=== PATIENT | male | born 1975 | race Caucasian/White ===

== ENCOUNTER 2020-05-26 12:33 | Outpatient (REF) | payer OTHER, SELFPAY ==
--- NOTE | ~2020-05-26 | US_ITS ---
EXAMINATION: US VENOUS ULTRASOUND WITH DOPPLER LOWER EXTREMITY, RIGHT CLINICAL INFORMATION: Nonhealing ulcer. COMPARISON: None TECHNIQUE: Ultrasound of the deep veins is performed from the hip to the calf with compression sonography and color and pulse Doppler assessment. Spectral analysis with color-flow imaging is performed. FINDINGS: There is normal venous compression and respiratory variation and augmented flow. The visualized common femoral vein, superficial femoral vein, profunda femoral vein, popliteal vein, and the trifurcation region shows no evidence of deep venous thrombosis. There is no significant popliteal fossa cyst. Great saphenous vein not well visualized on the ankle due to wound dressing position. If the patient's symptoms persist, followup ultrasound in 5 days 7 days might be of value to exclude proximal propagation from a non-visualized calf vein. US/US venous duplex LE RT IMPRESSION: No DVT demonstrated in the RIGHT lower extremity.
== END 2020-05-26 12:34 | disposition home or self-care (01) ==
LOC: HO.US 12:33
PROVIDERS: PCP Nurse Practitioner Family; Visit Provider Physician Assistant
DX: I73.9 Peripheral vascular disease, unspecified (principal); L97.212 Non-pressure chronic ulcer of right calf with fat layer exposed
CPT/HCPCS: 93971

== ENCOUNTER 2020-09-15 10:33 | Outpatient (REF) | payer OTHER, SELFPAY ==
--- NOTE | ~2020-09-15 | US_ITS ---
EXAMINATION: COLOR-FLOW DUPLEX IMAGING OF THE UNILATERAL RIGHT LOWER EXTREMITY ARTERIAL SYSTEM. VELOCITY MEASUREMENTS THROUGHOUT THE FEMORAL ARTERIES Interventional Radiologist: Rohan Santo M.D., F.S.I.R., F.A.C.R. CLINICAL INFORMATION: This is a 45-year-old male with right leg peripheral vascular disease. RIGHT FEMORAL RUNOFF VELOCITIES: The right common femoral artery measures 146 cm/s and triphasic. The right profunda femoral artery is 189 cm/s and is biphasic. Right proximal superficial femoral artery measures 55 cm/s and biphasic. Mid superficial femoral artery is 21 cm/s and biphasic. Distal right superficial femoral artery measures 39 cm/s and is biphasic. Right popliteal velocity measures 47 cm/s and is biphasic. The posterior tibial artery velocity measures 30 cm/s and was biphasic. US/US arterial duplex LE RT IMPRESSION: 1. There is scattered atherosclerotic disease present. However, no focal high-grade hemodynamically significant stenosis is seen.
--- NOTE | ~2020-09-15 | US_ITS ---
EXAMINATION: BILATERAL LOWER EXTREMITY VENOUS ULTRASOUND (Reflux Exam) CLINICAL INDICATION: This is a 45-year-old male with venous insufficiency. Varicose veins in the right leg. COMPARISON: None. TECHNIQUE: Color flow triplex imaging and compression Doppler was performed to evaluate both the deep and the superficial systems bilaterally. To evaluate the superficial system, the examination was performed in the upright position. Color-flow Doppler ultrasound and compression ultrasound were utilized. In addition, maneuvers were utilized to demonstrate reflux. FINDINGS: 1. DEEP VENOUS ULTRASOUND OF THE RIGHT LOWER EXTREMITY: Common Femoral Vein: Compressible, normal respiratory variation and augmented flow. Femoral vein: Compressible, normal color flow and augmentation. Popliteal Vein: Compressible, normal augmentation. Deep Reflux: There is no evidence of reflux in the deep system in either the common femoral vein or the popliteal vein. . There is no evidence of a Ball's cyst. 2. SUPERFICIAL ULTRASOUND WITH DOPPLER OF RIGHT LOWER EXTREMITY GREAT SAPHENOUS VEIN: Saphenofemoral junction: 0.6 cm Mid thigh: 0.3 cm Above knee: 0.3 cm Below knee: 0.3 cm Mid calf: 0.3 cm Ankle: Not seen. GSV REFLUX: No evidence of reflux. DUPLICATED GREAT SAPHENOUS VEIN: None SMALL SAPHENOUS VEIN: Upper: 0.6 cm Lower: 0.2 cm SSV REFLUX: No evidence of reflux. VEIN OF GIACOMINI: None Imaged. PERFORATORS: There is a 0.2 cm bundle cutter in the proximal thigh without evidence of reflux. VARICOSITIES: None Imaged US/US venous duplex LE RT IMPRESSION: 1. There is a patent right great saphenous vein and right small saphenous vein without evidence of reflux. No varicose veins are seen. No venous insufficiency is demonstrated.
== END 2020-09-15 10:34 | disposition home or self-care (01) ==
LOC: HO.US 10:33
PROVIDERS: Visit Provider Physician Assistant
DX: I73.9 Peripheral vascular disease, unspecified (principal); I87.2 Venous insufficiency (chronic) (peripheral)
CPT/HCPCS: 93926; 93971

== ENCOUNTER 2021-11-10 08:38 | Outpatient (REF) | payer OTHER, SELFPAY ==
--- NOTE | ~2021-11-10 | US_ITS ---
EXAMINATION: US LOWER EXTREMITY VENOUS (REFLUX EXAM), BILATERAL CLINICAL INDICATION: Chronic venous insufficiency with lower extremity varicose veins COMPARISON: None. TECHNIQUE: Color flow triplex imaging and compression Doppler was performed to evaluate both the deep and the superficial systems bilaterally. To evaluate the superficial system, the examination was performed in the upright position. Color-flow Doppler ultrasound and compression ultrasound were utilized. In addition, maneuvers were utilized to demonstrate reflux. FINDINGS: 1. DEEP VENOUS ULTRASOUND OF THE RIGHT LOWER EXTREMITY: Common Femoral Vein: Compressible, normal respiratory variation and augmented flow. Femoral Vein: Compressible, normal color flow and augmentation. Popliteal Vein: Compressible, normal augmentation. Deep Reflux: There is no evidence of reflux in the deep system in either the common femoral vein or the popliteal vein. There is no evidence of a Ball's cyst. 2. SUPERFICIAL ULTRASOUND WITH DOPPLER OF RIGHT LOWER EXTREMITY: GREAT SAPHENOUS VEIN: Saphenofemoral Junction: 0.7 cm; Reflux: 0 ms Proximal Thigh: 0.5 cm; Reflux: 0 ms Mid Thigh: 0.4 cm; Reflux: 0 ms Above Knee: 0.4 cm; Reflux: 0 ms At Knee: 0.5 cm; Reflux: 0 ms Below Knee: 0.5 cm; Reflux: 0 ms Mid Calf: 0.3 cm; Reflux: 0 ms Ankle: 0.3 cm; Reflux: 0 ms DUPLICATED MEDIAL GREAT SAPHENOUS VEIN: Diameter: None Imaged Reflux: NA DUPLICATED LATERAL GREAT SAPHENOUS VEIN: Diameter: 0.3 cm Reflux: None SMALL SAPHENOUS VEIN: Proximal: 0.3 cm; Reflux: 0 ms Distal: 0.2 cm; Reflux: 0 ms VEIN OF GIACOMINI: None Imaged. PERFORATORS: Location: Proximal calf extending to the great saphenous vein Size: 0.3 cm Reflux: Reflux measuring 376 ms VARICOSITIES: Location: Proximal thigh, mid thigh and proximal calf Size: 0.3 cm Reflux: 372 ms 3. DEEP VENOUS ULTRASOUND OF THE LEFT LOWER EXTREMITY: Common Femoral Vein: Compressible, normal respiratory variation and augmented flow. Femoral Vein: Compressible, normal color flow and augmentation. Popliteal Vein: Compressible, normal augmentation. Deep Reflux: There is no evidence of reflux in the deep system in either the common femoral vein or the popliteal vein. There is no evidence of a Ball's cyst. 4. SUPERFICIAL ULTRASOUND WITH DOPPLER OF LEFT LOWER EXTREMITY: GREAT SAPHENOUS VEIN: Saphenofemoral Junction: 0.6 cm; Reflux: 0 ms Proximal Thigh: 0.6 cm; Reflux: 0 ms Mid Thigh: 0.3 cm; Reflux: 0 ms Above Knee: 0.4 cm; Reflux: 0 ms At Knee: 0.4 cm; Reflux: 0 ms Below Knee: 0.3 cm; Reflux: 0 ms Mid Calf: 0.2 cm; Reflux: 0 ms Ankle: 0.2 cm; Reflux: 0 ms DUPLICATED MEDIAL GREAT SAPHENOUS VEIN: Diameter: None Imaged Reflux: NA DUPLICATED LATERAL GREAT SAPHENOUS VEIN: Diameter: 0.3 cm Reflux: Reflux SMALL SAPHENOUS VEIN: Proximal: 0.2 cm; Reflux: 0 ms Distal: 0.2 cm; Reflux: 0 ms VEIN OF GIACOMINI: None Imaged. PERFORATORS: Location: None Imaged Size: NA Reflux: NA VARICOSITIES: Location: None Imaged Size: NA Reflux: NA US/US venous duplex LE BI IMPRESSION: Right: No significant reflux in the great saphenous vein or small saphenous vein. There is a glove cleaner vein in the calf extending into the great saphenous vein with minimal reflux. Scattered varicosities is seen as described Left: No significant reflux in the great saphenous vein or small saphenous vein.
== END 2021-11-10 08:39 | disposition home or self-care (01) ==
LOC: HO.US 08:38
PROVIDERS: Visit Provider Physician Assistant
DX: I83.218 Varicose veins of right lower extremity with both ulcer of other part of lower extremity and inflammation (principal)
CPT/HCPCS: 93970

== ENCOUNTER 2022-02-06 06:25 | Outpatient (REF) | payer OTHER, SELFPAY ==
--- NOTE | ~2022-02-06 | FL_ITS ---
EXAMINATION: XR FLUOROSCOPY WITH IMAGES CLINICAL INFORMATION: M47.816 - Spondylosis without myelopathy or radiculopathy, lumbar region COMPARISON: None. TECHNIQUE: Fluoroscopy Supervised By: Dr. Spencer Gallardo. Fluoroscopy Time: 0.7 minutes. Cumulative Dose: 31.4 mGy. DAP: 8.57 Gycm2. Images: 8. FINDINGS: There are spinal needles overlying the bilateral outer lower lumbar neural foramen, likely L3, L4, and L5. There is contrast seen in the nerve sheaths. Some early transforaminal epidural extension is suggested. No visible vascular communication. There are degenerative changes lumbar spine with multilevel vertebral spurring. FL/FL guidance in treatment room IMPRESSION: Fluoroscopy for pain management procedures.
== END 2022-02-06 06:26 | disposition home or self-care (01) ==
LOC: CF 06:25
PROVIDERS: Visit Provider Anesthesiology
DX: M47.816 Spondylosis without myelopathy or radiculopathy, lumbar region (principal); G89.4 Chronic pain syndrome
CPT/HCPCS: 64493; 64494; J2795

== ENCOUNTER → 2022-02-07 11:20 | Outpatient (BNVA) | payer OTHER, SELFPAY | PROVIDERS: PCP Nurse Practitioner Family; Visit Provider Anesthesiology | DX: M47.816 Spondylosis without myelopathy or radiculopathy, lumbar region (principal) ==

== ENCOUNTER → 2022-06-18 09:13 | Outpatient (BNVA) | payer OTHER, SELFPAY | PROVIDERS: PCP Nurse Practitioner Family; Visit Provider Internal Medicine Rheumatology | DX: Z13.89 Encounter for screening for other disorder (principal) ==

== ENCOUNTER 2022-06-25 09:59 | Outpatient (REF) | payer OTHER, SELFPAY ==
--- NOTE | ~2022-06-25 | XR_ITS ---
EXAMINATION: 1. RADIOGRAPHS RIGHT HAND 2. RADIOGRAPHS LEFT HAND 3. RADIOGRAPHS SACROILIAC JOINTS CLINICAL INFORMATION: Diffuse pain COMPARISON: None TECHNIQUE: 3 views of each hand and 3 views of the sacroiliac joints were obtained. FINDINGS: Right hand: Visualized portion of the distal right radius and ulna demonstrate no fracture. Carpal rows are maintained. No carpal bone fracture. No metacarpal or phalangeal fracture. Suspected old healed fracture of the fifth metacarpal. Minimal degenerative changes of scattered IP joints. No focal soft tissue swelling of the hand. No radiopaque foreign body. Left hand: Visualized portion of the distal left radius and ulna demonstrate no fracture. Carpal rows are maintained. No carpal bone fracture. No metacarpal or phalangeal fracture. 2 mm metallic foreign body projecting over the soft tissues in the region of the fifth metacarpal. Sacroiliac joints: Sacroiliac joints are symmetric. No gross sacral fracture. There is neither fracture or dislocation of either hip. XR/XR sacroiliac joint min 3V IMPRESSION: -No fracture of either hand. -Sacroiliac joints are unremarkable.
--- NOTE | ~2022-06-25 | XR_ITS ---
EXAMINATION: 1. RADIOGRAPHS RIGHT HAND 2. RADIOGRAPHS LEFT HAND 3. RADIOGRAPHS SACROILIAC JOINTS CLINICAL INFORMATION: Diffuse pain COMPARISON: None TECHNIQUE: 3 views of each hand and 3 views of the sacroiliac joints were obtained. FINDINGS: Right hand: Visualized portion of the distal right radius and ulna demonstrate no fracture. Carpal rows are maintained. No carpal bone fracture. No metacarpal or phalangeal fracture. Suspected old healed fracture of the fifth metacarpal. Minimal degenerative changes of scattered IP joints. No focal soft tissue swelling of the hand. No radiopaque foreign body. Left hand: Visualized portion of the distal left radius and ulna demonstrate no fracture. Carpal rows are maintained. No carpal bone fracture. No metacarpal or phalangeal fracture. 2 mm metallic foreign body projecting over the soft tissues in the region of the fifth metacarpal. Sacroiliac joints: Sacroiliac joints are symmetric. No gross sacral fracture. There is neither fracture or dislocation of either hip. XR/XR hand LT min 3V IMPRESSION: -No fracture of either hand. -Sacroiliac joints are unremarkable.
--- NOTE | ~2022-06-25 | XR_ITS ---
EXAMINATION: 1. RADIOGRAPHS RIGHT HAND 2. RADIOGRAPHS LEFT HAND 3. RADIOGRAPHS SACROILIAC JOINTS CLINICAL INFORMATION: Diffuse pain COMPARISON: None TECHNIQUE: 3 views of each hand and 3 views of the sacroiliac joints were obtained. FINDINGS: Right hand: Visualized portion of the distal right radius and ulna demonstrate no fracture. Carpal rows are maintained. No carpal bone fracture. No metacarpal or phalangeal fracture. Suspected old healed fracture of the fifth metacarpal. Minimal degenerative changes of scattered IP joints. No focal soft tissue swelling of the hand. No radiopaque foreign body. Left hand: Visualized portion of the distal left radius and ulna demonstrate no fracture. Carpal rows are maintained. No carpal bone fracture. No metacarpal or phalangeal fracture. 2 mm metallic foreign body projecting over the soft tissues in the region of the fifth metacarpal. Sacroiliac joints: Sacroiliac joints are symmetric. No gross sacral fracture. There is neither fracture or dislocation of either hip. XR/XR hand RT min 3V IMPRESSION: -No fracture of either hand. -Sacroiliac joints are unremarkable.
[2022-06-25 10:14] LABS: MANUAL DIFF FLAG NO
[2022-06-25 10:36] LABS: Basophils Percent Auto 0.5 % (0-2); Eosinophils Absolute Auto 0.2 X10*3/uL (0.0-0.4); Eosinophils Percent Auto 2.3 % (0-4); Hematocrit 44.3 % (42.0-52.0); Hemoglobin 14.9 g/dl (14.0-18.0); Imm Gran Abs Auto 0.04 X10*3/uL (0.00-0.03); Imm Gran Pct Auto 0.5 % (0.0-0.4); Lymphocytes Absolute Auto 2.3 X10*3/uL (1.2-4.9); Lymphocytes Percent Auto 26.7 % (20-40); Mean Corpuscular HGB Conc 33.6 g/dl (31.0-36.0); Mean Corpuscular Hemoglobin 30.5 pg (27.0-33.0); Mean Corpuscular Volume 90.6 fL (80.0-98.0); Mean Platelet Volume 9.1 fL (9.4-12.4); Monocytes Absolute Auto 0.8 X10*3/uL (0.1-1.2); Monocytes Percent Auto 8.9 % (2-11); Neutrophils Absolute Auto 5.2 x10*3/uL (2.0-8.3); Neutrophils Percent Auto 61.1 % (45-73); Platelet Count 282 X10*3/uL (160-400); Red Blood Count 4.89 X10*6/uL (4.60-5.80); White Blood Count 8.6 X10*3/uL (4.8-10.8)
[2022-06-25 11:02] LABS: Alanine Aminotransferase 17 U/L (0-40); Albumin Level 4.1 g/dL (3.5-5.0); Alkaline Phosphatase 61 U/L (39-117); Anion Gap 11 (12-20); Aspartate Amino Transferase 17 U/L (5-37); Bilirubin Total 0.3 mg/dL (0.0-1.0); Blood Urea Nitrogen 16 mg/dL (9-16); C Reactive Protein 0.45 mg/dL (< or = 0.50); Calcium 9.6 mg/dL (8.4-10.2); Carbon Dioxide 28 mmol/L (22-29); Chloride 106 mmol/L (96-108); Estimated Glomerular Filt Rate > 60; Glucose Random 96 mg/dL (60-115); Potassium 4.5 mmol/L (3.3-5.1); Sodium 140 mmol/L (135-145)
[2022-06-25 11:14] LABS: Erythrocyte Sedimentation Rate 12 MM/HR (0-15)
[2022-06-27 19:38] LABS: Cardiolipin IgG Ab 5.1 GPL-U/mL; Cardiolipin IgM Ab 100.1 MPL-U/mL
[2022-06-28 11:38] LABS: Neutrophil Cyto Ab Screen NEGATIVE (NEGATIVE)
[2022-07-01 23:49] LABS: PTT (LAC) Screen 38 sec (<=40)
[2022-07-03 06:59] LABS: Beta-2 Glycoprotein IgA 9.4 U/mL (<20.0); Beta-2 Glycoprotein IgG 6.6 U/mL (<20.0); Beta-2 Glycoprotein IgM 98.5 U/mL (<20.0)
== END 2022-06-25 10:00 | disposition home or self-care (01) ==
LOC: HO.XRAY 09:59
PROVIDERS: Visit Provider Internal Medicine Rheumatology
DX: M54.50 Low back pain, unspecified (principal); M79.641 Pain in right hand; M79.642 Pain in left hand; L97.919 Non-pressure chronic ulcer of unspecified part of right lower leg with unspecified severity; L97.929 Non-pressure chronic ulcer of unspecified part of left lower leg with unspecified severity; Z15.89 Genetic susceptibility to other disease
CPT/HCPCS: 36415; 72202; 73130; 80053; 85025; 85597; 85613; 85652; 85730; 86036; 86140; 86146; 86147

== ENCOUNTER → 2022-08-06 11:33 | Outpatient (BNVA) | payer OTHER, SELFPAY | PROVIDERS: PCP Nurse Practitioner Family; Visit Provider Surgery ==

== ENCOUNTER 2022-12-24 19:33 | Outpatient (REF) | payer OTHER, SELFPAY | END 2022-12-24 19:34 | disposition home or self-care (01) | LOC: HO.MRI 19:33 | PROVIDERS: PCP Nurse Practitioner Family; Visit Provider Internal Medicine Rheumatology | DX: Z13.89 Encounter for screening for other disorder (principal) ==

== ENCOUNTER 2023-02-04 14:33 | Outpatient (AMB) | payer OTHER, SELFPAY ==
--- NOTE | 2023-02-04 14:39 | MHC.OFFVIS ---
Intake Vital Signs 02/04/23 14:45 Height 6 ft Weight 342 lb 9.573 oz BMI 46.5 BP 122/74 Blood Pressure Location Rt radial Position Sitting Pulse 86 Pulse Source Pulse Oximeter Temp 98.1 F Temp Source Skin Pulse Oximetry (%) 96 Oxygen Delivery Method Room Air Intake Visit Reasons: Follow up Intake Note: Patient last seen 06/18/22, presents today for follow up and test results. Reports seeing wound care today, here at [facility] [place], [place]. States he was instructed to talk to us about starting a biologic. Requesting ibuprofen refill. Revolving Inventory Clerk Required: No Accompanied by: Self / Same As Patient Allergies No Known Allergies Allergy (Verified 02/04/23 14:40) HPI HPI Comments History of Present Illness Details The patient presents for evaluation of leg ulcers, B27 positivity, low back and hip pains, and hidradenitis suppurativa. He does take [id number] ibuprofen, 800 mg 2 or 3 times a day and some nighttime tizanidine with some benefit. His back pain gets better with activity during the day and bothers him more at night. More problematic are the painful leg ulcers bilaterally. These have been managed for the last couple of years with topical agents but no improvement. He did see Dermatology back in July but there was no follow-up at the time. I had ordered an MRI of the pelvis to look for sacroiliitis. That was approved apparently at our hospital but the patient was too large to fit in the machine. He was then sent to a different facility but the scan was denied. It is not clear that they did not realize that the 1st scan could not be done. [facility] Surgical History Hx of total knee arthroplasty Family History Mother Hx of breast cancer Father Skin cancer Other Family history of arthritis Social History Alcohol intake: current Alcohol intake frequency: holidays/special occasions only Patient Tobacco Use Status: Current everyday Tobacco user Tobacco use type: Cigarette Cigarette Packs Per Day: 0.5 Cigarettes Per Day: 10 Review of Systems Const Details: Negative for appetite change, weight change, fever, chills, malaise and fatigue Eyes Details: Negative for vision change, dry eyes,headaches and dizziness ENT Details: Negative for hearing change, tinnitus, oral ulcer, nose bleeds and oral dryness. Card Details: Negative chest pain, edema and syncope Resp Details: Negative for SOB, cough and wheezing GI Details: Negative indigestion/heartburn, nausea, abdominal pain, bowel changes, diarrhea, constipation and bloody stool. Details: Negative for dysuria, hematuria, nocturia, decreased force/flow and genital discharge Skin/Breast Details: Negative for itching, rash, hives, Raynaud's symptoms, sun sensitivity, and skin cancer Neuro Details: Negative for epilepsy, palsy, stroke, changes in speech, tingling and weakness Endo Details: Negative for polyuria and polydypsia Mynor/Lymph Details: Negative for excessive bruising or bleeding. Physical Exam Vital Signs: Last Vital Signs Temp 98.1 F 02/04/23 14:45 Pulse 86 02/04/23 14:45 BP 122/74 02/04/23 14:45 Pulse Ox 96 02/04/23 14:45 Oxygen Delivery Method Room Air 02/04/23 14:45 BMI result Body Mass Index 46.5 APPEARANCE: Patient in no acute distress EYES no redness, pupils equal and reactive to light, eyelids normal EARS: External ear normal, canal clear and tympanic membrane normal. NOSE/SINUS: Airflow through both nares, no nasal discharge, no bleeding THROAT: Oral mucosa moist, no ulcerations NECK: No thyromegaly or masses, no adenopathy, trachea midline. HEART: Regulrar rhythm, S1-S2 heard, no murmurs, rubs or gallops. LUNG: Clear to percussion and auscultation ABD: Normal bowel sounds, no organomegaly, masses or tenderness. EXTREMITIES: No edema, no calf tenderness, normal peripheral pulses. There is a large bandage over the right lateral calf and the left medial calf regions. I did not remove them. There is evidence of some fluid coming through the bandages. They are not tender. NEURO: Oriented and alert x3. No focal weakness. Reflexes symmetric. Gait normal. SKIN: There is scarring around the face and upper back consistent with acne in the past. There is some redness in the axillary regions and inguinal regions bilaterally. The red areas are accompanied by nodules consistent with small skin abscesses. Many of them are healed up with just scarring and a few are slightly tender. None are currently draining. There are more such lesions the in the right axilla than the left axilla and the lesions are more prominent in the axillary regions than in the groins. He has the above-mentioned bandages on the legs where he has his the leg ulcers. JOINT EXAM:?? Cervical Spine:.? Full range of motion without pain; no tenderness. Thoracic Spine:.? No scoliosis.? No tenderness on palpation. Lumbar Spine:.? Alignment normal.? Mild pain with extremes of flexion or extension. No tenderness. Chest Wall:.? No tenderness, swelling, increased warmth or erythema. Hands:.? Normal pain-free range of motion with some slight tenderness across the PIP joints but none of these are swollen. Other joints have no tenderness, swelling, increased warmth or erythema. There is no thenar atrophy, sensory loss or flexor tendon triggering. The fingernails look normal. Wrists:.? Normal pain-free range of motion without tenderness, swelling, increased warmth or erythema. Elbows:. Normal pain-free range of motion without tenderness, swelling, increased warmth or erythema. Shoulders:.?? Full range of motion without pain. No tenderness, weakness, swelling, increased warmth or erythema. Hips:.? Full range of motion without pain. Hip bursa:.? No tenderness. Knees: Right: There is a large anterior scar that seems well healed. He does have slight discomfort with extremes of normal range of motion with some minimal medial tenderness but no effusion, redness or warmth. No popliteal tenderness or ligamentous laxity. Left: Mild to moderate patellofemoral crepitus and slight pain with extremes of flexion or extension. There is mild medial tenderness without effusion, soft tissue swelling, increased warmth or erythema.? Ankles:.? Normal pain-free range of motion with slight lateral tenderness but no swelling, increased warmth or erythema. Feet:.? Normal pain-free range of motion without tenderness, swelling, increased warmth or erythema. Tender points:.? No tenderness to digital palpation at the occiput, trapezius, second rib, lateral epicondyle, knees, greater trochanter and gluteal area bilaterally. Ankles:.? Normal pain-free range of motion without tenderness, swelling, increased warmth or erythema. Feet:.? Normal pain-free range of motion without tenderness, swelling, increased warmth or erythema. Tender points:? No tenderness to digital palpation at the occiput, trapezius, second rib, lateral epicondyle, knees, greater trochanter and gluteal area bilaterally. ? Results Reviewed Results Reviewed: Laboratory Tests 06/25/22 10:12 WBC 8.6 Hgb 14.9 ESR 12 Creatinine 0.93 C-Reactive Protein 0.[address] [address] XRay Report Signed Patient: Flaquito Del Angel MR#: [id number] : 1975 Acct:[id number] Age/Sex: 47 / M ADM Date: 06/25/[address]: Elvis Fletcher MD Ordering Physician: Elvis Fletcher MD Date of Service: 06/25/22 Procedure(s): XR sacroiliac joint min 3V Accession Number(s): [id number] cc: Elvis Fletcher MD~ EXAMINATION: 1. RADIOGRAPHS RIGHT HAND 2. RADIOGRAPHS LEFT HAND 3. RADIOGRAPHS SACROILIAC JOINTS CLINICAL INFORMATION: Diffuse pain COMPARISON: None TECHNIQUE: 3 views of each hand and 3 views of the sacroiliac joints were obtained. FINDINGS: Right hand: Visualized portion of the distal right radius and ulna demonstrate no fracture. Carpal rows are maintained. No carpal bone fracture. No metacarpal or phalangeal fracture. Suspected old healed fracture of the fifth metacarpal. Minimal degenerative changes of scattered IP joints. No focal soft tissue swelling of the hand. No radiopaque foreign body. Left hand: Visualized portion of the distal left radius and ulna demonstrate no fracture. Carpal rows are maintained. No carpal bone fracture. No metacarpal or phalangeal fracture. 2 mm metallic foreign body projecting over the soft tissues in the region of the fifth metacarpal. Sacroiliac joints: Sacroiliac joints are symmetric. No gross sacral fracture. There is neither fracture or dislocation of either hip. XR/XR sacroiliac joint min 3V IMPRESSION: -No fracture of either hand. -Sacroiliac joints are unremarkable. 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 Three biopsies done, no vasculitis seen. Code(s): L88 - Pyoderma gangrenosum (6) Hidradenitis axillaris: Code(s): L73.2 - Hidradenitis suppurativa Plan The longstanding nature of these ulcers that came on after relatively minor trauma is consistent with pyoderma gangrenosum. The biopsy has been done 3 times and each time vasculitis was not demonstrated. Topical measures have not been affective so I think we need to move on to more systemic treatment. I would prefer this be managed to Dermatology but I will start for now with minocycline 100 mg b.i.d. and prednisone 60 mg daily. He will taper down to 50 mg after 10 days and then drop by 10 mg every week thereafter. He will continue follow-up in wound clinic where they can take pictures and monitor the size of the ulcers. I told him that if the prednisone were affective he would start having less pain in the area within a week or so after starting the prednisone. I will also pursue further the possibility of sacroiliitis with again trying to get approval for a pelvic MRI of the SI joints. If sacroiliitis is present I would pursue treatment with TNF inhibitors which would likely be beneficial is well for the pyoderma. Today the hidradentis is not prominent but that is also liekly to respond to a TNF inhibitor. I will also see if we can get him to get follow-up in Dermatology where they can also give us an opinion on additional treatment for the pyoderma. We will aim for follow-up at about 5 or 6 weeks. Orders: Orders Erythrocyte Sedimentation Rate Today L88 - Pyoderma gangrenosum Comprehensive Met. 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 Complete Blood Count Auto Diff Today L88 - Pyoderma gangrenosum C Reactive Protein Today L88 - Pyoderma gangrenosum Medications: New prednisone 6 tab once a day for 10 days, then 5 tab daily for 7 days, then 4 tab daiy for 7 days, then 3 tab daily; see taper instructions 180 tabs 1RF L88 - Pyoderma gangrenosum minocycline 100 mg PO BID 60 caps 1RF L88 - Pyoderma gangrenosum Coding Level of Care Code Est Pt Level 4 (94654) Diagnoses penitentiary (current) use of other immunomodulators and immunosuppressants Z79.69 HLA B27 (HLA B27 positive) Z15.89 Osteoarthritis of left knee M17.12 Spondylosis of lumbar region without myelopathy or radiculopathy M47.816 Pyoderma gangrenosum L88 Hidradenitis axillaris L73.2
[2023-02-04 14:45] VITALS: BP 122/74; PULSE 86; TEMP 36.7; O2SAT 96; BMI 46.5
== END 2023-02-04 15:25 | disposition home or self-care (01) ==
PROVIDERS: PCP Nurse Practitioner Family; Visit Provider Internal Medicine Rheumatology
DX: Z79.69 Long term (current) use of other immunomodulators and immunosuppressants (principal); Z15.89 Genetic susceptibility to other disease; M17.12 Unilateral primary osteoarthritis, left knee; M47.816 Spondylosis without myelopathy or radiculopathy, lumbar region; L88 Pyoderma gangrenosum; L73.2 Hidradenitis suppurativa
CPT/HCPCS: 99214

== ENCOUNTER → 2023-02-04 14:33 | Outpatient (BNVA) | payer OTHER, SELFPAY | PROVIDERS: PCP Nurse Practitioner Family; Visit Provider Internal Medicine Rheumatology ==

== ENCOUNTER 2023-03-11 08:29 | Outpatient (AMB) | payer OTHER, SELFPAY ==
--- NOTE | 2023-03-11 08:31 | MHC.OFFVIS ---
Intake Vital Signs 03/11/23 08:32 Height 6 ft Weight 360 lb 7.292 oz BMI 48.9 BP 130/100 H Blood Pressure Location Rt radial Pulse 66 Pulse Source Pulse Oximeter Temp 97 F Temp Source Skin Pulse Oximetry (%) 97 Oxygen Delivery Method Room Air Intake Visit Reasons: follow up Intake Note: Patient last seen 02/04/23 presents today for follow up. Labs remain pending. Reports unable to have MRI done due to copay. [place] Tender Required: No Accompanied by: Self / Same As Patient Allergies No Known Allergies Allergy (Verified 02/04/23 14:40) Medication List - Last Reconciled 03/11/23 by Agnieszka Ceja MD ibuprofen 200 mg PO Q6H PRN minocycline 100 mg PO BID prednisone 6 tab once a day for 10 days, then 5 tab daily for 7 days, then 4 tab daiy for 7 days, then 3 tab daily; see taper instructions HPI HPI Comments History of Present Illness Details This is a 48-year-old male with hydradenitis suppurativa, pyoderma gangrenosum, HLA B27 positivity who presents for follow-up. Patient was scheduled for an SI joint MRI but he was told that the co-pay would be 500 dollars and he could not afford it. He is currently on prednisone 30 mg daily. Down from a higher dose. He remains on minocycline 100 mg Twice daily. He feels that the lesions on his right leg are smaller. But the lesions on his left leg are about the same. He continues to follow-up with [facility]. States that he has an appointment with Dermatology next month. Continues to have back pain, mostly towards the end of the day. 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 Most recent history by Dr. Fletcher 02/09:The patient presents for evaluation of leg ulcers, B27 positivity, low back and hip pains, and hidradenitis suppurativa. He does take [id number]-nbhrfoz ibuprofen, 800 mg 2 or 3 times a day and some nighttime tizanidine with some benefit. His back pain gets better with activity during the day and bothers him more at night. More problematic are the painful leg ulcers bilaterally. These have been managed for the last couple of years with topical agents but no improvement. He did see Dermatology back in July but there was no follow-up at the time. I had ordered an MRI of the pelvis to look for sacroiliitis. That was approved apparently at our hospital but the patient was too large to fit in the machine. He was then sent to a different facility but the scan was denied. It is not clear that they did not realize that the 1st scan could not be done. [facility] Surgical History Hx of total knee arthroplasty Family History Mother Hx of breast cancer Father Skin cancer Other Family history of arthritis Social History Alcohol intake: current Alcohol intake frequency: holidays/special occasions only Patient Tobacco Use Status: Current everyday Tobacco user Tobacco use type: Cigarette Cigarettes Per Day: 6 Review of Systems Musc Reports back pain and Reports arthralgias Skin/Breast Reports lesions, Reports non-healing lesions, Reports skin ulcer and Reports wounds Physical Exam Vital Signs: Last Vital Signs Temp 97 F 03/11/23 08:32 Pulse 66 03/11/23 08:32 BP 130/100 H 03/11/23 08:32 Pulse Ox 97 03/11/23 08:32 Oxygen Delivery Method Room Air 03/11/23 08:32 BMI result Body Mass Index 48.9 Const General: cooperative, healthy appearing and comfortable Nutritional Appearance: obese morbidly obese Orientation/consciousness: patient oriented x3 Limitations: no limitations HEENT Head: Yes normocephalic and Yes atraumatic Mouth: moist mucous membranes Resp Effort & Inspection: normal respiratory effort and able to speak in complete sentences Cardio Rate: regular rate Rhythm: regular rhythm Skin Other: Neuro General: patient oriented x3 Extrem Other: No active peripheral synovitis Negative Timothy test bilaterally Negative straight leg raise test bilaterally Results Reviewed Results Reviewed: Laboratory Tests 06/25/22 10:12 WBC 8.6 Hgb 14.9 ESR 12 Creatinine 0.93 C-Reactive Protein 0.[address] [address] XRay Report Signed Patient: Flaquito Del Angel MR#: [id number] : 1975 Acct:[id number] Age/Sex: 47 / M ADM Date: 06/25/[address]: Elvis Flecther MD Ordering Physician: Elvis Fletcher MD Date of Service: 06/25/22 Procedure(s): XR sacroiliac joint min 3V Accession Number(s): [id number] cc: Elvis Fletcher MD~ EXAMINATION: 1. RADIOGRAPHS RIGHT HAND 2. RADIOGRAPHS LEFT HAND 3. RADIOGRAPHS SACROILIAC JOINTS CLINICAL INFORMATION: Diffuse pain COMPARISON: None TECHNIQUE: 3 views of each hand and 3 views of the sacroiliac joints were obtained. FINDINGS: Right hand: Visualized portion of the distal right radius and ulna demonstrate no fracture. Carpal rows are maintained. No carpal bone fracture. No metacarpal or phalangeal fracture. Suspected old healed fracture of the fifth metacarpal. Minimal degenerative changes of scattered IP joints. No focal soft tissue swelling of the hand. No radiopaque foreign body. Left hand: Visualized portion of the distal left radius and ulna demonstrate no fracture. Carpal rows are maintained. No carpal bone fracture. No metacarpal or phalangeal fracture. 2 mm metallic foreign body projecting over the soft tissues in the region of the fifth metacarpal. Sacroiliac joints: Sacroiliac joints are symmetric. No gross sacral fracture. There is neither fracture or dislocation of either hip. XR/XR sacroiliac joint min 3V IMPRESSION: -No fracture of either hand. -Sacroiliac joints are unremarkable. Dictated By: Bertram Davis MD Signed By: <Electronically signed by Bertram Davis MD in OV> Assessment & Plan Assessment & Plan (1) Pyoderma gangrenosum: Comment: Since 2020, bilateral leg ulcers. Three biopsies done, no vasculitis seen. Code(s): L88 - Pyoderma gangrenosum Plan: This is a 48-year-old male presents as his 1st visit with me. He used to follow-up with Dr. Fletcher. Patient has HLA B27 positivity, recurrent leg ulcers that occur after minor trauma. Patient had multiple biopsies which were all negative for vasculitis. Clinically these lesions are consistent with pyoderma gangrenosum. There is little improvement with prednisone taper and patient is morbidly obese and is high risk of high-dose chronic use steroids. He has also been on minocycline 100 mg Twice daily for 6 weeks with little improvement. He follows up regularly with wound care. At this point patient needs escalation of therapy. Adalimumab has been used quite successfully for pyoderma gangrenosum. Arch Dermatol.?2007;143(3):306-308. doi:10.1001/archderm.143.3.306 PMID:?[id number]://pubmed.ncbi.nlm.nih.gov/26682441 PMID:?[id number] Adalimumab should also be helpful for his hidradenitis suppurativa. 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 Advised patient to hold Humira and call the office if he develops any signs of infection or fever. (3) HLA B27 (HLA B27 positive): Code(s): Z15.89 - Genetic susceptibility to other disease (4) Hidradenitis axillaris: Code(s): L73.2 - Hidradenitis suppurativa Plan: As mentioned above (5) Antiphospholipid antibody positive: Code(s): R76.0 - Raised antibody titer Plan: No history of arterial or venous thromboembolism. Will discuss further next visit Plan I spent 60 minutes reviewing patient's chart, reviewing the literature, evaluating patient, ordering diagnostic workup, counseling patient and documenting in the chart Orders: Orders Complete Blood Count Auto Diff Today L88 - Pyoderma gangrenosum Erythrocyte Sedimentation Rate Today L88 - Pyoderma gangrenosum Hepatitis A,B,C Profile Today Z79.69 - technician terminal and repeater (current) use of other immunomodulators and immunosuppressants MARLENY Reflex Titer and Pattern Today M32.9 - Systemic lupus erythematosus, unspecified Anti Extractable Nuclear Ag Today M32.9 - Systemic lupus erythematosus, unspecified Complement C4 Today M32.9 - Systemic lupus erythematosus, unspecified Sjogren's Antibodies Today M32.9 - Systemic lupus erythematosus, unspecified DNA Double Stranded-Crithidia Today M32.9 - Systemic lupus erythematosus, unspecified Cyclic Citrullinated Peptide Today M25.50 - Pain in unspecified joint C Reactive Protein Today L88 - Pyoderma gangrenosum Comprehensive Met. Panel Today L88 - Pyoderma gangrenosum T Spot TB Today Z79.69 - intermediate (current) use of other immunomodulators and immunosuppressants Anti DNA DS Antibody Today M32.9 - Systemic lupus erythematosus, unspecified Complement C3 Today M32.9 - Systemic lupus erythematosus, unspecified Protein Creatinine Ratio, Ur Today M32.9 - Systemic lupus erythematosus, unspecified UA w Microscopic Today M32.9 - Systemic lupus erythematosus, unspecified Medications: Changed From prednisone 6 tab once a day for 10 days, then 5 tab daily for 7 days, then 4 tab daiy for 7 days, then 3 tab daily; see taper instructions 180 tabs 1RF L88 - Pyoderma gangrenosum To prednisone 3 tabs daily for 1 month then remain on 2 tabs daily 210 tabs 0RF L88 - Pyoderma gangrenosum Refilled minocycline 100 mg PO BID 180 caps 0RF L88 - Pyoderma gangrenosum Coding Level of Care Code Est Pt Level 5 (83350) Diagnoses Pyoderma gangrenosum L88 technician terminal and repeater (current) use of other immunomodulators and immunosuppressants Z79.69 HLA B27 (HLA B27 positive) Z15.89 Hidradenitis axillaris L73.2 Antiphospholipid antibody positive R76.0
[2023-03-11 08:32] VITALS: BP 130/100; PULSE 66; TEMP 36.1; O2SAT 97; BMI 48.9
== END 2023-03-11 09:01 | disposition home or self-care (01) ==
PROVIDERS: PCP Nurse Practitioner Family; Visit Provider Student in an Organized Health Care Education/Training Program
DX: L88 Pyoderma gangrenosum (principal); Z79.69 Long term (current) use of other immunomodulators and immunosuppressants; Z15.89 Genetic susceptibility to other disease; L73.2 Hidradenitis suppurativa; R76.0 Raised antibody titer
CPT/HCPCS: 99215

== ENCOUNTER 2023-03-11 08:29 | Outpatient (REF) | payer OTHER, SELFPAY ==
[2023-03-11 14:06] LABS: MANUAL DIFF FLAG NO
[2023-03-11 14:17] LABS: Basophils Percent Auto 0.3 % (0-2); Eosinophils Percent Auto 0.1 % (0-4); Hematocrit 43.9 % (42.0-52.0); Hemoglobin 14.7 g/dl (14.0-18.0); Imm Gran Abs Auto 0.03 X10*3/uL (0.00-0.03); Imm Gran Pct Auto 0.3 % (0.0-0.4); Lymphocytes Percent Auto 10.3 % (20-40); Mean Corpuscular HGB Conc 33.5 g/dl (31.0-36.0); Mean Corpuscular Hemoglobin 31.1 pg (27.0-33.0); Mean Platelet Volume 9.1 fL (9.4-12.4); Monocytes Absolute Auto 0.4 X10*3/uL (0.1-1.2); Monocytes Percent Auto 3.5 % (2-11); Neutrophils Absolute Auto 8.6 x10*3/uL (2.0-8.3); Neutrophils Percent Auto 85.5 % (45-73); Platelet Count 262 X10*3/uL (160-400); Red Blood Count 4.72 X10*6/uL (4.60-5.80); Red Cell Distribution Width 13.3 % (11.0-16.0); White Blood Count 10.1 X10*3/uL (4.8-10.8)
[2023-03-11 15:33] LABS: Erythrocyte Sedimentation Rate 9 MM/HR (0-15)
[2023-03-11 15:36] LABS: Appearance Urine Cloudy; Color Urine Yellow; Glucose Urine UA Negative (Negative); Leukocyte Esterase Urine Negative (Negative); Nitrite Urine Negative (Negative); PH 8.5 (5.0-9.0); Specific Gravity - Urine 1.015 (1.005-1.025); Urine Blood Negative (Negative); Urine Ketones Negative (Negative); Urine Protein Negative (Neg-Trace)
[2023-03-11 15:41] LABS: Bacteria Urine None Seen (None Seen); Hyaline Casts Urine 0-2 /LPF (0-2); RBC Urine 0-2 /HPF (0-2); Squamous Epithelial Cell Urine 0-2 /HPF (0-2); WBC Urine 0-5 /HPF (0-5)
[2023-03-11 15:44] LABS: Alanine Aminotransferase 26 U/L (0-40); Albumin Level 4.2 g/dL (3.5-5.0); Alkaline Phosphatase 60 U/L (39-117); Anion Gap 15 (12-20); Aspartate Amino Transferase 18 U/L (5-37); Bilirubin Total 0.4 mg/dL (0.0-1.0); Blood Urea Nitrogen 21 mg/dL (9-16); C Reactive Protein 0.38 mg/dL (< or = 0.50); Calcium 9.8 mg/dL (8.4-10.2); Carbon Dioxide 27 mmol/L (22-29); Chloride 102 mmol/L (96-108); Estimated Glomerular Filt Rate > 60; Glucose Random 215 mg/dL (60-115); Potassium 4.2 mmol/L (3.3-5.1); Sodium 140 mmol/L (135-145); Total Protein 7.5 g/dL (6.5-8.0)
[2023-03-11 18:02] LABS: Creatinine Urine 56.87 mg/dL; Total Protein Urine Random < 7 mg/dL (<12)
[2023-03-12 12:59] LABS: HBS Num1 1.24 mIU/mL (0-7.99); HBc Num1 0.17 S/CO (0.00-0.79); HBsAGNum1 0.32 S/CO (0.00-0.99); Hepatitis A Antibody IgM 0.11 Index (0-0.79); Hepatitis B Core Antibody Nonreactive (Nonreactive); Hepatitis B Surface Antigen Negative (Negative); ~HepC Num1 0.06 S/CO (0.00-0.79); ~Hepatitis A Antibody IgM Nonreactive (Nonreactive); ~Hepatitis B Surface Antibody NONREACTIVE (Nonreactive); ~Hepatitis C Antibody Nonreactive (Nonreactive)
[2023-03-13 12:59] LABS: Anti DNA DS Antibody <1 IU/mL; Antibody to SS-A Antigen <1.0 NEG AI (<1.0 NEG); Antibody to SS-B Antigen <1.0 NEG AI (<1.0 NEG); SM/Ribonucleoprotein Ab <1.0 NEG AI (<1.0 NEG); Smith Protein <1.0 NEG AI (<1.0 NEG)
[2023-03-13 20:24] LABS: TS Negative Control Passed; TS Panel A 0; TS Panel B 0; TS Positive Control Passed; TSpotTB Negative (Negative)
[2023-03-13 20:34] LABS: Complement C3 161 mg/dL (82-185)
[2023-03-14 06:24] LABS: DNAds, Crithidia Antibody Negative (Negative)
[2023-03-14 12:08] LABS: Cyclic Citrullinated Peptide <16 UNITS
[2023-03-14 12:23] LABS: Anti Nuclear Antibody Screen NEGATIVE (NEGATIVE)
== END 2023-03-11 08:30 | disposition home or self-care (01) ==
LOC: HO.LAB 08:29
PROVIDERS: PCP Nurse Practitioner Family; Visit Provider Student in an Organized Health Care Education/Training Program
DX: Z11.1 Encounter for screening for respiratory tuberculosis (principal); L88 Pyoderma gangrenosum; L73.2 Hidradenitis suppurativa; R76.0 Raised antibody titer; Z15.89 Genetic susceptibility to other disease; Z79.69 Long term (current) use of other immunomodulators and immunosuppressants; M25.50 Pain in unspecified joint; M32.9 Systemic lupus erythematosus, unspecified
CPT/HCPCS: 36415; 80053; 81001; 82570; 84156; 85025; 85652; 86038; 86140; 86160; 86200; 86225; 86235; 86255; 86481; 86704; 86706; 86709; 86803; 87340

== ENCOUNTER 2023-06-11 16:21 | Inpatient (IN) | payer OTHER, SELFPAY ==
[2023-06-11 17:25] VITALS: BP 149/79; PULSE 71; RESP 18; TEMP 36.6; O2SAT 97; BMI 46.9
--- NOTE | 2023-06-11 17:26 | ED.WOUNDLAC ---
HPI - Wound/Laceration General Chief Complaint: Wound/Laceration Stated Complaint: sent by wound care, antibiotics, surgical debridme Time Seen by Provider: 06/11/23 23:33 Source: patient Mode of arrival: ambulatory History of Present Illness HPI narrative: 48-year-old male with newly diagnosed diabetes in addition to ineffective wound healing of the left calf and sent in by wound care for surgical debridement. Related Data Home Medications ?Medication ?Instructions ?Recorded ?Confirmed ibuprofen 200 mg tablet 200 mg PO Q6H PRN 06/18/22 03/11/23 Previous Rx's ?Medication ?Instructions ?Recorded minocycline 100 mg capsule 100 mg PO BID #180 caps 03/11/23 prednisone 5 mg tablet See Rx Instructions PO DIRECTED 05/29/23 #42 tabs Allergies Allergy/AdvReac Type Severity Reaction Status Date / Time No Known Allergies Allergy Verified 06/11/23 17:28 Review of Systems Review of Systems: Positives and negatives as stated in HPI PMFSH Past Medical History Source: nursing notes reviewed Surgical History Hx of total knee arthroplasty Family History Family History Mother Hx of breast cancer Father Skin cancer Other Family history of arthritis Social History Social History Alcohol intake: current Alcohol intake frequency: holidays/special occasions only Patient Tobacco Use Status: Current everyday Tobacco user Tobacco use type: Cigarette Cigarettes Per Day: 6 Advance Directives: No Advance Directives Information Provided: Yes Physical Exam Vital Signs: Vital Signs: Last Vital Signs Temp 97.0 F 06/12/23 01:10 Pulse 71 06/12/23 01:10 Resp 18 06/12/23 01:10 BP 155/97 H 06/12/23 01:10 Pulse Ox 97 06/12/23 01:10 O2 Del Method Room Air 06/12/23 01:10 BMI result Body Mass Index 46.9 VITAL SIGNS: Reviewed. GENERAL: Elevated BMI, Well developed, well nourished, in no acute distress. HEAD: Normocephalic/atraumatic EYES: PERRLA, EOMI LUNGS: Normal breath sounds. No adventitious sounds or accessory muscle use. SpO2<97> CARDIOVASCULAR: Regular rate and rhythm without noted murmurs ABDOMEN: Soft, non-tender, non-distended with bowel sounds. MUSCULOSKELETAL: No tenderness, deformities, or effusions noted on gross inspection. EXTREMITIES: No cyanosis, clubbing or edema. SKIN: Inspection of the skin reveals no rashes LLE: There are multiple poor healing wounds to the calf area with visualized necrotic muscle tissue NEUROLOGIC: Alert and oriented x 4. Strength and sensation to light touch were grossly intact x 4. Course Course Course Narrative: This is an RME: Additional HPI, ROS, PE not included below will be deferred to primary provider. This is a [id number]-ldc-male, with a hx of hydradenitis suppurativa, pyoderma gangrenosum, HLA B27 positivity, who presents to the ER with complaints of BL calf infection. This has been an ongiong issue for over a year, went to wound care today and was told to come in the ER for surgical debridement. Expect was called in by Dr. Welch, who states that he will likely need surgical debridement. Plan: Labs Medical Decision Making Medical Decision Making MDM Narrative: 48-year-old male with history and clinical presentation, DDX: Infection nonhealing wound ulcer I reviewed all investigations and there is almost no leukocytosis, patient is afebrile and inflammatory markers are within normal limits, no anemia or thrombocytopenia. Chemistry indices do not demonstrate TRACY or electrolyte/liver enzyme derangements. 0046: I discussed the case with Dr. Carlin who is aware of the patient and accepts admission. Differential Diagnosis Differential Diagnoses: The differential diagnosis associated with the presentation includes Please see the discussion above Admission/Observation Consideration of admission/observation: Escalation of care including admission/observation considered Please see the discussion above Consult Healthcare Provider Management of the patient was discussed with: Java Integration Developer Please see the discussion above Lab Data [facility] Lab Attestation statement: I reviewed the patient's lab results. Please see the discussion above 06/11/23 17:52 06/11/23 17:51 Labs: Lab Results 06/11/23 06/11/23 Range/Units 17:51 17:52 WBC 11.1 H (4.8-10.8) X10*3/uL RBC 4.70 (4.60-5.80) X10*6/uL Hgb 14.6 (14.0-18.0) g/dl Hct 43.4 (42.0-52.0) % MCV 92.3 (80.0-98.0) fL MCH 31.1 (27.0-33.0) pg MCHC 33.6 (31.0-36.0) g/dl RDW 13.8 (11.0-16.0) % Plt Count 263 (160-400) X10*3/uL MPV 8.9 L (9.4-12.4) fL Immature Gran % (Auto) 0.3 (0.0-0.4) % Neut % (Auto) 68.7 (45-73) % Lymph % (Auto) 22.6 (20-40) % [place] % (Auto) 7.1 (2-11) % Eos % (Auto) 1.0 (0-4) % Baso % (Auto) 0.3 (0-2) % Lymph # (Auto) 2.5 (1.2-4.9) X10*3/uL [place] # (Auto) 0.8 (0.1-1.2) X10*3/uL Eos # (Auto) 0.1 (0.0-0.4) X10*3/uL Baso # (Auto) 0.0 (0.0-0.2) X10*3/uL Abs Immat Gran (auto) 0.03 (0.00-0.03) X10*3/uL Absolute Neuts (auto) 7.6 (2.0-8.3) x10*3/uL Absolute Nucleated RBC 0.000 (0.0-0.012) X10*3/uL Nucleated RBC % (auto) 0.0 (0.0-0.2) /100WBC Sodium 141 (135-145) mmol/L Potassium 3.9 (3.3-5.1) mmol/L Chloride 108 (96-108) mmol/L Carbon Dioxide 26 (22-29) mmol/L Anion Gap 11 L (12-20) BUN 22 H (9-16) mg/dL Creatinine 0.83 (0.5-1.4) mg/dL Estim Creat Clear Calc 164.6 Estimated GFR > 60 Random Glucose 146 H (60-115) mg/dL Calcium 9.3 (8.4-10.2) mg/dL Total Bilirubin 0.2 (0.0-1.0) mg/dL Direct Bilirubin < 0.2 (0.0-0.5) mg/dL AST 15 (5-37) U/L ALT 18 (0-40) U/L Alkaline Phosphatase 50 (39-117) U/L C-Reactive Protein 0.39 (< or = 0.50) mg/dL Total Protein 7.0 (6.5-8.0) g/dL Albumin 3.9 (3.5-5.0) g/dL Chronic Conditions Patient?s care impacted by: Diabetes and Hypertension Critical Care Time Critical Care Time Critical Care Time: Yes Total Critical Care Time: 60 Attestation: I personally attest to this time spent taking care of the patient. Discharge Plan Discharge Clinical Impression: Non-healing wound of left lower extremity Patient Disposition: Admitted As Inpatient Prescriptions: No Action prednisone 5 mg tablet See Rx Instructions PO DIRECTED Qty: 42 0RF Rx Instructions: 3 tabs daily for 1 week, 2 tabs daily for 1 week, 1 tab daily for 1 week then stop ibuprofen 200 mg tablet 200 mg PO Q6H PRN minocycline 100 mg capsule 100 mg PO BID Qty: 180 0RF Print Language: Malay
[2023-06-11 18:07] LABS: Basophils Percent Auto 0.3 % (0-2); Eosinophils Absolute Auto 0.1 X10*3/uL (0.0-0.4); Hematocrit 43.4 % (42.0-52.0); Hemoglobin 14.6 g/dl (14.0-18.0); Imm Gran Abs Auto 0.03 X10*3/uL (0.00-0.03); Imm Gran Pct Auto 0.3 % (0.0-0.4); Lymphocytes Absolute Auto 2.5 X10*3/uL (1.2-4.9); Lymphocytes Percent Auto 22.6 % (20-40); MANUAL DIFF FLAG NO; Mean Corpuscular HGB Conc 33.6 g/dl (31.0-36.0); Mean Corpuscular Hemoglobin 31.1 pg (27.0-33.0); Mean Corpuscular Volume 92.3 fL (80.0-98.0); Mean Platelet Volume 8.9 fL (9.4-12.4); Monocytes Absolute Auto 0.8 X10*3/uL (0.1-1.2); Monocytes Percent Auto 7.1 % (2-11); Neutrophils Absolute Auto 7.6 x10*3/uL (2.0-8.3); Neutrophils Percent Auto 68.7 % (45-73); Platelet Count 263 X10*3/uL (160-400); Red Cell Distribution Width 13.8 % (11.0-16.0); White Blood Count 11.1 X10*3/uL (4.8-10.8)
[2023-06-11 18:20] LABS: Alanine Aminotransferase 18 U/L (0-40); Albumin Level 3.9 g/dL (3.5-5.0); Alkaline Phosphatase 50 U/L (39-117); Anion Gap 11 (12-20); Aspartate Amino Transferase 15 U/L (5-37); Bilirubin Direct < 0.2 mg/dL (0.0-0.5); Bilirubin Total 0.2 mg/dL (0.0-1.0); Blood Urea Nitrogen 22 mg/dL (9-16); Calcium 9.3 mg/dL (8.4-10.2); Carbon Dioxide 26 mmol/L (22-29); Chloride 108 mmol/L (96-108); Creatinine Clr Calc Pharmacy 164.6; Estimated Glomerular Filt Rate > 60; Glucose Random 146 mg/dL (60-115); Potassium 3.9 mmol/L (3.3-5.1); Sodium 141 mmol/L (135-145)
[2023-06-11 23:43] VITALS: BP 149/82; PULSE 73; RESP 16; TEMP 36.2; O2SAT 95
[2023-06-12] VITALS (16 sets, daily range): BP systolic 137–207; BP diastolic 50–129; PULSE 57–74; RESP 12–20; TEMP 36.1–37.2; O2SAT 92–99
[2023-06-12 00:35] LABS: C Reactive Protein 0.39 mg/dL (< or = 0.50)
[2023-06-12] MEDS: 0.9 % Sodium Chloride 1,000 ML 100 ML IVCONT (02:14)
[2023-06-12] MEDS: Piperacillin Sodium/Tazobactam 3.375 GM in 0.9 % Sodium Chloride 50 ML IV (02:23)
--- NOTE | 2023-06-12 05:41 | PC.NURSE ---
pt sleeping no s/s of distress, ivf ns infusing site wnl.
--- NOTE | 2023-06-12 08:28 | P.HPGS_ITS ---
History of Present Illness History of Present Illness Date of Service: 06/12/23 Chief complaint: wounds Narrative: Flaquito Del Angel is a 48 year old male with multiple medical iissues including obesity, DM, HTN, him to the ER yesterday because of worsening pain of his left leg ulcer. He has had this nonhealing ulcers for many years on both sides. He has been seeing a aviation electrical technician and internet marketing consultant for these. He has had chronic lymphedema. He says he had been recently started on any stone as well and since then had developed diabetes He says that 1 of the ulcers on the side of his lower leg seems to have been worsening with regards to pain so he decided to come to the ER last night He also has been seen by the Wound Clinic as well. He denies any fever or chills Review of Systems Constitutional: Constitutional: Denies chills and Denies fever(s) Cardiovascular: Cardiovascular: Denies chest pain, Denies dyspnea and Reports dyspnea on exertion Respiratory: Respiratory: Denies cough, Denies dyspnea and Reports dyspnea on exertion Gastrointestinal: Gastrointestinal: Denies hematochezia and Denies change in bowel habits Genitourinary: Genitourinary: Denies hematuria and Denies difficulty urinating Musculoskeletal: Musculoskeletal: Reports back pain and Reports limited range of motion Neurologic: Denies focal weakness and Denies convulsions Psychiatric: Psychiatric: Denies depression and Denies mood swings PMFSH Past Medical History Medical History Type 2 diabetes mellitus Spondylosis of lumbar region without myelopathy or radiculopathy Idiopathic peripheral neuropathy Severe obesity (BMI >= 40) HLA B27 (HLA B27 positive) Antiphospholipid antibody positive care home (current) use of other immunomodulators and immunosuppressants Pyoderma gangrenosum Hidradenitis axillaris Family History Family History Mother Hx of breast cancer Father Skin cancer Other Family history of arthritis Surgical History Surgical History Hx of total knee arthroplasty Social History Social History Alcohol intake: never Patient Tobacco Use Status: Current everyday Tobacco user Tobacco use type: Cigarette Cigarettes Per Day: 6 Smoked in Last 30 Days: No Use of substances other than those prescribed or required for medical reasons: No Advance Directives: No Advance Directives Information Provided: Yes Do you have a plan to hurt others: No Plan Meds Allergies Allergy/AdvReac Type Severity Reaction Status Date / Time No Known Allergies Allergy Verified 06/11/23 17:28 Active Medications: Current Medications Sodium Chloride (Ns) 1,000 mls @ 100 mls/hr IVCONT .Q10H [facility] Last Admin: 06/12/23 02:14 Dose: 100 mls/hr Morphine Sulfate (Morphine Sulfate 2 Mg/Ml Cartridge) 2 mg IVPUSH Q3H PRN; Protocol PRN Reason: Pain, Severe (Pain Scale 7-10) Sodium Chloride (0.9 % Sodium Chloride Flush 3 Ml Syringe) 3 ml IVFLUSH QSHIFT [facility] Last Admin: 06/12/23 07:46 Dose: Not Given Home Medications ?Medication ?Instructions ?Recorded ?Confirmed ?Last Taken ?Type adalimumab 80 mg/0.8 mL 80 mg subcut Q2W 06/12/23 06/12/23 06/11/23 History subcutaneous pen kit (Humira(CF) Pen) atorvastatin 20 mg tablet 20 mg PO BEDTIME 06/12/23 06/12/23 06/11/23 History celecoxib 100 mg capsule 100 mg PO BID 06/12/23 06/12/23 06/11/23 History empagliflozin 10 mg tablet 10 mg PO DAILY 06/12/23 06/12/23 06/11/23 History (Jardiance) gabapentin 300 mg capsule 300 mg PO BEDTIME 06/12/23 06/12/23 06/11/23 History lidocaine 5 % topical ointment 1 appl topical DAILY PRN Pain 06/12/23 06/12/23 06/11/23 History metformin 500 mg tablet 500 mg PO BIDWM 06/12/23 06/12/23 06/11/23 History minocycline 100 mg capsule 100 mg PO BID 06/12/23 06/12/23 06/11/23 History prednisone 10 mg tablet 10 mg PO BID 06/12/23 06/12/23 06/11/23 History tizanidine 4 mg tablet 4 mg PO Q8H PRN moderate pain 06/12/23 06/12/23 06/11/23 History tramadol 50 mg tablet 50 mg PO Q6H PRN pain 06/12/23 06/12/23 06/11/23 History Physical Exam Vital Signs: Vital Signs: Last Vital Signs Temp 97.6 F 06/12/23 04:40 Pulse 68 06/12/23 04:40 Resp 20 06/12/23 04:40 BP 207/129 H 06/12/23 04:40 Pulse Ox 92 06/12/23 04:40 O2 Del Method Room Air 06/12/23 04:40 BMI result Body Mass Index 46.9 Const: Other: Morbidly obese General: no acute distress and alert Orientation/consciousness: patient oriented x3 Neck: Neck: Yes no lymphadenopathy Resp: Auscultation: clear to auscultation bilaterally Cardio: Rhythm: regular rhythm GI: Palpation (GI): Soft to palpation, nontender and no guarding Neuro: General: patient oriented x3 Extrem: Other: On the left calf on the posterolateral area is note of a large ulcer, about 12 cm by 6 cm, with a foul-smelling eschar in the middle; there were 2 other ulcers laterally, 2 cm in diameter each which are otherwise clean On the right calf is note of dry ulcer about 6 cm in widest dimension He has chronic stasis changes of both diabetes with discoloration Results Results Labs: Short CBC 06/11/23 Range/Units 17:52 WBC 11.1 H (4.8-10.8) X10*3/uL Hgb 14.6 (14.0-18.0) g/dl Hct 43.4 (42.0-52.0) % Plt Count 263 (160-400) X10*3/uL BMP 06/11/23 17:51 Sodium 141 Potassium 3.9 Chloride 108 Carbon Dioxide 26 BUN 22 H Creatinine 0.83 Calcium 9.3 Liver Function 06/11/23 Range/Units 17:51 Total Bilirubin 0.2 (0.0-1.0) mg/dL Direct Bilirubin < 0.2 (0.0-0.5) mg/dL AST 15 (5-37) U/L ALT 18 (0-40) U/L Alkaline Phosphatase 50 (39-117) U/L Albumin 3.9 (3.5-5.0) g/dL Assessment and Plan (1) Non-healing wound of left lower extremity: Status: Acute He has this large chronic ulcer on the left calf that has a thick foul-smelling eschar. He has had worsening pain from this. I explained to him that it will be best to proceed with excisional debridement under anesthesia in the operating room as he is tender on the area. I discussed with the technique of this procedure. I reviewed the risks including but not limited to bleeding, infections, poor healing, postop pain, as well as the benefits and alternatives. He understands and agrees to proceed I explained to him what to expect postoperatively including need for intensive wound care. The patient is on Jardianz which may cause delayed gastric emptying. This may increase his risk for aspiration with anesthesia, but the procedure has to be done in vew of the presence of infection on the nonheaing wound. Quality Stroke Does the patient have a stroke diagnosis?: No VTE Prior VTE?: No VTE Risk Level:: Medical - low VTE Device Contraindication: Treatment Not Indicated VTE Drug Contraindication: Treatment Not Tolerated Procedures Date of Service Date of Service: 06/12/23
[2023-06-12] MEDS: Morphine Sulfate 2 MG/ML CARTRIDGE IVPUSH (08:33)
[2023-06-12 09:26] LABS: Glucose, Whole Blood 108 mg/dL (60-115)
--- NOTE | 2023-06-12 09:54 | PHA.MEDREC ---
Pharmacy Consult ? Medication Reconciliation Pharmacy has completed the medication reconciliation. Spoke to patient at bedside to confirm medications
[2023-06-12] MEDS: TiZANidine HCL 4 MG TABLET PO (10:23)
--- NOTE | 2023-06-12 10:24 | HO.PM.IMCN ---
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 The patient denies any history of htn but blood pressures have been uncontrolled to 207/129 in the ED likely related to pain and agitation though suspect likely does have some baseline htn. BP on admission 174/87. He denies any other substance use or alcohol use. Reports 10/10 pain in the ble Review of Systems Review of Systems: General: No fevers, malaise, unintentional weight loss HEENT: No blurred vision, diplopia. No sore throat, nasal congestion, rhinorrhea, sinus pain, ear pain Cardiovascular: No chest pain, palpitations, or leg edema Respiratory: No shortness of breath, wheezing, cough GI: No abdominal pain, nausea, vomiting, diarrhea, constipation, melena, hematochezia : No dysuria, hematuria, increased urinary frequency, decreased urinary output MSK: No myalgia, back pain. +pain ble Neuro: No headaches, weakness, paresthesias Skin: No rashes or lesions PMFSH Medical History Type 2 diabetes mellitus Spondylosis of lumbar region without myelopathy or radiculopathy Idiopathic peripheral neuropathy Severe obesity (BMI >= 40) HLA B27 (HLA B27 positive) Antiphospholipid antibody positive emt intermediate (current) use of other immunomodulators and immunosuppressants Pyoderma gangrenosum Hidradenitis axillaris Family History Mother Hx of breast cancer Father Skin cancer Other Family history of arthritis Surgical History Hx of total knee arthroplasty Social History Alcohol intake: never Patient Tobacco Use Status: Current everyday Tobacco user Tobacco use type: Cigarette Cigarettes Per Day: 6 Smoked in Last 30 Days: No Use of substances other than those prescribed or required for medical reasons: No Advance Directives: No Advance Directives Information Provided: Yes Do you have a plan to hurt others: No Plan Meds Allergies Allergy/AdvReac Type Severity Reaction Status Date / Time No Known Allergies Allergy Verified 06/11/23 17:28 Active Medications: Current Medications Atorvastatin Calcium (Atorvastatin Calcium 20 Mg Tablet) 20 mg PO BEDTIME WIN Empagliflozin (Empagliflozin 10 Mg Tablet) 10 mg PO DAILY WIN Gabapentin (Gabapentin 300 Mg Capsule) 300 mg PO BEDTIME WIN Glucose (Glucose Gel 15 Gm Gel..Gram.) 15 gm PO Q15M PRN; Protocol PRN Reason: per Hypoglycemia Standing Ord. Sodium Chloride (Ns) 1,000 mls @ 100 mls/hr IVCONT .Q10H [facility] Last Admin: 06/12/23 02:14 Dose: 100 mls/hr Dextrose (D10) 250 mls @ 750 mls/hr IV Q15M PRN; Protocol PRN Reason: per Hypoglycemia Standing Ord. Insulin Human Lispro (Insulin Lispro 100 Unit/Ml 3 Ml Vial) 0 unit SUBCUT QIDACHS [facility]; Protocol Morphine Sulfate (Morphine Sulfate 2 Mg/Ml Cartridge) 2 mg IVPUSH Q3H PRN; Protocol PRN Reason: Pain, Severe (Pain Scale 7-10) Last Admin: 06/12/23 08:33 Dose: 2 mg Sodium Chloride (0.9 % Sodium Chloride Flush 3 Ml Syringe) 3 ml IVFLUSH QSHIFT [facility] Last Admin: 06/12/23 07:46 Dose: Not Given Tizanidine HCl (Tizanidine Hcl 4 Mg Tablet) 4 mg PO Q8H PRN PRN Reason: moderate pain Last Admin: 06/12/23 10:23 Dose: 4 mg Home Medications ?Medication ?Instructions ?Recorded ?Confirmed ?Last Taken ?Type adalimumab 80 mg/0.8 mL 80 mg subcut Q2W 06/12/23 06/12/23 06/11/23 History subcutaneous pen kit (Humira(CF) Pen) atorvastatin 20 mg tablet 20 mg PO BEDTIME 06/12/23 06/12/23 06/11/23 History celecoxib 100 mg capsule 100 mg PO BID 06/12/23 06/12/2306/10/24 History empagliflozin 10 mg tablet 10 mg PO DAILY 06/12/23 06/12/23 06/11/23 History (Jardiance) gabapentin 300 mg capsule 300 mg PO BEDTIME 06/12/23 06/12/23 06/11/23 History lidocaine 5 % topical ointment 1 appl topical DAILY PRN Pain 06/12/23 06/12/23 06/11/23 History metformin 500 mg tablet 500 mg PO BIDWM 06/12/23 06/12/23 06/11/23 History minocycline 100 mg capsule 100 mg PO BID 06/12/23 06/12/23 06/11/23 History prednisone 10 mg tablet 10 mg PO BID 06/12/23 06/12/23 06/11/23 History tizanidine 4 mg tablet 4 mg PO Q8H PRN moderate pain 06/12/23 06/12/23 06/11/23 History tramadol 50 mg tablet 50 mg PO Q6H PRN pain 06/12/23 06/12/23 06/11/23 History Physical Exam Vital Signs and Narrative: Vital Signs: Last Vital Signs Temp 97.6 F 06/12/23 04:40 Pulse 68 06/12/23 04:40 Resp 20 06/12/23 04:40 BP 207/129 H 06/12/23 04:40 Pulse Ox 92 06/12/23 04:40 O2 Del Method Room Air 06/12/23 04:40 BMI result Body Mass Index 46.9 Constitutional - Awake and Alert, No apparent distress Eyes - PERRLA, EOMI Cardiovascular - S1S2, RRR, No edema Respiratory - Normal lung expansion, Normal respiratory effort, No respiratory distress, CTA bilaterally Extremities - no calf tenderness bilaterally, no swelling Skin - Warm/Dry Neurological - Alert & oriented x3 Psychological - Appropriate affect Results Labs 06/11/23 17:52 06/11/23 17:51 Labs: Laboratory Results - last 24 hr 06/11/23 06/11/23 06/12/23 17:51 17:52 09:22 MCV 92.3 MCH 31.1 MCHC 33.6 RDW 13.8 Plt Count 263 MPV 8.9 L Immature Gran % (Auto) 0.3 Neut % (Auto) 68.7 Lymph % (Auto) 22.6 [place] % (Auto) 7.1 Eos % (Auto) 1.0 Baso % (Auto) 0.3 Lymph # (Auto) 2.5 [place] # (Auto) 0.8 Eos # (Auto) 0.1 Baso # (Auto) 0.0 Abs Immat Gran (auto) 0.03 Absolute Neuts (auto) 7.6 Absolute Nucleated RBC 0.000 Nucleated RBC % (auto) 0.0 Anion Gap 11 L Estim Creat Clear Calc 164.6 Estimated GFR > 60 POC Glucose 108 Random Glucose 146 H Calcium 9.3 Total Bilirubin 0.2 Direct Bilirubin < 0.2 AST 15 ALT 18 Alkaline Phosphatase 50 C-Reactive Protein 0.39 Total Protein 7.0 Albumin 3.9 Assessment and Plan (1) Non-healing wound of left lower extremity: Status: Acute Plan 48 year old male with history of 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 #Non healing wounds LLE -plan per general surgery -discussed Dr. Rolon. Pain management with hydromorphone 0.5mg prn -stress dose steroids prior to procedure. Give 50mg IV hydrocortisone now, then hydrocortisone 25mg q8h x 3 doses starting at 9pm. Resume prednisone 10mg 06/12 at 9pm -Resume minocycline at discretion of general surgery #Uncontrolled HTN -denies history of htn however on review of chart has had elevated blood pressure for several month -optimatize pain control for now -will reevaluate need to antihypertensives post operatively #NIDDM without hyperglycemia -POC glucose, advance to diabetic diet -admelog on ss -continue jardiance, hold metformin #Hidradentitis/pyoderma -last humira 06/05. Due next -Steroids as above #NIcotine dependence -cessation advised -patch/gum for nrt Thank you for this consult. Will continue following
[2023-06-12] MEDS: Nicotine 21 MG PATCH.TD24 TRANSDERMA ×2 (10:37→18:38)
[2023-06-12] MEDS: Hydrocortisone Sod Succ/PF 100 MG VIAL 50 MG IVPUSH (10:48)
[2023-06-12] MEDS: amLODIPine Besylate 5 MG TABLET PO (11:01)
--- NOTE | 2023-06-12 12:52 | MHC.CM.PN ---
pt lives with his he goes to the [facility] 2 x month has a ride home
--- NOTE | 2023-06-12 12:55 | HO.ANESPROP2 ---
HPI - Anesthesia Eval Anesthesia Pre-Procedure Meds Is the patient on any of the following meds?: Any other SGL-1 drugs or drugs that delay gastric emptying If Yes to any meds - educate patient: Pt education - increased risk of aspiration PMFSH Active Problems Active Problems: All Active Problems Non-healing wound of left lower extremity (Acute) assisted (current) use of other immunomodulators and immunosuppressants (Acute) Pyoderma gangrenosum (Acute) Hidradenitis axillaris (Acute) Low back pain (Acute) Osteoarthritis of left knee (Acute) Severe obesity (BMI >= 40) (Acute) Idiopathic peripheral neuropathy (Acute) Spondylosis of lumbar region without myelopathy or radiculopathy (Acute) Lymphedema (Acute) Varicose veins of right lower extremity with inflammation (Acute) Past Medical History Medical History Type 2 diabetes mellitus Spondylosis of lumbar region without myelopathy or radiculopathy Idiopathic peripheral neuropathy Severe obesity (BMI >= 40) HLA B27 (HLA B27 positive) Antiphospholipid antibody 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 Pyoderma gangrenosum Hidradenitis axillaris Family History Family History Mother Hx of breast cancer Father Skin cancer Other Family history of arthritis Family history of problems with anesthesia: No Surgical History Surgical History Hx of total knee arthroplasty History of Problems with Anesthesia: No Social History Social History Alcohol intake: never Patient Tobacco Use Status: Current everyday Tobacco user Tobacco use type: Cigarette Cigarettes Per Day: 6 service: No Meds Allergies Allergy/AdvReac Type Severity Reaction Status Date / Time No Known Allergies Allergy Verified 06/11/23 17:28 Active Medications: Current Medications Amlodipine Besylate (Amlodipine Besylate 5 Mg Tablet) 5 mg PO DAILY WIN; Protocol Last Admin: 06/12/23 11:01 Dose: 5 mg Atorvastatin Calcium (Atorvastatin Calcium 20 Mg Tablet) 20 mg PO BEDTIME WIN Empagliflozin (Empagliflozin 10 Mg Tablet) 10 mg PO DAILY WIN Fentanyl (Fentanyl Citrate/Pf 100 Mcg/2 Ml Vial) 25 mcg IVPUSH Q5M PRN; Protocol PRN Reason: Pain, Moderate(Pain Scale 4-6) Stop: 06/12/23 18:52 Gabapentin (Gabapentin 300 Mg Capsule) 300 mg PO BEDTIME [facility] Glucose (Glucose Gel 15 Gm Gel..Gram.) 15 gm PO Q15M PRN; Protocol PRN Reason: per Hypoglycemia Standing Ord. Hydrocortisone Sodium Succinate (Hydrocortisone Sod Succ/Pf 100 Mg Vial) 25 mg IVPUSH Q8H [facility] Stop: 06/13/23 13:01 Hydromorphone HCl (Hydromorphone Hcl 0.5 Mg/0.5 Ml Syringe) 0.5 mg IVPUSH Q4H PRN; Protocol PRN Reason: Pain, Severe (Pain Scale 7-10) Hydromorphone HCl (Hydromorphone Hcl 0.5 Mg/0.5 Ml Syringe) 0.5 mg IVPUSH Q5M PRN; Protocol PRN Reason: Pain, Severe (Pain Scale 7-10) Stop: 06/12/23 18:52 Sodium Chloride (Ns) 1,000 mls @ 100 mls/hr IVCONT .Q10H [facility] Last Admin: 06/12/23 02:14 Dose: 100 mls/hr Dextrose (D10) 250 mls @ 750 mls/hr IV Q15M PRN; Protocol PRN Reason: per Hypoglycemia Standing Ord. Cefazolin Sodium/Dextrose (Ancef) 2 gm in 50 mls @ 100 mls/hr IV PREOP ONE Stop: 06/12/23 12:56 Insulin Human Lispro (Insulin Lispro 100 Unit/Ml 3 Ml Vial) 0 unit SUBCUT QIDACHS [facility]; Protocol Nicotine (Nicotine 21 Mg Patch.Td24) 21 mg TRANSDERMA DAILY [facility] Last Admin: 06/12/23 10:37 Dose: 21 mg Nicotine Polacrilex (Nicotine Polacrilex 2 Mg Gum) 2 mg BUCCAL Q2H PRN PRN Reason: Nicotine Cravings Prednisone (Prednisone 10 Mg Tablet) 10 mg PO BID [facility] Sodium Chloride (0.9 % Sodium Chloride Flush 3 Ml Syringe) 3 ml IVFLUSH QSHIFT [facility] Last Admin: 06/12/23 07:46 Dose: Not Given Tizanidine HCl (Tizanidine Hcl 4 Mg Tablet) 4 mg PO Q8H PRN PRN Reason: moderate pain Last Admin: 06/12/23 10:23 Dose: 4 mg Home Medications ?Medication ?Instructions ?Recorded ?Confirmed ?Last Taken ?Type adalimumab 80 mg/0.8 mL 80 mg subcut Q2W 06/12/23 06/12/23 06/11/23 History subcutaneous pen kit (Humira(CF) Pen) atorvastatin 20 mg tablet 20 mg PO BEDTIME 06/12/23 06/12/23 06/11/23 History celecoxib 100 mg capsule 100 mg PO BID 06/12/23 06/12/23 06/11/23 History empagliflozin 10 mg tablet 10 mg PO DAILY 06/12/23 06/12/23 06/11/23 History (Jardiance) gabapentin 300 mg capsule 300 mg PO BEDTIME 06/12/23 06/12/23 06/11/23 History lidocaine 5 % topical ointment 1 appl topical DAILY PRN Pain 06/12/23 06/12/23 06/11/23 History metformin 500 mg tablet 500 mg PO BIDWM 06/12/23 06/12/23 06/11/23 History minocycline 100 mg capsule 100 mg PO BID 06/12/23 06/12/23 06/11/23 History prednisone 10 mg tablet 10 mg PO BID 06/12/23 06/12/23 06/11/23 History tizanidine 4 mg tablet 4 mg PO Q8H PRN moderate pain 06/12/23 06/12/23 06/11/23 History tramadol 50 mg tablet 50 mg PO Q6H PRN pain 06/12/23 06/12/23 06/11/23 History Exam Height,Weight and Vital Signs: Height 6 ft Weight 157 kg Last Vital Signs Temp 97.6 F 06/12/23 04:40 Pulse 68 06/12/23 04:40 Resp 20 06/12/23 04:40 BP 174/87 H 06/12/23 10:15 Pulse Ox 92 06/12/23 04:40 O2 Del Method Room Air 06/12/23 04:40 Pertinent Lab Results Pertinent Lab Results: Laboratory Tests 06/11/23 06/11/23 06/12/23 17:51 17:52 09:22 WBC 11.1 H RBC 4.70 Hgb 14.6 Hct 43.4 MCV 92.3 MCH 31.1 MCHC 33.6 RDW 13.8 Plt Count 263 MPV 8.9 L Immature Gran % (Auto) 0.3 Neut % (Auto) 68.7 Lymph % (Auto) 22.6 [place] % (Auto) 7.1 Eos % (Auto) 1.0 Baso % (Auto) 0.3 Lymph # (Auto) 2.5 [place] # (Auto) 0.8 Eos # (Auto) 0.1 Baso # (Auto) 0.0 Abs Immat Gran (auto) 0.03 Absolute Neuts (auto) 7.6 Absolute Nucleated RBC 0.000 Nucleated RBC % (auto) 0.0 Sodium 141 Potassium 3.9 Chloride 108 Carbon Dioxide 26 Anion Gap 11 L BUN 22 H Creatinine 0.83 Estim Creat Clear Calc 164.6 Estimated GFR > 60 POC Glucose 108 Random Glucose 146 H Calcium 9.3 Total Bilirubin 0.2 Direct Bilirubin < 0.2 AST 15 ALT 18 Alkaline Phosphatase 50 C-Reactive Protein 0.39 Total Protein 7.0 Albumin 3.9 Airway Mallampati Class: III TM Dist: <=3cm Neck ROM: Full Denture: Upper and Lower Heart: rrr Lungs: cta Assessment and Plan Assessment Anesthesia Assessment: Anesthesia Plan Discussed and Chart Reviewed Final Anesthetic Review Family History of Problems with Anesthesia: No History of Problems with Anesthesia: No NPO: Yes ASA Class: III, IV and Emergency Final Preanesthetic Review: No Changes in Pt Med Stat, Meds/Allgs Chart Reviewed, Consent Obtained/Reviewed and Anes Risks/Benef Reviewed Patient Risk: High (emergency, pt took jardiance) Procedure Risk: High Anesthetic Plan Anesthetic Plan: GA Disposition: Standard PACU
--- NOTE | 2023-06-12 13:04 | W.PM.OPN ---
Operative Note Operative Note Date of Service: 06/12/23
[2023-06-12 13:13] LABS: Glucose, Whole Blood 112 mg/dL (60-115)
[2023-06-12] MEDS: Albuterol Sulfate (0.083%) 2.5 MG/3 ML VIAL.NEB INHALE (13:34)
--- NOTE | 2023-06-12 14:17 | P.OP_ITS ---
Operative Note Operative Note Date of Service: 06/12/23 Narrative: Preop diagnosis: Ulcer with infected eschar, left lower leg Postop diagnosis: The same Procedure: Excisional debridement, left leg ulcer with infected eschar; full- thickness of the skin and thick subcutaneous fat down to the fascia of the muscle excise measuring 6 x 12 cm Surgeon: Karthik Rolon MD The patient is a 48-year-old male the long history of a chronic ulcer on both legs. He came to the ER because of worsening pain, discharge, with a foul smell of the left leg ulcer. There was note of a thick, foul-smelling eschar, some cellulitic changes surrounding this. I explained to him it would be best to proceed with excisional debridement in the operating room. He understood the risks, benefits, and alternatives and had given consent He was brought to the operating room. He was placed in right lateral decubitus position under general anesthesia via endotracheal tube. The area of the ulcer was prepped and draped. A surgical time-out had been done I proceeded to then excise this thick eschar using a curved Randall scissors. I excised full-thickness of the skin and thick subcutaneous fat down to the fascia of the muscle. This was sent as a specimen. The ulcer measured about 6 x 12 cm. Cultures were also taken. I copiously irrigated. I cauterized oozing areas for hemostasis. I applied wet-to-dry dressings and wrapped the leg with Kerlix roll. He tolerated the procedure well. There were no immediate complications. Estimated blood loss was about 25 cc He was extubated without difficulty and transferred to the recovery room with stable vital signs.
[2023-06-12] MEDS: HYDROmorphone HCl 0.5 MG/0.5 ML SYRINGE IVPUSH ×2 (14:55→20:03)
--- NOTE | 2023-06-12 16:15 | PM.EVENT ---
Event Note Date of Service: 06/12/23 Event Note: On afternoon rounds He underwent debridement in the OR earlier for an infected eschar Seems to have adequate control He reiterated that he wanted to go home Explained to him that it would be best for him to stay until tomorrow so that his blood pressure can be well controlled and we can do better planning for discharge with regards to wound care and pain control He had been same multiple times throughout the day that he wants to be discharged His family was at bedside and they have convinced him to stay Continue pain management Time Spent With Patient Time: Total time managing care of this patient today ____ minutes.
[2023-06-12 16:33] LABS: Glucose, Whole Blood 124 mg/dL (60-115)
[2023-06-12] MEDS: Nicotine Polacrilex 2 MG GUM BUCCAL (17:22)
[2023-06-12] MEDS: Atorvastatin Calcium 20 MG TABLET PO (20:03)
[2023-06-12] MEDS: Gabapentin 300 MG CAPSULE PO (20:03)
[2023-06-12] MEDS: 0.9 % Sodium Chloride Flush 3 ML SYRINGE IVFLUSH (20:04)
[2023-06-12] MEDS: Hydrocortisone Sod Succ/PF 100 MG VIAL 25 MG IVPUSH (20:04)
[2023-06-12 21:20] LABS: Glucose, Whole Blood 171 mg/dL (60-115)
[2023-06-12 23:09] LABS: Glucose, Whole Blood 216 mg/dL (60-115)
[2023-06-12] MEDS: Insulin Lispro 100 UNIT/ML 3 ML VIAL SUBCUT (23:11)
[2023-06-13 03:14] VITALS: BP 159/74; PULSE 61; RESP 18; TEMP 36.8; O2SAT 96
[2023-06-13] MEDS: HYDROmorphone HCl 0.5 MG/0.5 ML SYRINGE IVPUSH ×2 (03:26→08:27)
[2023-06-13] MEDS: Hydrocortisone Sod Succ/PF 100 MG VIAL 25 MG IVPUSH (05:21)
[2023-06-13 06:44] LABS: MANUAL DIFF FLAG NO
[2023-06-13 06:50] LABS: Basophils Percent Auto 0.2 % (0-2); Eosinophils Percent Auto 0.1 % (0-4); Hematocrit 44.7 % (42.0-52.0); Hemoglobin 14.9 g/dl (14.0-18.0); Imm Gran Abs Auto 0.05 X10*3/uL (0.00-0.03); Imm Gran Pct Auto 0.4 % (0.0-0.4); Lymphocytes Absolute Auto 1.4 X10*3/uL (1.2-4.9); Lymphocytes Percent Auto 11.2 % (20-40); Mean Corpuscular HGB Conc 33.3 g/dl (31.0-36.0); Mean Corpuscular Hemoglobin 31.2 pg (27.0-33.0); Mean Corpuscular Volume 93.5 fL (80.0-98.0); Mean Platelet Volume 9.1 fL (9.4-12.4); Monocytes Absolute Auto 0.7 X10*3/uL (0.1-1.2); Monocytes Percent Auto 5.8 % (2-11); Neutrophils Absolute Auto 10.3 x10*3/uL (2.0-8.3); Neutrophils Percent Auto 82.3 % (45-73); Platelet Count 266 X10*3/uL (160-400); Red Blood Count 4.78 X10*6/uL (4.60-5.80); Red Cell Distribution Width 13.6 % (11.0-16.0); White Blood Count 12.5 X10*3/uL (4.8-10.8)
[2023-06-13 07:07] LABS: Anion Gap 10 (12-20); Blood Urea Nitrogen 13 mg/dL (9-16); Calcium 9.4 mg/dL (8.4-10.2); Carbon Dioxide 26 mmol/L (22-29); Chloride 108 mmol/L (96-108); Creatinine Clr Calc Pharmacy 195.2; Estimated Glomerular Filt Rate > 60; Glucose Random 166 mg/dL (60-115); Potassium 3.9 mmol/L (3.3-5.1); Sodium 140 mmol/L (135-145)
[2023-06-13 08:00] VITALS: BP 170/78; PULSE 57; RESP 18; TEMP 36.1; O2SAT 96
[2023-06-13 08:02] LABS: Glucose, Whole Blood 146 mg/dL (60-115)
--- NOTE | 2023-06-13 08:11 | HO.PM.IMPN ---
Subjective Subjective Date of Service: 06/13/23 Interval History: Patient underwent excisional debridement of left leg ulcer with infected eschar yesterday. No overnight complaints and no new complaints Review of Systems Review of Systems: Yes all other systems are reviewed and are negative Physical Exam Vital Signs: Vital Signs: Last Vital Signs Temp 98.2 F 06/13/23 03:14 Pulse 61 06/13/23 03:14 Resp 18 06/13/23 03:14 BP 159/74 H 06/13/23 03:14 Pulse Ox 96 06/13/23 03:14 O2 Del Method Room Air 06/13/23 03:14 O2 Flow Rate 6 06/12/23 14:35 BMI result Body Mass Index 46.9 Middle-aged male lying in bed in no distress Neck supple, no JVD Regular rate and rhythm, S1-S2 heard Regular breath sounds bilaterally, no wheezing or crackles appreciated Abdomen soft nontender, no guarding, no rigidity Patient is awake, alert and oriented to self, place, time and person ; no focal motor deficit Psych: Normal mood No pedal edema Objective Data Active Medications Amlodipine Besylate (Amlodipine Besylate 5 Mg Tablet) 5 mg PO DAILY WIN; Protocol Last Admin: 06/12/23 11:01 Dose: 5 mg Documented By: KECIA Atorvastatin Calcium (Atorvastatin Calcium 20 Mg Tablet) 20 mg PO BEDTIME WIN Last Admin: 06/12/23 20:03 Dose: 20 mg Documented By: DERICK Empagliflozin (Empagliflozin 10 Mg Tablet) 10 mg PO DAILY [facility] Gabapentin (Gabapentin 300 Mg Capsule) 300 mg PO BEDTIME [facility] Last Admin: 06/12/23 20:03 Dose: 300 mg Documented By: DERICK Glucose (Glucose Gel 15 Gm Gel..Gram.) 15 gm PO Q15M PRN; Protocol PRN Reason: per Hypoglycemia Standing Ord. Hydrocortisone Sodium Succinate (Hydrocortisone Sod Succ/Pf 100 Mg Vial) 25 mg IVPUSH Q8H [facility] Stop: 06/13/23 13:01 Last Admin: 06/13/23 05:21 Dose: 25 mg Documented By: DERICK Hydromorphone HCl (Hydromorphone Hcl 0.5 Mg/0.5 Ml Syringe) 0.5 mg IVPUSH Q4H PRN; Protocol PRN Reason: Pain, Severe (Pain Scale 7-10) Last Admin: 06/13/23 03:26 Dose: 0.5 mg Documented By: DERICK Dextrose (D10) 250 mls @ 750 mls/hr IV Q15M PRN; Protocol PRN Reason: per Hypoglycemia Standing Ord. Insulin Human Lispro (Insulin Lispro 100 Unit/Ml 3 Ml Vial) 0 unit SUBCUT QIDACHS [facility]; Protocol Last Admin: 06/13/23 08:02 Dose: Not Given Documented By: MARINA Non-Admin Reason: No Insulin Coverage Nicotine (Nicotine 21 Mg Patch.Td24) 21 mg TRANSDERMA DAILY [facility] Last Admin: 06/12/23 18:38 Dose: 21 mg Documented By: WILLIAM Nicotine Polacrilex (Nicotine Polacrilex 2 Mg Gum) 2 mg BUCCAL Q2H PRN PRN Reason: Nicotine Cravings Last Admin: 06/12/23 17:22 Dose: 2 mg Documented By: WILLIAM Oxycodone HCl (Oxycodone Hcl Immed Release 5 Mg Tablet) 10 mg PO Q4H PRN PRN Reason: Pain, Moderate(Pain Scale 4-6) Prednisone (Prednisone 10 Mg Tablet) 10 mg PO BID [facility] Sodium Chloride (0.9 % Sodium Chloride Flush 3 Ml Syringe) 3 ml IVFLUSH QSHIFT [facility] Last Admin: 06/12/23 20:04 Dose: 3 ml Documented By: DERICK Tizanidine HCl (Tizanidine Hcl 4 Mg Tablet) 4 mg PO Q8H PRN PRN Reason: moderate pain Last Admin: 06/12/23 10:23 Dose: 4 mg Documented By: MARIA M Labs 06/13/23 06:35 06/13/23 06:35 Labs: Laboratory Results - last 24 hr 06/12/23 06/12/23 06/12/23 09:22 13:08 16:29 MCV MCH MCHC RDW Plt Count MPV Immature Gran % (Auto) Neut % (Auto) Lymph % (Auto) [place] % (Auto) Eos % (Auto) Baso % (Auto) Lymph # (Auto) [place] # (Auto) Eos # (Auto) Baso # (Auto) Abs Immat Gran (auto) Absolute Neuts (auto) Absolute Nucleated RBC Nucleated RBC % (auto) Anion Gap Estim Creat Clear Calc Estimated GFR POC Glucose 108 112 124 H Random Glucose Calcium 06/12/23 06/12/23 06/13/23 21:10 23:05 06:35 MCV 93.5 MCH 31.2 MCHC 33.3 RDW 13.6 Plt Count 266 MPV 9.1 L Immature Gran % (Auto) 0.4 Neut % (Auto) 82.3 H Lymph % (Auto) 11.2 L [place] % (Auto) 5.8 Eos % (Auto) 0.1 Baso % (Auto) 0.2 Lymph # (Auto) 1.4 [place] # (Auto) 0.7 Eos # (Auto) 0.0 Baso # (Auto) 0.0 Abs Immat Gran (auto) 0.05 H Absolute Neuts (auto) 10.3 H Absolute Nucleated RBC 0.000 Nucleated RBC % (auto) 0.0 Anion Gap 10 L Estim Creat Clear Calc 195.2 Estimated GFR > 60 POC Glucose 171 H 216 H Random Glucose 166 H Calcium 9.4 06/13/23 07:46 MCV MCH MCHC RDW Plt Count MPV Immature Gran % (Auto) Neut % (Auto) Lymph % (Auto) [place] % (Auto) Eos % (Auto) Baso % (Auto) Lymph # (Auto) [place] # (Auto) Eos # (Auto) Baso # (Auto) Abs Immat Gran (auto) Absolute Neuts (auto) Absolute Nucleated RBC Nucleated RBC % (auto) Anion Gap Estim Creat Clear Calc Estimated GFR POC Glucose 146 H Random Glucose Calcium Microbiology Microbiology Results: Microbiology 06/11/23 17:51 Blood Culture - Preliminary Blood - Venous No growth after 24 hours. 06/11/23 17:52 Blood Culture - Preliminary Blood - Venous No growth after 24 hours. 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 #Uncontrolled HTN -noted elevated trends in the past. Will initiate amlodipine 5 mg daily. Close follow-up with PCP #NIDDM without hyperglycemia -POC glucose, advance to diabetic diet -admelog on ss -continue jardiance and metformin #Hidradentitis/pyoderma -last humira 06/05. Due next -Steroids as above #NIcotine dependence -cessation advised -patch/gum for nrt Thank you for this consult. Will sign of Quality Stroke Does the patient have a stroke diagnosis?: No VTE Prior VTE?: No VTE Risk Level:: Medical - low VTE Device Contraindication: Treatment Not Indicated VTE Drug Contraindication: Treatment Not Tolerated
[2023-06-13 08:21] VITALS: BP 170/78
[2023-06-13] MEDS: amLODIPine Besylate 5 MG TABLET PO (08:21)
[2023-06-13] MEDS: Nicotine 21 MG PATCH.TD24 TRANSDERMA (08:21)
[2023-06-13] MEDS: Empagliflozin 10 MG TABLET PO (08:21)
[2023-06-13] MEDS: 0.9 % Sodium Chloride Flush 3 ML SYRINGE IVFLUSH (08:21)
--- NOTE | 2023-06-13 08:32 | P.PNGS_ITS ---
Subjective Subjective Date of Service: 06/13/23 Interval history: Patient insisting on going home No events overnight Just started on new hypertension medication by hospitalist Physical Exam 2 Vital Signs: Vital Signs: Last Vital Signs Temp 98.2 F 06/13/23 03:14 Pulse 61 06/13/23 03:14 Resp 18 06/13/23 03:14 BP 170/78 H 06/13/23 08:21 Pulse Ox 96 06/13/23 03:14 O2 Del Method Room Air 06/13/23 03:14 O2 Flow Rate 6 06/12/23 14:35 BMI result Body Mass Index 46.9 Const: General: comfortable and no acute distress Resp: Effort & Inspection: normal respiratory effort Cardio: Rate: regular rate Extrem: Other: Dressings taken down - left calf wound clean, no pus, no necrotic tissue, cellulitis better Objective Data Active Medications Amlodipine Besylate (Amlodipine Besylate 5 Mg Tablet) 5 mg PO DAILY [facility]; Protocol Last Admin: 06/13/23 08:21 Dose: 5 mg Documented By: MARINA Atorvastatin Calcium (Atorvastatin Calcium 20 Mg Tablet) 20 mg PO BEDTIME [facility] Last Admin: 06/12/23 20:03 Dose: 20 mg Documented By: DERICK Empagliflozin (Empagliflozin 10 Mg Tablet) 10 mg PO DAILY [facility] Last Admin: 06/13/23 08:21 Dose: 10 mg Documented By: MARINA Gabapentin (Gabapentin 300 Mg Capsule) 300 mg PO BEDTIME [facility] Last Admin: 06/12/23 20:03 Dose: 300 mg Documented By: DERICK Glucose (Glucose Gel 15 Gm Gel..Gram.) 15 gm PO Q15M PRN; Protocol PRN Reason: per Hypoglycemia Standing Ord. Hydrocortisone Sodium Succinate (Hydrocortisone Sod Succ/Pf 100 Mg Vial) 25 mg IVPUSH Q8H [facility] Stop: 06/13/23 13:01 Last Admin: 06/13/23 05:21 Dose: 25 mg Documented By: DERICK Hydromorphone HCl (Hydromorphone Hcl 0.5 Mg/0.5 Ml Syringe) 0.5 mg IVPUSH Q4H PRN; Protocol PRN Reason: Pain, Severe (Pain Scale 7-10) Last Admin: 06/13/23 08:27 Dose: 0.5 mg Documented By: MARINA Dextrose (D10) 250 mls @ 750 mls/hr IV Q15M PRN; Protocol PRN Reason: per Hypoglycemia Standing Ord. Insulin Human Lispro (Insulin Lispro 100 Unit/Ml 3 Ml Vial) 0 unit SUBCUT QIDACHS [facility]; Protocol Last Admin: 06/13/23 08:02 Dose: Not Given Documented By: MARINA Non-Admin Reason: No Insulin Coverage Nicotine (Nicotine 21 Mg Patch.Td24) 21 mg TRANSDERMA DAILY [facility] Last Admin: 06/13/23 08:21 Dose: 21 mg Documented By: MARINA Nicotine Polacrilex (Nicotine Polacrilex 2 Mg Gum) 2 mg BUCCAL Q2H PRN PRN Reason: Nicotine Cravings Last Admin: 06/12/23 17:22 Dose: 2 mg Documented By: FOSTEKR Oxycodone HCl (Oxycodone Hcl Immed Release 5 Mg Tablet) 10 mg PO Q4H PRN PRN Reason: Pain, Moderate(Pain Scale 4-6) Prednisone (Prednisone 10 Mg Tablet) 10 mg PO BID [facility] Sodium Chloride (0.9 % Sodium Chloride Flush 3 Ml Syringe) 3 ml IVFLUSH QSHIFT [facility] Last Admin: 06/13/23 08:21 Dose: 3 ml Documented By: MARINA Tizanidine HCl (Tizanidine Hcl 4 Mg Tablet) 4 mg PO Q8H PRN PRN Reason: moderate pain Last Admin: 06/12/23 10:23 Dose: 4 mg Documented By: MARIA M Labs 06/13/23 06:35 06/13/23 06:35 Labs: Laboratory Results - last 24 hr 06/12/23 06/12/23 06/12/23 09:22 13:08 16:29 MCV MCH MCHC RDW Plt Count MPV Immature Gran % (Auto) Neut % (Auto) Lymph % (Auto) [place] % (Auto) Eos % (Auto) Baso % (Auto) Lymph # (Auto) [place] # (Auto) Eos # (Auto) Baso # (Auto) Abs Immat Gran (auto) Absolute Neuts (auto) Absolute Nucleated RBC Nucleated RBC % (auto) Anion Gap Estim Creat Clear Calc Estimated GFR POC Glucose 108 112 124 H Random Glucose Calcium 06/12/23 06/12/23 06/13/23 21:10 23:05 06:35 MCV 93.5 MCH 31.2 MCHC 33.3 RDW 13.6 Plt Count 266 MPV 9.1 L Immature Gran % (Auto) 0.4 Neut % (Auto) 82.3 H Lymph % (Auto) 11.2 L [place] % (Auto) 5.8 Eos % (Auto) 0.1 Baso % (Auto) 0.2 Lymph # (Auto) 1.4 [place] # (Auto) 0.7 Eos # (Auto) 0.0 Baso # (Auto) 0.0 Abs Immat Gran (auto) 0.05 H Absolute Neuts (auto) 10.3 H Absolute Nucleated RBC 0.000 Nucleated RBC % (auto) 0.0 Anion Gap 10 L Estim Creat Clear Calc 195.2 Estimated GFR > 60 POC Glucose 171 H 216 H Random Glucose 166 H Calcium 9.4 06/13/23 07:46 MCV MCH MCHC RDW Plt Count MPV Immature Gran % (Auto) Neut % (Auto) Lymph % (Auto) [place] % (Auto) Eos % (Auto) Baso % (Auto) Lymph # (Auto) [place] # (Auto) Eos # (Auto) Baso # (Auto) Abs Immat Gran (auto) Absolute Neuts (auto) Absolute Nucleated RBC Nucleated RBC % (auto) Anion Gap Estim Creat Clear Calc Estimated GFR POC Glucose 146 H Random Glucose Calcium Microbiology Microbiology Results: Microbiology 06/11/23 17:51 Blood Culture - Preliminary Blood - Venous No growth after 24 hours. 06/11/23 17:52 Blood Culture - Preliminary Blood - Venous No growth after 24 hours. 06/12/23 14:07 Gram Stain - Final Leg Left Procedures Date of Service Date of Service: 06/13/23 Progress Note: A&P Assessment and plan (1) Non-healing wound of left lower extremity: Status: Acute Assessment and Plan: Status post debridement of infected thick eschar I changes dressings - applied silver alginate The patient is insisting on being discharged Discussed this with the hospitalist -keira to [place] home with addition of amlodipine for BP control I emphasized to the patient that he needs to see his primary care physician for his other medical problems He is to follow-up with the Wound Clinic as well as Doppler studies were planned for him He says he his has been doing his wound care daily at home Silver alginate dressings every day Time Spent With Patient Time: Total time managing care of this patient today ____ minutes. Quality Stroke Does the patient have a stroke diagnosis?: No VTE Prior VTE?: No VTE Risk Level:: Medical - low VTE Device Contraindication: Treatment Not Indicated VTE Drug Contraindication: Treatment Not Tolerated
--- NOTE | 2023-06-13 10:12 | PM.DS ---
DS: Providers Provider Date of Service: 06/13/23 Date of admission: 06/12/23 01:15 Date of discharge: 06/13/23 Primary care physician: Unknown Physician Attending physician on admission: Maylin Carlin Consults: 06/12/23 08:26 Consult to Hospitalist Routine Comment: Consulting Provider: Hospitalist Reason For Exam: HTN lymphedema, on immunomodulator Attending physician on discharge: Karthik Rolon DS: Diagnosis Discharge Diagnosis (1) Non-healing wound of left lower extremity: Status: Acute DS: Summary Hospital Course Hospital Course: HPI AT ADMISSION: Flaquito Del Angel is a 48 year old male with multiple medical iissues including obesity, DM, HTN, him to the ER yesterday because of worsening pain of his left leg ulcer. He has had this nonhealing ulcers for many years on both sides. He has been seeing a energy conservation specialist and staff development educator for these. He has had chronic lymphedema. He says he had been recently started on any stone as well and since then had developed diabetes. He says that 1 of the ulcers on the side of his lower leg seems to have been worsening with regards to pain so he decided to come to the ER last night. He also has been seen by the Wound Clinic as well. He denies any fever or chills. HOSPITAL COURSE: He was admitted to the surgical service for further treatment of the infected wound. He had a thick, foul-smelling eschar with some cellulitic changes and it was therefore recommended to proceed with excisional debridement in the operating room. Hospitalist consult was obtained for medical management. On 06/12/23, excisional debridement, left leg ulcer with infected eschar; full-thickness of the skin and thick subcutaneous fat down to the fascia of the muscle excise measuring 6 x 12 cm was performed by Dr. Rolon without complication. On POd #1, the leg wound was clean without any further necrosis and there was improvement in the surrounding cellulitis. Silver alginate dressing was placed. He insisted on being discharged. He was medically cleared. He was started on amlodipine 5mg PO daily for persistently elevated SBP in 170s. He is to follow up in the office in 2 weeks for follow up and the wound care center for further wound care, as well as his PCP for management of his medical problems including hypertension. He was discharged to home on 06/13/23 in stable condition. His will be performing daily wound care dressing changes with wet to dry dressings to open wound on left calf, then wrap with Suleiman. Status at Discharge Functional status at discharge: independent ambulation Overall status at discharge: patient is back to baseline Time Attestation Discharge Coordination Time (in mins): 30 Quality: Safe Use of Opioids Does Pt have an Active Cancer Diagnosis on the Problem List?: No Quality: Stroke Does the patient have a stroke diagnosis?: No Physical Exam Vital Signs: Vital Signs: Last Vital Signs Temp 96.9 F 06/13/23 08:00 Pulse 57 06/13/23 08:00 Resp 18 06/13/23 08:00 BP 170/78 H 06/13/23 08:21 Pulse Ox 96 06/13/23 08:00 O2 Del Method Room Air 06/13/23 08:00 O2 Flow Rate 6 06/12/23 14:35 BMI result Body Mass Index 46.9 Const: General: comfortable, no acute distress and alert Skin: Other: left leg wound clean without any necrosis, surrounding cellulitis improved DS: Data Data Completed and Pending Completed studies during hospitalization [Text1]: 06/12/23 14:08 Surgical [PTH] Routine Left lower leg, wound/infected eschar, debridement: Cutaneous ulceration and underlying soft tissue with gangrenous necrosis consistent with eschar. Discharge Plan Discharge Anticipated Discharge Date/Time: 06/13/23 08:35 Patient Disposition: Home, Self-Care Discharge Diagnosis: Open wound with thick eschar Referrals: Karthik Rolon MD [Physician] - 2 Weeks Maylin Carlin MD [Physician] - 1 Week Physician,Unknown J [Primary Care Provider] - 1 Week Discharge Medications: New oxycodone-acetaminophen [Percocet] 5-325 mg tablet 1 tab PO Q4-6H PRN (Reason: pain) Qty: 30 0RF Rx Instructions: Partial Fill upon patient request. amlodipine 5 mg tablet 5 mg PO DAILY Qty: 30 0RF Continued metformin 500 mg tablet 500 mg PO BIDWM prednisone 10 mg tablet 10 mg PO BID atorvastatin 20 mg tablet 20 mg PO BEDTIME tizanidine 4 mg tablet 4 mg PO Q8H PRN (Reason: moderate pain) minocycline 100 mg capsule 100 mg PO BID gabapentin 300 mg capsule 300 mg PO BEDTIME celecoxib 100 mg capsule 100 mg PO BID lidocaine 5 % ointment 1 appl topical DAILY PRN (Reason: Pain) Rx Instructions: to leg wound Jardiance 10 mg tablet 10 mg PO DAILY Humira(CF) Pen 80 mg/0.8 mL pen injector kit 80 mg subcut Q2W Discontinued tramadol 50 mg tablet 50 mg PO Q6H PRN (Reason: pain) Discharge Orders: Discharge Order (Routine); Ordered 06/13/23 Ordered By: Karthik Rolon Diet: Diabetic diet Activity on Discharge: As tolerated Stand Alone Forms: Patient Portal Discharge page Print Language: Setswana Activity Restrictions/Additional Instructions: wet to dry dressings daily to open wound on left calf, then wrap with Suleiman We will also need to follow up with your primary care physician because of your multiple medical problems bleeding hypertension If the incision area is tender, you may apply an ice pack for short intervals (No more than 20 minutes on, followed by at least 20 minutes off). Do not apply heat. Do not use creams, lotions, or topical antibiotics unless instructed to do so by your surgeon. These can cause infection or allergic reaction. Okay to shower No strenuous activities Call the office for follow-up in 2 weeks - with Dr. Rolon Call Wound Clinic for ffup in 2 weeks Call Your Doctor If: -Your temperature exceeds 101.5? F -You experience excessive pain or swelling -You have an unexpected reaction to medication -You have excessive bleeding -You experience continued vomiting/nausea -Your incision begins to separate -Your incision shows signs of infection such as increased redness, swelling, excessive pain, drainage (light blood or clear fluid is normal) or heat Care Plan Goals: return to baseline Blood pressure control Health Concerns: has open wound Hypertension Plan of Treatment: daily wound care Assessment: doing well Discharge Date/Time: 06/13/23 10:03
--- NOTE | 2023-06-13 10:41 | MHC.CM.PN ---
Patient is discharged to home self care. He has arranged for a ride home.
--- NOTE | 2023-06-13 11:37 | HO.POSTANES ---
Post Anesthesia Evaluation Post Anesthesia Evaluation Date of Service: 06/12/23 Vital Signs: Vital Signs Temp Pulse Resp BP Pulse Ox O2 Del Method 06/13/23 08:21 170/78 H 06/13/23 08:00 96.9 F 57 18 170/78 H 96 Room Air 06/13/23 03:14 98.2 F 61 18 159/74 H 96 Room Air Anesthesia: General LMA Mental Status: Awake Pain Control: Satisfactory Nausea/Vomiting: None Hydration: Adequate Anesthesia-Related Issues: No Anes. Related Issues
== END 2023-06-13 10:03 | disposition home or self-care (01) | DRG 571 ==
LOC: HO.ED 06-12 01:18 → HO.EDOVER 06-12 01:22 → HO.IMC 06-12 14:41
PROVIDERS: Physician Assistant Medical; Student in an Organized Health Care Education/Training Program; Surgery; Admitting Provider Surgery; Emergency Provider Student in an Organized Health Care Education/Training Program; Visit Provider Surgery
PROC: 0JBP0ZZ Excision of Left Lower Leg Subcutaneous Tissue and Fascia, Open Approach (ICD-10-PCS; CPT 11043; principal; 2023-06-12 13:30)
DX: L97.223 Non-pressure chronic ulcer of left calf with necrosis of muscle (principal); I96 Gangrene, not elsewhere classified; Z68.42 Body mass index [BMI] 45.0-49.9, adult; E66.01 Morbid (severe) obesity due to excess calories; F17.210 Nicotine dependence, cigarettes, uncomplicated; E11.42 Type 2 diabetes mellitus with diabetic polyneuropathy; Z71.6 Tobacco abuse counseling; I89.0 Lymphedema, not elsewhere classified; L73.2 Hidradenitis suppurativa; L08.0 Pyoderma; Z79.84 Long term (current) use of oral hypoglycemic drugs; Z79.52 Long term (current) use of systemic steroids; Z79.620 Long term (current) use of immunosuppressive biologic; Z79.899 Other long term (current) drug therapy
CPT/HCPCS: 11043; 11046 ×3; 36415; 80048; 80076; 82947; 85025; 86140; 87040; 87070; 87077; 87186; 87205; 88304; 94640; 99285; J0330; J0690; J1170; J1720; J2270; J2543; J2704; J2795; J3010

== ENCOUNTER → 2023-06-12 01:15 | Outpatient (BNV) | payer OTHER, SELFPAY | PROVIDERS: Admitting Provider Surgery; Emergency Provider Student in an Organized Health Care Education/Training Program; Visit Provider Physician Assistant | DX: I10 Essential (primary) hypertension (principal) | CPT/HCPCS: 99222; 99232 ==

== ENCOUNTER → 2023-06-12 01:15 | Outpatient (BNV) | payer OTHER, SELFPAY | PROVIDERS: Admitting Provider Surgery; Emergency Provider Student in an Organized Health Care Education/Training Program; Visit Provider Surgery | DX: S81.802A Unspecified open wound, left lower leg, initial encounter (principal) | CPT/HCPCS: 11043; 11046; 99024; 99222; 99238; 99499 ==

== ENCOUNTER 2023-06-25 13:11 | Inpatient (IN) | payer OTHER, SELFPAY ==
[2023-06-25] VITALS (10 sets, daily range): BP systolic 126–160; BP diastolic 59–94; PULSE 56–73; RESP 14–20; TEMP 35.5–36.8; O2SAT 92–100; BMI 40.7
--- NOTE | ~2023-06-25 | US_ITS ---
EXAMINATION: NONINVASIVE ASSESSMENT OF THE ARTERIES OF BOTH LOWER EXTREMITIES INCLUDING BILATERAL LOWER EXTREMITY DUPLEX. CLINICAL INFORMATION: Wounds COMPARISON: Arterial duplex on 09/15/20 TECHNIQUE: duplex Doppler techniques with wave form analysis and measurement of velocities in the common femoral, profunda femoral, superficial femoral, popliteal, tibial and peroneal arteries. The study was performed only at rest. FINDINGS: RIGHT LEG Common femoral artery: 140 cm/s, monophasic Profunda femoris artery: 136 cm/s, monophasic Superficial femoral artery (proximal): Occluded Superficial femoral artery (mid): 51 cm/s, monophasic Superficial femoral artery (distal): 50 cm/s, monophasic Proximal Popliteal artery: 72 cm/s, monophasic Mid posterior tibial artery: 18 cm/s, monophasic LEFT LEG: Common femoral artery: 86 cm/s, monophasic Profunda femoris artery: 38 cm/s, monophasic Superficial femoral artery (proximal): 76 cm/s, monophasic Superficial femoral artery (mid): 46 cm/s, monophasic Superficial femoral artery (distal): 39 cm/s, monophasic Proximal Popliteal artery: 38 cm/s, monophasic Mid posterior tibial artery: 40 cm/s, monophasic US/US arterial duplex LE BI IMPRESSION: RIGHT LEG: 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 Monophasic flow throughout the lower extremity suggesting outflow disease. LEFT LEG: Monophasic flow throughout the lower extremity suggesting inflow disease suggesting outflow disease.
--- NOTE | ~2023-06-25 | CT_ITS ---
EXAMINATION: CT ANGIOGRAM ABDOMEN AND PELVIS WITH RUN-OFF CLINICAL INFORMATION: Peripheral vascular disease with abnormal duplex ultrasound. COMPARISON: Ultrasound from 06/25/2023 TECHNIQUE: Multiple axial images were obtained through the abdomen, pelvis, and lower extremities following the administration of 100 mL of Omnipaque 350 intravenous contrast. Sagittal, coronal, and MIP oblique sagittal reformatted images were obtained on the CT workstation, uploaded to PACS, and reviewed. Images were evaluated on independent dedicated 3-D workstation and 3-D images were reconstructed with concurrent radiologist supervision and subsequently interpreted. This CT examination was performed using dose optimization techniques as appropriate, variously including the following: *Automated exposure control *Adjustment of mA and/or kV according to patient size (this includes techniques or standardized protocols for targeted exams where dose is matched to indication/reason for exam; i.e. extremities or head) *Use of iterative reconstruction technique DLP: 1171 mGy-cm FINDINGS: VASCULATURE: Aorta: Normal in caliber. Scattered calcified plaque without significant stenosis. Celiac axis, superior mesenteric artery, inferior mesenteric artery and bilateral renal arteries are patent without significant stenosis. Right iliac arteries: Common iliac, external iliac and internal iliac arteries are small in caliber but otherwise patent with scattered calcified plaque without significant stenosis. Left iliac arteries: Common iliac, external iliac and internal iliac arteries are small in caliber but otherwise patent with scattered calcified plaque without significant stenosis. Right lower extremity: Common femoral artery demonstrates atherosclerotic plaque without significant stenosis. There is occlusion of the proximal superficial femoral artery beginning at the ostium and extending into the mid to thigh. Reconstituted flow is seen in the mid superficial femoral artery. Patent arterial flow through the distal superficial femoral artery and P1 segment of the popliteal artery. P2 and P3 segments of the popliteal artery are obscured by streak artifact from adjacent right knee total arthroplasty. Visualized segments are patent. Below knee runoff demonstrates diffusely small caliber of vessels with associated venous contamination which is limiting evaluation. There does appear to be patent flow in the anterior tibial artery, posterior tibial artery and peroneal artery. Left lower extremity: Common femoral artery demonstrates atherosclerotic plaque without significant stenosis. Superficial femoral artery is diffusely small in caliber with scattered calcified plaque. Patent flow seen in the proximal to mid segment. There appears to be short segment areas of stenoses and occlusions in the mid and distal segments. Popliteal artery is patent without significant stenosis. Below knee runoff demonstrates diffusely small caliber of vessels with associated venous contamination which is limiting evaluation. There does appear to be patent flow in the anterior tibial artery, posterior tibial artery and peroneal artery. NONVASCULAR: Lung bases are clear. Solid abdominal organs are unremarkable. Bowel loops are unremarkable. No free fluid seen in the abdomen and pelvis. Urinary bladder is unremarkable. No pathologic lymphadenopathy or mass lesion seen in the abdomen and pelvis. Degenerative disc disease seen in the lumbar spine. Degenerative osteoarthritis and bilateral hip joints left knee joint. Patient is status post right knee total arthroplasty. Diffuse soft tissue edema is seen in the bilateral calves and ankles. There is a soft tissue ulceration in the posterolateral mid left calf with wound VAC in place CT/CT angio abd aorta runoff IMPRESSION: 1. Right lower extremity demonstrates occlusion of the proximal superficial femoral artery with reconstituted flow in the mid superficial femoral artery. Patent flow is seen in the distal superficial femoral artery and P1 segment of the popliteal artery. Below knee runoff demonstrates diffusely small caliber vessels with associated venous contamination which is limiting evaluation. There does appear to be patent flow in the anterior tibial, posterior tibial and peroneal arteries. 2. Left superficial femoral artery is diffusely small in caliber with short segment stenoses and occlusions in the mid and distal segments. Popliteal artery is patent. Below knee runoff demonstrates diffusely small caliber vessels with associated venous contamination which is limiting evaluation. There does appear to be patent flow in the anterior tibial, posterior tibial and peroneal arteries. 3. Diffuse soft tissue edema in the bilateral calves and ankles. There is a soft tissue ulceration in the posterolateral mid left calf with wound VAC in place.
--- NOTE | 2023-06-25 11:47 | MHC.CM.PN ---
This consumer loan underwriter placed call to patient to communicate information re: direct admit. Pt verbalized understanding and will arrive here about 1PM.
--- OUTSIDE RECORDS SUMMARY | 2023-06-25 13:17 | XMS_ITS | Continuity of Care Document ---
Author Organization [facility] Address [address] [place] [address]- Care Team Providers Care Video Clerk Name Role Phone Edward GREENBERG, Barrie Brock Primary Care Physician [phone] Encounter [place] Date(s): 06/08/20 - 07/08/20 [facility] [address] [place] [address]- Allergies, Adverse Reactions, Alerts Substance Reaction Severity Status codeine Active Immunizations Given and Recorded Vaccine Date Status Refusal Reason influenza virus vaccine, inactivated 1 04/21/20 Gi matt tetanus-diphtheria toxoids (Td) 2 01/08/20 Given Influenza Virus Vaccine (oldterm) 11/30/19 Recorde d tetanus/diphtheria/pertussis, acel(Tdap) 3 08/23/06 Given 1Result Comment: [facility]: [id number] 2Result Comment: [facility]:[id number] 3Admin Note: vis given Medications buPROPion 150 mg/24 hours (XL) oral tablet, extended release 1 tablet = 150 mg, By Mouth, Every 24 hours, # 30 tablet, 6 Refills, Maintenance, 01/08/20 8:53:00 EST, ER Tablet, [id number], Partial fill upon patient request, 1 tablet By Mouth Every 24 hours, 183, cm, 01/08/20 8:32:00 EST, Height Start Date: 01/08/20 Status: Ordered nabumetone 750 mg oral tablet 1 tablet = 750 mg, By Mouth, 2 times a day, PRN Pain , Moderate, with food, # 60 tablet, 1 Refills,Maintenance, 06/02/20 15:05:00 EDT, Tablet, [id number], Partial fill upon patient request if the prescription is for a schedule II opioid drug.... Start Date: 06/02/20 Status: Ordered Problem List Condition Effective Dates Status Health Status Inform ant Obesity (BMI 30-39.9)(Confirmed) Active Dyslipidemia(Confirmed) Active H/O right knee surgery(Confirmed) Active Chronic pain of right knee(Confirmed) Active Prediabetes(Confirmed) Active Tobacco dependence(Confirmed) Active Social History Social History Type Response Smoking Status 10 or more cigarette s (1/2 pack or more)/day in last 30 days;Never; Previous treatment: Medications; Interested in cessation: Yes; Tobacco user in household: Yes entered on: 01/08/20 Sex
--- OUTSIDE RECORDS SUMMARY | 2023-06-25 13:17 | XMS_ITS | Continuity of Care Document ---
Author Organization [facility] Adult Address [address] [place] [address]- Care Team Providers Care Blood Donor Recruiter Name Role Phone Edward SALAD CHEF, Barrie Brock Primary Care Physician [place] [facility] [place]23 - 05/27/[address] [address]- Encounter Diagnosis Chronic ulcer of left leg(Discharge Diagnosis) - 05/20/23 Chronic ulcer of right leg(Discharge Diagnosis) - 05/20/23 Persistent wound pain(Discharge Diagnosis) - 05/20/23 Attending Physician: Not on Staff, Attending MD Allergies, Adverse Reactions, Alerts Substance Reaction Severity Status codeine Active Immunizations Given and Recorded Vaccine Date Status Refusal Reason hepatitis B adult vaccine 05/20/23 Given influenza virus vaccine, inactivated 12/19/20 Lenin rded influenza virus vaccine, inactivated 1 04/21/20 Gi matt SARS-CoV-2 (COVID-19) mRNA BNT-162b2 vac 08/04/20 Recorded SARS-CoV-2 (COVID-19) mRNA BNT-162b2 vac 07/14/20 Recorded SARS-CoV-2 (COVID-19) mRNA BNT-162b2 vac 07/14/20 Recorded tetanus-diphtheria toxoids (Td) 2 01/08/20 Given Influenza Virus Vaccine (oldterm) 11/30/19 Recorde d tetanus/diphtheria/pertussis, acel(Tdap) 3 08/23/06 Given 1Result Comment: [facility]: [id number] 2Result Comment: [facility]:[id number] 3Admin Note: vis given Medications atorvastatin 20 mg oral tablet 1 tablet = 20 mg, By Mouth, Daily at bedtime, # 90 tablet, 2 Refills, Maintenance, 05/23/23 16:46:00 EDT, Tablet, [facility]/pharmacy #[id number], Partial fill upon patient request if the prescription is for a schedule II opioid drug., 177, cm, 05/23/23 12:46:00 E... Start Date: 05/23/23 Status: Ordered CeleBREX 100 mg oral capsule 1 capsule = 100 mg, By Mouth, 2 times a day, # 60 capsule, 3 Refills, Maintenance, 05/20/23 10:12:00 EDT, Capsule, [facility]/pharmacy #[id number], Partial fill upon patient request if the prescription is for a schedule II opioid drug., 177, cm, 05/20/23 9:34:00 E... Start Date: 05/20/23 Status: Ordered Freestyle Lancets See Instructions, # 600 each, Refills 3, Tot. Refills 3, Maintenance, use to check glucose twice daily for dx diabetes mellitus type 2 (E11.9), 05/24/23 8:05:00 EDT, Supply, 177, cm, 05/23/23 12:46:00 EDT, Height Start Date: 05/24/23 Stop Date: 05/18/24 Status: Ordered Freestyle Lite Monitor See Instructions, # 1 each, Maintenance, use to check glucose twice daily for dx diabetes mellitus type 2 (E11.9), 05/24/23 8:05:00 EDT, Supply, 177, cm, 05/23/23 12:46:00 EDT, Height Start Date: 05/24/23 Status: Ordered Freestyle Lite Test Strips See Instructions, # 600 each, Refills 3, Tot. Refills 3, Maintenance, use to check glucose twice daily for dx diabetes mellitus type 2 (E11.9), 05/24/23 8:05:00 EDT, Supply, 177, cm, 05/23/23 12:46:00 EDT, Height Start Date: 05/24/23 Stop Date: 05/18/24 Status: Ordered Gabapentin By Mouth, 0 Refills, Maintenance, 05/20/23 9:27:00 EDT, Partial fill upon patient request if the prescription is for a schedule II opioid drug. Start Date: 05/20/23 Status: Ordered gabapentin 300 mg oral capsule TAKE ONE PILL DAILY AT NIGHT Start Date: 05/20/23 Status: Ordered Humira = 40 mg, Subcutaneous Infusion, 0 Refills, Maintenance, 05/20/23 9:33:00 EDT, Partial fill upon patient request if the prescription is for a schedule II opioid drug. Start Date: 05/20/23 Status: Ordered Jardiance 10 mg oral tablet 1 tablet = 10 mg, By Mouth, Daily in AM, # 90 tablet, 0 Refills, Maintenance, 05/24/23 14:58:00 EDT, Tablet, [facility]/pharmacy #[id number], Partial fill upon patient request if the prescription is for a schedule II opioid drug., 177, cm, 05/23/23 12:46:00 EDT, H... Start Date: 05/24/23 Status: Ordered lidocaine 5% topical ointment APPLY TO PAINFUL LEFT LEG ULCER DAILY DIRECTED Start Date: 05/20/23 Status: Ordered metFORMIN 500 mg oral tablet 1 tablet = 500 mg, By Mouth, 2 times a day, with meals. Take 1 tablet daily x 1 week then increase to twice daily, # 180 tablet, 1 Refills, Maintenance, 05/23/23 16:46:00 EDT, Tablet, [facility]/pharmacy #[id number], Partial fill upon patient request if the prescr... Start Date: 05/23/23 Status: Ordered minocycline 100 mg oral capsule 1 capsule = 100 mg, By Mouth, Every 12 hours, # 20 capsule, 0 Refills, Maintenance, 05/20/23 9:58:00 EDT, Capsule, Partial fill upon patient request if the prescription is for a schedule II opioid drug. Start Date: 05/20/23 Stop Date: 05/30/23 Status: Ordered minocycline tabs minocycline tabs, 100 mg, Refills 0, Maintenance, 05/20/23 9:30:00 EDT, Supply Start Date: 05/20/23 Status: Ordered Multivitamin Daily, 0 Refills, Maintenance, 07/14/20 9:30:00 EDT, Partial fill upon patient request if the prescription is for a schedule II opioid drug. Start Date: 07/14/20 Status: Ordered Nicorette 2 mg oral transmucosal gum 1 each = 2 mg, Chew, Every 2 hours, PRN as needed for smoking cessation, for 4 week(s), # 160 each,0 Refills, Acute 06/17/23 10:14:00 EDT, 05/20/23 10:14:00 EDT, Gum, [facility][id number], Partial fill upon patient request if the prescription is for a... Start Date: 05/20/23 Stop Date: 06/17/23 Status: Ordered predniSONE 10 mg oral tablet 2 tablet = 20 mg, By Mouth, Daily, rxd by rheumatology, 0 Refills, Maintenance, 05/24/23 16:50:00 EDT, Partial fill upon patient request if the prescription is for a schedule II opioid drug. Start Date: 05/24/23 Status: Ordered tiZANidine 4 mg oral tablet 4 mg, 1, tablet, By Mouth, Every 8 hours, PRN, # 90 tablet, Refills 0, Tot. Refills 0, Maintenance,Pain , Moderate, 05/20/23 10:16:00 EDT, Route to Pharmacy Electronically, [facility][id number], Partial fill upon patient request if the prescription is... Start Date: 05/20/23 Stop Date: 06/19/23 Status: Ordered traMADol 50 mg oral tablet 1 tablet = 50 mg, By Mouth, Every 6 hours, PRN Pain , Moderate, for 7 days, not to exceed 400 mg/day, # 28 tablet, 0 Refills, Acute 06/03/23 10:27:00 EDT, 05/27/23 10:27:00 EDT, Tablet, [id number], Partial fill upon patient request if the pres... Start Date: 05/27/23 Stop Date: 06/03/23 Status: Ordered Vitamin C By Mouth, Daily, 0 Refills, Maintenance, 07/14/20 9:30:00 EDT, Partial fill upon patient request ifthe prescription is for a schedule II opioid drug. Start Date: 07/14/20 Status: Ordered Problem List Condition Confirmation Course Effective Dates Status Health St atus Informant Arthritis of knee, left Confirmed Active Obesity (BMI 30-39.9) Confirmed Active Chronic ulcer of left leg Confirmed Active Chronic ulcer of right leg Confirmed Active Dyslipidemia Confirmed Active H/O right knee surgery Confirmed Active Chronic pain of right knee Confirmed Active Persistent wound pain Confirmed Active Prediabetes Confirmed Active Tobacco dependence Confirmed Active Type 2 diabetes mellitus Confirmed Active Type 2 diabetes mellitus with morbid obesity Confirmed Active Diagnosis Diagnosis Type Effective Dates Health Status Clinical Service Informant Chronic ulcer of left leg Discharge Diagnosis 05/20/23 Chronic ulcer of right leg Discharge Diagnosis 05/20/23 Persistent wound pain Discharge Diagnosis 05/20/23 Vital Signs Most recent to oldest [Reference Range]: 1 2 3 Height 177 cm (05/20/23 10:17 AM) 177 cm (05/20/23 9:34 AM) 177 cm (05/20/23 9:22 AM) Weight 164.7 kg (05/20/23 9:22 AM) Oxygen Saturation [94-100 %] 94 % (05/20/23 9:22 AM) Pulse Rate [55-90 bpm] 68 bpm (05/20/23 9:22 AM) Body Mass Index [18.5-24.99 kg/m2] 52.57 kg/m2 *>HHI* (05/20/23 9:22 AM) Blood Pressure [90-138/55-84 mm Hg] 132/80mm Hg (05/20/23 10:17 AM) 148/78mm Hg *H* (05/20/23 9:34 AM) 168/108mm Hg *H* (05/20/23 9:22 AM) Mode of Delivery (Oxygen) Room air (05/20/23 9:22 AM) Blood pressure sites Arm, left (05/20/23 10:17 AM) Arm, right (05/20/23 9:34 AM) Arm, right (05/20/23 9:22 AM) Weight Obtained Via Standing scale (05/20/23 9:22 AM) Social History Social History Type Response Smoking Status 10 or more cigarette s (1/2 pack or more)/day in last 30 days;Never; Previous treatment: Medications; Interested in cessation: Yes; Tobacco user in household: Yes entered on: 01/08/20 Sex Note * Haydee Peñaloza: PERFORM, SIGN, VERIFY Event Display: Patient Education/Instruction Authored Date: [id number] [facility] *[facility] [place] [facility] Clinical Summary Name BLANCA GARCIA Age 48 Years 1975 PCP Edward GREENBERG, Barrie Brock PCP Visit Date 05/20/2023 09:20:00 Additional Instructions: Scheduled Appointments?? Future Appointments ?No Future Appointments Scheduled Follow-Up Instructions ?? With: Address: When: Edward GREENBERG, Barrie Brock Comments: 4 months HUPD Diagnosis Hyperlipidemia, unspecified; Non-pressure chronic ulcer of unspecified part of left lower leg with unspecified severity; Body mass index [BMI] 35.0-35.9, adult; Encounter for screening for lipoid disorders; Prediabetes; Non-pressure chronic ulcer of unspecified part of right lower leg with unspecified severity; Encounter for screening for malignant neoplasm of prostate; Encounter for screening for diabetes mellitus Medications: Please continue your medications until treatment is completed or stopped by your provider. Discuss any questions related to medications with your provider. New Medications [facility]/pharmacy #[id number], [address] [place], [place] [id number], [phone] Celecoxib (CeleBREX 100 mg oral capsule) 1 capsule Oral twice a day. Refills: 3. Next Dose: Nicotine (Nicorette 2 mg oral transmucosal gum) 1 Each Chew every 2 hours as needed as needed for smoking cessation for 4 week(s). Refills: 0. Next Dose: Tramadol (traMADol 50 mg oral tablet) 1 tab(s) Oral every 8 hours as needed Pain , Moderate for 7 Days. not to exceed 400 mg/day. Refills: 0. Next Dose: Medications to Continue Taking That Have Changed [id number], [address], [place] [id number], [phone] - Tizanidine (tiZANidine 4 mg oral tablet) 1 tab(s) Oral every 8 hours as needed Pain , Moderate. Refills: 0. Next Dose: These medications were not printed or sent to your pharmacy - Miscellaneous Rx (minocycline tabs) 100 Milligram. Next Dose: Medications to Continue with No Changes These medications were not printed or sent to your pharmacy Adalimumab (Humira) 40 Milligram Subcutaneous Infusion. Next Dose: Ascorbic Acid (Vitamin C) Oral Daily. Next Dose: Gabapentin Oral. Next Dose: Gabapentin (gabapentin 300 mg oral capsule) TAKE ONE PILL DAILY AT NIGHT. Next Dose: Lidocaine Topical (lidocaine 5% topical ointment) APPLY TO PAINFUL LEFT LEG ULCER DAILY DIRECTED. Next Dose: Minocycline (minocycline 100 mg oral capsule) 1 capsule Oral every 12 hours for 10 Days. Next Dose: Multivitamin Daily. Next Dose: Allergy Info:?? codeine Medications Given This Visit Future Orders ?No future orders Future Orders ?PSA Screen? Order Date:05/20/23?- Complete within?Hemoglobin A1C (Monitoring)? Order Date:05/20/23?- Complete within?Basic Metabolic Panel? Order Date:05/20/23?- Complete within?Lipid Panel Non Fasting? Order Date:05/20/23?- Complete within?ALT? Order Date:05/20/23?- Complete within? Vital Signs Height 177 cm Weight 164.7 kg BMI 52.57 kg/m2 Blood Pressure 132 mm Hg/80 mm Hg Temperature Pulse Rate 68 bpm Respiratory Rate 02 Sat Mode of Delivery 94 %/Room air You can now view a summary of your hospital visit from the comfort of your home through a free online portal called [employer]. [employer] is a website that allows you to securely view your medical information including discharge summary, medications and follow-up visits. ??You can alsosend a secure electronic message to your doctor???s office to request appointments, renew medications or just ask a question. You can enroll at [email or web address] or register during your next office visit. Disclaimer:?? The information provided is of a general nature and is intended to be used in conjunction with the recommendations and advice of your health care practitioner. ??Every effort has been made to ensure that the information provided is accurate and complete at the time it is provided to you however, as your needs change, or, as new ??information becomes available, different or additional instructions may be required. If you have questions, please consult with your primary care provider or pharmacist, as appropriate. ??This information is not intended to serve as substitution for assessment and evaluation by a qualified health care provider. If you do not have a primary care provider, you may find a [facility] provider by calling [facility] [employer] Link at [phone]. [facility], in keeping with [facility] guidance, no longer requires face masks for staff, patientsor visitors in most situations. Similar to time spent indoors at other locations, there is the chance that you were exposed to respiratory viruses during your time with us (such as flu or COVID-19).? If you develop symptoms concerning for a viral respiratory infection, please seek testing (and treatment if indicated) from your medical provider or home test kit. For information about the plan of care including goals and instructions for your diagnosis, please see the patient education orders section of this document. Patient Education Materials?? The content of this educational material or handout may have been modified, supplemented, or adapted from its original content and format to support your individualized medical care. Patient Care team information Care Team Personnel Name: Barrie Leon NP Position: [facility] PCO Associate Professional Member Role: PCP Address: Address: [address] [place] [address]- Care Team Related Persons Name: RAVINDRA STREET Name: DEVANG GARCIA Address: home [address] [place] [address] Name: LAZARO GARCIA Address: home [address] [place] [address]
--- OUTSIDE RECORDS SUMMARY | 2023-06-25 13:17 | XMS_ITS | Continuity of Care Document ---
Author Organization [facility] Adult Address [address] [place] [address]- Care Team Providers Care Tile Sprayer Name Role Phone Edward GREENBERG, Barrie Brock Primary Care Physician [place] [facility]/20 [facility] Adult [address] [place] [address]- Allergies, Adverse Reactions, Alerts Substance Reaction Severity Status codeine Active Immunizations Given and Recorded Vaccine Date Status Refusal Reason influenza virus vaccine, inactivated 1 04/21/20 Gi matt tetanus-diphtheria toxoids (Td) 2 01/08/20 Given Influenza Virus Vaccine (oldterm) 11/30/19 Recorde d tetanus/diphtheria/pertussis, acel(Tdap) 3 08/23/06 Given 1Result Comment: [facility]: [id number] 2Result Comment: [facility]:[id number] 3Admin Note: vis given Medications gabapentin 100 mg oral capsule 100 mg, 1, capsule, By Mouth, 3 times a day, # 90 capsule, Refills 0, Tot. Refills 0, Maintenance, 07/14/20 11:23:00 EDT, Route to Pharmacy Electronically, [facility]/pharmacy #[id number], Partial fill upon patient request if the prescription is for a schedule II... Start Date: 07/14/20 Status: Ordered Multivitamin Daily, 0 Refills, Maintenance, 07/14/20 9:30:00 EDT, Partial fill upon patient request if the prescription is for a schedule II opioid drug. Start Date: 07/14/20 Status: Ordered Percocet 2.5 mg-325 mg oral tablet 1 tablet, By Mouth, Every 12 hours, PRN as needed for pain, for 7 days, take at night, # 14 tablet,0 Refills, Acute 07/21/20 11:22:00 EDT, 07/14/20 11:22:00 EDT, Tablet, [facility]/pharmacy #[id number], Partial fill upon patient request if the prescription is for... Start Date: 07/14/20 Stop Date: 07/21/20 Status: Ordered Vitamin C By Mouth, Daily, 0 Refills, Maintenance, 07/14/20 9:30:00 EDT, Partial fill upon patient request ifthe prescription is for a schedule II opioid drug. Start Date: 07/14/20 Status: Ordered Problem List Condition Effective Dates [...]
--- OUTSIDE RECORDS SUMMARY | 2023-06-25 13:18 | XMS_ITS | Continuity of Care Document ---
Author Organization [facility] Adult Address [address] [place] [address]- Care Team Providers Care Drawing In Hand Name Role Phone Edward GREENBERG, Barrie Brock Primary Care Physician [phone] Encounter [facility] [place] Date(s): 12/06/21 - 01/05/22 [facility] Adult [address] [place] [address]- Attending Physician: Admtr, Kelley Admitting Physician: AdmtrKelley Referring Physician: Admtr, Ar8 Allergies, Adverse Reactions, Alerts Substance Reaction Severity Status codeine Active Immunizations Given and Recorded Vaccine Date Status Refusal Reason influenza virus vaccine, inactivated 12/19/20 Lenin rded influenza virus vaccine, inactivated 1 04/21/20 Gi matt SARS-CoV-2 (COVID-19) mRNA BNT-162b2 vac 08/04/20 Recorded SARS-CoV-2 (COVID-19) mRNA BNT-162b2 vac 07/14/20 Recorded SARS-CoV-2 (COVID-19) mRNA BNT-162b2 vac 07/14/20 Recorded tetanus-diphtheria toxoids (Td) 2 01/08/20 Given Influenza Virus Vaccine (oldterm) 11/30/19 Recorde d tetanus/diphtheria/pertussis, acel(Tdap) 3 08/23/06 Given 1Result Comment: [facility]: [id number] 2Result Comment: [facility]:[id number] 3Admin Note: vis given Medications BuPROPion (Eqv-Zyban Advantage Pack) 150 mg/12 hours oral tablet, extended release 1 tablet, By Mouth, 2 times a day, # 60 tablet, 5 Refills, [facility] [id number], 177, cm, 04/10/21 10:16:00 EST, Height Start Date: 08/16/21 Status: Ordered Multivitamin Daily, 0 Refills, Maintenance, 07/14/20 9:30:00 EDT, Partial fill upon patient request if the prescription is for a schedule II opioid drug. Start Date: 07/14/20 Status: Ordered Vitamin C By Mouth, Daily, 0 Refills, Maintenance, 07/14/20 9:30:00 EDT, Partial fill upon patient request ifthe prescription is for a schedule II opioid drug. Start Date: 07/14/20 Status: Ordered Problem List Condition Confirmation Course Effective Dates Status Health St atus Informant Arthritis of knee, left Confirmed Active Obesity (BMI 30-39.9) Confirmed Active Dyslipidemia Confirmed Active H/O right knee surgery Confirmed Active Chronic pain of right knee Confirmed Active Obese class II Confirmed Active Prediabetes Confirmed Active Tobacco dependence Confirmed Active Procedures Procedure Date Related Diagnosis Body Site Status Manipulation right knee join t under anesthesia 08/29/12 Completed Social History Social History Type Response Smoking Status 10 or more cigarette s (1/2 pack or more)/day in last 30 days;Never; Previous treatment: Medications; Interested in cessation: Yes; Tobacco user in household: Yes entered on: 01/08/20 Sex Note * Event Display: Non BH Lab Results Authored Date: * Event Display: Non BH Lab Results Authored Date: * Event Display: Non BH Lab Results Authored Date: * Event Display: Non BH Lab Results Authored Date: * Event Display: Non BH Lab Results Authored Date: * Event Display: X-Ray Knee, Non- BH Authored Date: * Event Display: X-Ray Knee, Non- BH Authored Date: * Event Display: X-Ray Lower Extremity, Non- BH Authored Date: * Event Display: X-Ray Lower Extremity, Non- BH Authored Date: * Event Display: X-Ray Lower Extremity, Non- BH Authored Date: * Event Display: X-Ray Knee, Non- BH Authored Date: * Event Display: EKG Non BH Authored Date: * Event Display: MRI Knee, Non- BH Authored Date: Patient Care team information Care Team Personnel Name: Barrie Leon NP Position: S PCO Associate Professional Member Role: PCP Address: Address: [address] [place] [address]- Care Team Related Persons Name: RAVINDRA STREET Name: DEVANG GARCIA Address: [address] [place] [address] Name: LAZARO GARCIA Address: [address] [place] [address]
--- OUTSIDE RECORDS SUMMARY | 2023-06-25 13:18 | XMS_ITS | Continuity of Care Document ---
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 Name Role Phone Edward GREENBERG, Barrie Brock Primary Care Physician [phone] Encounter [facility] [place] Date(s): 01/25/21 - 02/24/21 [facility] Adult [address] [place] [address]- Allergies, Adverse Reactions, Alerts Substance Reaction Severity Status codeine Active Immunizations Given and Recorded Vaccine Date Status Refusal Reason SARS-CoV-2 (COVID-19) mRNA BNT-162b2 vac 08/04/20 Recorded SARS-CoV-2 (COVID-19) mRNA BNT-162b2 vac 07/14/20 Recorded SARS-CoV-2 (COVID-19) mRNA BNT-162b2 vac 07/14/20 Recorded influenza virus vaccine, inactivated 1 04/21/20 Gi matt tetanus-diphtheria toxoids (Td) 2 01/08/20 Given Influenza Virus Vaccine (oldterm) 11/30/19 Recorde d tetanus/diphtheria/pertussis, acel(Tdap) 3 08/23/06 Given 1Result Comment: [facility]: [id number] 2Result Comment: [facility]:[id number] 3Admin Note: vis given Medications celecoxib 100 mg oral capsule 1 capsule, By Mouth, 2 times a day, PRN NEEDED FOR MODERATE PAIN CONTENTS OF, MAY BE MIXED WITH SOFT FOODS SUCH APPLESAUCE., # 60 capsule, 0 Refills, [facility] [id number], 183, cm, 10/03/20 11:56:00EDT, Height Start Date: 11/02/20 Status: Ordered gabapentin 100 mg oral capsule 100 mg, 1, capsule, By Mouth, 3 times a day, # 90 capsule, Refills 0, Tot. Refills 0, Maintenance, 09/22/20 17:46:00 EDT, Route to Pharmacy Electronically, [facility]/pharmacy #[id number], 183, cm, 07/14/20 9:18:00 EDT, Height Start Date: 09/22/20 Status: Ordered Multivitamin Daily, 0 Refills, Maintenance, 07/14/20 9:30:00 EDT, Partial fill upon patient request if the prescription is for a schedule II opioid drug. Start Date: 07/14/20 Status: Ordered traMADol 50 mg oral tablet 1 tablet = 50 mg, By Mouth, Every 8 hours, for 7 days, # 21 tablet, 0 Refills, Acute 02/27/21 17:50:00 EST, 02/20/21 17:50:00 EST, [facility]/pharmacy #[id number], Partial fill upon patient request if the prescription is for a schedule II opioid drug., 183, cm, 08... Start Date: 02/20/21 Stop Date: 02/27/21 Status: Ordered Vitamin C By Mouth, Daily, [...]
--- OUTSIDE RECORDS SUMMARY | 2023-06-25 13:18 | XMS_ITS | Continuity of Care Document ---
Author Organization [facility] Adult Address [address] [place] [address]- Care Team Providers Care Prosthetic Dentist Name Role Phone Edward HEARING IMPAIRED TEACHER, Barrie Brock Primary Care Physician [place] [facility] [place](s): 10/09/21 - 11/08/21 [facility] Adult [address] [place] [address]- Attending Physician: Kelley Veloz Admitting Physician: AdmKelley estes Referring Physician: Admtr ArSacha Allergies, Adverse Reactions, Alerts Substance Reaction Severity [...] tetanus/diphtheria/pertussis, acel(Tdap) 3 08/23/06 Given 1Result Comment: [facility]: 86936-258-15 2Result Comment: [facility]:[address]-5 3Admin Note: vis given Medications BuPROPion (Eqv-Zyban Advantage Pack) 150 mg/12 hours oral tablet, extended release 1 tablet, By Mouth, 2 times a day, # 60 tablet, 5 Refills, [facility], 177, cm, 04/10/21 10:16:00 EST, Height Start Date: 08/16/21 Status: Ordered Multivitamin Daily, 0 Refills, Maintenance, 07/14/20 9:30:00 EDT, Partial fill upon patient request if the prescription is for a schedule II opioid drug. Start Date: 07/14/20 Status: Ordered semaglutide 0.25 mg/0.5 mL (0.25 mg dose) subcutaneous solution = 0.25 mg, Subcutaneous Infusion, Every week, in the abdomen, thigh, or back of upper arm, # 1 each, 0 Refills, Maintenance, 04/10/21 10:24:00 EST, [id number], Partial fill upon patient request if the prescription is for a schedule II opioid d... Start Date: 04/10/21 Stop Date: 05/08/21 Status: Ordered Vitamin C By Mouth, Daily, 0 Refills, Maintenance, 07/14/20 9:30:00 EDT, Partial fill upon patient request ifthe prescription is for a schedule II opioid drug. Start Date: 07/14/20 Status: Ordered Problem List Condition Effective Dates Status Health Status Inform ant Arthritis of knee, left(Confirmed) Active Obesity (BMI 30-39.9)(Confirmed) Active Dyslipidemia(Confirmed) Active H/O right knee surgery(Confirmed) Active Chronic pain of right knee(Confirmed) Active Prediabetes(Confirmed) Active Severe obesity(Confirmed) Active Tobacco dependence(Confirmed) Active Procedures Procedure Date Related Diagnosis Body Site Status Manipulation right knee join t under anesthesia 08/29/12 Completed Social History Social History Type Response Smoking Status 10 or more cigarette s (1/2 pack or more)/day in last 30 days;Never; Previous treatment: Medications; Interested in cessation: Yes; Tobacco user in household: Yes entered on: 01/08/20 Sex Care Team Personnel Name: Barrie Leon NP Address: [address] [facility] [address] [place], [place] [address]
--- OUTSIDE RECORDS SUMMARY | 2023-06-25 13:18 | XMS_ITS | Continuity of Care Document ---
Author Organization [facility] Adult Address [address] [place] [address]- Care Team Providers Care Bone Tender Name Role Phone Edward GREENBERG, Barrie Brock Primary Care Physician Encounter [facility] [place] Date(s): 03/26/23 - 04/25/23 [facility] Adult [address] [place] [address]- Allergies, Adverse Reactions, Alerts Substance Reaction Severity [...] acel(Tdap) 3 08/23/06 Given 1Result Comment: [facility]: [id number] 2Result Comment: [facility]:[address]-4 3Admin Note: vis given Medications Multivitamin Daily, 0 Refills, Maintenance, 07/14/20 9:30:00 [...] Chronic pain of right knee Confirmed Active Prediabetes Confirmed Active Tobacco dependence Confirmed Active Social History Social History Type Response Smoking Status 10 or more cigarette s (1/2 pack or more)/day in last 30 days;Never; Previous treatment: Medications; Interested in cessation: Yes; Tobacco user in household: Yes entered on: 01/08/20 Sex Patient Care team information Care Team Personnel Name: Barrie Leon NP Position: [facility] PCO Associate Professional Member Role: PCP Address: Address: [address] [place] [address] 3[address] [place] [address]- Care Team Related Persons Name: RAVINDRA STRE[address] Name: DEVANG GARCIA Address: home [address] [place] [address] Name: LAZARO GARCIA Address: home [address] [place] [address]
--- OUTSIDE RECORDS SUMMARY | 2023-06-25 13:18 | XMS_ITS | Continuity of Care Document ---
Author Organization [facility] Adult Address [address] [place] [address]- Care Team Providers Care Drum Filler Name Role Phone Edward GREENBERG, Barrie Brock Primary Care Physician Encounter [facility] [id number] Date(s): 03/12/23 - 04/17/23 [facility] Adult [address] [place] [address]- Attending Physician: Not on Staff, Attending MD [...] tetanus/diphtheria/pertussis, acel(Tdap) 3 08/23/06 Given 1Result Comment: [facility]: [id number] 2Result Comment: [facility]:[address]-6 3Admin Note: vis given Medications Multivitamin Daily, [...] Team Personnel Name: Barrie Leon NP Position: [facility] PCO Associate Professional Member Role: PCP Address: Address: [address] [place] [address] [address] [place] [address]- Care Team Related Persons Name: RAVINDRA [address] Name: DEVANG GARCIA Address: [address] [place] [address] Name: LAZARO GARCIA Address: home [address] [place] [address]
--- OUTSIDE RECORDS SUMMARY | 2023-06-25 13:18 | XMS_ITS | Continuity of Care Document ---
Author Organization [facility] Adult Address [address] [place] [address]- Care Team Providers Care Doughnut Glazier Name Role Phone Edward GREENBERG, Barrie Brock Primary Care Physician [phone] Encounter [facility] [place] Date(s): 04/27/20 - 05/27/[address] [facility] Adult [address] [place] [address]- Allergies, Adverse Reactions, Alerts Substance Reaction Severity Status codeine Active Immunizations Given and Recorded Vaccine Date Status Refusal Reason influenza virus vaccine, inactivated 1 04/21/20 Gi matt tetanus-diphtheria toxoids (Td) 2 01/08/20 Given Influenza Virus Vaccine (oldterm) 11/30/19 Recorde d tetanus/diphtheria/pertussis, acel(Tdap) 3 08/23/06 Given 1Result Comment: [facility]: [id number] 2Result Comment: [facility]:[address]-3 3Admin Note: vis given Medications buPROPion 150 [...] , Moderate, with food, # 60 tablet, 0 Refills,Maintenance, 05/06/20 11:18:00 EDT, Tablet, [id number], Partial fill upon patient request if the prescription is for a schedule II opioid drug.... Start Date: 05/06/20 Status: Ordered Problem List Condition Effective Dates [...]
--- OUTSIDE RECORDS SUMMARY | 2023-06-25 13:18 | XMS_ITS | Continuity of Care Document ---
Author Organization [facility] Adult Address [address] [place] [address]- Care Team Providers Care Manganese Breaker Name Role Phone Edward GREENBERG, Barrie Brock Primary Care Physician Encounter [facility] [place] Date(s): 02/20/21 - 03/22/21 [facility] Adult [address] [place] [address]- Allergies, Adverse Reactions, Alerts Substance Reaction Severity [...] acel(Tdap) 3 08/23/06 Given 1Result Comment: [facility]: [id number] 2Result Comment: [facility]:[address]-2 3Admin Note: vis given Medications celecoxib 100 mg oral capsule 1 capsule, By Mouth, 2 times a day, PRN NEEDED FOR MODERATE PAIN CONTENTS OF, MAY BE MIXED WITH SOFT FOODS SUCH APPLESAUCE., # 60 capsule, 0 Refills, [facility], 183, cm, 10/03/20 11:56:00EDT, Height Start Date: 11/02/20 Status: Ordered gabapentin 100 mg oral capsule 100 mg, 1, capsule, By Mouth, 3 times a day, # 90 capsule, Refills 0, Tot. Refills 0, Maintenance, 09/22/20 17:46:00 EDT, Route to Pharmacy Electronically, [facility]/pharmacy #1972, 183, cm, 07/14/20 9:18:00 EDT, Height [...]
--- OUTSIDE RECORDS SUMMARY | 2023-06-25 13:18 | XMS_ITS | Continuity of Care Document ---
Author Organization [facility] Adult Address [address] [place] [address]- Care Team Providers Care Oim Consultant Name Role Phone Edward GREENBERG, Barrie Brock Primary Care Physician [phone] [place] [facility] [place] 04/12/20 - 08/10/20 [facility] Adult [address] [place] [address]- Attending Physician: Not on Staff, Attending MD [...] tetanus/diphtheria/pertussis, acel(Tdap) 3 08/23/06 Given 1Result Comment: [facility]: [id number] 2Result Comment: [facility]:[id number] 3Admin Note: vis given Medications Multivitamin Daily, [...]
--- OUTSIDE RECORDS SUMMARY | 2023-06-25 13:18 | XMS_ITS | Continuity of Care Document ---
Author Organization [facility] Adult Address [address] [place] [address]- Care Team Providers Care First Assistant Name Role Phone Edward GREENBERG, Barrie Brock Primary Care Physician [place] [facility] [place] 02/20[place]21 - 03/22/21 [facility] Adult [address] [place] [address]- Allergies, Adverse Reactions, Alerts Substance Reaction Severity [...] tetanus/diphtheria/pertussis, acel(Tdap) 3 08/23/06 Given 1Result Comment: [facility]: [id number] 2Result Comment: [facility]:[address]-5 3Admin Note: vis given Medications celecoxib 100 mg oral capsule 1 capsule, By Mouth, 2 times a day, PRN NEEDED FOR MODERATE PAIN CONTENTS OF, MAY BE MIXED WITH SOFT FOODS SUCH APPLESAUCE., # 60 capsule, 0 Refills, [facility]04, 183, cm, 10/03/20 11:56:00EDT, Height Start Date: 11/02/20 Status: Ordered gabapentin 100 mg oral capsule 100 mg, 1, capsule, By Mouth, 3 times a day, # 90 capsule, Refills 0, Tot. Refills 0, Maintenance, 09/22/20 17:46:00 EDT, Route to Pharmacy Electronically, [facility]/pharmacy #1972, 183, cm, 07/14/20 9:18:00 EDT, Height [...]
--- OUTSIDE RECORDS SUMMARY | 2023-06-25 13:18 | XMS_ITS | Continuity of Care Document ---
Author Organization [facility] Adult Address [address] [place] [address]- Care Team Providers Care Cost Engineer Name Role Phone Barrie Leon NP Primary Care Physician Encounter [facility] [place] Date(s): 12/06/21 - 12/13/[address] [facility] Adult [address] [place] [address]- Encounter Diagnosis COVID-19 virus infection(Discharge Diagnosis) - 12/06/21 Fever(Discharge Diagnosis) - 12/06/21 Body aches(Discharge Diagnosis) - 12/06/21 Attending Physician: Not on Staff, Attending MD [...] acel(Tdap) 3 08/23/06 Given 1Result Comment: [facility]: [id number] 2Result Comment: [facility]:[address]-4 3Admin Note: vis given Medications BuPROPion (Eqv-Zyban Advantage Pack) 150 mg/12 hours oral tablet, extended release 1 tablet, By Mouth, 2 times a day, # 60 tablet, 5 Refills, [facility], 177, cm, 04/10/21 10:16:00 EST, Height Start [...] Prediabetes Confirmed Active Tobacco dependence Confirmed Active Diagnosis Diagnosis Type Effective Dates Health Status Cl inical Service Informant COVID-19 virus infection Discharge Diagnosis 12/06/21 Fever Discharge Diagnosis 12/06/21 Body aches Discharge Diagnosis 12/06/21 Vital Signs Most recent to oldest [Reference Range]: 1 Height 177 cm (12/06/21 9:29 AM) Weight 125 kg (12/06/21 9:29 AM) Body Mass Index [18.5-24.99 kg/m2] 39.9 kg/m2 *>HHI* (12/06/21 9:29 AM) Weight Obtained Via Patient/family state d (12/06/21 9:29 AM) Social History Social History Type Response Smoking Status 10 or more cigarette s (1/2 pack or more)/day in last 30 days;Never; Previous treatment: Medications; Interested in cessation: Yes; Tobacco user in household: Yes entered on: 01/08/20 Sex Patient Care team information Personnel Name: Barrie Leon NP Address: Address: [address] [facility] [address]rd [address] [place], [place] [address]
--- OUTSIDE RECORDS SUMMARY | 2023-06-25 13:19 | XMS_ITS | Continuity of Care Document ---
Author Organization [facility] Adult Address [address] [place] [address]- Care Team Providers Care Fretted Instruments Inspector Name Role Phone Edward GREENBERG, Barrie Brock Primary Care Physician [place] [facility] [place] Date(s): 10/28/20 - 02/25/21 [facility] Adult [address] [place] [address]- Attending Physician: Not on Staff, Attending MD [...] tetanus/diphtheria/pertussis, acel(Tdap) 3 08/23/06 Given 1Result Comment: [facility]: [id number] 2Result Comment: [facility]:[id number] 3Admin Note: vis given Medications celecoxib 100 mg oral capsule 1 capsule, By Mouth, 2 times a day, PRN NEEDED FOR MODERATE PAIN CONTENTS OF, MAY BE MIXED WITH SOFT FOODS SUCH APPLESAUCE., # 60 capsule, 0 Refills, [facility], 183, cm, 10/03/20 11:56:00EDT, Height Start Date: 11/02/20 Status: Ordered gabapentin 100 mg oral capsule 100 mg, 1, capsule, By Mouth, 3 times a day, # 90 capsule, Refills 0, Tot. Refills 0, Maintenance, 09/22/20 17:46:00 EDT, Route to Pharmacy Electronically, [facility]/pharmacy #[id number], 183, cm, 07/14/20 9:18:00 EDT, Height [...] Acute 02/27/21 17:50:00 EST, 02/20/21 17:50:00 EST, [facility]/pharmacy #[id number], Partial fill upon patient request if [...]
--- OUTSIDE RECORDS SUMMARY | 2023-06-25 13:19 | XMS_ITS | Continuity of Care Document ---
Author Organization [facility] Adult Address [address] [place] [address]- Care Team Providers Care Senior Developer Name Role Phone Edward GREENBERG, Barrie Brock Primary Care Physician Encounter [facility] [place] Date(s): 05/15/23 - 06/14/23 [facility] Adult [address] [place] [address]- Allergies, Adverse Reactions, Alerts Substance Reaction Severity [...] tetanus/diphtheria/pertussis, acel(Tdap) 3 08/23/06 Given 1Result Comment: [facility]: 62304-102-19 2Result Comment: [facility]:[address]-0 3Admin Note: vis given Medications atorvastatin 20 mg oral tablet 1 tablet = 20 mg, By Mouth, Daily at bedtime, # 90 tablet, 2 Refills, Maintenance, 05/23/23 16:46:00 EDT, Tablet, [facility], Partial fill upon patient request if the prescription is for a schedule II opioid drug., 177, cm, 05/23/23 12:46:00 E... Start Date: 05/23/23 Status: Ordered CeleBREX 100 mg oral capsule 1 capsule = 100 mg, By Mouth, 2 times a day, # 60 capsule, 3 Refills, Maintenance, 05/20/23 10:12:00 EDT, Capsule, [facility], Partial fill upon patient request [...] 0 Refills, Maintenance, 05/24/23 14:58:00 EDT, Tablet, [facility], Partial fill upon [...] 1 Refills, Maintenance, 05/23/23 16:46:00 EDT, Tablet, [facility], Partial fill upon [...] Status: Ordered tiZANidine 4 mg oral tablet 1, tablet, By Mouth, Every 8 hours, PRN, # 90 tablet, Refills 0, Maintenance, NEEDED FOR PAIN MODERATE, 06/10/23 17:24:00 EDT, Route to Pharmacy Electronically, [facility], 177, cm, 05/23/23 12:46:00 EDT, Height Start Date: 06/10/23 Status: Ordered Vitamin C By Mouth, Daily, [...] diabetes mellitus with morbid obesity Confirmed Active Social History Social History Type Response Smoking Status 10 or more cigarette s (1/2 pack or more)/day in last 30 days;Never; Previous treatment: Medications; Interested in cessation: Yes; Tobacco user in household: Yes entered on: 01/08/20 Sex Patient Care team information Care Team Personnel Name: Barrie Leon NP Position: S PCO Associate Professional Member Role: PCP Address: Address: [address] [facility] [address] [place] [address]- Care Team Related Persons Name: RAVINDRA ST[address] Name: DEVANG GARCIA Address: [address] [place] [address] Name: LAZARO GARCIA Address: home [address] [place] [address]
--- OUTSIDE RECORDS SUMMARY | 2023-06-25 13:19 | XMS_ITS | Continuity of Care Document ---
Author Organization [facility] Address [address] [place] [address]- Care Team Providers Care Life Agent Name Role Phone Edward GREENBERG, Barrie Brock Primary Care Physician [phone] [place] [facility] [place] 04/20/20 - 05/20/20 [facility] [address] [place] [address]- Allergies, Adverse Reactions, Alerts Substance Reaction Severity Status codeine Active Immunizations Given and Recorded Vaccine Date Status Refusal Reason influenza virus vaccine, inactivated 1 04/21/20 Gi matt tetanus-diphtheria toxoids (Td) 2 01/08/20 Given Influenza Virus Vaccine (oldterm) 11/30/19 Recorde d tetanus/diphtheria/pertussis, acel(Tdap) 3 08/23/06 Given 1Result Comment: [facility]: 65102-245-23 2Result Comment: [facility]:[address]-7 3Admin Note: vis given Medications buPROPion 150 [...]
--- OUTSIDE RECORDS SUMMARY | 2023-06-25 13:19 | XMS_ITS | Continuity of Care Document ---
Author Organization [facility] Adult Address [address] [place] [address]- Care Team Providers Care Custodian Manager Name Role Phone Edward GREENBERG, Barrie Brock Primary Care Physician [id number] - 04/20/20 [facility] Adult [address] [place] [address]- Encounter Diagnosis Right leg pain(Discharge Diagnosis) - 04/13/20 Bilateral knee pain(Discharge Diagnosis) - 04/13/20 Cellulitis of right leg without foot(Discharge Diagnosis) - 04/13/20 Callus of foot(Discharge Diagnosis) - 04/13/20 Attending Physician: Not on Staff, Attending MD Allergies, Adverse Reactions, Alerts Substance Reaction Severity Status codeine Active Immunizations Given and Recorded Vaccine Date Status Refusal Reason tetanus-diphtheria toxoids (Td) 1 01/08/20 Given Influenza Virus Vaccine (oldterm) 11/30/19 Recorde d tetanus/diphtheria/pertussis, acel(Tdap) 2 08/23/06 Given 1Result Comment: [facility]:[address]-8 2Admin Note: vis given Medications buPROPion 150 mg/24 [...] with food, # 60 tablet, 0 Refills,Maintenance, 04/13/20 15:13:00 EST, [facility]t, [id number], Partial fill upon patient request if the prescription is for a schedule II opioid drug.... Start Date: 04/13/20 Status: Ordered Problem List Condition Effective Dates Status Health Status Inform ant Obesity (BMI 30-39.9)(Confirmed) Active H/O right knee surgery(Confirmed) Active Chronic pain of right knee(Confirmed) Active Tobacco dependence(Confirmed) Active Diagnosis Diagnosis Type Effective Dates Health Status Clinical Service Informant Right leg pain Discharge Diagnosis 04/13/20 Bilateral knee pain Discharge Diagnosis 04/13/20 Cellulitis of right leg without foot Discharge Diagnosis 04/13/20 Callus of foot Discharge Diagnosis 04/13/20 Vital Signs Most recent to oldest [Reference Range]: 1 Height 183 cm (04/13/20 2:03 PM) Weight 125 kg (04/13/20 2:03 PM) Body Mass Index [18.5-24.99] 37.33 *>HHI* (04/13/20 2:03 PM) Weight Obtained Via Patient/family state d (04/13/20 2:03 PM) Social History Social History Type Response Smoking Status 10 or more cigarette s (1/2 pack or more)/day in last 30 days;Never; Previous treatment: Medications; Interested in cessation: Yes; Tobacco user in household: Yes entered on: 01/08/20 Sex
--- OUTSIDE RECORDS SUMMARY | 2023-06-25 13:19 | XMS_ITS | Continuity of Care Document ---
Author Organization [facility] Adult Address [address] [place] [address]- Care Team Providers Care Contract Designer Name Role Phone Edward GREENBERG, Barrie Brock Primary Care Physician Encounter [facility] Date(s): 11/06/21 - 12/06/21 [facility] Adult [address] [place] [address]- Allergies, Adverse Reactions, Alerts Substance Reaction Severity [...] acel(Tdap) 3 08/23/06 Given 1Result Comment: [facility]: 58597-365-23 2Result Comment: [facility]:[address]-4 3Admin Note: vis given Medications BuPROPion (Eqv-Zyban Advantage Pack) 150 mg/12 hours oral tablet, extended release 1 tablet, By Mouth, 2 times a day, # 60 tablet, 5 Refills, [facility] 28534, 177, cm, 04/10/21 10:16:00 EST, Height Start Date: 08/16/21 Status: Ordered Multivitamin Daily, 0 Refills, Maintenance, 07/14/20 9:30:00 EDT, Partial fill upon patient request if the prescription is for a schedule II opioid drug. Start Date: 07/14/20 Status: Ordered Paxlovid 150 mg-100 mg (150 mg-100 mg Dose) oral tablet 3 tablets, By Mouth, 2 times a day, for 5 days, # 30 tablet, 0 Refills, Acute 12/11/21 11:00:00 EDT, 12/06/21 11:00:00 EDT, [facility]/pharmacy #1972, Partial fill upon patient request if the prescription is for a schedule II opioid drug., 177, cm, 12/06/21... Start Date: 12/06/21 Stop Date: 12/11/21 Status: Ordered Vitamin C By Mouth, Daily, [...] Personnel Name: Barrie Leon NP Address: Address: [address] [place] [address]
--- OUTSIDE RECORDS SUMMARY | 2023-06-25 13:19 | XMS_ITS | Continuity of Care Document ---
Author Organization [facility] Adult Address [address] [place] [address]- Care Team Providers Care Home Health Care Respiratory Therapist Name Role Phone Barrie Leon NP Primary Care Physician Encounter [facility] [place] Date(s): 04/21/20 - 04/28/20 [facility] Adult [address] [place] [address]- Attending Physician: Not on Staff, Attending MD Allergies, Adverse Reactions, Alerts Substance Reaction Severity Status codeine Active Immunizations Given and Recorded Vaccine Date Status Refusal Reason influenza virus vaccine, inactivated 1 04/21/20 Gi matt tetanus-diphtheria toxoids (Td) 2 01/08/20 Given Influenza Virus Vaccine (oldterm) 11/30/19 Recorde d tetanus/diphtheria/pertussis, acel(Tdap) 3 08/23/06 Given 1Result Comment: [facility]: [id number] 2Result Comment: [facility]:[address]-5 3Admin Note: vis given Medications Bactrim DS 800 mg-160 mg oral tablet 1 tablet, By Mouth, Every 12 hours, for 10 days, drink plenty of fluids, # 20 tablet, 0 Refills, Acute 05/01/20 8:52:00 EDT, 04/21/20 8:52:00 EST, [facility]t, [facility], Partial fill upon patient request if the prescription is for a schedule II o... Start Date: 04/21/20 Stop Date: 05/01/20 Status: Ordered buPROPion 150 mg/24 hours (XL) oral tablet, [...] knee(Confirmed) Active Prediabetes(Confirmed) Active Tobacco dependence(Confirmed) Active Vital Signs Most recent to oldest [Reference Range]: 1 2 3 Height 183 cm (04/21/20 8:55 AM) 183 cm (04/21/20 8:42 AM) 183 cm (04/21/20 8:23 AM) Weight 144.8 kg (04/21/20 8:23 AM) Oxygen Saturation [94-100 %] 96 % (04/21/20 8:23 AM) Pulse Rate [55-90 bpm] 64 bpm (04/21/20 8:23 AM) Body Mass Index [18.5-24.99] 43.24 *>HHI* (04/21/20 8:23 AM) Blood Pressure [90-138/55-84 mm Hg] 112/80mm Hg (04/21/20 8:55 AM) 132/86mm Hg (04/21/20 8:42 AM) 155/95mm Hg *H* (04/21/20 8:23 AM) Respiratory Rate [16-30 br/min] 18 br/min (04/21/20 8:23 AM) Mode of Delivery (Oxygen) Room air (04/21/20 8:23 AM) Blood pressure sites Arm, left (04/21/20 8:55 AM) Arm, left (04/21/20 8:42 AM) Arm, left (04/21/20 8:23 AM) Weight Obtained Via Standing scale (04/21/20 8:23 AM) Social History Social History Type Response Smoking Status 10 or more cigarette s (1/2 pack or more)/day in last 30 days;Never; Previous treatment: Medications; Interested in cessation: Yes; Tobacco user in household: Yes entered on: 01/08/20 Sex
--- OUTSIDE RECORDS SUMMARY | 2023-06-25 13:19 | XMS_ITS | Continuity of Care Document ---
Author Organization [facility] Adult Address [address] [place] [address]- Care Team Providers Care Heel Seat Flap Stapler Name Role Phone Barrie Leon NP Primary Care Physician Encounter [facility] Date(s): 06/17/23 - 06/24/23 [facility] Adult [address] [place] [address]- Encounter Diagnosis Chronic ulcer of left leg(Discharge Diagnosis) - 06/17/23 Chronic ulcer of right leg(Discharge Diagnosis) - 06/17/23 Type 2 diabetes mellitus(Discharge Diagnosis) - 06/17/23 Persistent wound pain(Discharge Diagnosis) - 06/17/23 Obesity (BMI 30-39.9)(Discharge Diagnosis) - 06/17/23 Type 2 diabetes mellitus with morbid obesity(Discharge Diagnosis) - 06/17/23 Attending Physician: Barrie eLon NP Allergies, Adverse Reactions, Alerts Substance Reaction Severity [...] 08/23/06 Given 1Result Comment: [facility]: 50170-256-67 2Result Comment: [facility]:[address]-9 3Admin Note: vis given Medications atorvastatin 20 [...] 0 Refills, Maintenance, 05/24/23 14:58:00 EDT, Tablet, [facility]/pharmacy #1972, Partial fill upon patient request if [...] 1 Refills, Maintenance, 05/23/23 16:46:00 EDT, Tablet, [facility]/pharmacy #1972, Partial fill upon patient request if [...] opioid drug. Start Date: 07/14/20 Status: Ordered nicotine 21 mg/24 hr transdermal film, extended release 1 patch, Topically, Daily, for 30 days, apply to skin, # 30 patch, 0 Refills, Acute 07/24/23 18:04:00 EDT, 06/24/23 18:04:00 EDT, Patch, [facility]/pharmacy #1972, Partial fill upon patient request if the prescription is for a schedule II opioid drug., 1 pat... Start Date: 06/24/23 Stop Date: 07/24/23 Status: Ordered predniSONE 10 mg oral tablet [...] 06/10/23 17:24:00 EDT, Route to [facility]acy Electronically, [id number], 177, cm, 05/23/23 12:46:00 EDT, Height Start [...] Chronic ulcer of left leg Discharge Diagnosis 06/17/23 Chronic ulcer of right leg Discharge Diagnosis 06/17/23 Type 2 diabetes mellitus Discharge Diagnosis 06/17/23 Persistent wound pain Discharge Diagnosis 06/17/23 Obesity (BMI 30-39.9) Discharge Diagnosis 06/17/23 Type 2 diabetes mellitus with morbid obesity Discharge Diagnosis 06/17/23 Vital Signs Most recent to oldest [Reference Range]: 1 Height 177 cm (06/17/23 3:34 PM) Weight 155.9 kg (06/17/23 3:34 PM) Oxygen Saturation [94-100 %] 96 % (06/17/23 3:34 PM) Pulse Rate [55-90 bpm] 72 bpm (06/17/23 3:34 PM) Body Mass Index [18.5-24.99 kg/m2] 49.76 kg/m2 *>HHI* (06/17/23 3:34 PM) Blood Pressure [90-138/55-84 mm Hg] 117/ 78mm Hg (06/17/23 3:34 PM) Mode of Delivery (Oxygen) Room air (06/17/23 3:34 PM) Blood pressure sites Arm, right (06/17/23 3:34 PM) Weight Obtained Via Standing scale (06/17/23 3:34 PM) Social History Social History Type Response Smoking Status 10 or more cigarette s (1/2 pack or more)/day in last 30 days;Never; Previous treatment: Medications; Interested in cessation: Yes; Tobacco user in household: Yes entered on: 01/08/20 Sex Note * Janessa Tabares: PERFORM, SIGN, VERIFY Event Display: Patient Education/Instruction Authored Date: [id number] [facility] Clinical Summary Name BLANCA GARCIA Age 48 Years 1975 PCP Edward GREENBERG, Barrie Brock PCP Visit Date 06/17/2023 15:32:00 Additional Instructions: Scheduled Appointments?? Future Appointments ?*[facility] ?[address],??[place],??[address] ?Phone:??[phone]?Fax:??-- ?Appt. Date:??09/05/2023?12:50 PM ?Scheduled Provider:??Edward GREENBERG, Barrie Brock Follow-Up Instructions ?? Diagnosis Non-pressure chronic ulcer of unspecified part of left lower leg with unspecified severity; Non-pressure chronic ulcer of unspecified part of right lower leg with unspecified severity; Type 2 diabetes mellitus without complications Medications: Please continue your medications until treatment is completed or stopped by your provider. Discuss any questions related to medications with your provider. New Medications [facility] [address] [place] [address], [place] [id number], [phone] Nicotine (Nicoderm C-Q Clear 14 mg/24 hr transdermal film, extended release) 1 patch(es) Topically Daily for 30 Days. apply to skin. Refills: 0. Next Dose: Medications to Continue with No Changes These medications were not printed or sent to your pharmacy Adalimumab (Humira) 40 Milligram Subcutaneous Infusion. Next Dose: Ascorbic Acid (Vitamin C) Oral Daily. Next Dose: Atorvastatin (atorvastatin 20 mg oral tablet) 1 tab(s) Oral Daily at Bedtime. Refills: 2. Next Dose: Celecoxib (CeleBREX 100 mg oral capsule) 1 capsule Oral twice a day. Refills: 3. Next Dose: Durable Medical Equipment (Freestyle Lancets) use to check glucose twice daily for dx diabetes mellitus type 2 (E11.9). Refills: 3. Next Dose: Durable Medical Equipment (Freestyle Lite Monitor) use to check glucose twice daily for dx diabetesmellitus type 2 (E11.9). Refills: 0. Next Dose: Durable Medical Equipment (Freestyle Lite Test Strips) use to check glucose twice daily for dx diabetes mellitus type 2 (E11.9). Refills: 3. Next Dose: empagliflozin (Jardiance 10 mg oral tablet) 1 tab(s) Oral Daily in the morning. Refills: 0. Next Dose: Gabapentin Oral. Next Dose: Gabapentin (gabapentin 300 mg oral capsule) TAKE ONE PILL DAILY AT NIGHT. Next Dose: Lidocaine Topical (lidocaine 5% topical ointment) APPLY TO PAINFUL LEFT LEG ULCER DAILY DIRECTED. Next Dose: Metformin (metFORMIN 500 mg oral tablet) 1 tab(s) Oral twice a day. with meals. Take 1 tablet dailyx 1 week then increase to twice daily. Refills: 1. Next Dose: Minocycline (minocycline 100 mg oral capsule) 1 capsule Oral every 12 hours for 10 Days. Next Dose: Miscellaneous Rx (minocycline tabs) 100 Milligram. Next Dose: Multivitamin Daily. Next Dose: PredniSONE (predniSONE 10 mg oral tablet) 2 tab(s) Oral Daily. rxd by rheumatology. Next Dose: Tizanidine (tiZANidine 4 mg oral tablet) 1 tab(s) Oral every 8 hours as needed NEEDED FOR PAIN MODERATE. Refills: 0. Next Dose: Allergy Info:?? codeine Medications Given This Visit Future Orders ?No future orders Future Orders ?No future orders Vital Signs Height 177 cm Weight 155.9 kg BMI 49.76 kg/m2 Blood Pressure 117 mm Hg/78 mm Hg Temperature Pulse Rate 72 bpm Respiratory Rate 02 Sat Mode of Delivery 96 %/Room air You can now view a summary of your hospital visit from the comfort of your home through a free online portal called [employer]. [employer] is a website that allows you to securely view your medical information including discharge summary, medications and follow-up visits. ??You can alsosend a secure electronic message to your doctor???s office to request appointments, renew medications or just ask a question. You can enroll at [email or web address] or register during your next office visit. [...] primary care provider, you may find a [facility] provider by calling [facility] [employer] Link at [phone]. [facility], in keeping with [facility] guidance, no longer requires face masks [...] Team Personnel Name: Barrie Leon NP Position: [facility] PCO Associate Professional Member Role: PCP Address: Address: [address] [place] [address]- Care Team Related Persons Name: RAVINDRA STREET Name: DEVANG GARCIA Address: home [address] [place] [address] Name: LAZARO GARCIA Address: home [address] [place] [address]
--- OUTSIDE RECORDS SUMMARY | 2023-06-25 13:19 | XMS_ITS | Continuity of Care Document ---
Author Organization [facility] Adult Address [address] [place] [address]- Care Team Providers Care Lube Man Name Role Phone Edward GREENBERG, Barrie Brock Primary Care Physician Encounter [facility] Date(s): 04/21/20 - 05/21/20 [facility] Adult [address] [place] [address]- Attending Physician: AdmKelley estes Admitting Physician: AdmtrKelley Referring Physician: Admtr, ArSacha Allergies, Adverse Reactions, Alerts Substance Reaction Severity Status codeine Active Immunizations Given and Recorded Vaccine Date Status Refusal Reason influenza virus vaccine, inactivated 1 04/21/20 Gi matt tetanus-diphtheria toxoids (Td) 2 01/08/20 Given Influenza Virus Vaccine (oldterm) 11/30/19 Recorde d tetanus/diphtheria/pertussis, acel(Tdap) 3 08/23/06 Given 1Result Comment: [facility]: [id number] 2Result Comment: [facility]:[id number] 3Admin Note: vis given Medications buPROPion 150 [...] knee(Confirmed) Active Prediabetes(Confirmed) Active Tobacco dependence(Confirmed) Active Procedures Procedure Date [...]
--- OUTSIDE RECORDS SUMMARY | 2023-06-25 13:19 | XMS_ITS | Continuity of Care Document ---
Author Organization [facility] Adult Address [address] [place] [address]- Care Team Providers Care Companion Name Role Phone Edward GREENBERG, Barrie Brock Primary Care Physician Encounter [facility] Date(s): 04/10/21 - 04/17/21 [facility] Adult [address] [place] [address]- Encounter Diagnosis Annual physical exam(Discharge Diagnosis) - 04/10/21 Dyslipidemia(Discharge Diagnosis) - 04/10/21 Obesity (BMI 30-39.9)(Discharge Diagnosis) - 04/10/21 Severe obesity(Discharge Diagnosis) - 04/10/21 Prediabetes(Discharge Diagnosis) - 04/10/21 Tobacco dependence(Discharge Diagnosis) - 04/10/21 Attending Physician: Barrie Leon NP Referring Physician: Isis Carreon MD Allergies, Adverse Reactions, Alerts Substance Reaction [...] Given 1Result Comment: [facility]: 29760-543-50 2Result Comment: [facility]:[address]-1 3Admin Note: vis given Medications BuPROPion (Eqv-Zyban Advantage Pack) 150 mg/12 hours oral tablet, extended release 1 tablet = 150 mg, By Mouth, 2 times a day, # 60 tablet, 3 Refills, Maintenance, 04/10/21 10:05:00 EST, [facility], [facility] fill upon patient request if the prescription is for a schedule II opioid drug., 177, cm, 04/10/21 9:43:00 EST, Height Start Date: 04/10/21 Status: Ordered Multivitamin Daily, 0 Refills, Maintenance, [...] Active Severe obesity(Confirmed) Active Tobacco dependence(Confirmed) Active Diagnosis Diagnosis Type Effective Dates Health Status Clinical Service Informant Annual physical exam Discharge Diagnosis 04/10/21 Dyslipidemia Discharge Diagnosis 04/10/21 Obesity (BMI 30-39.9) Discharge Diagnosis 04/10/21 Severe obesity Discharge Diagnosis 04/10/21 Prediabetes Discharge Diagnosis 04/10/21 Tobacco dependence Discharge Diagnosis 2/21/22 Vital Signs Most recent to oldest [Reference Range]: 1 2 Height 177 cm (04/10/21 10:16 AM) 177 cm (04/10/21 9:43 AM) Weight 147.2 kg (04/10/21 9:43 AM) Body Mass Index [18.5-24.99] 46.99 *>HHI* (04/10/21 9:43 AM) Blood Pressure [90-138/55-84 mm Hg] 136/ 86mm Hg (04/10/21 10:16 AM) 139/88mm Hg *H* (04/10/21 9:43 AM) Respiratory Rate [16-30 br/min] 17 br/mi n (04/10/21 9:43 AM) Mode of Delivery (Oxygen) Room air (04/10/21 9:43 AM) Blood pressure sites Arm, left (04/10/21 10:16 AM) Arm, left (04/10/21 9:43 AM) Weight Obtained Via Standing scale (04/10/21 9:43 AM) Social History Social History Type Response Smoking Status 10 or more cigarette s (1/2 pack or more)/day in last 30 days;Never; Previous treatment: Medications; Interested in cessation: Yes; Tobacco user in household: Yes entered on: 01/08/20 Sex
--- OUTSIDE RECORDS SUMMARY | 2023-06-25 13:19 | XMS_ITS | Continuity of Care Document ---
Author Organization [facility] Adult Address [address] [place] [address]- Care Team Providers Care Senior C Software Developer Name Role Phone Barrie Leon NP Primary Care Physician Encounter [facility] Date(s): 10/03/20 - 10/10/20 [facility] Adult [address] [place] [address]- Encounter Diagnosis Scalp cyst(Discharge Diagnosis) - 10/03/20 Scalp lesion(Discharge Diagnosis) - 10/03/20 Left knee pain(Discharge Diagnosis) - 10/03/20 Chronic pain of right knee(Discharge Diagnosis) - 10/03/20 Attending Physician: Barrie Leon NP Allergies, Adverse Reactions, Alerts Substance Reaction [...] tetanus/diphtheria/pertussis, acel(Tdap) 3 08/23/06 Given 1Result Comment: [facility]: [id number] 2Result Comment: [facility]:[id number] 3Admin Note: vis given Medications CeleBREX 100 mg oral capsule 1 capsule = 100 mg, By Mouth, 2 times a day, PRN Pain , Moderate, contents of capsule may be mixed with soft foods such as applesauce, # 60 capsule, 0 Refills, Maintenance, 10/03/20 12:29:00 EDT, Capsule, [facility]/pharmacy #1972, Partial fill upon patient... Start Date: 10/03/20 Status: Ordered gabapentin 100 mg oral capsule 100 mg, 1, capsule, By Mouth, 3 times a day, # 90 capsule, Refills 0, Tot. Refills 0, Maintenance, 09/22/20 17:46:00 EDT, Route to Pharmacy Electronically, [facility]/pharmacy #1972, 183, cm, 07/14/20 9:18:00 [...] knee(Confirmed) Active Prediabetes(Confirmed) Active Tobacco dependence(Confirmed) Active Diagnosis Diagnosis Type Effective Dates Health Status Cl inical Service Informant Scalp cyst Discharge Diagnosis 10/03/20 Scalp lesion Discharge Diagnosis 10/03/20 Left knee pain Discharge Diagnosis 10/03/20 Chronic pain of right knee Discharge Diagnosis 10/03/20 Vital Signs Most recent to oldest [Reference Range]: 1 Height 183 cm (10/03/20 11:56 AM) Weight 145.1 kg (10/03/20 11:56 AM) Oxygen Saturation [94-100 %] 97 % (10/03/20 11:56 AM) Pulse Rate [55-90 bpm] 69 bpm (10/03/20 11:56 AM) Body Mass Index [18.5-24.99] 43.33 *>HHI* (10/03/20 11:56 AM) Blood Pressure [90-138/55-84 mm Hg] 138/ 89mm Hg (10/03/20 11:56 AM) Mode of Delivery (Oxygen) Room air (10/03/20 11:56 AM) Blood pressure sites Arm, right (10/03/20 11:56 AM) Weight Obtained Via Standing scale (10/03/20 11:56 AM) Social History Social History Type Response Smoking Status 10 or more cigarette s (1/2 pack or more)/day in last 30 days;Never; Previous treatment: Medications; Interested in cessation: Yes; Tobacco user in household: Yes entered on: 01/08/20 Sex
--- OUTSIDE RECORDS SUMMARY | 2023-06-25 13:19 | XMS_ITS | Continuity of Care Document ---
Author Organization [facility] Adult Address [address] [place] [address]- Care Team Providers Care Clinical Research Tech Name Role Phone Barrie Leon NP Primary Care Physician Encounter [facility] Date(s): 05/11/21 - 05/18/21 [facility] Adult [address] [place] [address]- Attending Physician: Not on Staff, Attending MD Referring Physician: Barrie Leon NP Allergies, Adverse Reactions, [...] tetanus/diphtheria/pertussis, acel(Tdap) 3 08/23/06 Given 1Result Comment: [facility]: [id number] 2Result Comment: [facility]:[address]-8 3Admin Note: vis given Medications BuPROPion (Eqv-Zyban Advantage Pack) 150 mg/12 hours oral tablet, extended release 1 tablet = 150 mg, By Mouth, 2 times a day, # 60 tablet, 3 Refills, Maintenance, 04/10/21 10:05:00 EST, [facility]/pharmacy #1972, Partial [...] Active Severe obesity(Confirmed) Active Tobacco dependence(Confirmed) Active Social History Social History Type Response Smoking Status 10 or more cigarette s (1/2 pack or more)/day in last 30 days;Never; Previous treatment: Medications; Interested in cessation: Yes; Tobacco user in household: Yes entered on: 01/08/20 Sex
--- OUTSIDE RECORDS SUMMARY | 2023-06-25 13:19 | XMS_ITS | Continuity of Care Document ---
Author Organization [facility] Adult Address [address] [place] [address]- Care Team Providers Care Senior Director Insight Name Role Phone Edward GREENBERG, Barrie Brock Primary Care Physician Encounter [facility] Date(s): 03/18/23 - 04/17/23 [facility] Adult [address] [place] [address]- Attending Physician: Admtr, Pato8 Admitting Physician: Admtr, Ar8 Referring Physician: Admtr, Ar8 Allergies, Adverse Reactions, [...] 1Result Comment: [facility]: [id number] 2Result Comment: [facility]:[address]-9 3Admin Note: vis given Medications Multivitamin Daily, [...] in household: Yes entered on: 01/08/20 Sex Cardiology * Event Display: EKG Non BH Authored Date: Laboratory * Event Display: Non BH Lab Results Authored Date: * Event Display: Non BH Lab Results Authored Date: * Event Display: Non BH Lab Results Authored Date: * Event Display: Non BH Lab Results Authored Date: * Event Display: Non BH Lab Results Authored Date: Radiology * Event Display: X-Ray Knee, Non- BH Authored Date: * Event Display: X-Ray Knee, Non- BH Authored Date: * Event Display: X-Ray Lower Extremity, Non- BH Authored Date: * Event Display: X-Ray Lower Extremity, Non- BH Authored Date: * Event Display: X-Ray Lower Extremity, Non- BH Authored Date: * Event Display: X-Ray Knee, Non- BH Authored Date: * Event Display: MRI Knee, Non- BH Authored Date: Patient Care team information Care Team Personnel Name: Barrie Leon NP Position: [facility] PCO Associate Professional Member Role: PCP Address: Address: [address] [facility] [address]rd [place] [address]- Care Team Related Persons Name: RAVINDRA ST[address] Name: DEVANG GARCIA Address: home [address] [place] [address] Name: LAZARO GARCIA Address: [address] [place] [address]
--- OUTSIDE RECORDS SUMMARY | 2023-06-25 13:19 | XMS_ITS | Continuity of Care Document ---
Author Organization 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 Diagnosis) - 05/23/23 Chronic ulcer of left leg(Discharge Diagnosis) - 05/23/23 Chronic pain of right knee(Discharge Diagnosis) - 05/23/23 Chronic ulcer of right leg(Discharge Diagnosis) - 05/23/23 Persistent wound pain(Discharge Diagnosis) - 05/23/23 Attending Physician: Not on Staff, Attending MD [...] Given 1Result Comment: [facility]: 09729-598-86 2Result Comment: [facility]:[address]-7 3Admin Note: vis given Medications atorvastatin 20 [...] Effective Dates Health Status Clinical Service Informant Type 2 diabetes mellitus Discharge Diagnosis 05/23/23 Type 2 diabetes mellitus with morbid obesity Discharge Diagnosis 05/23/23 Chronic ulcer of left leg Discharge Diagnosis 05/23/23 Chronic pain of right knee Discharge Diagnosis 05/23/23 Chronic ulcer of right leg Discharge Diagnosis 05/23/23 Persistent wound pain Discharge Diagnosis 05/23/23 Vital Signs Most recent to oldest [Reference Range]: 1 Height 177 cm (05/23/23 12:46 PM) Weight 164 kg (05/23/23 12:46 PM) Body Mass Index [18.5-24.99 kg/m2] 52.35 kg/m2 *>HHI* (05/23/23 12:46 PM) Weight Obtained Via Patient/family state d (05/23/23 12:46 PM) Social History Social History Type Response Smoking Status 10 or more cigarette s (1/2 pack or more)/day in last 30 days;Never; Previous treatment: Medications; Interested in cessation: Yes; Tobacco user in household: Yes entered on: 01/08/20 Sex Patient Care team information Care Team Personnel Name: Barrie Leon NP Position: S PCO Associate Professional Member Role: PCP Address: Address: [address] [place] [address] [address] [place] [address]- Care Team Related Persons Name: RAVINDRA STRE[address] Name: DEVANG GARCIA Address: [address] [place] [address] Name: LAZARO GARCIA Address: home [address] [place] [address]
--- OUTSIDE RECORDS SUMMARY | 2023-06-25 13:19 | XMS_ITS | Continuity of Care Document ---
Author Organization [facility] Adult Address [address] [place] [address]- Care Team Providers Care Can Sorter Name Role Phone Edward GREENBERG, Barrie Brock Primary Care Physician [phone] Encounter [facility] Date(s): 01/14/23 - 02/13/23 [facility] Adult [address] [place] [address]- Attending Physician: Kelley Veloz Admitting Physician: AdmKelley estes Referring Physician: AdmtrKelley Allergies, Adverse Reactions, Alerts Substance Reaction Severity [...] tetanus/diphtheria/pertussis, acel(Tdap) 3 08/23/06 Given 1Result Comment: [facility]: 56879-763-15 2Result Comment: [facility]:[address]-7 3Admin Note: vis given Medications Multivitamin Daily, [...] Team Personnel Name: Barrie Leon NP Position: [facility] PCO Associate Professional Member Role: PCP Address: Address: [address] [place] [address]- Care Team Related Persons Name: RAVINDRA STRE[address] Name: DEVANG GARCIA Address: [address] [place] [address] Name: LAZARO GARCIA Address: home [address] [place] [address]
--- OUTSIDE RECORDS SUMMARY | 2023-06-25 13:19 | XMS_ITS | Continuity of Care Document ---
Author Organization [facility] Adult Address [address] [place] [address]- Care Team Providers Care Flask Handler Name Role Phone Edward GREENBERG, Barrie Brock Primary Care Physician Encounter [facility] Date(s): 05/10/20 - 06/09/20 [facility] Adult [address] [place] [address]- Allergies, Adverse Reactions, Alerts Substance Reaction Severity Status codeine Active Immunizations Given and Recorded Vaccine Date Status Refusal Reason influenza virus vaccine, inactivated 1 04/21/20 Gi matt tetanus-diphtheria toxoids (Td) 2 01/08/20 Given Influenza Virus Vaccine (oldterm) 11/30/19 Recorde d tetanus/diphtheria/pertussis, acel(Tdap) 3 08/23/06 Given 1Result Comment: [facility]: [id number] 2Result Comment: [facility]:[id number] 3Admin Note: vis given Medications buPROPion 150 [...]
--- OUTSIDE RECORDS SUMMARY | 2023-06-25 13:19 | XMS_ITS | Continuity of Care Document ---
Author Organization [facility] Adult Address [address] [place] [address]- Care Team Providers Care Flight Service Agent Name Role Phone Edward RECORDINGS LIBRARIAN, Barrie Brock Primary Care Physician [place] [facility] Date(s): 07/11/21 - 11/08/21 [facility] Adult [address] [place] [address]- Attending Physician: Not on Staff, Attending MD [...] tetanus/diphtheria/pertussis, acel(Tdap) 3 08/23/06 Given 1Result Comment: [facility]: [id number] 2Result Comment: [facility]:[address]-7 3Admin Note: vis given Medications BuPROPion (Eqv-Zyban Advantage Pack) 150 mg/12 hours oral tablet, extended release 1 tablet, By Mouth, 2 times a day, # 60 tablet, 5 Refills, [id number], 177, cm, 04/10/21 10:16:00 EST, Height Start [...] each, 0 Refills, Maintenance, 04/10/21 10:24:00 EST, [facility]/pharmacy #1972, Partial fill upon patient request [...] Team Personnel Name: Barrie Leon NP Address: [address] [place] [id number]
--- OUTSIDE RECORDS SUMMARY | 2023-06-25 13:19 | XMS_ITS | Continuity of Care Document ---
Author Organization [facility] Adult Address [address] [place] [address]- Care Team Providers Care Chief Digital Officer Name Role Phone Edward GREENBERG, Barrie Brock Primary Care Physician [phone] Encounter [facility] Date(s): 05/10/20 - 06/09/[address] [facility] Adult [address] [place] [address]- Allergies, Adverse Reactions, Alerts Substance Reaction Severity Status codeine Active Immunizations Given and Recorded Vaccine Date Status Refusal Reason influenza virus vaccine, inactivated 1 04/21/20 Gi matt tetanus-diphtheria toxoids (Td) 2 01/08/20 Given Influenza Virus Vaccine (oldterm) 11/30/19 Recorde d tetanus/diphtheria/pertussis, acel(Tdap) 3 08/23/06 Given 1Result Comment: [facility]: 46664-909-78 2Result Comment: [facility]:[address]-5 3Admin Note: vis given Medications buPROPion 150 [...]
--- OUTSIDE RECORDS SUMMARY | 2023-06-25 13:19 | XMS_ITS | Continuity of Care Document ---
Author Organization [facility] Adult Address [address] [place] [address]- Care Team Providers Care Service Trainer Name Role Phone Edward GREENBERG, Barrie Brock Primary Care Physician Encounter [facility] [place] Date(s): 12/05/21 - 01/04/22 [facility] Adult [address] [place] [address]- Allergies, Adverse Reactions, Alerts Substance Reaction Severity [...] tetanus/diphtheria/pertussis, acel(Tdap) 3 08/23/06 Given 1Result Comment: [facility]: [id number] 2Result Comment: [facility]:[id number] 3Admin Note: vis given Medications BuPROPion (Eqv-Zyban Advantage Pack) 150 mg/12 hours oral tablet, extended release 1 tablet, By Mouth, 2 times a day, # 60 tablet, 5 Refills, [id number], 177, cm, 04/10/21 10:16:00 EST, Height Start [...] Team Personnel Name: Barrie Leon NP Position: [facility] PCO Associate Professional Member Role: PCP Address: Address: [address] [place] [address] [address] [place] [address]- Care Team Related Persons Name: RAVINDRA [address] Name: DEVANG GARCIA Address: [address] [place] [address] Name: LAZARO GARCIA Address: home [address] [place] [address]
--- OUTSIDE RECORDS SUMMARY | 2023-06-25 13:19 | XMS_ITS | Continuity of Care Document ---
Author Organization [facility] Adult Address [address] [place] [address]- Care Team Providers Care Rubber Curer Name Role Phone Edward GREENBERG, Barrie Brock Primary Care Physician [place] [facility] [place] - 10/10/22 [facility] Adult [address] [place] [address]- Attending Physician: Not on Staff, Attending MD [...] tetanus/diphtheria/pertussis, acel(Tdap) 3 08/23/06 Given 1Result Comment: [facility]: [id number] 2Result Comment: [facility]:[id number] 3Admin Note: vis given Medications Multivitamin Daily, 0 Refills, Maintenance, 07/14/20 9:30:00 EDT, Partial fill upon patient request if the prescription is for a schedule II opioid drug. Start Date: 07/14/20 Status: Ordered Vitamin C By Mouth, Daily, 0 Refills, Maintenance, 07/14/20 9:30:00 EDT, Partial fill upon patient request ifthe prescription is for a schedule II opioid drug. Start Date: 07/14/20 Status: Ordered Wegovy (0.25 mg dose) subcutaneous solution = 0.25 mg, Subcutaneous Infusion, Every week, for 4 week(s), # 1 each, 0 Refills, Acute 10/11/22 10:14:00 EDT, 09/13/22 10:14:00 EDT, [facility] # [facility], Partial fill upon patient request if the prescription is for a schedule II opioid drug., 177,... Start Date: 09/13/22 Stop Date: 10/11/22 Status: Ordered Problem List Condition Confirmation Course [...] Associate Professional Member Role: PCP Address: Address: [address] [place] [address] [address] [place] [address]- Care Team Related Persons Name: RAVINDR[address] Name: DEVANG GARCIA Address: [address] [place] [address] Name: LAZARO GARCIA Address: [address] [place] [address]
--- OUTSIDE RECORDS SUMMARY | 2023-06-25 13:19 | XMS_ITS | Continuity of Care Document ---
Author Organization [facility] Adult Address [address] [place] [address]- Care Team Providers Care Building Architectural Designer Name Role Phone Edward GREENBERG, Barrie Brock Primary Care Physician En[place] [facility] [place] Date(s): 05/11/21 - 06/10/21 [facility] Adult [address] [place] [address]- Attending Physician: Kelley Veloz Admitting Physician: AdmKelley [...] acel(Tdap) 3 08/23/06 Given 1Result Comment: [facility]: [id number] 2Result Comment: [facility]:[id number] 3Admin Note: vis given Medications BuPROPion (Eqv-Zyban Advantage Pack) 150 mg/12 hours oral tablet, extended release 1 tablet = 150 mg, By Mouth, 2 times a day, # 60 tablet, 3 Refills, Maintenance, 04/10/21 10:05:00 EST, [facility]/pharmacy #[id number], Partial fill upon patient request if [...] each, 0 Refills, Maintenance, 04/10/21 10:24:00 EST, [facility]/pharmacy #[id number], Partial fill upon patient request if [...]
--- OUTSIDE RECORDS SUMMARY | 2023-06-25 13:19 | XMS_ITS | Continuity of Care Document ---
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'[employer] Office Name Role Phone Edward GREENBERG, Barrie Brock Primary Care Physician [place] [facility] [place] 07/14/20 - 07/21/20 [facility] Adult [address] [place] [address]- Encounter Diagnosis Leg wound, right(Discharge Diagnosis) - 07/14/20 Attending Physician: Barrie Leon NP Referring Physician: Isis Carreon MD Allergies, Adverse Reactions, Alerts Substance Reaction Severity Status codeine Active Immunizations Given and Recorded Vaccine Date Status Refusal Reason influenza virus vaccine, inactivated 1 04/21/20 Gi matt tetanus-diphtheria toxoids (Td) 2 01/08/20 Given Influenza Virus Vaccine (oldterm) 11/30/19 Recorde d tetanus/diphtheria/pertussis, acel(Tdap) 3 08/23/06 Given 1Result Comment: [facility]: [id number] 2Result Comment: [facility]:[address]-7 3Admin Note: vis given Medications gabapentin 100 mg oral capsule 100 mg, 1, capsule, By Mouth, 3 times a day, # 90 capsule, Refills 0, Tot. Refills 0, Maintenance, 07/14/20 11:23:00 EDT, Route to Pharmacy Electronically, [facility]/pharmacy #[id number], Partial fill upon [...] Dates Health Status Cl inical Service Informant Leg wound, right Discharge Diagnosis 07/14/20 Vital Signs Most recent to oldest [Reference Range]: 1 Height 183 cm (07/14/20 9:18 AM) Weight 143.2 kg (07/14/20 9:18 AM) Oxygen Saturation [94-100 %] 98 % (07/14/20 9:18 AM) Pulse Rate [55-90 bpm] 68 bpm (07/14/20 9:18 AM) Body Mass Index [18.5-24.99] 42.76 *>HHI* (07/14/20 9:18 AM) Blood Pressure [90-138/55-84 mm Hg] 148/ 78mm Hg *H* (07/14/20 9:18 AM) Temperature [96.8-100.4 DegF] 97.8 DegF (07/14/20 9:18 AM) Mode of Delivery (Oxygen) Room air (07/14/20 9:18 AM) Blood pressure sites Arm, left (07/14/20 9:18 AM) Temperature Route Oral (07/14/20 9:18 AM) Social History Social History Type Response Smoking Status 10 or more cigarette s (1/2 pack or more)/day in last 30 days;Never; Previous treatment: Medications; Interested in cessation: Yes; Tobacco user in household: Yes entered on: 01/08/20 Sex
--- OUTSIDE RECORDS SUMMARY | 2023-06-25 13:19 | XMS_ITS | Continuity of Care Document ---
Author Organization [facility] Adult Address [address] [place] [address]- Care Team Providers Care Supervisor Finishing Department Name Role Phone Edward GREENBERG, Barrie Brokc Primary Care Physician [phone] [place] [facility] [place] 08/05/20 [facility] Adult [address] [place] [address]- Allergies, Adverse Reactions, Alerts Substance Reaction Severity Status codeine Active Immunizations Given and Recorded Vaccine Date Status Refusal Reason influenza virus vaccine, inactivated 1 04/21/20 Gi matt tetanus-diphtheria toxoids (Td) 2 01/08/20 Given Influenza Virus Vaccine (oldterm) 11/30/19 Recorde d tetanus/diphtheria/pertussis, acel(Tdap) 3 08/23/06 Given 1Result Comment: [facility]: [id number] 2Result Comment: [facility]:[id number] 3Admin Note: vis given Medications Multivitamin Daily, 0 Refills, Maintenance, 07/14/20 9:30:00 EDT, Partial fill upon patient request if the prescription is for a schedule II opioid drug. Start Date: 07/14/20 Status: Ordered Percocet 2.5 mg-325 mg oral tablet 1 tablet, By Mouth, Every 12 hours, PRN as needed for pain, for 5 days, take at night., # 10 tablet, 0 Refills, Acute 08/09/20 14:48:00 EDT, 08/04/20 14:48:00 EDT, Tablet, [facility] #[id number], Partialfill upon patient request if the prescription is fo... Start Date: 08/04/20 Stop Date: 08/09/20 Status: Ordered Vitamin C By Mouth, Daily, [...]
--- OUTSIDE RECORDS SUMMARY | 2023-06-25 13:19 | XMS_ITS | Continuity of Care Document ---
Author Organization [facility] Adult Address [address] [place] [address]- Care Team Providers Care Electric Dolly Operator Name Role Phone Edward GREENBERG, Barrie Brock Primary Care Physician [phone] [facility] [place] Date(s): 10/16/22 - 02/13/23 [facility] Adult [address] [place] [address]- Attending Physician: Not on Staff, Attending MD [...] tetanus/diphtheria/pertussis, acel(Tdap) 3 08/23/06 Given 1Result Comment: [facility]: [id number] 2Result Comment: [facility]:[id number] 3Admin Note: vis given Medications Multivitamin Daily, [...] Team Personnel Name: Barrie Leon NP Position: [facility] PCO Associate Professional Member Role: PCP Address: Address: [address] [place] [address] [address]rd [place] [address]- Care Team Related Persons Name: RAVINDRA [address] Name: DEVANG GARCIA Address: [address] [place] [address] Name: LAZARO GARCIA Address: [address] [place] [address]
--- OUTSIDE RECORDS SUMMARY | 2023-06-25 13:19 | XMS_ITS | Continuity of Care Document ---
Author Organization [facility] Adult Address [address] [place] [address]- Care Team Providers Care Manager Wellness Name Role Phone Edward GREENBERG, Barrie Brock Primary Care Physician [phone] [place] [facility] [place]23 - 06/23/23 [facility] Adult [address] [place] [address]- Allergies, Adverse Reactions, Alerts Substance Reaction Severity [...] 08/23/06 Given 1Result Comment: [facility]: [id number] 2Result Comment: [facility]:[id number] 3Admin Note: vis given Medications acetaminophen-oxyCODONE 325 mg-5 mg oral tablet 1, tablet, By Mouth, 2 times a day, PRN, TAKE TWO TIMES A DAY NEEDED for 7 days, # 14 tablet, Refills 0, Tot. Refills 0, Acute, as needed for pain, 06/24/23 16:53:00 EDT, 06/17/23 16:53:00 EDT, Route to Pharmacy Electronically, [facility]/pharmacy #[id number] T... Start Date: 06/17/23 Stop Date: 06/24/23 Status: Ordered atorvastatin 20 mg oral tablet 1 tablet = 20 mg, By Mouth, Daily at bedtime, # 90 tablet, 2 Refills, Maintenance, 05/23/23 16:46:00 EDT, Tablet, [facility]/pharmacy #1972, Partial fill upon patient request if the prescription is for a schedule II opioid drug., 177, cm, 05/23/23 12:46:00 E... Start Date: 05/23/23 Status: Ordered CeleBREX 100 mg oral capsule 1 capsule = 100 mg, By Mouth, 2 times a day, # 60 capsule, 3 Refills, Maintenance, 05/20/23 10:12:00 EDT, Capsule, [facility]/pharmacy #1972, Partial fill upon patient [...] EDT, Height Start Date: 05/24/23 Stop Date: 3/31/25 Status: Ordered Gabapentin By Mouth, 0 Refills, [...] 0 Refills, Maintenance, 05/24/23 14:58:00 EDT, Tablet, [facility]/pharmacy #1972, Partial fill upon patient [...] opioid drug. Start Date: 07/14/20 Status: Ordered Nicoderm C-Q Clear 14 mg/24 hr transdermal film, extended release 1 patch, Topically, Daily, for 30 days, apply to skin, # 30 patch, 0 Refills, Acute 07/17/23 16:08:00 EDT, 06/17/23 16:08:00 EDT, Patch, [facility]/pharmacy #1972, Partial fill upon patient request if the prescription is for a schedule II opioid drug., 177,... Start Date: 06/17/23 Stop Date: 07/17/23 Status: Ordered predniSONE 10 mg oral tablet [...] EDT, Route to Pharmacy Electronically, [id number], 177, cm, 05/23/23 12:46:00 EDT, Height Start [...] Team Personnel Name: Barrie Leon NP Position: [facility] PCO Associate Professional Member Role: PCP Address: Address: [address] [facility] [address]rd [place] [address]- Care Team Related Persons Name: RAVINDR[address] Name: DEVNAG GARCIA Address: [address] [place] [address] Name: LAZARO GARCIA Address: [address] [place] [address]
--- OUTSIDE RECORDS SUMMARY | 2023-06-25 13:19 | XMS_ITS | Continuity of Care Document ---
Author Organization [facility] Address [address] [place] [address]- Care Team Providers Care Triage Licensed Practical Nurse Name Role Phone Edward GREENBERG, Barrie Brock Primary Care Physician [phone] En[place] [facility] [place] Date(s): 03/11/23 - 04/10/23 [facility] [address] [place] [address]- Allergies, Adverse Reactions, Alerts Substance Reaction Severity [...] 3 08/23/06 Given 1Result Comment: [facility]: [id number] 2Result Comment: [facility]:[id number] 3Admin Note: vis given Medications Multivitamin Daily, [...] Team Personnel Name: Barrie Leon NP Position: [facility] PCO Associate Professional Member Role: PCP Address: Address: [address] [place] [address] [address] [place] [address]- Care Team Related Persons Name: RAVINDRA [address] Name: DEVANG GARCIA Address: [address] [place] [address] Name: LAZARO GARCIA Address: [address] [place] [address]
--- OUTSIDE RECORDS SUMMARY | 2023-06-25 13:19 | XMS_ITS | Continuity of Care Document ---
Author Organization [facility] Adult Address [address] [place] [address]- Care Team Providers Care Crepe Laminator Operator Name Role Phone Edward CALL TAKER, Barrie Brock Primary Care Physician [phone] Encounter [facility] Date(s): 09/13/22 - 09/20/22 [facility] [address] [place] [address]- Encounter Diagnosis Annual physical exam(Discharge Diagnosis) - 09/13/22 Prediabetes(Discharge Diagnosis) - 09/13/22 Chronic ulcer of left leg(Discharge Diagnosis) - 09/13/22 Chronic ulcer of right leg(Discharge Diagnosis) - 09/13/22 Attending Physician: Not on Staff, Attending MD [...] tetanus/diphtheria/pertussis, acel(Tdap) 3 08/23/06 Given 1Result Comment: [facility]: [id number] 2Result Comment: [facility]:[id number] 3Admin Note: vis given Medications Multivitamin Daily, [...] Acute 10/11/22 10:14:00 EDT, 09/13/22 10:14:00 EDT, [facility] # [id number], Partial fill upon patient [...] Service Informant Annual physical exam Discharge Diagnosis 09/13/22 Prediabetes Discharge Diagnosis 09/13/22 Chronic ulcer of left leg Discharge Diagnosis 09/13/22 Chronic ulcer of right leg Discharge Diagnosis 09/13/22 Vital Signs Most recent to oldest [Reference Range]: 1 Height 177 cm (09/13/22 9:23 AM) Weight 153.8 kg (09/13/22 9:23 AM) Oxygen Saturation [94-100 %] 94 % (09/13/22 9:23 AM) Pulse Rate [55-90 bpm] 74 bpm (09/13/22 9:23 AM) Body Mass Index [18.5-24.99 kg/m2] 49.09 kg/m2 *>HHI* (09/13/22 9:23 AM) Blood Pressure [90-138/55-84 mm Hg] 122/ 83mm Hg (09/13/22 9:23 AM) Mode of Delivery (Oxygen) Room air (09/13/22 9:23 AM) Blood pressure sites Arm, left (09/13/22 9:23 AM) Weight Obtained Via Standing scale (09/13/22 9:23 AM) Social History Social History Type Response Smoking Status 10 or more cigarette s (1/2 pack or more)/day in last 30 days;Never; Previous treatment: Medications; Interested in cessation: Yes; Tobacco user in household: Yes entered on: 01/08/20 Sex Note * Ann Marie Burns: PERFORM, SIGN, VERIFY Event Display: Patient Education/Instruction Authored Date: [id number] [employer] *[facility] [place] [facility] Clinical Summary Name BLANCA GARCIA Age 47 Years 1975 PCP Barrie Leon NP PCP Visit Date 09/13/2022 09:21:00 Additional Instructions: Scheduled Appointments?? Future Appointments ?No Future Appointments Scheduled Follow-Up Instructions ?? With: Address: When: Barrie Leon NP 09/13/2022 12:00 AM Comments: 1 year HUPD 4 months weight follow up Diagnosis Apnea, not elsewhere classified; Encounter for screening for malignant neoplasm of prostate; Snoring; Non-pressure chronic ulcer of unspecified part of right lower leg with unspecified severity; Encounter for general adult medical examination without abnormal findings; Prediabetes; Non-pressure chronic ulcer of unspecified part of left lower leg with unspecified severity Medications: Please continue your medications until treatment is completed or stopped by your provider. Discuss any questions related to medications with your provider. New Medications [id number], [address] [place], [place] [id number], [phone] semaglutide (Wegovy (0.25 mg dose) subcutaneous solution) 0.25 Milligram Subcutaneous Infusion every week for 4 week(s). Refills: 0. Next Dose: Medications to Continue with No Changes These medications were not printed or sent to your pharmacy Ascorbic Acid (Vitamin C) Oral Daily. Next Dose: Multivitamin Daily. Next Dose: No Longer Take the Following Medications BuPROpion (BuPROPion (Eqv-Zyban Advantage Pack) 150 mg/12 hours oral tablet, extended release) 1 tab(s) Oral twice a day. Refills: 5. Allergy Info:?? codeine Medications Given This Visit Future Orders ?CBC? Order Date:09/13/22?- Complete on or after?09/13/22 ?Lipid Panel? Order Date:09/13/22?- Complete on or after?09/13/22 ?TSH? Order Date:09/13/22?- Complete on or after?09/13/22 ?Renal Panel? Order Date:09/13/22?- Complete on or after?09/13/22 ?Hemoglobin A1C (Monitoring)? Order Date:09/13/22?- Complete on or after?09/13/22 ?ALT? Order Date:09/13/22?- Complete on or after?09/13/22 ?PSA Screen? Order Date:09/13/22?- Complete on or after?09/13/22 Vital Signs Height 177 cm Weight 153.8 kg BMI 49.09 kg/m2 Blood Pressure 122 mm Hg/83 mm Hg Temperature Pulse Rate 74 bpm Respiratory Rate 02 Sat Mode of Delivery 94 %/Room air You can now view a summary of your hospital visit from the comfort of your home through a free online portal called [employer]. [employer] is a website that allows you to securely view your medical information including discharge summary, medications and follow-up visits. ??You can alsosend a secure electronic message to your doctor???s office to request appointments, renew medications or just ask a question. You can enroll at [email or web address] or register during your next office [...] care provider, you may find a [facility] provider by calling [email or web address] at [phone]. For information about the plan of care including goals and instructions for your diagnosis, please see the patient education orders section of this document. Patient Education Materials?? The content of this educational material or handout may have been modified, supplemented, or adapted from its original content and format to support your individualized medical care. Prevention Guidelines,??Men Ages 40 to 49 Screening tests and vaccines are an important part of managing your health. Health counseling is essential, too. Below are guidelines for these, for men ages 40 to 49. Talk with your healthcare provider to make sure you???re up to date on what you need. Screening Who needs it How often Alcohol misuse All men in this age group At routine exams Blood pressure All men in this age group Every 2 years if your blood pressure reading is less than 120/80 mm Hg; yearly if your systolic blood pressure reading is 120 to 139 mm Hg, or your diastolic blood pressure reading is 80 to 89 mm Hg Depression All men in this age group At routine exams Type 2 diabetes or prediabetes All adults beginning at age 45 and adults without symptoms at any age who are overweight or obese and have 1 or more other risk factors for diabetes At least every 3 years Hepatitis C Men at increased risk for infection ??? talk with your healthcare provider At routine exams High cholesterol or triglycerides All men ages 35 and older, and younger men at high risk for coronary artery disease At least every 5 years HIV All men At routine exams Obesity All men in this age group At routine exams Prostate cancer Starting at age 45, talk to healthcare provider about risks and benefits of digital rectal exam (PEGGY) and prostate-specific antigen (PSA) screening1 At routine exams Syphilis Men at increased risk for infection ??? talk with your healthcare provider At routine exams Tuberculosis Men at increased risk for infection ??? talk with your healthcare provider Check with your healthcare provider Vision All men in this age group Every 2 to 4 years if no risk factors for eye disease2 Vaccine Who needs it How often Chickenpox (varicella) All men in this age group who have no record of this infection or vaccine 2 doses; the second dose should be given at least 4 weeks after the first dose Hepatitis A Men at increased risk for infection ??? talk with your healthcare provider 2 doses given at least 6 months apart Hepatitis B Men at increased risk for infection ??? talk with your healthcare provider 3 doses over 6 months; second dose should be given 1 month after the first dose; the third dose should be given at least 2 months after the second dose and at least 4 months after the first dose Haemophilus influenzae Type B (HIB) Men at increased risk for infection ??? talk with your healthcare provider 1 to 3 doses Influenza (flu) All men in this age group Once a year Measles, mumps, rubella (MMR) All men in this age group who have no record of these infections or vaccines 1 or 2 doses Meningococcal Men at increased risk for infection ??? talk with your healthcare provider 1 or more doses Pneumococcal conjugate vaccine (PCV13) and pneumococcal polysaccharide vaccine (PPSV23) Men at increased risk for infection ??? talk with your healthcare provider PCV13: 1 dose ages 19 to 65 (protects against 13 types of pneumococcal bacteria) ?? PPSV23: 1 to??2doses through age 64, or 1 dose at 65 or older (protects against 23 types of pneumococcal bacteria) Tetanus/diphtheria/ pertussis (Td/Tdap) booster All men in this age group Td every 10 years, or a one-time dose of Tdap instead of a Td booster after age 18, then Td every 10 years Counseling Who needs it How often Diet and exercise Men??who are overweight or obese When diagnosed, and then at routine exams Sexually transmitted infection prevention Men at increased risk for infection ??? talk with your healthcare provider At routine exams Use of daily aspirin Men ages 45 to 79 at risk for cardiovascular health problems At routine exams Use of tobacco and the health affects it can cause All men in this age group Every exam 1[facility] 2[facility] [employer] ?? [id number] [employer]. [address] [place] [address], [place] [address]. All rights reserved. This information is not intended as a substitute for professional medical care. Always follow your healthcare professional's instructions. Patient Care team information Care Team Personnel Name: Barrie Leon NP Position: [facility] Associate Professional Member Role: PCP Address: Address: [address] [facility] [address] [place] [address]- Care Team Related Persons Name: RAVINDRA STRE[address] Name: DEVANG GARCIA Address: [address] [place] [address] Name: LAZARO GARCIA Address: home [address] [place] [address]
[2023-06-25 13:58] LABS: MANUAL DIFF FLAG NO
[2023-06-25 14:07] LABS: Basophils Percent Auto 0.4 % (0-2); Eosinophils Absolute Auto 0.2 X10*3/uL (0.0-0.4); Eosinophils Percent Auto 1.7 % (0-4); Hematocrit 41.5 % (42.0-52.0); Hemoglobin 14.2 g/dl (14.0-18.0); Imm Gran Abs Auto 0.04 X10*3/uL (0.00-0.03); Imm Gran Pct Auto 0.4 % (0.0-0.4); Lymphocytes Absolute Auto 2.2 X10*3/uL (1.2-4.9); Lymphocytes Percent Auto 21.3 % (20-40); Mean Corpuscular HGB Conc 34.2 g/dl (31.0-36.0); Mean Corpuscular Hemoglobin 31.6 pg (27.0-33.0); Mean Corpuscular Volume 92.4 fL (80.0-98.0); Monocytes Absolute Auto 0.9 X10*3/uL (0.1-1.2); Monocytes Percent Auto 9.1 % (2-11); Neutrophils Percent Auto 67.1 % (45-73); Platelet Count 307 X10*3/uL (160-400); Red Blood Count 4.49 X10*6/uL (4.60-5.80); Red Cell Distribution Width 13.6 % (11.0-16.0); White Blood Count 10.4 X10*3/uL (4.8-10.8)
[2023-06-25 14:14] LABS: Anion Gap 14 (12-20); Blood Urea Nitrogen 16 mg/dL (9-16); Calcium 9.9 mg/dL (8.4-10.2); Carbon Dioxide 24 mmol/L (22-29); Chloride 105 mmol/L (96-108); Creatinine Clr Calc Pharmacy 177.7; Estimated Glomerular Filt Rate > 60; Glucose Random 90 mg/dL (60-115); Potassium 4.2 mmol/L (3.3-5.1); Sodium 139 mmol/L (135-145)
[2023-06-25] MEDS: Piperacillin Sodium/Tazobactam 3.375 GM in 0.9 % Sodium Chloride 50 ML IV (14:46)
[2023-06-25] MEDS: HYDROmorphone HCl 2 MG/ML VIAL 1.5 MG IVPUSH (15:43)
[2023-06-25] MEDS: 0.9 % Sodium Chloride Flush 3 ML SYRINGE IVFLUSH (15:45)
[2023-06-25] MEDS: Sodium Chloride 0.45 % 1,000 ML 100 ML IVCONT (15:49)
--- NOTE | 2023-06-25 15:56 | PC.NURSE ---
Patient diabetic,did not eat since dinner last night,BS 90 at 1344,n BS checks ordered,Dr. Greer notified
[2023-06-25 16:09] LABS: Glucose, Whole Blood 83 mg/dL (60-115)
[2023-06-25] MEDS: Dextrose 5 % and 0.9 % NaCl 1,000 ML 100 ML IVCONT (16:17)
--- NOTE | 2023-06-25 16:32 | P.CONHOSP_ITS ---
History of Present Illness Data of Consult Service Date: 06/25/23 Requesting physician: Maylin Carlin Primary Care Provider: DEMETRIA Noland Reason for consult: medical management 48 year old male with history of non insulin dependent steroid induced type 2 diabetes, hidradenitis on humira (last taken 06/05), pyoderma gangrensoum On long-term steroids on long-term steroids on snf steroids, severe obesity wiht bmi >46 who is a current 1.5 PPD smoker admitted to general surgery for management for wound management with consult placed to hospitalist service for medical management. 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) use of other immunomodulators and immunosuppressants Pyoderma gangrenosum Hidradenitis axillaris Family History Mother Hx of breast cancer Father Skin cancer Other Family history of arthritis Surgical History Hx of total knee arthroplasty Social History Household Members: Spouse Housing: House Do you presently have visiting nurse or other home services: No Alcohol intake: never Comment: counts correct Patient Tobacco Use Status: Current everyday Tobacco user Tobacco use type: Cigarette Cigarette Packs Per Day: 2 Cigarettes Per Day: 40.0 Smoked in Last 30 Days: No Patient Interested in Nicotine Replacement: Yes Patient Given Instructions on How to Stop Smoking: No Second Hand Smoke Exposure: No Use of substances other than those prescribed or required for medical reasons: Yes Substance Use Type: Marijuana Substance Use Frequency: Daily Last Used Substance: Unknown Currently Displaying Signs/Symptoms of Drug Intoxication Withdrawal: No Any prior treatment program specific to substance use: No Have you been hit, kicked, punched, or otherwise hurt by someone within the past year? If so, by whom?: No Do you feel safe in your current relationship?: Yes Is there a partner from a previous relationship who is making you feel unsafe now?: No Are you made to feel afraid or neglected: No Advance Directives: Yes Advance Directives on File: Yes Advance Directives Date on File: 06/17/23 Do you have a plan to hurt others: No Plan Recently lost weight without trying: No Eating poorly because of decreased appetite: No Nutrition Risks: No Nutritional Risk Poor oral hygiene: No service: No Meds Allergies Allergy/AdvReac Type Severity Reaction Status Date / Time No Known Allergies Allergy Verified 06/11/23 17:28 Active Medications: Current Medications Piperacillin Sod/Tazobactam (Sod 3.375 gm/ Sodium Chloride) 50 mls @ 100 mls/hr IV Q6H [facility] Last Infusion: 06/25/23 15:29 Dose: Infused Dextrose/Sodium Chloride (D5ns) 1,000 mls @ 100 mls/hr IVCONT .Q10H [facility] Last Admin: 06/25/23 16:17 Dose: 100 mls/hr Sodium Chloride (0.9 % Sodium Chloride Flush 3 Ml Syringe) 3 ml IVFLUSH QSHIFT [facility] Last Admin: 06/25/23 15:45 Dose: 3 ml Home Medications ?Medication ?Instructions ?Recorded ?Confirmed ?Last Taken ?Type adalimumab 80 mg/0.8 mL 80 mg subcut Q2W 06/12/23 06/12/23 06/11/23 History subcutaneous pen kit (Humira(CF) Pen) atorvastatin 20 mg tablet 20 mg PO BEDTIME 06/12/23 06/12/23 06/11/23 History celecoxib 100 mg capsule 100 mg PO BID 06/12/23 06/12/23 06/11/23 History empagliflozin 10 mg tablet 10 mg PO DAILY 06/12/23 06/12/23 06/11/23 History (Jardiance) gabapentin 300 mg capsule 300 mg PO BEDTIME 06/12/23 06/12/23 06/11/23 History lidocaine 5 % topical ointment 1 appl topical DAILY PRN Pain 06/12/23 06/12/23 06/11/23 History metformin 500 mg tablet 500 mg PO BIDWM 06/12/23 06/12/23 06/11/23 History minocycline 100 mg capsule 100 mg PO BID 06/12/23 06/12/23 06/11/23 History prednisone 10 mg tablet 10 mg PO BID 06/12/23 06/12/23 06/11/23 History tizanidine 4 mg tablet 4 mg PO Q8H PRN moderate pain 06/12/23 06/12/23 06/11/23 History Physical Exam 2 Vital Signs and Narrative: Vital Signs: Last Vital Signs Temp 97.1 F 06/25/23 15:40 Pulse 61 06/25/23 15:40 Resp 20 06/25/23 15:40 BP 160/87 H 06/25/23 15:40 Pulse Ox 96 06/25/23 15:40 O2 Del Method Room Air 06/25/23 15:40 BMI result Body Mass Index 40.7 Constitutional - Awake and Alert, No apparent distress Eyes - PERRLA, EOMI Cardiovascular - S1S2, RRR, No edema Respiratory - Normal lung expansion, Normal respiratory effort, No respiratory distress, CTA bilaterally Extremities - no calf tenderness bilaterally, no swelling Skin - Warm/Dry. Wounds to the BLE Neurological - Alert & oriented x3 Psychological - Appropriate affect Results Labs 06/25/23 13:44 06/25/23 13:44 Labs: Laboratory Results - last 24 hr 06/25/23 06/25/23 13:44 16:04 MCV 92.4 MCH 31.6 MCHC 34.2 RDW 13.6 Plt Count 307 MPV 9.0 L Immature Gran % (Auto) 0.4 Neut % (Auto) 67.1 Lymph % (Auto) 21.3 [place] % (Auto) 9.1 Eos % (Auto) 1.7 Baso % (Auto) 0.4 Lymph # (Auto) 2.2 [place] # (Auto) 0.9 Eos # (Auto) 0.2 Baso # (Auto) 0.0 Abs Immat Gran (auto) 0.04 H Absolute Neuts (auto) 7.0 Absolute Nucleated RBC 0.000 Nucleated RBC % (auto) 0.0 Anion Gap 14 Estim Creat Clear Calc 177.7 Estimated GFR > 60 POC Glucose 83 Random Glucose 90 Calcium 9.9 Assessment and Plan (1) Non-healing wound of left lower extremity: Status: Acute Plan 48 year old male with history of non insulin dependent steroid induced type 2 diabetes, hidradenitis on humira (last taken 06/05), pyoderma gangrensoum On long-term steroids on long-term steroidson snf steroids, severe obesity with bmi >40 who is a current 1.5 PPD smoker admitted to general surgery for management of non healing wounds of the LLE with consult placed to hospitalist service for medical management. #Non healing wounds LLE -plan per general surgery -Pain management per general surgery -has been weaned from steroids, last took 10 mg prednisone saturday. Will hold on pulse dose steroids as not needed. Will continue monitoring blood pressures. Discussed with Dr. Schmidt who will follow patient #HTN -optimatize pain control for now -continue amlodipine 5mg daily #NIDDM without hyperglycemia -POC glucose, advance to diabetic diet -admelog on ss -hold metformin and jardiance #Hidradentitis/pyoderma -humira -Weaned from steroids. Last taken 06/22 #NIcotine dependence -cessation advised -patch/gum for nrt #morbid obesity -weight loss efforts Thank you for this consult. Will continue following
--- NOTE | 2023-06-25 16:38 | P.HPGS_ITS ---
History of Present Illness History of Present Illness Date of Service: 06/25/23 Chief complaint: unk Narrative: Flaquito Del Angel is a 48 year old male who is well-known to the Wound Care Department who comes in today to wound care with a left leg wound that he has had for several months and had undergone debridement in the operating room just a few weeks ago looking worse. He denies any fevers or chills but the wound has more necrotic tissue and has a bit of an odor now. 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 There is a question and concern peripheral vascular disease bilateral lower extremities on his last hospitalization the goal was to try to get bilateral arterial studies but he left before this could be done. 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) use of other immunomodulators and immunosuppressants Pyoderma gangrenosum Hidradenitis axillaris Family History Family History Mother Hx of breast cancer Father Skin cancer Other Family history of arthritis Surgical History Surgical History Hx of total knee arthroplasty Social History Social History Household Members: Spouse Housing: House Do you presently have visiting nurse or other home services: No Alcohol intake: never Comment: counts correct Patient Tobacco Use Status: Current everyday Tobacco user Tobacco use type: Cigarette Cigarette Packs Per Day: 2 Cigarettes Per Day: 40.0 Smoked in Last 30 Days: No Patient Interested in Nicotine Replacement: Yes Patient Given Instructions on How to Stop Smoking: No Second Hand Smoke Exposure: No Use of substances other than those prescribed or required for medical reasons: Yes Substance Use Type: Marijuana Substance Use Frequency: Daily Last Used Substance: Unknown Currently Displaying Signs/Symptoms of Drug Intoxication Withdrawal: No Any prior treatment program specific to substance use: No Have you been hit, kicked, punched, or otherwise hurt by someone within the past year? If so, by whom?: No Do you feel safe in your current relationship?: Yes Is there a partner from a previous relationship who is making you feel unsafe now?: No Are you made to feel afraid or neglected: No Advance Directives: Yes Advance Directives on File: Yes Advance Directives Date on File: 06/17/23 Do you have a plan to hurt others: No Plan Recently lost weight without trying: No Eating poorly because of decreased appetite: No Nutrition Risks: No Nutritional Risk Poor oral hygiene: No service: No Meds Allergies Allergy/AdvReac Type Severity Reaction Status Date / Time No Known Allergies Allergy Verified 06/11/23 17:28 Active Medications: Current Medications Glucose (Glucose Gel 15 Gm Gel..Gram.) 15 gm PO Q15M PRN; Protocol PRN Reason: per Hypoglycemia Standing Ord. Piperacillin Sod/Tazobactam (Sod 3.375 gm/ Sodium Chloride) 50 mls @ 100 mls/hr IV Q6H [facility] Last Infusion: 06/25/23 15:29 Dose: Infused Dextrose/Sodium Chloride (D5ns) 1,000 mls @ 100 mls/hr IVCONT .Q10H [facility] Last Admin: 06/25/23 16:17 Dose: 100 mls/hr Dextrose (D10) 250 mls @ 750 mls/hr IV Q15M PRN; Protocol PRN Reason: per Hypoglycemia Standing Ord. Insulin Human Lispro (Insulin Lispro 100 Unit/Ml 3 Ml Vial) 0 unit SUBCUT QIDACHS [facility]; Protocol Sodium Chloride (0.9 % Sodium Chloride Flush 3 Ml Syringe) 3 ml IVFLUSH QSHIFT [facility] Last Admin: 06/25/23 15:45 Dose: 3 ml Home Medications ?Medication ?Instructions ?Recorded ?Confirmed ?Last Taken ?Type adalimumab 80 mg/0.8 mL 80 mg subcut Q2W 06/12/23 06/12/23 06/11/23 History subcutaneous pen kit (Humira(CF) Pen) atorvastatin 20 mg tablet 20 mg PO BEDTIME 06/12/23 06/12/23 06/11/23 History celecoxib 100 mg capsule 100 mg PO BID 06/12/23 06/12/23 06/11/23 History empagliflozin 10 mg tablet 10 mg PO DAILY 06/12/23 06/12/23 06/11/23 History (Jardiance) gabapentin 300 mg capsule 300 mg PO BEDTIME 06/12/23 06/12/23 06/11/23 History lidocaine 5 % topical ointment 1 appl topical DAILY PRN Pain 06/12/23 06/12/23 06/11/23 History metformin 500 mg tablet 500 mg PO BIDWM 06/12/23 06/12/23 06/11/23 History minocycline 100 mg capsule 100 mg PO BID 06/12/23 06/12/23 06/11/23 History prednisone 10 mg tablet 10 mg PO BID 06/12/23 06/12/23 06/11/23 History tizanidine 4 mg tablet 4 mg PO Q8H PRN moderate pain 06/12/23 06/12/23 06/11/23 History Physical Exam Vital Signs: Vital Signs: Last Vital Signs Temp 97.1 F 06/25/23 15:40 Pulse 61 06/25/23 15:40 Resp 20 06/25/23 15:40 BP 160/87 H 06/25/23 15:40 Pulse Ox 96 06/25/23 15:40 O2 Del Method Room Air 06/25/23 15:40 BMI result Body Mass Index 40.7 Const: General: cooperative Orientation/consciousness: patient oriented x3 HEENT: Head: Yes normal to inspection Resp: Auscultation: clear to auscultation bilaterally Cardio: Rate: regular rate Rhythm: regular rhythm GI: Inspection: Yes normal to inspection Palpation (GI): Soft to palpation and nontender Skin: Other: Right anterior lower leg patient has wound with some fibrinous exudate present. The wound is relatively small long but been stable. Leg has baseline edema The left lower leg lateral aspect has a large open wound down into the muscle with a lot of black necrotic tissue some underlying red muscle and slight granulation tissue. General skin exam: no rashes or lesions noted Neuro: General: patient oriented x3 Cranial nerves: Yes CN's II-XII intact bilaterally Psych: Appearance: grossly normal Results Results Labs: Short CBC 06/25/23 Range/Units 13:44 WBC 10.4 (4.8-10.8) X10*3/uL Hgb 14.2 (14.0-18.0) g/dl Hct 41.5 L (42.0-52.0) % Plt Count 307 (160-400) X10*3/uL BMP 06/25/23 13:44 Sodium 139 Potassium 4.2 Chloride 105 Carbon Dioxide 24 BUN 16 Creatinine 0.71 Calcium 9.9 Assessment and Plan (1) Non-healing wound of left lower extremity: Status: Acute Plan 48-year-old male diabetic with large wound on his left lateral leg which seems to be worsening despite debridement 2 weeks ago. Plan was to come to the OR for further debridement and wound VAC placement tight glucose control IV antibiotics . In addition while he is in the hospital we will get medical team to help manage his medical issues continue with his steroids and Humira possible have Rheumatology see him again and in addition d0 the arterial ultrasound to determine what his vascular flow is like. Patient in his understand and agree with the above plan. Direct admission to the floor was carried out and plan will be to carry out the debridement today Quality Stroke Does the patient have a stroke diagnosis?: No VTE Prior VTE?: No VTE Risk Level:: Surgical - low VTE Device Contraindication: Treatment Not Tolerated VTE Drug Contraindication: N/A - Med Ordered Procedures Date of Service Date of Service: 06/25/23
--- NOTE | 2023-06-25 18:26 | HO.ANESPROP2 ---
HPI - Anesthesia Eval Consult details Narrative: Lewft calf wound Anesthesia Pre-Procedure Meds Is the patient on any of the following meds?: SGLT2 Inhib PMFSH Active Problems Active Problems: All Active Problems Essential hypertension (Acute) Non-healing wound of left lower extremity (Acute) [facility] (current) use of other immunomodulators and immunosuppressants (Acute) Pyoderma gangrenosum (Acute) Hidradenitis axillaris (Acute) Low back pain (Acute) Osteoarthritis of left knee (Acute) Severe obesity (BMI >= 40) (Acute) Idiopathic peripheral neuropathy (Acute) Spondylosis of lumbar region without myelopathy or radiculopathy (Acute) Lymphedema (Acute) Varicose veins of right lower extremity with inflammation (Acute) Past Medical History Medical History (Updated 06/21/23 @ 00:02 by Wood Hawley) Essential hypertension Type 2 diabetes mellitus Spondylosis of lumbar region without myelopathy or radiculopathy Idiopathic peripheral neuropathy Severe obesity (BMI >= 40) HLA B27 (HLA B27 positive) Antiphospholipid antibody positive [facility] (current) use of other immunomodulators and immunosuppressants Pyoderma gangrenosum Hidradenitis axillaris Family History Family History Mother Hx of breast cancer Father Skin cancer Other Family history of arthritis Family history of problems with anesthesia: No Surgical History Surgical History Hx of total knee arthroplasty History of Problems with Anesthesia: No Social History Social History Household Members: Spouse Housing: House Do you presently have visiting nurse or other home services: No Alcohol intake: never Comment: counts correct Patient Tobacco Use Status: Current everyday Tobacco user Tobacco use type: Cigarette Cigarette Packs Per Day: 2 Cigarettes Per Day: 40.0 Smoked in Last 30 Days: No Patient Interested in Nicotine Replacement: Yes Patient Given Instructions on How to Stop Smoking: No Second Hand Smoke Exposure: No Use of substances other than those prescribed or required for medical reasons: Yes Substance Use Type: Marijuana Substance Use Frequency: Daily Last Used Substance: Unknown Currently Displaying Signs/Symptoms of Drug Intoxication Withdrawal: No Any prior treatment program specific to substance use: No Have you been hit, kicked, punched, or otherwise hurt by someone within the past year? If so, by whom?: No Do you feel safe in your current relationship?: Yes Is there a partner from a previous relationship who is making you feel unsafe now?: No Are you made to feel afraid or neglected: No Advance Directives: Yes Advance Directives on File: Yes Advance Directives Date on File: 06/17/23 Do you have a plan to hurt others: No Plan Recently lost weight without trying: No Eating poorly because of decreased appetite: No Nutrition Risks: No Nutritional Risk Poor oral hygiene: No service: No Meds Allergies Allergy/AdvReac Type Severity Reaction Status Date / Time No Known Allergies Allergy Verified 06/11/23 17:28 Active Medications: Current Medications Glucose (Glucose Gel 15 Gm Gel..Gram.) 15 gm PO Q15M PRN; Protocol PRN Reason: per Hypoglycemia Standing Ord. Piperacillin Sod/Tazobactam (Sod 3.375 gm/ Sodium Chloride) 50 mls @ 100 mls/hr IV Q6H [facility] Last Infusion: 06/25/23 15:29 Dose: Infused Dextrose/Sodium Chloride (D5ns) 1,000 mls @ 100 mls/hr IVCONT .Q10H [facility] Last Admin: 06/25/23 16:17 Dose: 100 mls/hr Dextrose (D10) 250 mls @ 750 mls/hr IV Q15M PRN; Protocol PRN Reason: per Hypoglycemia Standing Ord. Insulin Human Lispro (Insulin Lispro 100 Unit/Ml 3 Ml Vial) 0 unit SUBCUT QIDACHS [facility]; Protocol Nicotine (Nicotine 21 Mg Patch.Td24) 21 mg TRANSDERMA DAILY [facility] Nicotine Polacrilex (Nicotine Polacrilex 2 Mg Gum) 2 mg BUCCAL Q2H PRN PRN Reason: Nicotine Cravings Sodium Chloride (0.9 % Sodium Chloride Flush 3 Ml Syringe) 3 ml IVFLUSH QSHIFT [facility] Last Admin: 06/25/23 15:45 Dose: 3 ml Home Medications ?Medication ?Instructions ?Recorded ?Confirmed ?Last Taken ?Type adalimumab 80 mg/0.8 mL 80 mg subcut Q2W 06/12/23 06/12/23 06/11/23 History subcutaneous pen kit (Humira(CF) Pen) atorvastatin 20 mg tablet 20 mg PO BEDTIME 06/12/23 06/12/23 06/11/23 History celecoxib 100 mg capsule 100 mg PO BID 06/12/23 06/12/23 06/11/23 History empagliflozin 10 mg tablet 10 mg PO DAILY 06/12/23 06/12/23 06/11/23 History (Jardiance) gabapentin 300 mg capsule 300 mg PO BEDTIME 06/12/23 06/12/23 06/11/23 History lidocaine 5 % topical ointment 1 appl topical DAILY PRN Pain 06/12/23 06/12/23 06/11/23 History metformin 500 mg tablet 500 mg PO BIDWM 06/12/23 06/12/23 06/11/23 History minocycline 100 mg capsule 100 mg PO BID 06/12/23 06/12/23 06/11/23 History prednisone 10 mg tablet 10 mg PO BID 06/12/23 06/12/23 06/11/23 History tizanidine 4 mg tablet 4 mg PO Q8H PRN moderate pain 06/12/23 06/12/23 06/11/23 History Exam Height,Weight and Vital Signs: Height 6 ft Weight 136 kg Last Vital Signs Temp 97.1 F 06/25/23 15:40 Pulse 61 06/25/23 15:40 Resp 20 06/25/23 15:40 BP 160/87 H 06/25/23 15:40 Pulse Ox 96 06/25/23 15:40 O2 Del Method Room Air 06/25/23 15:40 Pertinent Lab Results Pertinent Lab Results: Laboratory Tests 06/25/23 06/25/23 13:44 16:04 WBC 10.4 RBC 4.49 L Hgb 14.2 Hct 41.5 L MCV 92.4 MCH 31.6 MCHC 34.2 RDW 13.6 Plt Count 307 MPV 9.0 L Immature Gran % (Auto) 0.4 Neut % (Auto) 67.1 Lymph % (Auto) 21.3 [place] % (Auto) 9.1 Eos % (Auto) 1.7 Baso % (Auto) 0.4 Lymph # (Auto) 2.2 Bee # (Auto) 0.9 Eos # (Auto) 0.2 Baso # (Auto) 0.0 Abs Immat Gran (auto) 0.04 H Absolute Neuts (auto) 7.0 Absolute Nucleated RBC 0.000 Nucleated RBC % (auto) 0.0 Sodium 139 Potassium 4.2 Chloride 105 Carbon Dioxide 24 Anion Gap 14 BUN 16 Creatinine 0.71 Estim Creat Clear Calc 177.7 Estimated GFR > 60 POC Glucose 83 Random Glucose 90 Calcium 9.9 Airway Mallampati Class: III TM Dist: >3cm Neck ROM: Full Denture: Upper and Lower Heart: RRR Lungs: CTA Assessment and Plan Assessment Anesthesia Assessment: Anesthesia Plan Discussed and Chart Reviewed Final Anesthetic Review Family History of Problems with Anesthesia: No History of Problems with Anesthesia: No NPO: Yes ASA Class: III and Emergency Final Preanesthetic Review: No Changes in Pt Med Stat, Meds/Allgs Chart Reviewed, Consent Obtained/Reviewed and Anes Risks/Benef Reviewed Patient Risk: High Procedure Risk: Low Anesthetic Plan Anesthetic Plan: GA Disposition: Standard PACU
[2023-06-25 18:54] LABS: Glucose, Whole Blood 100 mg/dL (60-115)
[2023-06-25] MEDS: Hydrocortisone Sod Succ/PF 100 MG VIAL 50 MG IVPUSH (21:53)
[2023-06-25] MEDS: oxyCODONE HCl Immed Release 5 MG TABLET 10 MG PO (21:53)
[2023-06-25] MEDS: Nicotine Polacrilex 2 MG GUM BUCCAL (23:00)
[2023-06-26] VITALS (10 sets, daily range): BP systolic 138–163; BP diastolic 58–77; PULSE 58–69; RESP 16–20; TEMP 35.5–36.3; O2SAT 95–99
[2023-06-26] MEDS: HYDROmorphone HCl 1 MG/ML SYRINGE IVPUSH ×5 (00:24→17:32)
[2023-06-26] MEDS: Piperacillin Sodium/Tazobactam 3.375 GM in 0.9 % Sodium Chloride 50 ML IV ×4 (02:26→19:43)
[2023-06-26] MEDS: Dextrose 5 % and 0.9 % NaCl 1,000 ML 100 ML IVCONT ×2 (03:11→14:34)
[2023-06-26] MEDS: Hydrocortisone Sod Succ/PF 100 MG VIAL 50 MG IVPUSH (03:12)
--- NOTE | 2023-06-26 07:12 | P.PNIM_ITS ---
Subjective Subjective Date of Service: 06/26/23 Interval History: Seen in follow up for consult Interval history: s/p debridement BLE POD1. pain reasonably controlled. Vitals stable, no hypoglycemia Review of Systems Review of Systems: Yes all other systems are reviewed and are negative Physical Exam 2 Vital Signs: Vital Signs: Last Vital Signs Temp 96 F L 06/26/23 03:18 Pulse 61 06/26/23 03:18 Resp 16 06/26/23 03:18 BP 142/64 H 06/26/23 03:18 Pulse Ox 95 06/26/23 03:18 O2 Del Method Room Air 06/26/23 03:18 O2 Flow Rate 6 06/25/23 20:51 BMI result Body Mass Index 40.7 Constitutional - Awake and Alert, No apparent distress Eyes - PERRLA, EOMI Cardiovascular - S1S2, RRR, No edema Respiratory - Normal lung expansion, Normal respiratory effort, No respiratory distress, CTA bilaterally Gastrointestinal - NT / ND; +BS; No rebound or guarding Extremities - no calf tenderness bilaterally, no swelling. post op bandages in place bilateral lower legs Skin - Warm/Dry Neurological - Alert & oriented x3 Psychological - Appropriate affect Objective Data Active Medications Glucose (Glucose Gel 15 Gm Gel..Gram.) 15 gm PO Q15M PRN; Protocol PRN Reason: per Hypoglycemia Standing Ord. Hydrocortisone Sodium Succinate (Hydrocortisone Sod Succ/Pf 100 Mg Vial) 50 mg IVPUSH Q8H [facility] Last Admin: 06/26/23 03:12 Dose: 50 mg Documented By: JULIUS Hydromorphone HCl (Hydromorphone Hcl 1 Mg/Ml Syringe) 1 mg IVPUSH Q4H PRN; Protocol PRN Reason: Pain, Severe (Pain Scale 7-10) Last Admin: 06/26/23 00:24 Dose: 1 mg Documented By: JULIUS Piperacillin Sod/Tazobactam (Sod 3.375 gm/ Sodium Chloride) 50 mls @ 100 mls/hr IV Q6H [facility] Last Infusion: 06/26/23 02:56 Dose: Infused Documented By: JULIUS Dextrose/Sodium Chloride (D5ns) 1,000 mls @ 100 mls/hr IVCONT .Q10H [facility] Last Admin: 06/26/23 03:11 Dose: 100 mls/hr Documented By: JULIUS Dextrose (D10) 250 mls @ 750 mls/hr IV Q15M PRN; Protocol PRN Reason: per Hypoglycemia Standing Ord. Ibuprofen (Ibuprofen 400 Mg Tablet) 400 mg PO Q6H PRN PRN Reason: Pain, Mild (Pain Scale 1-3) Insulin Human Lispro (Insulin Lispro 100 Unit/Ml 3 Ml Vial) 0 unit SUBCUT QIDACHS [facility]; Protocol Last Admin: 06/25/23 21:36 Dose: Not Given Documented By: ERMA Non-Admin Reason: No Insulin Coverage Nicotine (Nicotine 21 Mg Patch.Td24) 21 mg TRANSDERMA DAILY [facility] Nicotine Polacrilex (Nicotine Polacrilex 2 Mg Gum) 2 mg BUCCAL Q2H PRN PRN Reason: Nicotine Cravings Last Admin: 06/25/23 23:00 Dose: 2 mg Documented By: ERMA Oxycodone HCl (Oxycodone Hcl Immed Release 5 Mg Tablet) 10 mg PO Q6H PRN PRN Reason: Pain, Moderate(Pain Scale 4-6) Last Admin: 06/25/23 21:53 Dose: 10 mg Documented By: ERMA Sodium Chloride (0.9 % Sodium Chloride Flush 3 Ml Syringe) [facility] Last Admin: 06/26/23 00:13 Dose: Not Given Documented By: JULIUS Non-Admin Reason: IV Running Labs 06/25/23 13:44 06/25/23 13:44 Labs: Laboratory Results - last 24 hr 06/25/23 06/25/23 06/25/23 13:44 16:04 18:50 MCV 92.4 MCH 31.6 MCHC 34.2 RDW 13.6 Plt Count 307 MPV 9.0 L Immature Gran % (Auto) 0.4 Neut % (Auto) 67.1 Lymph % (Auto) 21.3 [place] % (Auto) 9.1 Eos % (Auto) 1.7 Baso % (Auto) 0.4 Lymph # (Auto) 2.2 [place] # (Auto) 0.9 Eos # (Auto) 0.2 Baso # (Auto) 0.0 Abs Immat Gran (auto) 0.04 H Absolute Neuts (auto) 7.0 Absolute Nucleated RBC 0.000 Nucleated RBC % (auto) 0.0 Anion Gap 14 Estim Creat Clear Calc 177.7 Estimated GFR > 60 POC Glucose 83 100 Random Glucose 90 Calcium 9.9 Assessment and Plan (1) Non-healing wound of left lower extremity: Status: Acute (2) custodial (current) use of other immunomodulators and immunosuppressants: Status: Acute Plan 48 year old male with history of 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 #Non healing wounds LLE -plan per general surgery -Pain management per general surgery -Pt was started on hydrocortisone preoperatively given relatively large dose of prednisone as part of final taper completed 2 days ago. Given hydrocortisone 50mg x2. Start hydrocortisone 25mg BID x3 then dc. No need for further taper -last wound culture grew pseudomonas, ecoli, enterococcus. Continue zosyn #HTN -optimatize pain control for now -continue amlodipine 5mg daily #NIDDM without hyperglycemia -POC glucose, advance to diabetic diet -admelog on ss -hold metformin and jardiance #Hidradentitis/pyoderma -humira -Weaned from steroids. Last taken 06/22 #NIcotine dependence -cessation advised -patch/gum for nrt #morbid obesity -weight loss efforts Thank you for this consult. Will continue following Quality Stroke Does the patient have a stroke diagnosis?: No VTE Prior VTE?: No VTE Risk Level:: Surgical - low VTE Device Contraindication: Treatment Not Tolerated VTE Drug Contraindication: N/A - Med Ordered
[2023-06-26 07:35] LABS: Glucose, Whole Blood 130 mg/dL (60-115)
[2023-06-26] MEDS: Nicotine 21 MG PATCH.TD24 TRANSDERMA (07:44)
[2023-06-26] MEDS: 0.9 % Sodium Chloride Flush 3 ML SYRINGE IVFLUSH ×2 (07:50→15:47)
--- NOTE | 2023-06-26 07:56 | PM.PNGS ---
Subjective Subjective Date of Service: 06/27/23 Interval history: Underwent debridement left and right lower legs last night Feels well Seems to have good pain control Physical Exam Vital Signs: Vital Signs: Last Vital Signs Temp 97.3 F 06/26/23 07:17 Pulse 58 06/26/23 07:17 Resp 17 06/26/23 07:17 BP 151/73 H 06/26/23 07:17 Pulse Ox 95 06/26/23 07:17 O2 Del Method Room Air 06/26/23 07:17 O2 Flow Rate 6 06/25/23 20:51 BMI result Body Mass Index 40.7 Const: General: comfortable and no acute distress Resp: Effort & Inspection: normal respiratory effort GI: Palpation (GI): Soft to palpation Extrem: Other: Dressings dry Objective Data Active Medications Amlodipine Besylate (Amlodipine Besylate 5 Mg Tablet) 5 mg PO DAILY [facility]; Protocol Glucose (Glucose Gel 15 Gm Gel..Gram.) 15 gm PO Q15M PRN; Protocol PRN Reason: per Hypoglycemia Standing Ord. Hydrocortisone Sodium Succinate (Hydrocortisone Sod Succ/Pf 100 Mg Vial) 25 mg IVPUSH Q12H [facility] Stop: 06/27/23 07:46 Hydromorphone HCl (Hydromorphone Hcl 1 Mg/Ml Syringe) 1 mg IVPUSH Q4H PRN; Protocol PRN Reason: Pain, Severe (Pain Scale 7-10) Last Admin: 06/26/23 07:39 Dose: 1 mg Documented By: DAMIAN Piperacillin Sod/Tazobactam (Sod 3.375 gm/ Sodium Chloride) 50 mls @ 100 mls/hr IV Q6H [facility] Last Admin: 06/26/23 07:44 Dose: 100 mls/hr Documented By: DAMIAN Dextrose/Sodium Chloride (D5ns) 1,000 mls @ 100 mls/hr IVCONT .Q10H [facility] Last Admin: 06/26/23 03:11 Dose: 100 mls/hr Documented By: JULIUS Dextrose (D10) 250 mls @ 750 mls/hr IV Q15M PRN; Protocol PRN Reason: per Hypoglycemia Standing Ord. Ibuprofen (Ibuprofen 400 Mg Tablet) 400 mg PO Q6H PRN PRN Reason: Pain, Mild (Pain Scale 1-3) Insulin Human Lispro (Insulin Lispro 100 Unit/Ml 3 Ml Vial) 0 unit SUBCUT QIDACHS [facility]; Protocol Last Admin: 06/26/23 07:50 Dose: Not Given Documented By: DAMIAN Non-Admin Reason: No Insulin Coverage Nicotine (Nicotine 21 Mg Patch.Td24) 21 mg TRANSDERMA DAILY [facility] Last Admin: 06/26/23 07:44 Dose: 21 mg Documented By: DAMIAN Nicotine Polacrilex (Nicotine Polacrilex 2 Mg Gum) 2 mg BUCCAL Q2H PRN PRN Reason: Nicotine Cravings Last Admin: 06/25/23 23:00 Dose: 2 mg Documented By: ERMA Oxycodone HCl (Oxycodone Hcl Immed Release 5 Mg Tablet) 10 mg PO Q6H PRN PRN Reason: Pain, Moderate(Pain Scale 4-6) Last Admin: 06/25/23 21:53 Dose: 10 mg Documented By: ERMA Sodium Chloride (0.9 % Sodium Chloride Flush 3 Ml Syringe) 3 ml IVFLUSH QSMNFT [facility] Last Admin: 06/26/23 07:50 Dose: 3 ml Documented By: DAMIAN Labs 06/25/23 13:44 06/25/23 13:44 Labs: Laboratory Results - last 24 hr 06/25/23 06/25/23 06/25/23 13:44 16:04 18:50 MCV 92.4 MCH 31.6 MCHC 34.2 RDW 13.6 Plt Count 307 MPV 9.0 L Immature Gran % (Auto) 0.4 Neut % (Auto) 67.1 Lymph % (Auto) 21.3 [place] % (Auto) 9.1 Eos % (Auto) 1.7 Baso % (Auto) 0.4 Lymph # (Auto) 2.2 [place] # (Auto) 0.9 Eos # (Auto) 0.2 Baso # (Auto) 0.0 Abs Immat Gran (auto) 0.04 H Absolute Neuts (auto) 7.0 Absolute Nucleated RBC 0.000 Nucleated RBC % (auto) 0.0 Anion Gap 14 Estim Creat Clear Calc 177.7 Estimated GFR > 60 POC Glucose 83 100 Random Glucose 90 Calcium 9.9 06/26/23 07:19 MCV MCH MCHC RDW Plt Count MPV Immature Gran % (Auto) Neut % (Auto) Lymph % (Auto) [place] % (Auto) Eos % (Auto) Baso % (Auto) Lymph # (Auto) [place] # (Auto) Eos # (Auto) Baso # (Auto) Abs Immat Gran (auto) Absolute Neuts (auto) Absolute Nucleated RBC Nucleated RBC % (auto) Anion Gap Estim Creat Clear Calc Estimated GFR POC Glucose 130 H Random Glucose Calcium Procedures Date of Service Date of Service: 06/27/23 Progress Note: A&P Assessment and plan (1) Non-healing wound of left lower extremity: Status: Acute Assessment and Plan: Debridement done for both the left and right lower legs with Dr. Carlin To be seen by wound care nurse Joycelyn today Wound VAC planned eventually Will discussed the rest of care with Dr. Carlin Patient says he understands the plan Time Spent With Patient Time: Total time managing care of this patient today ____ minutes. Quality Stroke Does the patient have a stroke diagnosis?: No VTE Prior VTE?: No VTE Risk Level:: Surgical - low VTE Device Contraindication: Treatment Not Tolerated VTE Drug Contraindication: N/A - Med Ordered
[2023-06-26] MEDS: Hydrocortisone Sod Succ/PF 100 MG VIAL 25 MG IVPUSH ×2 (08:35→19:48)
[2023-06-26] MEDS: amLODIPine Besylate 5 MG TABLET PO (08:36)
[2023-06-26] MEDS: oxyCODONE HCl Immed Release 5 MG TABLET 10 MG PO ×2 (08:43→15:56)
--- NOTE | 2023-06-26 09:15 | PHA.MEDREC ---
Pharmacy Consult ? Medication Reconciliation Pharmacy has completed the medication reconciliation, patient reported medications - had picture of medications from home. Did also report tramadol but was told to discontinue to based on discharge summary from 06/13/23 previous admission.
--- NOTE | 2023-06-26 09:16 | HO.POSTANES ---
Post Anesthesia Evaluation Post Anesthesia Evaluation Date of Service: 06/25/23 Vital Signs: Vital Signs Temp Pulse Resp BP Pulse Ox O2 Del Method 06/26/23 08:36 151/73 H 06/26/23 07:17 97.3 F 58 17 151/73 H 95 Room Air 06/26/23 03:18 96 F L 61 16 142/64 H 95 Room Air 06/26/23 00:54 18 06/25/23 23:41 97 F 61 17 126/59 L 92 Room Air 06/25/23 21:29 96 F L 60 17 141/66 H 95 Room Air 06/25/23 21:21 97.2 F 58 18 140/72 H 98 Room Air Anesthesia: General LMA Mental Status: Awake Pain Control: Satisfactory Nausea/Vomiting: None Hydration: Adequate Anesthesia-Related Issues: No Anes. Related Issues
--- NOTE | 2023-06-26 09:23 | MHC.CLN ---
NUTRITION PATIENT ADM FOR DEBRIDEMENT OF LE WOUNDS. DIET=DIABETIC 2000 KCALS. ADDING ENSURE MAX BID TO INCREASE PROTEIN INTAKE POST SURGERY. SUPPLEMENT PROVIDES 300 KCALS, 60 G PROTEIN.
[2023-06-26 11:26] LABS: Glucose, Whole Blood 156 mg/dL (60-115)
[2023-06-26] MEDS: Insulin Lispro 100 UNIT/ML 3 ML VIAL SUBCUT ×2 (12:28→19:57)
--- NOTE | 2023-06-26 12:46 | MHC.CM.PN ---
Patient is direct admission 06/25/23. [place] LE wounds have worsened. Debridement was performed in the OR yesterday 06/25/23. A Duplex scan was done 06/25/23. Patient has an occlusion RLE. Today, a Wound consult with the wound nurse is planned. Per documentation, a Wound Vac is planned. Patient is independent with all functional mobility. He does not use an AD. Preference of VNA obtained. A referral has been sent to [facility] and [facility]. Patient will transport home with his .
--- NOTE | 2023-06-26 15:20 | P.EN_ITS ---
Event Note Date of Service: 06/27/23 Event Note: Had a long discussion with the patient and his today They are frustrated about non-improvement of his ulcers for 2-3 years I told them that I am coordinating the plan with Dr. Carlin She has planned on having him evaluated by Dr. Menjivar of Interventional Radiology for his superficial femoral artery occlusion Wound Care nurse also has seen the patient for possible wound VAC - she feels that the patient will benefit more from Santyl at this time Exact etiology of his ulcers are not certain They are not happy with rheumatology here and want to have an opinion from another business services officer I explained to them that I will help him coordinate overall care down the line The has expressed frustration that his primary care physician has not been navigating his care adequately for the past 2-3 years Time Spent With Patient Time: Total time managing care of this patient today ____ minutes.
--- NOTE | 2023-06-26 15:50 | PC.NURSE ---
patient and had questions about home meds not addressed,SALAZAR Barragan notified speaking with patient,Dr. Rolon in speaking with patient and about leg US results
--- NOTE | 2023-06-26 16:00 | PC.NURSE ---
Questioned need for anticoagulation with Dr. Rolon
--- NOTE | 2023-06-26 16:36 | HO.WOUND ---
Wound Consult: Initial 48yr old Male admitted to [facility] on 06/25/23 - See progress notes and H&P for detailed history.? Wound consult placed for wound vac placement by Dr. Carlin.? Patient agreeable to assessment and photo documentation.? Chart review reveals complex patient history and many outside providers and treatments. Arrival to bedside patient and his reported frustration with the system as they have experienced. They vented for a considerable amount of time and supportive listening was provided. I attempted to educate the patient and his when I was able however his case is very complex and there are several providers involved - Laurel LINCOLN aware and is working to get patient and assistance with coordinating his care when outside of the hospital. Multi-disciplinary team meeting is being considered. After much discussion the pt was agreeable to getting into bed for better wound assessment. The Left leg dressing was removed with significant pain - the patient needed several minutes to gather himself direct care nurse reported no pain med available at this time - provider was notified for pain med coverage. Per patient request dressing change was continued without additional pain med. The wound bed seen below is marbled with adherent yellow slough and red moist tissue. [place] NPWT placement to wound bed with clean or minimal necrotic tissue this appears contraindicated at this time. Overall the wound bed will benefit from continued debridement with Santyl prior to NPWT (Negative Pressure Wound Therapy). Dr. Carlin and Dr. Rolon notified of my recommendation and per Dr. Gonzales Carlin will assess wound bed later this evening and determine treatment. Right Leg wound dressing removed - see below - adherent pale yellow slough with some scattered red dry wound bed - will additionally benefit from Santyl for enzymatic debridement. Wounds re-dressed prior to ending consultation. Right leg with Hydrofiber AG and gauze dressing. Left Leg with NS moist gauze packing followed by ABD pad and gauze wrap. Recommendations: 1. Turn and Reposition every 2 hours and as needed for patient comfort.? Use pillows or wedges to support off loading positions. 2. Off Load all bony prominences with use of pillows and heel boots if needed.? Apply Preventative foams where needed. ? 3. Provide adequate and supplemental nutrition.? 4. Order low air loss mattress. 5. When applicable maintain blood glucose levels per Providers order. 6. These orders have not been placed these are topical recommendations at this time - provider to determine treatment plan at this time. Bilateral Lower Legs - Elevate lower legs do not keep in dependent position. Cleanse with normal saline, pat dry. ?Apply barrier to the immediate chris wound, apply thick layer of Santyl to normal saline moist gauze, lightly pack into wound bed. Be sure to have Santyl touching wound bed. Fill space with dry gauze followed by ABD pad and gauze wrap. Change daily. Recommend continued follow up with outpatient wound clinic. Recommend refer to Dr. Palacios for vascular evaluation. 7. Provide patient with smoking cessation. Re-consult wound care Nurse for wound deterioration or wound changes.
--- NOTE | 2023-06-26 17:41 | PM.EVENT ---
Event Note Date of Service: 06/26/23 Event Note: Asked to see patient. Art US reviewed. Agree with CTA. Will follow up Time Spent With Patient Time: Total time managing care of this patient today ____ minutes.
[2023-06-26 17:43] LABS: Glucose, Whole Blood 125 mg/dL (60-115)
--- NOTE | 2023-06-26 18:02 | P.EN_ITS ---
Event Note Date of Service: 06/26/23 Event Note: Patient seen today and several things- Patient's left lower leg dressing change to the wound VAC was suctioned at 75 mmHg pressure to titrate the patient's tolerance and comfort. Patient put on MINE SAFETY MANAGER Dilaudid for pain control while trying to maintain the wound VAC. Patient will have pain service consult tomorrow in-house. Dr. Palacios consulted for vascular and CT angio of abdomen and bilateral lower extremity runoffs ordered. Medical team is following patient for his diabetes blood pressure issues. Patient will hopefully follow up early next week with rheumatology for those issues. Care management to help with social issues. Time Spent With Patient Time: Total time managing care of this patient today ____ minutes.
--- NOTE | 2023-06-26 19:36 | PC.NURSE ---
Dilaudid RELIEF MASTER order entered with no time scheduled,pharmacy notified,order will be redone
[2023-06-26] MEDS: Gabapentin 300 MG CAPSULE PO (19:53)
[2023-06-26] MEDS: Atorvastatin Calcium 20 MG TABLET PO (19:53)
[2023-06-26 19:58] LABS: Glucose, Whole Blood 186 mg/dL (60-115)
[2023-06-26] MEDS: HYDROmorphone HCl/NS 10 MG/50 ML PIGGYBACK IV (20:46)
--- NOTE | 2023-06-26 20:55 | PC.NURSE ---
DIRECTOR OF CORPORATE MARKETING started hydromorphone 0.2 mg/ml concentration,bolus only 0.3 mg q 10 min,maximum 4 boluses per hour,administration witnessed by RN Azul,unable to document as ordered on a MAR ,pharmacist Sudeep notified,was advised to enter a number under mg/hr ,system will not allow to complete administration if 0 mg/hr is entered,ongoing problem,see written documentation on a chart.
[2023-06-27] VITALS (18 sets, daily range): BP systolic 125–173; BP diastolic 59–86; PULSE 53–68; RESP 18–20; TEMP 36.1–36.6; O2SAT 92–97
[2023-06-27] MEDS: Dextrose 5 % and 0.9 % NaCl 1,000 ML 100 ML IVCONT ×2 (02:07→12:10)
[2023-06-27] MEDS: Piperacillin Sodium/Tazobactam 3.375 GM in 0.9 % Sodium Chloride 50 ML IV ×4 (02:22→19:47)
--- NOTE | 2023-06-27 04:35 | PC.NURSE ---
Addendum entered by Kiki Cm RN 06/27/23 04:51: SEE PATIENTS MAR-LABEL COMMENTS AT DILAUDID ENTRY-IT STATES; SEE GUSSET FOLDER FORM FOR ADMINISTRATION DOCUMENTATION. Original Note: DILAUDID GUSSET FOLDER PUMP IN USE FOR PAIN MANAGEMENT, PAIN MAX 5/10 PER PATIENT. GUSSET FOLDER EDUCATION PROVIDED AND PT VERBALIZED UNDERSTANDING USE, NOTED NAPPING ON AND OFF WITH GOOD EFFECT FOR PAIN. SEE PAPER DOCUMENTATION FOR DETAILS, VSS, ATTEMPTS AND BOLUS DOSES GIVEN DOCUMENTED EVERY 2 HOURS WITH RUNNING TOTAL INFUSED. 0000-2.4MG/12ML, 0200 3.6MG/18ML, 0400 3.9MG/19.5MG. O2 SATS AT 94%. WOUND VAC AT LEFT OUTER LOWER LEG, SET TO 75MMHG, DRESSING COMPRESSED, VERY SMALL AMOUNT LIGHT BROWN LIQUID TO CHAMBER. DRESSING BILAT LOWER LEGS C-D-I. VOIDING FINE TO BEDSIDE URINAL. IVF/IVABX ORDERED. PT DECLINED TO HAVE A 2ND IV SITE ESTABLISHED FOR HIS 30 MINUTE ABX INFUSION, THEREFORE, EXPLAINED THE NEED TO SHUT OFF HIS GUSSET FOLDER FOR THAT 30 MINUTE DURATION AND PT AGREEABLE. INSTRUCTED TO DELIVER HIS DOSE JUST PRIOR TO THE 30 MINUTE SHUT OFF. PT WAS ASKED 4 TIMES ABOUT AN ADDITIONAL IV AND REPEATEDLY STATED NO, LETS JUST SHUT IT OFF . NURSING SETTER MACHINE UPDATED. WILL CONTINUE TO MONITOR CLOSELY, SEE PAPER DOCUMENTATION FOR 0600 ENTRY.
--- NOTE | 2023-06-27 06:32 | PC.NURSE ---
0600-CATERING SOUS CHEF DOCUMENTATION TO PAPER, NOTED 4 ATTEMPTS, 3 GIVEN DOSES PER CATERING SOUS CHEF ORDERS, 4.8MG/24ML. PATIENT STATED PAIN 5/10 TO LEFT OUTER LEG WOUND, NOTED WITH EFFECT PT FELL BACK TO SLEEP. WILL CONTINUE TO MONITOR.
[2023-06-27 07:32] LABS: Glucose, Whole Blood 123 mg/dL (60-115)
[2023-06-27] MEDS: Nicotine 21 MG PATCH.TD24 TRANSDERMA (08:10)
[2023-06-27] MEDS: Hydrocortisone Sod Succ/PF 100 MG VIAL 25 MG IVPUSH (08:10)
[2023-06-27] MEDS: amLODIPine Besylate 5 MG TABLET PO (08:10)
[2023-06-27] MEDS: 0.9 % Sodium Chloride Flush 3 ML SYRINGE IVFLUSH (08:11)
--- NOTE | 2023-06-27 08:52 | P.PNGS_ITS ---
Subjective Subjective Date of Service: 06/28/23 Interval history: Complains of pain from the wound VAC site Wound VAC placed last night by Dr. Carlin No new complaints Physical Exam 2 Vital Signs: Vital Signs: Last Vital Signs Temp 97.1 F 06/27/23 07:34 Pulse 53 06/27/23 07:34 Resp 18 06/27/23 07:34 BP 140/71 H 06/27/23 08:10 Pulse Ox 97 06/27/23 07:34 O2 Del Method Room Air 06/27/23 07:34 O2 Flow Rate 6 06/25/23 20:51 BMI result Body Mass Index 40.7 Const: General: comfortable and no acute distress Resp: Effort & Inspection: normal respiratory effort GI: Palpation (GI): Soft to palpation Extrem: Other: Wound VAC in place on the left leg, dressings on the right clean Objective Data Active Medications Amlodipine Besylate (Amlodipine Besylate 5 Mg Tablet) 5 mg PO DAILY WIN; Protocol Last Admin: 06/27/23 08:10 Dose: 5 mg Documented By: BROOKLYN Atorvastatin Calcium (Atorvastatin Calcium 20 Mg Tablet) 20 mg PO BEDTIME [facility] Last Admin: 06/26/23 19:53 Dose: 20 mg Documented By: ERMA Gabapentin (Gabapentin 300 Mg Capsule) 300 mg PO BEDTIME WIN Last Admin: 06/26/23 19:53 Dose: 300 mg Documented By: ERMA Glucose (Glucose Gel 15 Gm Gel..Gram.) 15 gm PO Q15M PRN; Protocol PRN Reason: per Hypoglycemia Standing Ord. Hydromorphone HCl (Hydromorphone Hcl 1 Mg/Ml Syringe) 1 mg IVPUSH Q4H PRN; Protocol PRN Reason: Pain, Severe (Pain Scale 7-10) Last Admin: 06/26/23 11:44 Dose: 1 mg Documented By: MAR Piperacillin Sod/Tazobactam (Sod 3.375 gm/ Sodium Chloride) 50 mls @ 100 mls/hr IV Q6H [facility] Last Infusion: 06/27/23 08:50 Dose: Infused Documented By: BROOKLYN Dextrose/Sodium Chloride (D5ns) 1,000 mls @ 100 mls/hr IVCONT .Q10H [facility] Last Admin: 06/27/23 02:07 Dose: 100 mls/hr Documented By: JULIUS Dextrose (D10) 250 mls @ 750 mls/hr IV Q15M PRN; Protocol PRN Reason: per Hypoglycemia Standing Ord. Hydromorphone HCl (Dilaudid) 10 mg in 50 mls @ 0 mls/hr IV .Q0M [facility]; Protocol Last Admin: 06/26/23 20:46 Dose: 0.01 mg/hr, 0.05 mls/hr Documented By: ERMA Ibuprofen (Ibuprofen 400 Mg Tablet) 400 mg PO Q6H PRN PRN Reason: Pain, Mild (Pain Scale 1-3) Insulin Human Lispro (Insulin Lispro 100 Unit/Ml 3 Ml Vial) 0 unit SUBCUT QIDACHS [facility]; Protocol Last Admin: 06/27/23 07:33 Dose: Not Given Documented By: BROOKLYN Non-Admin Reason: No Insulin Coverage Naloxone HCl (Naloxone Hcl 0.4 Mg/Ml Vial) 0.2 mg IVPUSH Q2M PRN PRN Reason: Excessive sedation or RR < 8 Nicotine (Nicotine 21 Mg Patch.Td24) 21 mg TRANSDERMA DAILY [facility] Last Admin: 06/27/23 08:10 Dose: 21 mg Documented By: BROOKLYN Nicotine Polacrilex (Nicotine Polacrilex 2 Mg Gum) 2 mg BUCCAL Q2H PRN PRN Reason: Nicotine Cravings Last Admin: 06/25/23 23:00 Dose: 2 mg Documented By: ERMA Oxycodone HCl (Oxycodone Hcl Immed Release 5 Mg Tablet) 10 mg PO Q6H PRN PRN Reason: Pain, Moderate(Pain Scale 4-6) Last Admin: 06/26/23 15:56 Dose: 10 mg Documented By: ERMA Sodium Chloride (0.9 % Sodium Chloride Flush 3 Ml Syringe) 3 ml IVFLUSH QSHIFT [facility] Last Admin: 06/27/23 08:11 Dose: 3 ml Documented By: BROOKLYN Labs 06/25/23 13:44 06/25/23 13:44 Labs: Laboratory Results - last 24 hr 06/26/23 06/26/23 06/26/23 11:22 17:38 19:55 POC Glucose 156 H 125 H 186 H 06/27/23 07:17 POC Glucose 123 H Procedures Date of Service Date of Service: 06/28/23 Progress Note: A&P Assessment and plan (1) Non-healing wound of left lower extremity: Status: Acute Assessment and Plan: Wound VAC placed by Dr. Carlin last night Patient with SFA occlusion with collateralization - awaiting consult from Dr. Palacios Wound care Otherwise looks well today wants to go home Appreciate hospitalist follow-up Time Spent With Patient Time: Total time managing care of this patient today ____ minutes. Quality Stroke Does the patient have a stroke diagnosis?: No VTE Prior VTE?: No VTE Risk Level:: Surgical - low VTE Device Contraindication: Treatment Not Tolerated VTE Drug Contraindication: N/A - Med Ordered
--- NOTE | 2023-06-27 09:02 | HO.PM.IMPN ---
Subjective Subjective Date of Service: 06/27/23 Interval History: Seen in follow up for consult Interval history: s/p debridement BLE POD2, wound vac now in place LLE. pain reasonably controlled, now on AUTO DAMAGE INSURANCE APPRAISER pump. BP improved with better pain control Review of Systems Review of Systems: Yes all other systems are reviewed and are negative Physical Exam Vital Signs: Vital Signs: Last Vital Signs Temp 97.1 F 06/27/23 07:34 Pulse 53 06/27/23 07:34 Resp 18 06/27/23 07:34 BP 140/71 H 06/27/23 08:10 Pulse Ox 97 06/27/23 07:34 O2 Del Method Room Air 06/27/23 07:34 O2 Flow Rate 6 06/25/23 20:51 BMI result Body Mass Index 40.7 Constitutional - Awake and Alert, No apparent distress Eyes - PERRLA, EOMI Cardiovascular - S1S2, RRR Respiratory - Normal lung expansion, Normal respiratory effort, No respiratory distress, CTA bilaterally Extremities - no calf tenderness bilaterally, no swelling. LLE wound vac in place Musculoskeletal - Normal inspection, normal ROM Skin - Warm/Dry Neurological - Alert & oriented x3 Psychological - Appropriate affect Objective Data Active Medications Amlodipine Besylate (Amlodipine Besylate 5 Mg Tablet) 5 mg PO DAILY WIN; Protocol Last Admin: 06/27/23 08:10 Dose: 5 mg Documented By: BROOKLYN Atorvastatin Calcium (Atorvastatin Calcium 20 Mg Tablet) 20 mg PO BEDTIME WIN Last Admin: 06/26/23 19:53 Dose: 20 mg Documented By: ERMA Gabapentin (Gabapentin 300 Mg Capsule) 300 mg PO BEDTIME [facility] Last Admin: 06/26/23 19:53 Dose: 300 mg Documented By: ERMA Glucose (Glucose Gel 15 Gm Gel..Gram.) 15 gm PO Q15M PRN; Protocol PRN Reason: per Hypoglycemia Standing Ord. Hydromorphone HCl (Hydromorphone Hcl 1 Mg/Ml Syringe) 1 mg IVPUSH Q4H PRN; Protocol PRN Reason: Pain, Severe (Pain Scale 7-10) Last Admin: 06/26/23 11:44 Dose: 1 mg Documented By: MAR Piperacillin Sod/Tazobactam (Sod 3.375 gm/ Sodium Chloride) 50 mls @ 100 mls/hr IV Q6H [facility] Last Infusion: 06/27/23 08:50 Dose: Infused Documented By: BROOKLYN Dextrose/Sodium Chloride (D5ns) 1,000 mls @ 100 mls/hr IVCONT .Q10H [facility] Last Admin: 06/27/23 02:07 Dose: 100 mls/hr Documented By: JULIUS Dextrose (D10) 250 mls @ 750 mls/hr IV Q15M PRN; Protocol PRN Reason: per Hypoglycemia Standing Ord. Hydromorphone HCl (Dilaudid) 10 mg in 50 mls @ 0 mls/hr IV .Q0M [facility]; Protocol Last Admin: 06/26/23 20:46 Dose: 0.01 mg/hr, 0.05 mls/hr Documented By: ERMA Ibuprofen (Ibuprofen 400 Mg Tablet) 400 mg PO Q6H PRN PRN Reason: Pain, Mild (Pain Scale 1-3) Insulin Human Lispro (Insulin Lispro 100 Unit/Ml 3 Ml Vial) 0 unit SUBCUT QIDACHS [facility]; Protocol Last Admin: 06/27/23 07:33 Dose: Not Given Documented By: BROOKLYN Non-Admin Reason: No Insulin Coverage Naloxone HCl (Naloxone Hcl 0.4 Mg/Ml Vial) 0.2 mg IVPUSH Q2M PRN PRN Reason: Excessive sedation or RR < 8 Nicotine (Nicotine 21 Mg Patch.Td24) 21 mg TRANSDERMA DAILY [facility] Last Admin: 06/27/23 08:10 Dose: 21 mg Documented By: BROOKLYN Nicotine Polacrilex (Nicotine Polacrilex 2 Mg Gum) 2 mg BUCCAL Q2H PRN PRN Reason: Nicotine Cravings Last Admin: 06/25/23 23:00 Dose: 2 mg Documented By: ERMA Oxycodone HCl (Oxycodone Hcl Immed Release 5 Mg Tablet) 10 mg PO Q6H PRN PRN Reason: Pain, Moderate(Pain Scale 4-6) Last Admin: 06/26/23 15:56 Dose: 10 mg Documented By: ERMA Sodium Chloride (0.9 % Sodium Chloride Flush 3 Ml Syringe) 3 ml IVFLUSH QSHIFT [facility] Last Admin: 06/27/23 08:11 Dose: 3 ml Documented By: BROOKLYN Labs 06/25/23 13:44 06/25/23 13:44 Labs: Laboratory Results - last 24 hr 06/26/23 06/26/23 06/26/23 11:22 17:38 19:55 POC Glucose 156 H 125 H 186 H 06/27/23 07:17 POC Glucose 123 H Assessment and Plan (1) Non-healing wound of left lower extremity: Status: Acute (2) assisted (current) use of other immunomodulators and immunosuppressants: Status: Acute Plan 48 year old male with history of 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 #Non healing wounds LLE -s/p debridement in OR POD 2. Wound vac placed 06/26 -Pain management per general surgery- now on front end application developer pump -Pt was started on hydrocortisone preoperatively given relatively large dose of prednisone as part of final taper completed 2 days ago. Given hydrocortisone 50mg x2. Complete hydrocortisone 25mg BID x3 this morning then dc. No need for further taper -last wound culture grew pseudomonas, ecoli, enterococcus. Continue zosyn. Further abx recs per general surgery #HTN- improving -optimatize pain control for now. Will also likely improving as steroids dc'd this morning -continue amlodipine 5mg daily #NIDDM without hyperglycemia -POC glucose, advance to diabetic diet -admelog on ss -hold metformin and jardiance #Hidradentitis/pyoderma -call placed to rheumatology. Has outpt appt scheduled in [facility] July 28, pt and notified and advised to call office for appt time. Also called and pt now placed on priority cancelation list for saturday when Dr. Ceja (seed technician) returns on Saturday 07/01 -humira -Weaned from PO steroids. Last taken 06/22 -continue following outpt with rheumatology and dermatology #NIcotine dependence -cessation advised -patch/gum for nrt #morbid obesity -weight loss efforts Meeting held yesterday with pt experience, general surgery, and dermatology teacher Laura. Pt has been getting lost to follow up. Discussed ways to better facilitate care with good continuity. He will likely be switching PCP's into the [facility] network so all specialists and PCP are within the same network to better facilitate care. Dr. gregorio to consult on pt today for PAD and general surgery to continue following for wound management. I reached out to Patric Martínez who will work on care coordination from community navigation standpoint. Thank you for this consult. Will continue following Quality Stroke Does the patient have a stroke diagnosis?: No VTE Prior VTE?: No VTE Risk Level:: Surgical - low VTE Device Contraindication: Treatment Not Tolerated VTE Drug Contraindication: N/A - Med Ordered
[2023-06-27] MEDS: iohexoL 350 MG/ML 100 ML INFUS..BTL IV (10:02)
[2023-06-27 11:05] LABS: Glucose, Whole Blood 142 mg/dL (60-115)
[2023-06-27] MEDS: HYDROmorphone HCl/NS 10 MG/50 ML PIGGYBACK IV ×2 (14:05→21:50)
--- NOTE | 2023-06-27 14:14 | PC.NURSE ---
COMPUTER REPAIRER dilaudid infusion completed at 1330, new bag hung at 1400, 7.5ml wasted in pyxis from previous bag with Velma Sanabria RN, no basal rate, total number of bolus's given 26.
[2023-06-27 15:56] LABS: Glucose, Whole Blood 131 mg/dL (60-115)
--- NOTE | 2023-06-27 16:14 | HO.WOUND ---
Wound Consult: Follow up 48yr old Male [place] [facility] [place] - See progress notes and H&P for detailed history.? Wound vac placement by Dr. Carlin on 06/26/23 will defer topical recommendations to Dr. Carlin at this time. Patient remains with significant levels of frustration along with his . Patient experience supervisor landscape in with patient multiple times throughout the day. Patient reports pending consult from Vascular services and Acute Pain services. Wound vac dressing in tact set to suction of 75mmHg pt reports it is very painful but the EYELET MACHINE OPERATOR makes it tolerable per patient statement. No leaking noted to wound vac and alarm history checked no significant alarms and time frames noted. Dr. Rolon was into see patient today - Dr. Carlin to follow up this evening.
--- NOTE | 2023-06-27 18:13 | PM.EVENT ---
Event Note Date of Service: 06/28/23 Event Note: seen multiple times today as was unhappy about perceived slow pace of treatment she had wanted decision on SFA occlusion CT angiogram done today -proximal occlusion of SFA on right, reconstituted flow in mid SFA patent flow in distal SFA and P1 of popliteal artery there aappears to be patent flow in anterior tibm, posterior tib and peroneal arteries Left SFA disfusely small in calinber, with short segment stenoses/occlusions in mid and distal segment reached out to Vascular - Dr Palacios says he will be in tomorrow morning to see pt continue pain mgt with LONG LINE TEAMSTER Wound Vac in place Time Spent With Patient Time: Total time managing care of this patient today ____ minutes.
--- NOTE | 2023-06-27 19:59 | PC.NURSE ---
patient complaining of 8/10 pain, prn oxycodone available per apr, double checked with Dr Ibarra and pharmacy and ok to give even with software engineering specialist infusing. Also complaining of heart burn and tums ordered
[2023-06-27] MEDS: Atorvastatin Calcium 20 MG TABLET PO (20:03)
[2023-06-27] MEDS: oxyCODONE HCl Immed Release 5 MG TABLET 10 MG PO (20:03)
[2023-06-27] MEDS: Gabapentin 300 MG CAPSULE PO (20:03)
[2023-06-27 21:05] LABS: Glucose, Whole Blood 128 mg/dL (60-115)
--- NOTE | 2023-06-27 22:13 | PM.EVENT ---
Event Note Date of Service: 06/27/23 Event Note: Pt seen this afternoon- he is frustrated and says nothing is being done. Said when he agreed to come to the hospital he didnt want to just be sitting around Reviewed with him what we have accomplished since he was admitted - -iv antibx surgical debridement of wound wound vac placement arterial ultrasound reveal pvd ctangio - delineating arterial flow in both legs vascular surgery consult pain management medical consultation with med adjustment care management for providing new pcp Time Spent With Patient Time: Total time managing care of this patient today ____ minutes.
[2023-06-28] VITALS (8 sets, daily range): BP systolic 138–183; BP diastolic 63–77; PULSE 48–62; RESP 16–22; TEMP 35.5–36.4; O2SAT 92–98
[2023-06-28] MEDS: Piperacillin Sodium/Tazobactam 3.375 GM in 0.9 % Sodium Chloride 50 ML IV ×4 (02:13→19:17)
--- NOTE | 2023-06-28 06:41 | PC.NURSE ---
PATIENT REMAINS WITH A DILAUDID BARREL CLEANER PUMP FOR PAIN MANAGEMENT. DOCUMENTATION DONE TO PAPER FORM ONLY PREVIOUS. PAIN LEVEL6-8/10 AND EDUCATION AND PUMP USE DISCUSSED AND RECAPPED, PT VERBALIZES UNDERSTANDING AND ABLE TO SLEEP IN LONG NAPS. 0000- READING 7.5ML/1.5MG, 0200-15ML/3MG, 0400-19.5ML/3.9MG, 0600-22.5ML/4.5MG, VSS, VOIDING FINE TO BEDSIDE URINAL. WOUND VAC IN USE TO OUTER LLE, DRESSING COMPRESSED, 75MMHG CONTINUOUS THERAPY AND ONLY A VERY SMALL AMOUNT BROWN LIQUID TO THE CHAMBER. DSD AT E C-D-I. ,LEGS ELEVATED TO PILLOWS, MONITORED CLOSELY.
[2023-06-28 07:32] LABS: Glucose, Whole Blood 109 mg/dL (60-115)
[2023-06-28] MEDS: Nicotine 21 MG PATCH.TD24 TRANSDERMA (08:19)
[2023-06-28] MEDS: amLODIPine Besylate 5 MG TABLET PO (08:19)
--- NOTE | 2023-06-28 09:29 | PC.NURSE ---
0900 Dilaudid TIGER MACHINE OPERATOR pump discontinued, waste amount of 30ml measured and entered into pyxis and verified by Norma Casanova RN. 15 total bolus's of 0.3mg given from this bag, no basal rate.
[2023-06-28] MEDS: Ibuprofen 400 MG TABLET PO (10:18)
[2023-06-28] MEDS: HYDROmorphone HCl 1 MG/ML SYRINGE IVPUSH ×4 (10:19→23:22)
--- NOTE | 2023-06-28 10:26 | MHC.CM.PN ---
Addendum entered by Kristin Serra RN 06/28/23 13:46: PER SURGICAL NOTE PT IS AGREEING TO STAY THROUGH W/E FOR ANGIOGRAM ON WEDNESDAY 05/31, CM RECEIVED A CALL BACK FROM [facility] AT [facility] AND WILL FOLLOW UP , PER WOUND CARE PROVIDER SHE IS UNSURE IF PT WILL NEED HOME WOUND VAC AT THIS TIME, CM WILL CONT TO FOLLOW DC NEEDS. Original Note: EMR REVIEWED, REFERRAL PLACED TO [facility] PT WILL NEED HOME WOUND VAC PRIOR TO DC, ANTIC WILL BE SEEN BY VASCULAR AND PAIN MANAGEMENT PROVIDER, CM WILL CONT TO FOLLOW DC NEEDS.
--- NOTE | 2023-06-28 10:50 | P.PNGS_ITS ---
Subjective Subjective Date of Service: 06/28/23 Interval history: No new complaints He had a discussion with Dr. Palacios this morning Physical Exam 2 Vital Signs: Vital Signs: Last Vital Signs Temp 97.3 F 06/28/23 07:25 Pulse 48 L 06/28/23 07:25 Resp 20 06/28/23 07:25 BP 183/77 H 06/28/23 08:19 Pulse Ox 92 06/28/23 07:25 O2 Del Method Room Air 06/28/23 07:25 O2 Flow Rate 6 06/25/23 20:51 BMI result Body Mass Index 40.7 Const: General: comfortable and no acute distress Resp: Effort & Inspection: normal respiratory effort Cardio: Rate: regular rate Extrem: Other: Wound VAC on left leg, dressings on the right leg, dry Objective Data Active Medications Acetaminophen (Acetaminophen 325 Mg Tablet) 650 mg PO Q6H PRN PRN Reason: Pain, Mild (Pain Scale 1-3) Amlodipine Besylate (Amlodipine Besylate 5 Mg Tablet) 5 mg PO DAILY [facility]; Protocol Last Admin: 06/28/23 08:19 Dose: 5 mg Documented By: BROOKLYN Atorvastatin Calcium (Atorvastatin Calcium 20 Mg Tablet) 20 mg PO BEDTIME [facility] Last Admin: 06/27/23 20:03 Dose: 20 mg Documented By: RAIZA Calcium Carbonate (Calcium Carbonate 750 Mg Tab.Chew) 750 mg PO Q6H PRN PRN Reason: Heartburn Gabapentin (Gabapentin 300 Mg Capsule) 300 mg PO BEDTIME [facility] Last Admin: 06/27/23 20:03 Dose: 300 mg Documented By: RAIZA Glucose (Glucose Gel 15 Gm Gel..Gram.) 15 gm PO Q15M PRN; Protocol PRN Reason: per Hypoglycemia Standing Ord. Hydromorphone HCl (Hydromorphone Hcl 1 Mg/Ml Syringe) 1 mg IVPUSH Q4H PRN; Protocol PRN Reason: Pain, Severe (Pain Scale 7-10) Last Admin: 06/28/23 10:19 Dose: 1 mg Documented By: BROOKLYN Piperacillin Sod/Tazobactam (Sod 3.375 gm/ Sodium Chloride) 50 mls @ 100 mls/hr IV Q6H [facility] Last Infusion: 06/28/23 08:55 Dose: Infused Documented By: BROOKLYN Dextrose (D10) 250 mls @ 750 mls/hr IV Q15M PRN; Protocol PRN Reason: per Hypoglycemia Standing Ord. Ibuprofen (Ibuprofen 400 Mg Tablet) 400 mg PO Q6H PRN PRN Reason: Pain, Mild (Pain Scale 1-3) Last Admin: 06/28/23 10:18 Dose: 400 mg Documented By: BROOKLYN Insulin Human Lispro (Insulin Lispro 100 Unit/Ml 3 Ml Vial) 0 unit SUBCUT QIDACHS [facility]; Protocol Last Admin: 06/28/23 07:33 Dose: Not Given Documented By: BROOKLYN Non-Admin Reason: IV Running Lorazepam (Lorazepam 1 Mg Tablet) 1 mg PO BEDTIME PRN PRN Reason: Sleep Naloxone HCl (Naloxone Hcl 0.4 Mg/Ml Vial) 0.2 mg IVPUSH Q2M PRN PRN Reason: Excessive sedation or RR < 8 Nicotine (Nicotine 21 Mg Patch.Td24) 21 mg TRANSDERMA DAILY [facility] Last Admin: 06/28/23 08:19 Dose: 21 mg Documented By: BROOKLYN Nicotine Polacrilex (Nicotine Polacrilex 2 Mg Gum) 2 mg BUCCAL Q2H PRN PRN Reason: Nicotine Cravings Last Admin: 06/25/23 23:00 Dose: 2 mg Documented By: ERMA Oxycodone HCl (Oxycodone Hcl Immed Release 5 Mg Tablet) 10 mg PO Q6H PRN PRN Reason: Pain, Moderate(Pain Scale 4-6) Last Admin: 06/27/23 20:03 Dose: 10 mg Documented By: RAIZA Sodium Chloride (0.9 % Sodium Chloride Flush 3 Ml Syringe) [facility] Last Admin: 06/28/23 07:24 Dose: Not Given Documented By: BROOKLYN Non-Admin Reason: IV Running Labs 06/25/23 13:44 06/25/23 13:44 Labs: Laboratory Results - last 24 hr 06/27/23 06/27/23 06/27/23 11:01 15:53 20:14 POC Glucose 142 H 131 H 128 H 06/28/23 07:28 POC Glucose 109 Procedures Date of Service Date of Service: 06/28/23 Progress Note: A&P Assessment and plan (1) Non-healing wound of left lower extremity: Status: Acute Assessment and Plan: Wound VAC in place Patient says he does not need MANAGER BRIDGE so this was discontinued On oral pain medications P.r.n. IV pain meds (2) Peripheral artery disease: Status: Acute Assessment and Plan: Seen by Dr. Palacios For angiogram on Saturday agreeable with the plan and patient has done to stay but has been convinced to stay for the weekend for angiogram Time Spent With Patient Time: Total time managing care of this patient today ____ minutes. Quality Stroke Does the patient have a stroke diagnosis?: No VTE Prior VTE?: No VTE Risk Level:: Surgical - low VTE Device Contraindication: Treatment Not Tolerated VTE Drug Contraindication: N/A - Med Ordered
[2023-06-28 11:12] LABS: Glucose, Whole Blood 118 mg/dL (60-115)
[2023-06-28] MEDS: oxyCODONE HCl Immed Release 5 MG TABLET 10 MG PO ×2 (12:04→16:59)
[2023-06-28] MEDS: LORazepam 1 MG TABLET PO ×2 (12:04→18:14)
--- NOTE | 2023-06-28 14:32 | P.CONGS_ITS ---
History of Present Illness Consult details Consult date: 06/28/23 Reason for consult: wound care Narrative: Very complex 48-year-old gentleman presents for evaluation regarding peripheral vascular disease. He has had a longstanding nonhealing ulcers of bilateral lower extremities. Of note he had actually undergone venous insufficiency testing back in 2021 which was essentially negative. He had arterial testing and it was discovered that he did have peripheral vascular disease and there was actually concern of inflow disease. He now presents to us for vascular evaluation. Review of Systems 2 Review of Systems: Yes all other systems are reviewed and are negative Constitutional: Constitutional: Reports no additional constitutional complaints ENT: Reports Normal hearing present Cardiovascular: Cardiovascular: Denies chest pain, Denies chest pain at rest, Denies chest pain with activity and Denies pedal edema Respiratory: Respiratory: Denies cough Gastrointestinal: Gastrointestinal: Denies abdominal pain Musculoskeletal: Musculoskeletal: Denies abnormal gait, Denies muscle cramps and Denies radiating pain into limb Integumentary/Breasts: Skin/Breast: Denies skin ulcer and Denies wounds Neurologic: Reports Normal hearing present and Denies abnormal gait Psychiatric: Psychiatric: Reports no additional psychiatric complaints [facility] Past Medical History Medical History (Updated 06/28/23 @ 10:51 by Karthik Rolon MD) Peripheral artery disease Essential hypertension Type 2 diabetes mellitus Spondylosis of lumbar region without myelopathy or radiculopathy Idiopathic peripheral neuropathy Severe obesity (BMI >= 40) HLA B27 (HLA B27 positive) Antiphospholipid antibody positive detention (current) use of other immunomodulators and immunosuppressants Pyoderma gangrenosum Hidradenitis axillaris Family History Family History Mother Hx of breast cancer Father Skin cancer Other Family history of arthritis Surgical History Surgical History Hx of total knee arthroplasty Social History Social History Household Members: Spouse Housing: House Do you presently have visiting nurse or other home services: No Alcohol intake: never Comment: patient refuses alarm Patient Tobacco Use Status: Current everyday Tobacco user Tobacco use type: Cigarette Cigarette Packs Per Day: 2 Cigarettes Per Day: 40.0 Second Hand Smoke Exposure: No Substance Use Type: Marijuana Advance Directives Date on File: 06/17/23 service: No Meds Allergies Allergy/AdvReac Type Severity Reaction Status Date / Time No Known Allergies Allergy Verified 06/11/23 17:28 Active Medications: Current Medications Acetaminophen (Acetaminophen 325 Mg Tablet) 650 mg PO Q6H PRN PRN Reason: Pain, Mild (Pain Scale 1-3) Amlodipine Besylate (Amlodipine Besylate 5 Mg Tablet) 5 mg PO DAILY [facility]; Protocol Last Admin: 06/28/23 08:19 Dose: 5 mg Atorvastatin Calcium (Atorvastatin Calcium 20 Mg Tablet) 20 mg PO BEDTIME [facility] Last Admin: 06/27/23 20:03 Dose: 20 mg Calcium Carbonate (Calcium Carbonate 750 Mg Tab.Chew) 750 mg PO Q6H PRN PRN Reason: Heartburn Gabapentin (Gabapentin 300 Mg Capsule) 300 mg PO BEDTIME [facility] Last Admin: 06/27/23 20:03 Dose: 300 mg Glucose (Glucose Gel 15 Gm Gel..Gram.) 15 gm PO Q15M PRN; Protocol PRN Reason: per Hypoglycemia Standing Ord. Hydromorphone HCl (Hydromorphone Hcl 1 Mg/Ml Syringe) 1 mg IVPUSH Q4H PRN; Protocol PRN Reason: Pain, Severe (Pain Scale 7-10) Last Admin: 06/28/23 14:23 Dose: 1 mg Piperacillin Sod/Tazobactam (Sod 3.375 gm/ Sodium Chloride) 50 mls @ 100 mls/hr IV Q6H [facility] Last Admin: 06/28/23 14:23 Dose: 100 mls/hr Dextrose (D10) 250 mls @ 750 mls/hr IV Q15M PRN; Protocol PRN Reason: per Hypoglycemia Standing Ord. Ibuprofen (Ibuprofen 400 Mg Tablet) 400 mg PO Q6H PRN PRN Reason: Pain, Mild (Pain Scale 1-3) Last Admin: 06/28/23 10:18 Dose: 400 mg Insulin Human Lispro (Insulin Lispro 100 Unit/Ml 3 Ml Vial) 0 unit SUBCUT QIDACHS [facility]; Protocol Last Admin: 06/28/23 11:14 Dose: Not Given Lorazepam (Lorazepam 1 Mg Tablet) 1 mg PO Q6H PRN PRN Reason: Anxiety Last Admin: 06/28/23 12:04 Dose: 1 mg Naloxone HCl (Naloxone Hcl 0.4 Mg/Ml Vial) 0.2 mg IVPUSH Q2M PRN PRN Reason: Excessive sedation or RR < 8 Nicotine (Nicotine 21 Mg Patch.Td24) 21 mg TRANSDERMA DAILY [facility] Last Admin: 06/28/23 08:19 Dose: 21 mg Nicotine Polacrilex (Nicotine Polacrilex 2 Mg Gum) 2 mg BUCCAL Q2H PRN PRN Reason: Nicotine Cravings Last Admin: 06/25/23 23:00 Dose: 2 mg Oxycodone HCl (Oxycodone Hcl Immed Release 5 Mg Tablet) 10 mg PO Q6H PRN PRN Reason: Pain, Moderate(Pain Scale 4-6) Last Admin: 06/28/23 12:04 Dose: 10 mg Sodium Chloride (0.9 % Sodium Chloride Flush 3 Ml Syringe) 3 ml IVFLUSH QSHIFT [facility] Last Admin: 06/28/23 07:24 Dose: Not Given Home Medications ?Medication ?Instructions ?Recorded ?Confirmed ?Last Taken ?Type adalimumab 80 mg/0.8 mL 80 mg subcut Q2W 06/12/23 06/26/23 06/20/23 History subcutaneous pen kit (Humira(CF) Pen) atorvastatin 20 mg tablet 20 mg PO BEDTIME 06/12/23 06/26/23 06/25/23 History celecoxib 100 mg capsule 100 mg PO BID 06/12/23 06/26/23 06/25/23 History empagliflozin 10 mg tablet 10 mg PO DAILY 06/12/23 06/26/23 06/25/23 History (Jardiance) gabapentin 300 mg capsule 300 mg PO BEDTIME 06/12/23 06/26/23 06/25/23 History lidocaine 5 % topical ointment 1 appl topical DAILY PRN Pain 06/12/23 06/26/23 06/25/23 History metformin 500 mg tablet 500 mg PO BIDWM 06/12/23 06/26/23 06/25/23 History minocycline 100 mg capsule 100 mg PO BID 06/12/23 06/26/23 06/25/23 History tizanidine 4 mg tablet 4 mg PO Q8H PRN moderate pain 06/12/23 06/26/23 06/25/23 History Physical Exam 2 Vital Signs: Vital Signs: Last Vital Signs Temp 97.3 F 06/28/23 07:25 Pulse 48 L 05/10/24 07:25 Resp 20 06/28/23 07:25 BP 183/77 H 06/28/23 08:19 Pulse Ox 92 06/28/23 07:25 O2 Del Method Room Air 06/28/23 07:25 O2 Flow Rate 6 06/25/23 20:51 BMI result Body Mass Index 40.7 Const: General: cooperative, healthy appearing and comfortable O rientation/consciousness: oriented to person, oriented to place and oriented to time HEENT: Head: Yes normal to inspection Neck: Neck: Yes normal visual inspection Carotids: no bruits Chest: Chest palpation & inspection: normal inspection of the chest Resp: Effort & Inspection: normal respiratory effort and able to speak in complete sentences Auscultation: clear to auscultation bilaterally, no crackles, no rales, no rhonchi and no wheezes Cardio: Other: Bilateral DP signals Rate: regular rate Rhythm: regular rhythm Heart sounds: S1 normal heart sound present and S2 normal heart sound present Bruits: no carotid bruits Peripheral pulses: Peripheral pulses 2+ throughout GI: Inspection: Yes normal to inspection Skin: Other: Left calf has a wound VAC intact. Overall +2 edema. Right medial portion of the ankle has skin discoloration along with a focal ulcer there as well. Wounds: no wounds Hair: normal Neuro: General: oriented to person, oriented to place and oriented to time Cranial nerves: Yes CN's II-XII intact bilaterally and Yes Normal hearing present Cognition (Neuro): normal cognition Motor exam (neuro): 5/5 motor strength present throughout Extrem: Other: venous exam: No significant superficial varicosities or spider telangiectasias, minimal edema General: No clubbing, No cyanosis and No edema Psych: Appearance: grossly normal Mental Status: mental status grossly normal Speech and movement: Normal speech and movement present Results Labs 06/25/23 13:44 06/25/23 13:44 Labs: Abnormal lab results 06/27/23 06/27/23 06/28/23 Range/Units 15:53 20:14 11:04 POC Glucose 131 H 128 H 118 H (60-115) mg/dL All other labs normal. Imaging Additional studies: CT scan reviewed and demonstrates no evidence of inflow disease. Patient does have left-sided SFA disease. Arterial ultrasound was reviewed as well. Assessment and Plan (1) Peripheral artery disease: Status: Acute Plan Patient has nonhealing left leg ulcer. I have discussed the pathophysiology of peripheral vascular disease with the patient. I have also discussed risk factor modification. I have reviewed the patient's arterial testing which reveals left SFA disease. the patient would benefit from a left leg endovascular peripheral angiogram with possible angioplasty, stent, and/or atherectomy. This has been discussed in detail with the patient along with risks, benefits, and complications. This includes but is not limited to bleeding, infection, heart attack, need for emergent surgical repair, limb ischemia, blood vessel damage, bleeding, puncture, kidney injury, bruising, allergic reaction, and skin reaction. The patient and for having an extensive discussion about the procedure. If they are agreeable will schedule for Saturday as inpatient Thank you for allowing us to assist in this patient's care. Procedures Date of Service Date of Service: 06/28/23
--- NOTE | 2023-06-28 15:05 | PC.NURSE ---
Pt medicated per APR for pain, inpatient wound nurse outpatient wound nurse and this RN at bedside to remove wound vac per Dr Carlin. Pt able to tolerate removal and application of wet to dry dressing per MD recommendations. MD to add daily dressing change orders.
--- NOTE | 2023-06-28 15:13 | PM.EVENT ---
Event Note Date of Service: 06/28/23 Event Note: No new complaints Patient had been wanting to discharge earlier Convinced by to stay Wound care to change dressings on the left leg and re-evaluate wound VAC Discussed with Dr. Palacios - for angiogram on Saturday Patient now states that he will stay in the hospital Still getting IV pain meds p.r.n. for pain control at bedside Time Spent With Patient Time: Total time managing care of this patient today ____ minutes.
--- NOTE | 2023-06-28 15:42 | HO.WOUND ---
Wound Consult: Follow up 48yr old Male admitted to [facility] on 06/25/23 - See progress notes and H&P for detailed history.? Wound consult follow up request by outpatient wound nurse for wound vac removal and wound bed assessment. Wound vac placement by Dr. Carlin on 06/26/23.? Patient and agreeable to assessment and photo documentation.? Chart review reveals complex patient history and many outside providers and treatments. Patient and remains frustrated with care and plan despite multiple provider visits per chart review. Wound vac removed by outpt wound nurse - of note patient was premedicated prior to remove with IV pain medications see MAR for details - pt reported extreme pain. Unfortunately majority of wound bed continues with adherent yellow slough newly observed green slough suspect psuedomonas. Overall the wound bed remains a contraindication for the Wound Vac. The most superior portion of the wound bed appears to have responded well to the NPWT (Negative Pressure Wound Therapy) with bright red clean granulation tissue - this is promising overall if the wound bed were to be cleaned up wound vac remains a viable option in the future. My recommendations remains Santyl for enzymatic debridement of the wound bed. Outpatient RN Shelley Knight communicated with Dr. Carlin regarding her topical recommendations - She reports she will place orders in [facility] for both legs this evening. I will defer topical recommendations to Dr. Carlin at this time. 06/26/23 Assessment 06/28/23 Assessment 06/26/23 06/28/23 Right Leg wound dressing removed - adherent pale yellow slough - will additionally benefit from Santyl for enzymatic debridement. Will defer to Dr. Carlin for topical orders. Bilateral Leg wounds re-dressed prior to ending consultation. Right leg with Hydrofiber AG and foam dressing. Left Leg with NS moist gauze packing followed by ABD pad and gauze wrap. Recommendations: 1. Turn and Reposition every 2 hours and as needed for patient comfort.? Use pillows or wedges to support off loading positions. 2. Off Load all bony prominences with use of pillows and heel boots if needed.? Apply Preventative foams where needed. ? 3. Provide adequate and supplemental nutrition.? 4. Order low air loss mattress. 5. When applicable maintain blood glucose levels per Providers order. 6. These orders have not been placed these are topical recommendations at this time - provider to determine treatment plan at this time. Bilateral Lower Legs - Elevate lower legs do not keep in dependent position. Cleanse with normal saline, pat dry. ?Apply barrier to the immediate chris wound, apply thick layer of Santyl to normal saline moist gauze, lightly pack into wound bed. Be sure to have Santyl touching wound bed. Fill space with dry gauze followed by ABD pad and gauze wrap. Change daily. Recommend continued follow up with outpatient wound clinic. Recommend refer to Dr. Palacios for vascular evaluation. 7. Provide patient with smoking cessation. Re-consult wound care Nurse for wound deterioration or wound changes.
[2023-06-28 16:20] LABS: Glucose, Whole Blood 129 mg/dL (60-115)
[2023-06-28] MEDS: Acetaminophen 325 MG TABLET 650 MG PO (16:55)
--- NOTE | 2023-06-28 18:36 | PC.NURSE ---
Pain managment consult was called in on 06/27/2023 by community health educator via [employer] text. alumnae secretary asked if Dr Gallardo would be able to see the Pt today (06/27/2023). Via [employer] text Dr Gallardo replied that Pt has been seen in his office in the past and refused interventions, What is the purpose of the consult then while he is admitted? alumnae secretary forwarded conversation to this RN via [employer] text, MD Dr Carlin made aware response via phone call today 06/28/2023.
[2023-06-28] MEDS: 0.9 % Sodium Chloride Flush 3 ML SYRINGE IVFLUSH (19:17)
[2023-06-28 20:37] LABS: Glucose, Whole Blood 156 mg/dL (60-115)
[2023-06-28] MEDS: Insulin Lispro 100 UNIT/ML 3 ML VIAL SUBCUT (20:42)
[2023-06-28] MEDS: Atorvastatin Calcium 20 MG TABLET PO (20:42)
[2023-06-28] MEDS: Gabapentin 300 MG CAPSULE PO (20:42)
[2023-06-29 00:26] VITALS: RESP 16
[2023-06-29] MEDS: LORazepam 1 MG TABLET PO (01:05)
[2023-06-29] MEDS: oxyCODONE HCl Immed Release 5 MG TABLET 10 MG PO ×3 (01:05→14:38)
[2023-06-29] MEDS: Piperacillin Sodium/Tazobactam 3.375 GM in 0.9 % Sodium Chloride 50 ML IV ×4 (01:11→19:25)
[2023-06-29 03:15] VITALS: BP 155/78; PULSE 62; RESP 17; TEMP 36.6; O2SAT 93
[2023-06-29] MEDS: HYDROmorphone HCl 1 MG/ML SYRINGE IVPUSH ×5 (07:01→23:25)
[2023-06-29 07:35] VITALS: BP 133/75; PULSE 65; RESP 17; TEMP 36.6; O2SAT 93
[2023-06-29 07:53] LABS: Glucose, Whole Blood 114 mg/dL (60-115)
[2023-06-29] MEDS: Nicotine 21 MG PATCH.TD24 TRANSDERMA (08:01)
[2023-06-29] MEDS: amLODIPine Besylate 5 MG TABLET PO (08:01)
[2023-06-29] MEDS: 0.9 % Sodium Chloride Flush 3 ML SYRINGE IVFLUSH ×3 (08:03→19:22)
[2023-06-29 10:39] LABS: Estimated Average Glucose 134 mg/dL; Hemoglobin A1c % 6.3 % (<6.0)
[2023-06-29 11:28] LABS: Glucose, Whole Blood 104 mg/dL (60-115)
--- NOTE | 2023-06-29 11:33 | P.PNGS_ITS ---
Subjective Subjective Date of Service: 06/29/23 Interval history: pt doing better - calm, less pain Physical Exam 2 Vital Signs: Vital Signs: Last Vital Signs Temp 97.9 F 06/29/23 07:35 Pulse 65 06/29/23 07:35 Resp 17 06/29/23 07:35 BP 133/75 06/29/23 07:35 Pulse Ox 93 06/29/23 07:35 O2 Del Method Room Air 06/29/23 07:35 O2 Flow Rate 6 06/25/23 20:51 BMI result Body Mass Index 40.7 Const: General: cooperative and comfortable Skin: Other: dressings in place - cont with dressing changes and secure Objective Data Active Medications Acetaminophen (Acetaminophen 325 Mg Tablet) 650 mg PO Q6H PRN PRN Reason: Pain, Mild (Pain Scale 1-3) Last Admin: 06/28/23 16:55 Dose: 650 mg Documented By: BROOKLYN Amlodipine Besylate (Amlodipine Besylate 5 Mg Tablet) 5 mg PO DAILY [facility]; Protocol Last Admin: 06/29/23 08:01 Dose: 5 mg Documented By: SLADE Atorvastatin Calcium (Atorvastatin Calcium 20 Mg Tablet) 20 mg PO BEDTIME [facility] Last Admin: 06/28/23 20:42 Dose: 20 mg Documented By: IVY Calcium Carbonate (Calcium Carbonate 750 Mg Tab.Chew) 750 mg PO Q6H PRN PRN Reason: Heartburn Collagenase (Collagenase Clostridium Hist. 30 Gm Tube) 1 appl TOPICAL DAILY [facility]; Protocol Gabapentin (Gabapentin 300 Mg Capsule) 300 mg PO BEDTIME [facility] Last Admin: 06/28/23 20:42 Dose: 300 mg Documented By: IVY Glucose (Glucose Gel 15 Gm Gel..Gram.) 15 gm PO Q15M PRN; Protocol PRN Reason: per Hypoglycemia Standing Ord. Hydromorphone HCl (Hydromorphone Hcl 1 Mg/Ml Syringe) 1 mg IVPUSH Q4H PRN; Protocol PRN Reason: Pain, Severe (Pain Scale 7-10) Last Admin: 06/29/23 11:01 Dose: 1 mg Documented By: SLADE Piperacillin Sod/Tazobactam (Sod 3.375 gm/ Sodium Chloride) 50 mls @ 100 mls/hr IV Q6H [facility] Last Infusion: 06/29/23 08:51 Dose: Infused Documented By: SLADE Dextrose (D10) 250 mls @ 750 mls/hr IV Q15M PRN; Protocol PRN Reason: per Hypoglycemia Standing Ord. Sodium Chloride (Ns) 1,000 mls @ 100 mls/hr IVCONT .Q10H [facility] Ibuprofen (Ibuprofen 400 Mg Tablet) 400 mg PO Q6H PRN PRN Reason: Pain, Mild (Pain Scale 1-3) Last Admin: 06/28/23 10:18 Dose: 400 mg Documented By: BROOKLYN Insulin Human Lispro (Insulin Lispro 100 Unit/Ml 3 Ml Vial) 0 unit SUBCUT QIDACHS [facility]; Protocol Last Admin: 06/29/23 07:55 Dose: Not Given Documented By: SLADE Non-Admin Reason: No Insulin Coverage Lorazepam (Lorazepam 1 Mg Tablet) 1 mg PO Q6H PRN PRN Reason: Anxiety Last Admin: 06/29/23 01:05 Dose: 1 mg Documented By: IVY Naloxone HCl (Naloxone Hcl 0.4 Mg/Ml Vial) 0.2 mg IVPUSH Q2M PRN PRN Reason: Excessive sedation or RR < 8 Nicotine (Nicotine 21 Mg Patch.Td24) 21 mg TRANSDERMA DAILY [facility] Last Admin: 06/29/23 08:01 Dose: 21 mg Documented By: SLADE Nicotine Polacrilex (Nicotine Polacrilex 2 Mg Gum) 2 mg BUCCAL Q2H PRN PRN Reason: Nicotine Cravings Last Admin: 06/25/23 23:00 Dose: 2 mg Documented By: ERMA Oxycodone HCl (Oxycodone Hcl Immed Release 5 Mg Tablet) 10 mg PO Q6H PRN PRN Reason: Pain, Moderate(Pain Scale 4-6) Last Admin: 06/29/23 08:35 Dose: 10 mg Documented By: SLADE Sodium Chloride (0.9 % Sodium Chloride Flush 3 Ml Syringe) [facility] Last Admin: 06/29/23 08:03 Dose: 3 ml Documented By: SLADE Sodium Hypochlorite (Sodium Hypochlorite 0.125% 473 Ml Solution) 1 appl TOPICAL DAILY [facility] Labs 06/25/23 13:44 06/25/23 13:44 Labs: Laboratory Results - last 24 hr 06/28/23 06/28/23 06/28/23 16:01 17:46 20:15 POC Glucose 129 H 156 H Estimat Average Glucose 134 Hemoglobin A1c % 6.3 H 06/29/23 06/29/23 07:38 10:59 POC Glucose 114 104 Estimat Average Glucose Hemoglobin A1c % Procedures Date of Service Date of Service: 06/29/23 Progress Note: A&P Assessment and plan (1) Peripheral artery disease: Status: Acute Plan 48 yo diabetic male with pvd - worsening over the last few months and worsening left leg wounds - cont with dressing changes - dakins solution and gauze- no santyl available at hospital cont with med management for DM, htn, pain control for angiogram on saturday pt understands and agrees with the plan cont with iv antibx Time Spent With Patient Time: Total time managing care of this patient today ____ minutes. Quality Stroke Does the patient have a stroke diagnosis?: No VTE Prior VTE?: No VTE Risk Level:: Surgical - low VTE Device Contraindication: Treatment Not Tolerated VTE Drug Contraindication: N/A - Med Ordered
[2023-06-29] MEDS: Sodium Hypochlorite 0.125% 473 ML SOLUTION 1 APPL TOPICAL (11:41)
[2023-06-29] MEDS: Acetaminophen 325 MG TABLET 650 MG PO (11:43)
[2023-06-29] MEDS: Collagenase Clostridium Hist. 30 GM TUBE 1 APPL TOPICAL (15:04)
[2023-06-29 15:29] VITALS: BP 162/72; PULSE 57; RESP 20; TEMP 36.3; O2SAT 94
[2023-06-29 16:27] LABS: Glucose, Whole Blood 149 mg/dL (60-115)
[2023-06-29 19:26] VITALS: BP 152/72; PULSE 67; RESP 20; TEMP 36.4; O2SAT 95
[2023-06-29] MEDS: Atorvastatin Calcium 20 MG TABLET PO (20:04)
[2023-06-29] MEDS: Gabapentin 300 MG CAPSULE PO (20:04)
[2023-06-29 20:11] LABS: Glucose, Whole Blood 99 mg/dL (60-115)
[2023-06-30] MEDS: Piperacillin Sodium/Tazobactam 3.375 GM in 0.9 % Sodium Chloride 50 ML IV ×4 (02:09→19:49)
[2023-06-30] MEDS: oxyCODONE HCl Immed Release 5 MG TABLET 10 MG PO ×3 (02:17→19:48)
[2023-06-30 03:19] VITALS: BP 151/72; PULSE 53; RESP 18; TEMP 36.2; O2SAT 94
[2023-06-30] MEDS: HYDROmorphone HCl 1 MG/ML SYRINGE IVPUSH ×6 (04:03→21:54)
[2023-06-30 07:03] VITALS: BP 180/77; PULSE 54; RESP 18; TEMP 36.1; O2SAT 91
[2023-06-30 07:15] LABS: Glucose, Whole Blood 123 mg/dL (60-115)
[2023-06-30] MEDS: 0.9 % Sodium Chloride Flush 3 ML SYRINGE IVFLUSH ×3 (08:02→20:27)
[2023-06-30] MEDS: amLODIPine Besylate 5 MG TABLET PO (08:03)
[2023-06-30] MEDS: Nicotine 21 MG PATCH.TD24 TRANSDERMA (08:03)
[2023-06-30 11:08] LABS: Glucose, Whole Blood 98 mg/dL (60-115)
[2023-06-30] MEDS: Sodium Hypochlorite 0.125% 473 ML SOLUTION 1 APPL TOPICAL (11:08)
[2023-06-30] MEDS: Collagenase Clostridium Hist. 30 GM TUBE 1 APPL TOPICAL (11:08)
--- NOTE | 2023-06-30 13:20 | PM.PNGS ---
Subjective Subjective Date of Service: 06/30/23 Interval history: dressing changes done and pt premedicated and postmedicated and pain settling down anxious to get angio tomorrow and go home agrees to take time off work to focus on wound care and his health Physical Exam Vital Signs: Vital Signs: Last Vital Signs Temp 97 F 06/30/23 07:03 Pulse 54 06/30/23 07:03 Resp 18 06/30/23 07:03 BP 180/77 H 06/30/23 07:03 Pulse Ox 91 L 06/30/23 07:03 O2 Del Method Room Air 06/30/23 07:03 O2 Flow Rate 6 06/25/23 20:51 BMI result Body Mass Index 40.7 Skin: Other: bandages intact but looking at photo - parts of wound with fibrinous exudate and yellowish slough - less topical green staining but some parts with pink/red healthier granulation tissue Objective Data Active Medications Acetaminophen (Acetaminophen 325 Mg Tablet) 650 mg PO Q6H PRN PRN Reason: Pain, Mild (Pain Scale 1-3) Last Admin: 06/29/23 11:43 Dose: 650 mg Documented By: SLADE Amlodipine Besylate (Amlodipine Besylate 5 Mg Tablet) 5 mg PO DAILY [facility]; Protocol Last Admin: 06/30/23 08:03 Dose: 5 mg Documented By: SLADE Atorvastatin Calcium (Atorvastatin Calcium 20 Mg Tablet) 20 mg PO BEDTIME WIN Last Admin: 06/29/23 20:04 Dose: 20 mg Documented By: TRESA Calcium Carbonate (Calcium Carbonate 750 Mg Tab.Chew) 750 mg PO Q6H PRN PRN Reason: Heartburn Collagenase (Collagenase Clostridium Hist. 30 Gm Tube) 1 appl TOPICAL DAILY WIN; Protocol Last Admin: 06/30/23 11:08 Dose: 1 appl Documented By: SLADE Gabapentin (Gabapentin 300 Mg Capsule) 300 mg PO BEDTIME WIN Last Admin: 06/29/23 20:04 Dose: 300 mg Documented By: TRESA Glucose (Glucose Gel 15 Gm Gel..Gram.) 15 gm PO Q15M PRN; Protocol PRN Reason: per Hypoglycemia Standing Ord. Hydromorphone HCl (Hydromorphone Hcl 1 Mg/Ml Syringe) 1 mg IVPUSH Q4H PRN; Protocol PRN Reason: Pain, Severe (Pain Scale 7-10) Last Admin: 06/30/23 13:03 Dose: 1 mg Documented By: SLADE Piperacillin Sod/Tazobactam (Sod 3.375 gm/ Sodium Chloride) 50 mls @ 100 mls/hr IV Q6H [facility] Last Infusion: 06/30/23 08:07 Dose: Infused Documented By: SLADE Dextrose (D10) 250 mls @ 750 mls/hr IV Q15M PRN; Protocol PRN Reason: per Hypoglycemia Standing Ord. Sodium Chloride (Ns) 1,000 mls @ 100 mls/hr IVCONT .Q10H [facility] Ibuprofen (Ibuprofen 400 Mg Tablet) 400 mg PO Q6H PRN PRN Reason: Pain, Mild (Pain Scale 1-3) Last Admin: 06/28/23 10:18 Dose: 400 mg Documented By: BROOKLYN Insulin Human Lispro (Insulin Lispro 100 Unit/Ml 3 Ml Vial) 0 unit SUBCUT QIDACHS [facility]; Protocol Last Admin: 06/30/23 11:09 Dose: Not Given Documented By: SLADE Non-Admin Reason: No Insulin Coverage Lorazepam (Lorazepam 1 Mg Tablet) 1 mg PO Q6H PRN PRN Reason: Anxiety Last Admin: 06/29/23 01:05 Dose: 1 mg Documented By: IVY Naloxone HCl (Naloxone Hcl 0.4 Mg/Ml Vial) 0.2 mg IVPUSH Q2M PRN PRN Reason: Excessive sedation or RR < 8 Nicotine (Nicotine 21 Mg Patch.Td24) 21 mg TRANSDERMA DAILY [facility] Last Admin: 06/30/23 08:03 Dose: 21 mg Documented By: SLADE Nicotine Polacrilex (Nicotine Polacrilex 2 Mg Gum) 2 mg BUCCAL Q2H PRN PRN Reason: Nicotine Cravings Last Admin: 06/25/23 23:00 Dose: 2 mg Documented By: ERMA Oxycodone HCl (Oxycodone Hcl Immed Release 5 Mg Tablet) 10 mg PO Q6H PRN PRN Reason: Pain, Moderate(Pain Scale 4-6) Last Admin: 06/30/23 11:05 Dose: 10 mg Documented By: SLADE Sodium Chloride (0.9 % Sodium Chloride Flush 3 Ml Syringe) [facility] Last Admin: 06/30/23 08:02 Dose: 3 ml Documented By: SLADE Sodium Hypochlorite (Sodium Hypochlorite 0.125% 473 Ml Solution) 1 appl TOPICAL DAILY WIN Last Admin: 06/30/23 11:08 Dose: 1 appl Documented By: SLADE Labs 06/25/23 13:44 06/25/23 13:44 Labs: Laboratory Results - last 24 hr 06/29/23 06/29/23 06/30/23 16:24 20:02 07:07 POC Glucose 149 H 99 123 H 06/30/23 11:01 POC Glucose 98 Procedures Date of Service Date of Service: 06/30/23 Progress Note: A&P Assessment and plan (1) Non-healing wound of left lower extremity: Status: Acute Assessment and Plan: plan for angio tomorrow plan to cont with dressing changes dakins and decide eventual resume of wound vac may need more debridement medical management for other issues Time Spent With Patient Time: Total time managing care of this patient today ____ minutes. Quality Stroke Does the patient have a stroke diagnosis?: No VTE Prior VTE?: No VTE Risk Level:: Surgical - low VTE Device Contraindication: Treatment Not Tolerated VTE Drug Contraindication: N/A - Med Ordered
[2023-06-30] MEDS: Acetaminophen 325 MG TABLET 650 MG PO ×2 (13:51→19:59)
[2023-06-30 15:00] VITALS: BP 134/71; PULSE 70; RESP 18; TEMP 35.9; O2SAT 94
[2023-06-30 15:58] LABS: Glucose, Whole Blood 122 mg/dL (60-115)
[2023-06-30 16:00] VITALS: BP 134/71; PULSE 70; RESP 18; TEMP 35.9; O2SAT 94
[2023-06-30 19:41] VITALS: BP 140/67; PULSE 63; RESP 16; TEMP 36.4; O2SAT 95
[2023-06-30 19:59] LABS: Glucose, Whole Blood 118 mg/dL (60-115)
[2023-06-30] MEDS: Atorvastatin Calcium 20 MG TABLET PO (20:27)
[2023-06-30] MEDS: Gabapentin 300 MG CAPSULE PO (20:27)
[2023-07-01] VITALS (12 sets, daily range): BP systolic 116–155; BP diastolic 56–92; PULSE 57–74; RESP 14–18; TEMP 36.1–37.2; O2SAT 94–99
[2023-07-01] MEDS: HYDROmorphone HCl 1 MG/ML SYRINGE IVPUSH ×4 (02:39→20:55)
[2023-07-01] MEDS: Piperacillin Sodium/Tazobactam 3.375 GM in 0.9 % Sodium Chloride 50 ML IV ×4 (02:43→22:42)
[2023-07-01 07:22] LABS: Glucose, Whole Blood 127 mg/dL (60-115)
[2023-07-01] MEDS: 0.9 % Sodium Chloride Flush 3 ML SYRINGE IVFLUSH ×2 (07:58→17:18)
--- NOTE | 2023-07-01 07:58 | PM.PNGS ---
Subjective Subjective Date of Service: 07/01/23 Interval history: No events reported over the weekend Says he still needs some IV pain meds on and off for his left leg wound For angiogram today Physical Exam Vital Signs: Vital Signs: Last Vital Signs Temp 97.0 F 07/01/23 07:04 Pulse 64 07/01/23 07:04 Resp 18 07/01/23 07:04 BP 142/92 H 07/01/23 07:04 Pulse Ox 96 07/01/23 07:04 O2 Del Method Room Air 07/01/23 07:04 O2 Flow Rate 6 06/25/23 20:51 BMI result Body Mass Index 40.7 Const: General: comfortable and no acute distress Resp: Effort & Inspection: normal respiratory effort Cardio: Rate: regular rate GI: Palpation (GI): Soft to palpation Extrem: Other: Dressings in place for both the left and right lower leg wound Objective Data Active Medications Acetaminophen (Acetaminophen 325 Mg Tablet) 650 mg PO Q6H PRN PRN Reason: Pain, Mild (Pain Scale 1-3) Last Admin: 06/30/23 19:59 Dose: 650 mg Documented By: CAROL Amlodipine Besylate (Amlodipine Besylate 5 Mg Tablet) 5 mg PO DAILY WIN; Protocol Last Admin: 06/30/23 08:03 Dose: 5 mg Documented By: SLADE Atorvastatin Calcium (Atorvastatin Calcium 20 Mg Tablet) 20 mg PO BEDTIME WIN Last Admin: 06/30/23 20:27 Dose: 20 mg Documented By: LANCE Calcium Carbonate (Calcium Carbonate 750 Mg Tab.Chew) 750 mg PO Q6H PRN PRN Reason: Heartburn Collagenase (Collagenase Clostridium Hist. 30 Gm Tube) 1 appl TOPICAL DAILY [facility]; Protocol Last Admin: 06/30/23 11:08 Dose: 1 appl Documented By: SLADE Gabapentin (Gabapentin 300 Mg Capsule) 300 mg PO BEDTIME WIN Last Admin: 06/30/23 20:27 Dose: 300 mg Documented By: LANCE Glucose (Glucose Gel 15 Gm Gel..Gram.) 15 gm PO Q15M PRN; Protocol PRN Reason: per Hypoglycemia Standing Ord. Hydromorphone HCl (Hydromorphone Hcl 1 Mg/Ml Syringe) 1 mg IVPUSH Q4H PRN; Protocol PRN Reason: Pain, Severe (Pain Scale 7-10) Last Admin: 07/01/23 02:39 Dose: 1 mg Documented By: LANCE Piperacillin Sod/Tazobactam (Sod 3.375 gm/ Sodium Chloride) 50 mls @ 100 mls/hr IV Q6H [facility] Last Infusion: 07/01/23 03:15 Dose: Infused Documented By: LANCE Dextrose (D10) 250 mls @ 750 mls/hr IV Q15M PRN; Protocol PRN Reason: per Hypoglycemia Standing Ord. Sodium Chloride (Ns) 1,000 mls @ 100 mls/hr IVCONT .Q10H [facility] Ibuprofen (Ibuprofen 400 Mg Tablet) 400 mg PO Q6H PRN PRN Reason: Pain, Mild (Pain Scale 1-3) Last Admin: 06/28/23 10:18 Dose: 400 mg Documented By: BROOKLYN Insulin Human Lispro (Insulin Lispro 100 Unit/Ml 3 Ml Vial) 0 unit SUBCUT QIDACHS [facility]; Protocol Last Admin: 07/01/23 07:24 Dose: Not Given Documented By: EMILIANO Non-Admin Reason: No Insulin Coverage Lorazepam (Lorazepam 1 Mg Tablet) 1 mg PO Q6H PRN PRN Reason: Anxiety Last Admin: 06/29/23 01:05 Dose: 1 mg Documented By: IVY Naloxone HCl (Naloxone Hcl 0.4 Mg/Ml Vial) 0.2 mg IVPUSH Q2M PRN PRN Reason: Excessive sedation or RR < 8 Nicotine (Nicotine 21 Mg Patch.Td24) 21 mg TRANSDERMA DAILY [facility] Last Admin: 06/30/23 08:03 Dose: 21 mg Documented By: SLADE Nicotine Polacrilex (Nicotine Polacrilex 2 Mg Gum) 2 mg BUCCAL Q2H PRN PRN Reason: Nicotine Cravings Last Admin: 06/25/23 23:00 Dose: 2 mg Documented By: ERMA Oxycodone HCl (Oxycodone Hcl Immed Release 5 Mg Tablet) 10 mg PO Q4H PRN PRN Reason: Pain, Moderate(Pain Scale 4-6) Sodium Chloride (0.9 % Sodium Chloride Flush 3 Ml Syringe) [facility] Last Admin: 06/30/23 20:27 Dose: 3 ml Documented By: LANCE Sodium Hypochlorite (Sodium Hypochlorite 0.125% 473 Ml Solution) 1 appl TOPICAL DAILY WIN Last Admin: 06/30/23 11:08 Dose: 1 appl Documented By: SLADE Labs 06/25/23 13:44 06/25/23 13:44 Labs: Laboratory Results - last 24 hr 06/30/23 06/30/23 06/30/23 11:01 15:53 19:44 POC Glucose 98 122 H 118 H 07/01/23 07:08 POC Glucose 127 H Procedures Date of Service Date of Service: 07/01/23 Progress Note: A&P Assessment and plan (1) Non-healing wound of left lower extremity: Status: Acute Assessment and Plan: Wound care with [facility] for now for the left leg Wound care clinic also following Still getting IV pain meds on and off especially for dressing changes (2) Peripheral artery disease: Status: Acute Assessment and Plan: For angiogram today with Dr. Palacios Patient understands plan and is NPO currently Time Spent With Patient Time: Total time managing care of this patient today ____ minutes. Quality Stroke Does the patient have a stroke diagnosis?: No VTE Prior VTE?: No VTE Risk Level:: Surgical - low VTE Device Contraindication: Treatment Not Tolerated VTE Drug Contraindication: N/A - Med Ordered
[2023-07-01] MEDS: Nicotine 21 MG PATCH.TD24 TRANSDERMA (08:02)
[2023-07-01] MEDS: amLODIPine Besylate 5 MG TABLET PO (08:02)
[2023-07-01] MEDS: oxyCODONE HCl Immed Release 5 MG TABLET 10 MG PO ×3 (10:22→22:42)
[2023-07-01 11:21] LABS: Glucose, Whole Blood 122 mg/dL (60-115)
--- NOTE | 2023-07-01 13:11 | MHC.CM.PN ---
pt not medically clear for dc
--- NOTE | 2023-07-01 14:38 | W.PM.OPN ---
Operative Note Operative Note Date of Service: 07/01/23 Narrative: Angiogram report from [facility] Preoperative diagnosis: Atherosclerosis of left lower extremity with nonhealing ulcer Postoperative diagnosis: Same Procedure: 1. Ultrasound-guided right common femoral access 2. Aortogram with left lower extremity runoff 3. Left SFA atherectomy and stent placement Surgeon:Manpreet Palacios M.D., FACS, RPVI Bundle Clerk:None Anesthesia: Local with moderate conscious sedation. Total intraservice moderate sedation time was 62 minutes. I monitored the patient's level of consciousness and physiologic status continuously throughout the procedure. Specimens:none Drains:none Estimated blood loss: Less than 10 ml Implant: Medtronic Ev 3 6 x 80 stent; Medtronic DCB 6 x 80; 6 x 40 Indications: 55-year-old diabetic gentleman with nonhealing left calf ulcer. Upon workup for the hospital was found to have SFA disease. Now presents for endovascular intervention. The patient has signed the informed consent after reviewing risks, complications, benefits, and alternatives previously discussed with the patient. The patient was given the opportunity to ask any additional questions or voice any concerns. All questions were answered to the patient's satisfaction. Procedure in detail: Patient was brought to the angiography suite prior to which a time-out was called for patient identification and site verification. Bilateral groins were prepped and draped in the standard surgical fashion. Under ultrasound guidance right common femoral was punctured with micro puncture needle and wire. Subsequently a precision 4 Bulgarian sheath was then placed. Bentson wire was advanced to the level of the aorta. 4 Bulgarian Flush catheter was brought up and parked at the level of the renal arteries. Aortogram was then undertaken. Catheter was brought down to the level of the iliac bifurcation. Iliacs were subsequently imaged. Catheter was then brought in up and over to the left side SFA. Runoff study was then undertaken. At this time 8000 units of systemic heparin was administered. Up and over 6 Bulgarian sheath was then given. Glidewire advantage was advanced through the SFA occlusion. We then advanced a trail Blazer catheter over this. We confirmed true lumen by instilling with contrast. Once this was accomplished we exchanged out for 6 Bulgarian spider wire. Through this we performed Hawk 1 unidirectional atherectomy in the left distal SFA. Multiple unidirectional passes were undertaken. There was still residual stenosis. At that time we exchanged for a Glidewire Advantage. Over this we placed a 6 x 80 stent. We post dilated this with a 6 x 80 drug coated balloon. Just proximal to this we noticed a mild residual stenosis. This was plasty did with a 6 x 40 drug coated balloon. Both drug coated balloons were brought into position in under 3 minutes and insufflated for a total of 3 minutes in duration. Once this was accomplished completion angiogram demonstrated excellent result. Catheter wire sheath was brought back to the ipsilateral side. Celt closure device was then deployed. Adequate hemostasis was achieved. Patient was returned to recovery with stable vitals. Interpretation of films: 1. Ultrasound demonstrates appropriate femoral puncture. Image of which was saved. 2. Aortogram demonstrates appropriate caliber aorta. Minimal disease. Appropriate take-off of the renals. 3. Iliac images demonstrate no significant disease 4. Left Leg Common femoral artery: No significant disease Profundus Femoris: No significant disease Superficial femoral artery: Total occlusion distal SFA with immediate reconstitution Popliteal artery (p1,p2,p3): No significant disease Anterior tibial artery: No significant disease Peroneal artery: Diminutive but no significant disease goes only down to ankle Posterior tibial artery: No significant disease Dorsalis pedis/plantar arch: Incomplete Conclusion: 1. Successful left SFA atherectomy and stent placement along with use of DCB 2. Anticoagulation status: Will require aspirin and Plavix for 6 months This note is constructed using voice recognition software. While every effort has been made to ensure accuracy, bomb technician errors may have been included. Thank you for allowing me to participate in the care of your patient. Yours sincerely, Manpreet Palacios MD, FACS, R.P.V.I.
[2023-07-01] MEDS: Aspirin 325 MG TABLET 650 MG PO (14:55)
[2023-07-01] MEDS: Clopidogrel Bisulfate 300 MG TABLET PO (14:55)
[2023-07-01] MEDS: Morphine Sulfate 4 MG/ML CARTRIDGE IVPUSH (15:09)
--- NOTE | 2023-07-01 16:19 | PM.EVENT ---
Event Note Date of Service: 07/02/23 Event Note: He underwent left femoral atherectomy and stent placement with Dr. Palacios earlier Looks comfortable Pulses noted on Dopplers on both DPs He looks well To be on antiplatelet meds as per Dr. Palacios Possible home tomorrow? Time Spent With Patient Time: Total time managing care of this patient today ____ minutes.
[2023-07-01] MEDS: 0.9 % Sodium Chloride 1,000 ML 100 ML IVCONT ×2 (16:35→22:37)
[2023-07-01 16:59] LABS: Glucose, Whole Blood 180 mg/dL (60-115)
[2023-07-01] MEDS: Insulin Lispro 100 UNIT/ML 3 ML VIAL SUBCUT (17:14)
[2023-07-01 20:04] LABS: Glucose, Whole Blood 97 mg/dL (60-115)
[2023-07-01] MEDS: Gabapentin 300 MG CAPSULE PO (20:51)
[2023-07-01] MEDS: Atorvastatin Calcium 20 MG TABLET PO (20:51)
[2023-07-01] MEDS: Acetaminophen 325 MG TABLET 650 MG PO (22:42)
[2023-07-02 03:06] VITALS: BP 103/54; PULSE 56; RESP 16; TEMP 36.2; O2SAT 94
[2023-07-02] MEDS: oxyCODONE HCl Immed Release 5 MG TABLET 10 MG PO (03:13)
[2023-07-02] MEDS: Piperacillin Sodium/Tazobactam 3.375 GM in 0.9 % Sodium Chloride 50 ML IV (05:40)
[2023-07-02 07:11] VITALS: BP 162/72; PULSE 57; RESP 17; TEMP 36; O2SAT 94
[2023-07-02 07:30] LABS: Glucose, Whole Blood 131 mg/dL (60-115)
[2023-07-02] MEDS: 0.9 % Sodium Chloride 1,000 ML 100 ML IVCONT (08:49)
[2023-07-02] MEDS: Aspirin Enteric Coated 81 MG TABLET.DR PO (08:49)
[2023-07-02] MEDS: Nicotine 21 MG PATCH.TD24 TRANSDERMA (08:49)
[2023-07-02] MEDS: amLODIPine Besylate 5 MG TABLET PO (08:49)
[2023-07-02] MEDS: Clopidogrel Bisulfate 75 MG TABLET PO (08:49)
[2023-07-02] MEDS: Collagenase Clostridium Hist. 30 GM TUBE 1 APPL TOPICAL (08:53)
[2023-07-02] MEDS: Sodium Hypochlorite 0.125% 473 ML SOLUTION 1 APPL TOPICAL (08:53)
[2023-07-02] MEDS: HYDROmorphone HCl 1 MG/ML SYRINGE IVPUSH (09:13)
--- NOTE | 2023-07-02 09:15 | HO.VASCPN ---
Subjective Subjective Date of Service: 07/02/23 Patient reports: no new complaints and feels better Interval history: Patient seen and examined. Postop day 1 status post left lower extremity endovascular intervention. He had undergone left SFA stenting. He reports no postprocedure discomfort. He actually does report improved strength and power in that left leg. Eager for discharge. Physical Exam Vital Signs: Vital Signs: Last Vital Signs Temp 96.8 F 07/02/23 07:11 Pulse 57 07/02/23 07:11 Resp 17 07/02/23 07:11 BP 162/72 H 07/02/23 07:11 Pulse Ox 94 07/02/23 07:11 O2 Del Method Room Air 07/02/23 07:11 O2 Flow Rate 6 06/25/23 20:51 BMI result Body Mass Index 40.7 Const: General: cooperative, healthy appearing and comfortable Orientation/consciousness: oriented to person, oriented to place and oriented to time HEENT: Head: Yes normal to inspection Neck: Neck: Yes normal visual inspection Carotids: no bruits Chest: Chest palpation & inspection: normal inspection of the chest Resp: Effort & Inspection: normal respiratory effort and able to speak in complete sentences Auscultation: clear to auscultation bilaterally, no crackles, no rales, no rhonchi and no wheezes Cardio: Other: Palpable left DP pulse Rate: regular rate Rhythm: regular rhythm Heart sounds: S1 normal heart sound present and S2 normal heart sound present Bruits: no carotid bruits Peripheral pulses: Peripheral pulses 2+ throughout GI: Inspection: Yes normal to inspection Skin: Wounds: no wounds Hair: normal Neuro: General: oriented to person, oriented to place and oriented to time Cranial nerves: Yes CN's II-XII intact bilaterally and Yes Normal hearing present Cognition (Neuro): normal cognition Motor exam (neuro): 5/5 motor strength present throughout Extrem: Other: venous exam: No significant superficial varicosities or spider telangiectasias, minimal edema General: No clubbing, No cyanosis and No edema Psych: Appearance: grossly normal Mental Status: mental status grossly normal Speech and movement: Normal speech and movement present Progress Note: A&P Assessment and plan (1) Peripheral artery disease: Status: Acute Assessment and Plan: In short patient is doing extremely well status post left lower extremity endovascular intervention. Patient is stable from my perspective for discharge. He will require daily aspirin and Plavix. He can see me in approximately 2 weeks time. [facility]. Thank you for allowing me to participate in his care. If there are any questions or concerns please do not hesitate to contact us. Time Spent With Patient Time: Total time managing care of this patient today ____ minutes. Procedures Date of Service Date of Service: 07/02/23 Quality Stroke Does the patient have a stroke diagnosis?: No VTE Prior VTE?: No VTE Risk Level:: Surgical - low VTE Device Contraindication: Treatment Not Tolerated VTE Drug Contraindication: N/A - Med Ordered
--- NOTE | 2023-07-02 09:28 | P.PNGS_ITS ---
Subjective Subjective Date of Service: 07/02/23 Interval history: says he wants to go home no events reported c/o pain on ulcer site on left Physical Exam 2 Vital Signs: Vital Signs: Last Vital Signs Temp 96.8 F 07/02/23 07:11 Pulse 57 07/02/23 07:11 Resp 17 07/02/23 07:11 BP 162/72 H 07/02/23 07:11 Pulse Ox 94 07/02/23 07:11 O2 Del Method Room Air 07/02/23 07:11 O2 Flow Rate 6 06/25/23 20:51 BMI result Body Mass Index 40.7 Const: General: comfortable and no acute distress Resp: Effort & Inspection: normal respiratory effort Cardio: Rate: regular rate GI: Palpation (GI): Soft to palpation Extrem: Other: both feet warm, dressings on ulcers dry Objective Data Active Medications Acetaminophen (Acetaminophen 325 Mg Tablet) 650 mg PO Q6H PRN PRN Reason: Pain, Mild (Pain Scale 1-3) Last Admin: 07/01/23 22:42 Dose: 650 mg Documented By: LANCE Amlodipine Besylate (Amlodipine Besylate 5 Mg Tablet) 5 mg PO DAILY [facility]; Protocol Last Admin: 07/02/23 08:49 Dose: 5 mg Documented By: HUMA Aspirin (Aspirin Enteric Coated 81 Mg Tablet.) 81 mg PO DAILY [facility] Last Admin: 07/02/23 08:49 Dose: 81 mg Documented By: HUMA Atorvastatin Calcium (Atorvastatin Calcium 20 Mg Tablet) 20 mg PO BEDTIME [facility] Last Admin: 07/01/23 20:51 Dose: 20 mg Documented By: LANCE Calcium Carbonate (Calcium Carbonate 750 Mg Tab.Chew) 750 mg PO Q6H PRN PRN Reason: Heartburn Clopidogrel Bisulfate (Clopidogrel Bisulfate 75 Mg Tablet) 75 mg PO DAILY [facility] Last Admin: 07/02/23 08:49 Dose: 75 mg Documented By: HUMA Collagenase (Collagenase Clostridium Hist. 30 Gm Tube) 1 appl TOPICAL DAILY [facility]; Protocol Last Admin: 07/02/23 08:53 Dose: 1 appl Documented By: HUMA Gabapentin (Gabapentin 300 Mg Capsule) 300 mg PO BEDTIME [facility] Last Admin: 07/01/23 20:51 Dose: 300 mg Documented By: LANCE Glucose (Glucose Gel 15 Gm Gel..Gram.) 15 gm PO Q15M PRN; Protocol PRN Reason: per Hypoglycemia Standing Ord. Hydromorphone HCl (Hydromorphone Hcl 1 Mg/Ml Syringe) 1 mg IVPUSH Q4H PRN; Protocol PRN Reason: Pain, Severe (Pain Scale 7-10) Last Admin: 07/02/23 09:13 Dose: 1 mg Documented By: HUMA Dextrose (D10) 250 mls @ 750 mls/hr IV Q15M PRN; Protocol PRN Reason: per Hypoglycemia Standing Ord. Sodium Chloride (Ns) 1,000 mls @ 100 mls/hr IVCONT .Q10H [facility] Last Admin: 07/02/23 08:49 Dose: 100 mls/hr Documented By: HUMA Piperacillin Sod/Tazobactam (Sod 3.375 gm/ Sodium Chloride) 50 mls @ 100 mls/hr IV Q6H [facility] Last Infusion: 07/02/23 06:12 Dose: Infused Documented By: LANCE Ibuprofen (Ibuprofen 400 Mg Tablet) 400 mg PO Q6H PRN PRN Reason: Pain, Mild (Pain Scale 1-3) Last Admin: 06/28/23 10:18 Dose: 400 mg Documented By: BROOKLYN Insulin Human Lispro (Insulin Lispro 100 Unit/Ml 3 Ml Vial) 0 unit SUBCUT QIDACHS [facility]; Protocol Last Admin: 07/02/23 07:32 Dose: Not Given Documented By: HUMA Non-Admin Reason: poc oor Lorazepam (Lorazepam 1 Mg Tablet) 1 mg PO Q6H PRN PRN Reason: Anxiety Last Admin: 06/29/23 01:05 Dose: 1 mg Documented By: IVY Morphine Sulfate (Morphine Sulfate 4 Mg/Ml Cartridge) 4 mg IVPUSH Q2H PRN; Protocol PRN Reason: Pain, Severe (Pain Scale 7-10) Last Admin: 07/01/23 15:09 Dose: 4 mg Documented By: GUERLINE Naloxone HCl (Naloxone Hcl 0.4 Mg/Ml Vial) 0.2 mg IVPUSH Q2M PRN PRN Reason: Excessive sedation or RR < 8 Nicotine (Nicotine 21 Mg Patch.Td24) 21 mg TRANSDERMA DAILY [facility] Last Admin: 07/02/23 08:49 Dose: 21 mg Documented By: HUMA Nicotine Polacrilex (Nicotine Polacrilex 2 Mg Gum) 2 mg BUCCAL Q2H PRN PRN Reason: Nicotine Cravings Last Admin: 06/25/23 23:00 Dose: 2 mg Documented By: ERMA Oxycodone HCl (Oxycodone Hcl Immed Release 5 Mg Tablet) 10 mg PO Q4H PRN PRN Reason: Pain, Moderate(Pain Scale 4-6) Last Admin: 07/02/23 03:13 Dose: 10 mg Documented By: LANEC Sodium Chloride (0.9 % Sodium Chloride Flush 3 Ml Syringe) 3 ml IVFLUSH QSHIFT [facility] Last Admin: 07/02/23 07:26 Dose: Not Given Documented By: HUMA Non-Admin Reason: Previously Administered Sodium Hypochlorite (Sodium Hypochlorite 0.125% 473 Ml Solution) 1 appl TOPICAL DAILY [facility] Last Admin: 07/02/23 08:53 Dose: 1 appl Documented By: HUMA Labs 06/25/23 13:44 06/25/23 13:44 Labs: Laboratory Results - last 24 hr 07/01/23 07/01/23 07/01/23 11:02 16:54 19:37 POC Glucose 122 H 180 H 97 07/02/23 07:17 POC Glucose 131 H Procedures Date of Service Date of Service: 07/02/23 Progress Note: A&P Assessment and plan (1) Non-healing wound of left lower extremity: Status: Acute Assessment and Plan: continue wound care regimen as per wound clinic daily dressing changes (2) Peripheral artery disease: Status: Acute Assessment and Plan: stent placed on left SFA yesterday both feet warm to touch await Vascular input for care - antiplatelelet, ffup otherwise seems to be doing well Time Spent With Patient Time: Total time managing care of this patient today ____ minutes. Quality Stroke Does the patient have a stroke diagnosis?: No VTE Prior VTE?: No VTE Risk Level:: Surgical - low VTE Device Contraindication: Treatment Not Tolerated VTE Drug Contraindication: N/A - Med Ordered
--- NOTE | 2023-07-02 09:45 | MHC.CM.PN ---
A clinical update has been sent to [facility]. Wound VAC referral to [facility] started. Wound Note documentation indicates VAC is contraindicated. Not sure if patient will discharge with a Wound VAC.
[2023-07-02] MEDS: Morphine Sulfate 4 MG/ML CARTRIDGE IVPUSH (09:50)
--- NOTE | 2023-07-02 10:55 | P.F2F_ITS ---
Service Date Service Date: 07/02/23 Encounter Date of encounter: 07/02/23 Reasons for Services Signs and symptoms assessed: Has nonhealing wound on both the left lower leg in the right lower leg Reason for prison: wound care Homebound: Leaving the home is medically contraindicated at this time without the asist of a device and/or another person due th the listed conditions above and below. Reason homebound: unsteady gait / fall risk and poor balance / fall risk Certification: Based on the above findings, I certify that this patient is confined to the home and needs intermittent prison care, physical therapy and/or speech therapy, or continues to need occupational therapy. The patient is under my care, and I have initiated the establishment of the plan of care. The patient will be followed by a physician who will periodically review the plan of care. Time Spent With Patient Time: Total time managing care of this patient today ____ minutes.
--- NOTE | 2023-07-02 11:29 | HO.WOUND ---
Wound Consult: Follow up 48yr old Male admitted to [facility] [place] on 06/25/23 - See progress notes and H&P for detailed history.? Wound consult follow up request by direct care nurse patient and Dr. Rolon. Chart review reveals complex patient history and many outside providers and treatments. Patient and remains frustrated with care and plan despite multiple provider visits per chart review. 06/26/23 Assessment 06/28/23 Assessment 07/02/23 Called to bedside at direct care nurse and patient request. Direct care nurse reports he was advised to wrap and discharge patient and he will have followup with outpt wound care clinic on . Initially I deferred to surgery since Dr Carlin and Dr Rolon are making topical recommendations on patient. Dr. Rolon requests consult for home dressing care until follow up. Discussed with Dr. Rolon and he reports Santyl will be initial topical treatment for patient and VNA to follow until follow up at wound clinic. The below are instruction intended for the patients to follow while at home until seen by Dr. Carlin at [facility]. Patient and demonstrate understanding but remain extremely frustrated and expressed seeking care from outside facility - patient educated they are free to seek outside treatment options when ever they choose. Topical wound care recommendations: Bilateral Lower Legs: Elevate lower legs and limite standing and legs in the dependent position. Cleanse wound bed with normal saline, pat dry. ?Apply barrier cream to the immediate chris wound, apply thick layer of Santyl to entire wound bed, cover with saline moist gauze, fill space with dry gauze cover with ABD pad and gauze wrap. Change Daily. Keep appropriate follow up visits with Dr Carlin at the [facility] and Dr. Palacios from vascular services.
--- NOTE | 2023-07-02 11:32 | P.DS_ITS ---
DS: Providers Provider Date of Service: 07/02/23 Date of admission: 06/25/23 13:11 Date of discharge: 07/02/23 Primary care physician: DEMETRIA Noland Admitting clinician: Maylin Carlin Consults: 06/25/23 16:11 Consult to Hospitalist Routine Comment: Consulting Provider: Hospitalist Reason For Exam: medical management 06/25/23 20:54 Consult to Wound Care Routine Reason for consultation: wound care nurse to put wound vac on left leg wound - 125 mmHg 06/26/23 14:19 Consult to Pain Management Routine Consulting Provider: Millie Padilla Reason for consultation: chronic leg pain and wounds Has provider been notified: No 06/26/23 14:22 Consult to Rheumatology Routine Consulting Provider: Agnieszka Ceja Reason for consultation: wounds and current patient Has provider been notified: No 06/27/23 08:54 Consult to Vascular Surgery Routine Consulting Provider: [facility] Reason for consultation: SFA occlusion DS: Diagnosis Discharge Diagnosis (1) Non-healing wound of left lower extremity: Status: Acute (2) Peripheral artery disease: Status: Acute DS: Summary Hospital Course Hospital Course: Flaquito Del Angel is a 48 year old male who is well-known to the Wound Care Department who admitted on 06/25/2023 by the Wound Clinic doctor for a a left leg wound that he has had for several months and had undergone debridement in the operating room just a few weeks ago looking worse. He denies any fevers or chills but the wound has more necrotic tissue and has a bit of an odor . He has history diabetes and is on steroids and Humira as per his senior engineering specialist. There is a question and concern peripheral vascular disease bilateral lower extremities on his last hospitalization the goal was to try to get bilateral arterial studies but he left before this could be done. He underwent debridement in the operating room on 06/25/2023. He had dressings placed. In view of the healing wound, a vascular consult was done as a CT angiogram showed what appeared to be SFA disease. on the contralateral right leg. Dr. Palacios of vascular surgery had seen the patient and schedule him for an angiogram on June 30. He underwent stenting of the left SFA along with atherectomy. He had good Doppler signals postoperatively The patient also being followed by Dr. Carlin while in the hospital. A wound VAC was placed on 06/26/2023 but was discontinued on June 27 because of the presence on nonviable tissue. He had been undergoing Dakin's dressings after that He denies any new complaints except for pain on the debridement site on the left leg He has been cleared to be discharged by vascular surgery and will be on Plavix and aspirin. He will be arranged from a visiting nurse for dressing changes of both the left and the right leg ulcers. We will use Santyl dressings daily in the meantime until he is seen by the Wound Clinic on June at 08:15. Time Attestation Total time managing care of this patient today: 45 mintues. Discharge Coordination Time (in mins): 45 min Quality: Safe Use of Opioids Does Pt have an Active Cancer Diagnosis on the Problem List?: No Quality: Stroke Does the patient have a stroke diagnosis?: No Physical Exam Vital Signs: Vital Signs: Last Vital Signs Temp 96.8 F 07/02/23 07:11 Pulse 57 07/02/23 07:11 Resp 17 07/02/23 07:11 BP 162/72 H 07/02/23 07:11 Pulse Ox 94 07/02/23 07:11 O2 Del Method Room Air 07/02/23 07:11 O2 Flow Rate 6 06/25/23 20:51 BMI result Body Mass Index 40.7 Const: General: comfortable and no acute distress Resp: Effort & Inspection: normal respiratory effort Cardio: Rate: regular rate GI: Palpation (GI): Soft to palpation Extrem: Other: Leg ulcers on both the left and right side dressings in place DS: Data Data Completed and Pending Completed studies during hospitalization [Text1]: Procedures Excision of Left Lower Leg Subcutaneous Tissue and Fascia, Open Approach (06/12/23) Labs on day of discharge: Laboratory Results - last 24 hr 07/01/23 07/01/23 07/02/23 16:54 19:37 07:17 POC Glucose 180 H 97 131 H Laboratory Results WBC 10.4 X10*3/uL (4.8-10.8) 06/25/23 13:44 RBC 4.49 X10*6/uL (4.60-5.80) L 06/25/23 13:44 Hgb 14.2 g/dl (14.0-18.0) 06/25/23 13:44 Hct 41.5 % (42.0-52.0) L 06/25/23 13:44 MCV 92.4 fL (80.0-98.0) 06/25/23 13:44 MCH 31.6 pg (27.0-33.0) 06/25/23 13:44 MCHC 34.2 g/dl (31.0-36.0) 06/25/23 13:44 RDW 13.6 % (11.0-16.0) 06/25/23 13:44 Plt Count 307 X10*3/uL (160-400) 06/25/23 13:44 MPV 9.0 fL (9.4-12.4) L 06/25/23 13:44 Immature Gran % (Auto) 0.4 % (0.0-0.4) 06/25/23 13:44 Neut % (Auto) 67.1 % (45-73) 06/25/23 13:44 Lymph % (Auto) 21.3 % (20-40) 06/25/23 13:44 Tate % (Auto) 9.1 % (2-11) 06/25/23 13:44 Eos % (Auto) 1.7 % (0-4) 06/25/23 13:44 Baso % (Auto) 0.4 % (0-2) 06/25/23 13:44 Lymph # (Auto) 2.2 X10*3/uL (1.2-4.9) 06/25/23 13:44 Tate # (Auto) 0.9 X10*3/uL (0.1-1.2) 06/25/23 13:44 Eos # (Auto) 0.2 X10*3/uL (0.0-0.4) 06/25/23 13:44 Baso # (Auto) 0.0 X10*3/uL (0.0-0.2) 06/25/23 13:44 Abs Immat Gran (auto) 0.04 X10*3/uL (0.00-0.03) H 06/25/23 13:44 Absolute Neuts (auto) 7.0 x10*3/uL (2.0-8.3) 06/25/23 13:44 Absolute Nucleated RBC 0.000 X10*3/uL (0.0-0.012) 06/25/23 13:44 Nucleated RBC % (auto) 0.0 /100WBC (0.0-0.2) 06/25/23 13:44 Sodium 139 mmol/L (135-145) 06/25/23 13:44 Potassium 4.2 mmol/L (3.3-5.1) 06/25/23 13:44 Chloride 105 mmol/L (96-108) 06/25/23 13:44 Carbon Dioxide 24 mmol/L (22-29) 06/25/23 13:44 Anion Gap 14 (12-20) 06/25/23 13:44 BUN 16 mg/dL (9-16) 06/25/23 13:44 Creatinine 0.71 mg/dL (0.5-1.4) 06/25/23 13:44 Estim Creat Clear Calc 177.7 06/25/23 13:44 Estimated GFR > 60 06/25/23 13:44 POC Glucose 138 mg/dL (60-115) H 07/02/23 11:19 Random Glucose 90 mg/dL (60-115) 06/25/23 13:44 Estimat Average Glucose 134 mg/dL 06/28/23 17:46 Hemoglobin A1c % 6.3 % (<6.0) H 06/28/23 17:46 Calcium 9.9 mg/dL (8.4-10.2) 06/25/23 13:44 Impressions Duplex Scan Lower Extremity Artery 06/25/23 15:45 IMPRESSION: RIGHT LEG: 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 Monophasic flow throughout the lower extremity suggesting outflow disease. LEFT LEG: Monophasic flow throughout the lower extremity suggesting inflow disease suggesting outflow disease. Aorta w/Runoff CTA 06/27/23 10:02 IMPRESSION: 1. Right lower extremity demonstrates occlusion of the proximal superficial femoral artery with reconstituted flow in the mid superficial femoral artery. Patent flow is seen in the distal superficial femoral artery and P1 segment of the popliteal artery. Below knee runoff demonstrates diffusely small caliber vessels with associated venous contamination which is limiting evaluation. There does appear to be patent flow in the anterior tibial, posterior tibial and peroneal arteries. 2. Left superficial femoral artery is diffusely small in caliber with short segment stenoses and occlusions in the mid and distal segments. Popliteal artery is patent. Below knee runoff demonstrates diffusely small caliber vessels with associated venous contamination which is limiting evaluation. There does appear to be patent flow in the anterior tibial, posterior tibial and peroneal arteries. 3. Diffuse soft tissue edema in the bilateral calves and ankles. There is a soft tissue ulceration in the posterolateral mid left calf with wound VAC in place. Discharge Plan Discharge Anticipated Discharge Date/Time: 07/02/23 09:52 Patient Disposition: Home Health Service Discharge Diagnosis: peripjeral artery disease, nonhealing ulcer Referrals: Manuel MICHELLE [Outside] - 1 Day ([facility]) Barrie Leon FNP [Primary Care Provider] - 1 Week Maylin Carlin MD [Physician] - 07/04/23 8:15 am Discharge Medications: New nicotine [Nicoderm CQ] 21 mg/24 hr patch 24 hour 1 patch transdermal Q24H Qty: 28 0RF Rx Instructions: Can remove at bedtime for abnormal dreams clopidogrel [Plavix] 75 mg tablet 75 mg PO DAILY Qty: 90 1RF aspirin 81 mg capsule 81 mg PO DAILY Qty: 30 2RF Continued metformin 500 mg tablet 500 mg PO BIDWM atorvastatin 20 mg tablet 20 mg PO BEDTIME tizanidine 4 mg tablet 4 mg PO Q8H PRN (Reason: moderate pain) gabapentin 300 mg capsule 300 mg PO BEDTIME celecoxib 100 mg capsule 100 mg PO BID lidocaine 5 % ointment 1 appl topical DAILY PRN (Reason: Pain) Rx Instructions: to leg wound Jardiance 10 mg tablet 10 mg PO DAILY Humira(CF) Pen 80 mg/0.8 mL pen injector kit 80 mg subcut Q2W amlodipine 5 mg tablet 5 mg PO DAILY Qty: 30 0RF No Action (DME) walker See Rx Instructions .Route .MEDSUPPLY Qty: 1 0RF Rx Instructions: As directed oxycodone-acetaminophen [Percocet] 5-325 mg tablet 1 tab PO Q4-6H PRN (Reason: pain) Qty: 30 0RF Rx Instructions: Partial Fill upon patient request. ibuprofen 600 mg tablet 600 mg PO Q6H PRN (Reason: pain) Qty: 60 0RF Discharge Orders: Discharge Order (Routine); Ordered 07/02/23 Ordered By: Karthik Rolon Diet: Advance to usual diet Activity on Discharge: No heavy lifting Stand Alone Forms: Patient Portal Discharge page Print Language: [place] Activity Restrictions/Additional Instructions: Skin glue was used and On your groin incision Take it easy today and you may ambulate around the house. Within 24 hours you can resume normal activity You may climb a flight of stairs as tolerated Do not lift anything heavier than a gallon of milk for [address] Palacios in follow-up in approximately 2 weeks time. You should already have an appointment if not please call my office at [phone] Please take a daily baby aspirin and Plavix 75 mg If you notice excessive bleeding from the groin please immediately call my office or return to the emergency room. Topical wound care recommendations: Bilateral Lower Legs: Elevate lower legs and limite standing and legs in the dependent position. Cleanse wound bed with normal saline, pat dry. ?Apply barrier cream to the immediate chris wound, apply thick layer of Santyl to entire wound bed, cover with saline moist gauze, fill space with dry gauze cover with ABD pad and gauze wrap. Change Daily. Keep appropriate follow up visits with Dr Carlin at the [facility] and Dr. Palacios from vascular services Care Plan Goals: return to baseline wound care Health Concerns: nonhealing wound peripheral artery disease Plan of Treatment: antiplatelet meds wound care with [facility] Assessment: doing well Discharge Date/Time: 07/02/23 12:16
[2023-07-02 11:36] LABS: Glucose, Whole Blood 138 mg/dL (60-115)
--- NOTE | 2023-07-02 12:16 | MHC.CM.PN ---
Patient is discharged today to home. [facility] will provide SN for wound care + assessment. SN will also provide Wound management education for the patient and . The surgeon has ordered wound care daily with Suzanna. SN will perform wound care EOD. Patients will perform wound care on the days that NA does not have a scheduled visit. The patient will follow up 07/04/23 @ [facility] [place] W[facility] clinic. Patients will provide transportation home.
--- NOTE | 2023-07-04 13:02 | P.OP_ITS ---
Operative Note Operative Note Date of Service: 06/25/23 Narrative: Preop diagnosis--left leg wound Postop diagnosis-- left leg wound Procedure-- debridement of left leg wound -Surgeon- Raegan Anesthesia--general Patient comes in known to the service with left leg wound which was debrided about 2 weeks ago but now with more necrotic tissue this necessitates operative debridement secondary to pain control. Procedure-- Patient was brought to the operative room under Anesthesia guidance was intubated he had compression stockings placed on his other leg his left leg area was prepped and draped in standard surgical fashion and elevated. The left lateral/posterior wound was cleaned with Betadine and then using cautery the necrotic tissue that was blackened eschar I removed. Extensive debridement was carried out all the way down to underlying fat muscle fascia type tissue. E ventually got to a point where most of the tissue looked okay and that some slough areas centrally were left as this tissue was sitting right over the fascia. The area was Pulsavac and cleaned hemostasis achieved and local was used with epinephrine. Wet-to-dry dressing was then placed over it and Reilly bandage to secure and for hemostasis. Plan will be to send to pathology piece for evaluation and then have the patient go to the floor for wound dress orders and then to be discharged home eventually with more specific followups. The wounds dyes post debridement was 12 by 11 cm and about a cm its deepest into the subcutaneous fat and muscular fascia.
--- NOTE | 2023-08-01 08:36 | P.CDIM_ITS ---
PROVIDER RESPONSE TEXT: To clarify, the appropriate diagnosis supported by the clinical indicators: Excisional debridement: wound 11.4b69q38.9 cm -100% sharp debridement cautery and cutting on cautery. wound with fat and muscle at base which were debrided as well as eschar QUERY TEXT: PHYSICIAN'S DOCUMENTATION REQUEST Date of Query: 08/01/2023 08:10 AM EDT Patient Name: Flaquito Del Angel Admit Date: 06/25/2023 Dear Maylin Carlin, A review of the medical record indicates additional documentation may be needed. Please review below and update the documentation accordingly. Clinical Indicators: Per Operative Note for procedure on 06/25/23: using cautery the necrotic tissue that was blackened eschar I removed. Extensive debridement was franz ied out all the way down to underlying fat muscle fascia type tissue. Eventually got to a point where most of the tissue looke d okay and that some slough areas centrally were left as this tissue was sitting right over the fascia. The area was Pulsa vac and cleaned hemostasis achieved and local was used with epinephrine. Could you provide further clarification regarding the type of the debridement? <<< Provider Instructions - Do not remove this line << Excisional debridement Please also address the Type of instrument used, What was excised, Depth of debridement, and Size and appearance of the wound as able Non-excisional debridement Please also address the Depth of debridement, and Size and appearance of the wound as able Other (explain) Clinically unable to determine (explain) Thank you, Maxine Hoffman RN Use of terms such as suspected, likely, concern for, or probable (associated with a specific diagnosi s that is being evaluated, monitored, or treated as if it exists) are acceptable and can be coded in the inpatient se tting, when documented at the time of discharge. Please use your independent medical judgment in providing your response. THIS QUERY IS PART OF THE PERMANENT MEDICAL RECORD
== END 2023-07-02 12:16 | disposition home health service (06) | DRG 271 ==
PROVIDERS: Physician Assistant; Surgery Vascular Surgery; Admitting Provider Surgery; PCP Nurse Practitioner Family; Visit Provider Surgery
PROC: 0KBT0ZZ Excision of Left Lower Leg Muscle, Open Approach (ICD-10-PCS; principal; 2023-06-25 18:00)
PROC: 04CL3ZZ Extirpation of Matter from Left Femoral Artery, Percutaneous Approach (ICD-10-PCS; principal; 2023-07-01 13:00)
DX: E11.52 Type 2 diabetes mellitus with diabetic peripheral angiopathy with gangrene (principal); L88 Pyoderma gangrenosum; Z68.41 Body mass index [BMI] 40.0-44.9, adult; L97.829 Non-pressure chronic ulcer of other part of left lower leg with unspecified severity; L73.2 Hidradenitis suppurativa; I70.248 Atherosclerosis of native arteries of left leg with ulceration of other part of lower leg; E66.01 Morbid (severe) obesity due to excess calories; Z71.6 Tobacco abuse counseling; Z79.84 Long term (current) use of oral hypoglycemic drugs; Z79.620 Long term (current) use of immunosuppressive biologic; Z79.899 Other long term (current) drug therapy
CPT/HCPCS: 36415; 37227; 75635; 76937; 80048; 82947; 83036; 85025; 93925; 99152; 99153; A4364; C1714; C1760; C1769; C1876; C1887; C1894; C2623; J1170; J1720; J2270; J2543; J2704; J2795; J3010; Q9967

== ENCOUNTER → 2023-06-25 13:11 | Outpatient (BNV) | payer OTHER, SELFPAY | PROVIDERS: Admitting Provider Surgery; PCP Nurse Practitioner Family; Visit Provider Surgery | DX: S81.802A Unspecified open wound, left lower leg, initial encounter (principal) | CPT/HCPCS: 11043; 11046; 99222; 99232; 99239; 99499; G0180 ==

== ENCOUNTER → 2023-06-25 13:11 | Outpatient (BNV) | payer OTHER, SELFPAY | PROVIDERS: Admitting Provider Surgery; PCP Nurse Practitioner Family; Visit Provider Physician Assistant | DX: S81.802A Unspecified open wound, left lower leg, initial encounter (principal); Z79.69 Long term (current) use of other immunomodulators and immunosuppressants | CPT/HCPCS: 99222; 99232 ==

== ENCOUNTER → 2023-06-25 13:11 | Outpatient (BNV) | payer OTHER, SELFPAY | PROVIDERS: Admitting Provider Surgery; PCP Nurse Practitioner Family; Visit Provider Surgery Vascular Surgery | DX: I73.9 Peripheral vascular disease, unspecified (principal) | CPT/HCPCS: 37227; 75625; 75710; 76937; 99152; 99222; 99232; 99499 ==

== ENCOUNTER 2023-07-04 16:07 | Outpatient (AMB) | payer OTHER, SELFPAY ==
--- NOTE | 2023-07-04 16:10 | MHC.OFFVIS ---
Vital Signs 07/04/23 16:11 Height 6 ft Weight 339 lb 11.717 oz BMI 46.1 BP 142/76 H Blood Pressure Location Rt brachial Position Sitting Respiration 18 Pulse 67 Pulse Source Pulse Oximeter Temp 97.6 F Temp Source Skin Pulse Oximetry (%) 97 Oxygen Delivery Method Room Air Intake Visit Reasons: Pyoderma per Hospitalist requested/CM Supervisor Sewing Department Required: No Allergies No Known Allergies Allergy (Verified 07/04/23 16:12) Medication List - Last Reconciled 07/04/23 by Agnieszka Ceja MD adalimumab (Humira(CF) Pen) 80 mg subcut Q2W amlodipine 5 mg PO DAILY aspirin 81 mg PO DAILY atorvastatin 20 mg PO BEDTIME celecoxib 100 mg PO BID clopidogrel (Plavix) 75 mg PO DAILY empagliflozin (Jardiance) 10 mg PO DAILY gabapentin 300 mg PO BEDTIME ibuprofen 600 mg PO Q6H PRN lidocaine 5% 1 appl topical DAILY PRN metformin 500 mg PO BIDWM nicotine (Nicoderm CQ) 1 patch transdermal Q24H oxycodone-acetaminophen 5-325 mg (Percocet) 1 tab PO Q4-6H PRN tizanidine 4 mg PO Q8H PRN [walker As directed] HPI Comments Details: This is a 48-year-old male with hydradenitis suppurativa, pyoderma gangrenosum, HLA B27 positivity who presents for follow-up. After last visit, I was planning on prescribing Humira for his hidradenitis suppurativa as well as his pyoderma gangrenosum however was denied by insurance. Patient needed to see a manager agricultural. He was eventually evaluated by a manager agricultural and started on Humira for hidradenitis suppurativa. States that he has been taking Humira 40 mg every other week for 3 and half months or so. His hidradenitis is much better, almost totally resolved however the wounds on his legs are much worse. He was tapered off the prednisone over the last month or so. His wounds have become much worse overall. Especially the wound on his left lower extremity. Had multiple debridement procedures and received multiple antibiotics. He was admitted to the hospital and discharged recently. He had lower extremity angiogram which showed peripheral vascular disease and had left lower extremity stent. He follows up regularly with wound care. Most recent history by Dr. Fletcher 02/09:The patient presents for evaluation of leg ulcers, B27 positivity, low back and hip pains, and hidradenitis suppurativa. He does take dikz-rbj-bayxfvy ibuprofen, 800 mg 2 or 3 times a day and some nighttime tizanidine with some benefit. His back pain gets better with activity during the day and bothers him more at night. More problematic are the painful leg ulcers bilaterally. These have been managed for the last couple of years with topical agents but no improvement. He did see Dermatology back in July but there was no follow-up at the time. I had ordered an MRI of the pelvis to look for sacroiliitis. That was approved apparently at our hospital but the patient was too large to fit in the machine. He was then sent to a different facility but the scan was denied. It is not clear that they did not realize that the 1st scan could not be done. 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 Patient Tobacco Use Status: Current everyday Tobacco user Tobacco use type: Cigarette Cigarette Packs Per Day: 2 Cigarettes Per Day: 40.0 Second Hand Smoke Exposure: No Substance Use Type: Marijuana Advance Directives Date on File: 06/17/23 service: No Review of Systems Skin/Breast Reports lesions, Reports non-healing lesions, Reports skin ulcer and Reports wounds Physical Exam Vital Signs: Last Vital Signs Temp 97.6 F 07/04/23 16:11 Pulse 67 07/04/23 16:11 Resp 18 07/04/23 16:11 BP 142/76 H 07/04/23 16:11 Pulse Ox 97 07/04/23 16:11 Oxygen Delivery Method Room Air 07/04/23 16:11 BMI result Body Mass Index 46.1 Const General: cooperative Nutritional Appearance: obese morbidly obese Orientation/consciousness: patient oriented x3 Limitations: no limitations HEENT Head: Yes normocephalic and Yes atraumatic Mouth: moist mucous membranes Resp Effort & Inspection: normal respiratory effort and able to speak in complete sentences Cardio Rate: regular rate Rhythm: regular rhythm Skin Other: Patient's showed me a picture of his left lower extremity, from the change in wound dressing today. His pyoderma lesions are larger than they were few months ago Neuro General: patient oriented x3 Extrem Other: No active peripheral synovitis Negative Timothy test bilaterally Negative straight leg raise test bilaterally Results Reviewed Results Reviewed: Laboratory Tests 06/25/22 10:12 WBC 8.6 Hgb 14.9 ESR 12 Creatinine 0.93 C-Reactive Protein 0.45 [place] [address] XRay Report Signed Patient: Flaquito Del Angel MR#: [id number] : 1975 Acct:[id number] Age/Sex: 47 / M ADM Date: 06/25/[address]: Elvis Fletcher MD Ordering Physician: Elvis Fletcher MD Date of Service: 06/25/22 Procedure(s): XR sacroiliac joint min 3V Accession Number(s): [id number] cc: Elvis Fletcher MD~ EXAMINATION: 1. RADIOGRAPHS RIGHT HAND 2. RADIOGRAPHS LEFT HAND 3. RADIOGRAPHS SACROILIAC JOINTS CLINICAL INFORMATION: Diffuse pain COMPARISON: None TECHNIQUE: 3 views of each hand and 3 views of the sacroiliac joints were obtained. FINDINGS: Right hand: Visualized portion of the distal right radius and ulna demonstrate no fracture. Carpal rows are maintained. No carpal bone fracture. No metacarpal or phalangeal fracture. Suspected old healed fracture of the fifth metacarpal. Minimal degenerative changes of scattered IP joints. No focal soft tissue swelling of the hand. No radiopaque foreign body. Left hand: Visualized portion of the distal left radius and ulna demonstrate no fracture. Carpal rows are maintained. No carpal bone fracture. No metacarpal or phalangeal fracture. 2 mm metallic foreign body projecting over the soft tissues in the region of the fifth metacarpal. Sacroiliac joints: Sacroiliac joints are symmetric. No gross sacral fracture. There is neither fracture or dislocation of either hip. XR/XR sacroiliac joint min 3V IMPRESSION: -No fracture of either hand. -Sacroiliac joints are unremarkable. Dictated By: Bertram Davis MD Signed By: <Electronically signed by Bertram Davis MD in OV> Assessment & Plan Assessment & Plan (1) Pyoderma gangrenosum: Comment: Since 2020, bilateral leg ulcers. Three biopsies done, no vasculitis seen. Humira 40 mg 03/2023 Code(s): L88 - Pyoderma gangrenosum Category: Medical Plan: This is a 48-year-old male who presents for follow-up. Patient was started on Humira 40 mg every other week by manager agricultural 3-1/2 months ago with significant improvement but his pyoderma gangrenosum lesions have become worse, he required hospital admission, multiple debridements, he also was found to have peripheral arterial disease and had stenting. It looks like his pyoderma got worse when prednisone dose was lowered. Minocycline, was not helpful. Will discontinued today. However his pyoderma also did not seem to improve when Humira was started. I had a long conversation with patient and his today about the nature of his condition and the complexities of treating pyoderma gangrenosum. Prednisone is generally helpful but is known to delay wound healing, associated with infection and other side effects such as weight gain hyperglycemia, etc. Remain off prednisone for now Advised patient to reach out with manager agricultural, consider increasing his Humira to 80 mg every other week. I provided patient with a couple of samples of Humira 40 mg. If there is no improvement with Humira, Remicade infusions can be considered Labs before next visit in 2 months (2) HLA B27 (HLA B27 positive): Code(s): Z15.89 - Genetic susceptibility to other disease Category: Medical Plan: Hidradenitis, number gangrenosum and possible sacroiliitis. SI x-rays were unremarkable, we could not get an SI joint MRI. Patient's weight exceeded the machine's capacity (3) Hidradenitis axillaris: Code(s): L73.2 - Hidradenitis suppurativa Category: Medical Plan: Much better improved with Humira 40 mg every other week (4) Antiphospholipid antibody positive: Code(s): R76.0 - Raised antibody titer Category: Medical Plan: No history of arterial or venous thromboembolism. Will repeat labs before next visit. He is currently on aspirin and Plavix due to his recent and Plan I spent 60 minutes reviewing patient's chart, evaluating patient, ordering diagnostic workup, counseling patient and and documenting in the chart Orders: Orders Comprehensive Met. Panel 2 Months L88 - Pyoderma gangrenosum Hepatitis A,B,C Profile 2 Months Z11.59 - Encounter for screening for other viral diseases Complete Blood Count Auto Diff 2 Months L88 - Pyoderma gangrenosum C Reactive Protein 2 Months L88 - Pyoderma gangrenosum Erythrocyte Sedimentation Rate 2 Months L88 - Pyoderma gangrenosum Immunofixation Pnl, Serum 2 Months L88 - Pyoderma gangrenosum Protein Electrophoresis, Serum 2 Months L88 - Pyoderma gangrenosum T Spot TB 2 Months Z11.7 - Encounter for testing for latent tuberculosis infection HLA B51 Behcet's Disease 2 Months S81.802A - Unspecified open wound, left lower leg, initial encounter Beta-2 Glycoprotein Antibody 2 Months I73.9 - Peripheral vascular disease, unspecified, R76.0 - Raised antibody titer Cardiolipin Antibodies 2 Months I73.9 - Peripheral vascular disease, unspecified, R76.0 - Raised antibody titer Lupus Anticoagulant Panel 2 Months I73.9 - Peripheral vascular disease, unspecified, R76.0 - Raised antibody titer Coding Level of Care Code Est Pt Level 5 (97225) Diagnoses Pyoderma gangrenosum L88 HLA B27 (HLA B27 positive) Z15.89 Hidradenitis axillaris L73.2 Antiphospholipid antibody positive R76.0
[2023-07-04 16:11] VITALS: BP 142/76; PULSE 67; RESP 18; TEMP 36.4; O2SAT 97; BMI 46.1
== END 2023-07-05 08:09 | disposition home or self-care (01) ==
LOC: HO.RHE 16:07
PROVIDERS: PCP Nurse Practitioner Family; Visit Provider Student in an Organized Health Care Education/Training Program
DX: L88 Pyoderma gangrenosum (principal); Z15.89 Genetic susceptibility to other disease; L73.2 Hidradenitis suppurativa; R76.0 Raised antibody titer
CPT/HCPCS: 99215

== ENCOUNTER → 2023-07-04 16:07 | Outpatient (BNVA) | payer OTHER, SELFPAY | PROVIDERS: PCP Nurse Practitioner Family; Visit Provider Student in an Organized Health Care Education/Training Program ==

== ENCOUNTER 2023-07-25 09:59 | Outpatient (AMB) | payer OTHER, SELFPAY ==
--- NOTE | 2023-07-25 10:02 | MHC.OFFVIS ---
Intake Visit Reasons: 2w f/u [facility] d/c s/p angiogram 07/01/23 Intake Note: Patient presents for follow up s/p angiogram performed on 07/01/23. Patient is experiencing pain from his wound on his left calf. Patient goes to woundcare once a week and has a visiting nurse every other day. Accompanied by: Spouse Allergies No Known Allergies Allergy (Verified 07/25/23 10:06) HPI HPI 2w f/u [facility] d/c s/p angiogram 07/01/23: Details: Pleasant 48-year-old gentleman presents for follow-up status post left lower extremity endovascular intervention. Reports he is doing fairly well and ambulating with no issues. [facility] He is now for postprocedure follow-up [facility] Medical History Peripheral artery disease Essential hypertension Type 2 diabetes mellitus Spondylosis of lumbar region without myelopathy or radiculopathy Idiopathic peripheral neuropathy Severe obesity (BMI >= 40) HLA B27 (HLA B27 positive) Antiphospholipid antibody positive penitentiary (current) use of other immunomodulators and immunosuppressants Pyoderma gangrenosum Hidradenitis axillaris Surgical History Hx of total knee arthroplasty Family History Mother Hx of breast cancer Father Skin cancer Other Family history of arthritis Social History Household Members: Spouse Housing: House Do you presently have visiting nurse or other home services: No Alcohol intake: never Comment: Agreeable to call for assistance. Patient Tobacco Use Status: Current everyday Tobacco user Tobacco use type: Cigarette Cigarette Packs Per Day: 2 Cigarettes Per Day: 40.0 Second Hand Smoke Exposure: No Substance Use Type: Marijuana Advance Directives Date on File: 06/17/23 service: No Review of Systems Const All systems reviewed & are unremarkable except as noted in HPI and below Reports no additional complaints ENT Reports Normal hearing present Card Denies chest pain, Denies chest pain at rest, Denies chest pain with activity and Denies pedal edema Resp Denies cough GI Denies abdominal pain Musc Denies abnormal gait, Denies muscle cramps and Denies radiating pain into limb Skin/Breast Denies skin ulcer and Denies wounds Neuro Reports Normal hearing present and Denies abnormal gait Psych Reports no additional complaints Physical Exam Const General: cooperative, healthy appearing and comfortable Orientation/consciousness: oriented to person, oriented to place and oriented to time HEENT Head: Yes normal to inspection Neck Neck: Yes normal visual inspection Carotids: no bruits Chest Chest palpation & inspection: normal inspection of the chest Resp Effort & Inspection: normal respiratory effort and able to speak in complete sentences Auscultation: clear to auscultation bilaterally, no crackles, no rales, no rhonchi and no wheezes Cardio Other: Bilateral DP signals Rate: regular rate Rhythm: regular rhythm Heart sounds: S1 normal heart sound present and S2 normal heart sound present Bruits: no carotid bruits Peripheral pulses: Peripheral pulses 2+ throughout GI Inspection: Yes normal to inspection Skin Other: Lower extremity wounds on left leg Wounds: no wounds Hair: normal Neuro General: oriented to person, oriented to place and oriented to time Cranial nerves: Yes CN's II-XII intact bilaterally and Yes Normal hearing present Cognition (Neuro): normal cognition Motor exam (neuro): 5/5 motor strength present throughout Extrem Other: venous exam: No significant superficial varicosities or spider telangiectasias, minimal edema General: No clubbing, No cyanosis and No edema Psych Appearance: grossly normal Mental Status: mental status grossly normal Speech and movement: Normal speech and movement present Assessment & Plan Assessment & Plan (1) Peripheral artery disease: Comment: 07/01/2023 - left SFA atherectomy and stent placed Code(s): I73.9 - Peripheral vascular disease, unspecified Category: Medical Plan: In short patient is doing well status post endovascular left lower extremity intervention. His wounds continue to improve. He will follow up with us in approximately 3 months time with noninvasive arterial testing. Thank you for allowing us to assist in his care. If there are any questions or concerns please do not hesitate to contact us. Orders: Orders US arterial duplex LE BI 3 Months I73.9 - Peripheral vascular disease, unspecified Coding Level of Care Code Est Pt Level 4 (17586) Diagnoses Peripheral artery disease I73.9
== END 2023-07-25 10:37 | disposition home or self-care (01) ==
PROVIDERS: PCP Nurse Practitioner Family; Visit Provider Surgery Vascular Surgery
DX: I73.9 Peripheral vascular disease, unspecified (principal)
CPT/HCPCS: 99212

== ENCOUNTER → 2023-07-25 09:59 | Outpatient (BNVA) | payer OTHER, SELFPAY | PROVIDERS: PCP Nurse Practitioner Family; Visit Provider Surgery Vascular Surgery ==

== ENCOUNTER 2023-09-02 10:59 | Outpatient (REF) | payer OTHER, SELFPAY ==
[2023-09-02 11:30] LABS: MANUAL DIFF FLAG NO
[2023-09-02 11:40] LABS: Basophils Percent Auto 0.5 % (0-2); Eosinophils Absolute Auto 0.2 X10*3/uL (0.0-0.4); Eosinophils Percent Auto 2.7 % (0-4); Hematocrit 43.5 % (42.0-52.0); Hemoglobin 14.9 g/dl (14.0-18.0); Imm Gran Abs Auto 0.02 X10*3/uL (0.00-0.03); Imm Gran Pct Auto 0.2 % (0.0-0.4); Lymphocytes Absolute Auto 1.9 X10*3/uL (1.2-4.9); Lymphocytes Percent Auto 23.4 % (20-40); Mean Corpuscular HGB Conc 34.3 g/dl (31.0-36.0); Mean Corpuscular Hemoglobin 30.4 pg (27.0-33.0); Mean Corpuscular Volume 88.8 fL (80.0-98.0); Mean Platelet Volume 8.9 fL (9.4-12.4); Monocytes Absolute Auto 0.8 X10*3/uL (0.1-1.2); Monocytes Percent Auto 9.3 % (2-11); Neutrophils Absolute Auto 5.1 x10*3/uL (2.0-8.3); Neutrophils Percent Auto 63.9 % (45-73); Platelet Count 311 X10*3/uL (160-400); Red Cell Distribution Width 12.4 % (11.0-16.0); White Blood Count 8.1 X10*3/uL (4.8-10.8)
[2023-09-02 12:16] LABS: Alanine Aminotransferase 17 U/L (0-40); Albumin Level 4.2 g/dL (3.5-5.0); Alkaline Phosphatase 65 U/L (39-117); Anion Gap 16 (12-20); Aspartate Amino Transferase 21 U/L (5-37); Bilirubin Total 0.3 mg/dL (0.0-1.0); Blood Urea Nitrogen 16 mg/dL (9-16); C Reactive Protein 0.22 mg/dL (< or = 0.50); Calcium 9.8 mg/dL (8.4-10.2); Carbon Dioxide 22 mmol/L (22-29); Chloride 105 mmol/L (96-108); Estimated Glomerular Filt Rate > 60; Glucose Random 97 mg/dL (60-115); Potassium 4.2 mmol/L (3.3-5.1); Sodium 139 mmol/L (135-145); Total Protein 7.5 g/dL (6.5-8.0)
[2023-09-02 12:18] LABS: Erythrocyte Sedimentation Rate 11 MM/HR (0-15)
[2023-09-02 12:19] LABS: HBS Num1 65.92 mIU/mL (0-7.99); HBc Num1 0.17 S/CO (0.00-0.79); HBsAGNum1 0.27 S/CO (0.00-0.99); Hepatitis A Antibody IgM 0.14 Index (0-0.79); Hepatitis B Core Antibody Nonreactive (Nonreactive); Hepatitis B Surface Antigen Negative (Negative); ~HepC Num1 0.05 S/CO (0.00-0.79); ~Hepatitis A Antibody IgM Nonreactive (Nonreactive); ~Hepatitis B Surface Antibody REACTIVE (Nonreactive); ~Hepatitis C Antibody Nonreactive (Nonreactive)
[2023-09-04 19:48] LABS: Prot Elec - Alpha1 0.3 g/dL (0.2-0.3); Prot Elec - Alpha2 0.7 g/dL (0.5-0.9); Prot Elec - Beta 1 0.5 g/dL (0.4-0.6); Prot Elec - Beta 2 0.5 g/dL (0.2-0.5); Prot Elec - Gamma 1.1 g/dL (0.8-1.7); Prot Elec - Total Protein 7.1 g/dL (6.1-8.1)
[2023-09-04 21:58] LABS: TS Negative Control Passed; TS Panel A 0; TS Panel B 1; TS Positive Control Passed; TSpotTB Negative (Negative)
[2023-09-04 23:19] LABS: Hexagonal Phase Neutralization Weak Positive (Negative)
[2023-09-04 23:48] LABS: PTT (LAC) Screen 42 sec (<=40); Thrombin Clotting Time 18 sec (13-19)
[2023-09-05 12:38] LABS: IgA 417 mg/dL (47-310); IgG 1237 mg/dL (600-1640); IgM 58 mg/dL (50-300)
[2023-09-07 06:24] LABS: Beta-2 Glycoprotein IgA 6.1 U/mL (<20.0); Beta-2 Glycoprotein IgG 5.4 U/mL (<20.0); Beta-2 Glycoprotein IgM 95.4 U/mL (<20.0); Cardiolipin IgG Ab 4.2 GPL-U/mL; Cardiolipin IgM Ab 62.4 MPL-U/mL
[2023-09-10 17:39] LABS: HLA B51 Comments See Comments; HLA B51 Method PCR SSOP
== END 2023-09-02 11:00 | disposition home or self-care (01) ==
LOC: HO.LAB 10:59
PROVIDERS: PCP Nurse Practitioner Family; Visit Provider Student in an Organized Health Care Education/Training Program
DX: L88 Pyoderma gangrenosum (principal); Z11.59 Encounter for screening for other viral diseases; Z11.7 Encounter for testing for latent tuberculosis infection; S81.802A Unspecified open wound, left lower leg, initial encounter; I73.9 Peripheral vascular disease, unspecified; R76.0 Raised antibody titer
CPT/HCPCS: 36415; 80053; 81374; 82784; 84165; 85025; 85597; 85598; 85613; 85652; 85670; 85730; 86140; 86146; 86147; 86334; 86481; 86704; 86706; 86709; 86803; 87340

== ENCOUNTER 2023-09-10 14:44 | Outpatient (AMB) | payer OTHER, SELFPAY ==
[2023-09-10 14:51] VITALS: BP 132/74; PULSE 60; O2SAT 95; BMI 44.5
--- NOTE | 2023-09-10 14:51 | A.OFFVIS_ITS ---
Vital Signs 3 09/10/23 14:51 Height 6 ft Weight 328 lb 7.82 oz BMI 44.5 BP 132/74 Blood Pressure Location Lt brachial Position Sitting Pulse 60 Pulse Source Pulse Oximeter Pulse Oximetry (%) 95 Oxygen Delivery Method Room Air Intake Visit Reasons: Pyoderma/MB not set up Intake Note: Patient is here for pyoderma/MB Body Team Member Required: No Accompanied by: Spouse Allergies No Known Allergies Allergy (Verified 09/10/23 14:52) Medication List - Last Reconciled 09/10/23 by Agnieszka Ceja MD adalimumab (Humira(CF) Pen) 80 mg subcut Q2W amlodipine 5 mg PO DAILY aspirin 81 mg PO DAILY atorvastatin 20 mg PO BEDTIME celecoxib 100 mg PO BID clopidogrel (Plavix) 75 mg PO DAILY empagliflozin (Jardiance) 10 mg PO DAILY gabapentin 300 mg PO BEDTIME ibuprofen 600 mg PO Q6H PRN lidocaine 5% 1 appl topical DAILY PRN metformin 500 mg PO BIDWM metformin 1,000 mg PO BID nicotine (Nicoderm CQ) 1 patch transdermal Q24H oxycodone 10 mg PO Q8H PRN tizanidine 4 mg PO Q8H PRN [walker As directed] HPI Comments Details: This is a 48-year-old male with hydradenitis suppurativa, pyoderma gangrenosum, HLA B27 positivity who presents for follow-up. He is on Humira 80 mg every other week prescribed by [employer]. He states that he is doing quite well overall. Hidradenitis suppurativa well controlled and his pyoderma gangrenosum lesions are improving, they are getting smaller, states that the wound on the right leg almost closed and the wound on the left is getting smaller. That he gets intermittent low back pain, nothing significant, denies any skin rashes. Denies any recent fevers Most recent history by Dr. Fletcher 02/09:The patient presents for evaluation of leg ulcers, B27 positivity, low back and hip pains, and hidradenitis suppurativa. He does take [id number] ibuprofen, 800 mg 2 or 3 times a day and some nighttime tizanidine with some benefit. His back pain gets better with activity during the day and bothers him more at night. More problematic are the painful leg ulcers bilaterally. These have been managed for the last couple of years with topical agents but no improvement. He did see Dermatology back in July but there was no follow-up at the time. I had ordered an MRI of the pelvis to look for sacroiliitis. That was approved apparently at our hospital but the patient was too large to fit in the machine. He was then sent to a different facility but the scan was denied. It is not clear that they did not realize that the 1st scan could not be done. 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 Patient Tobacco Use Status: Current everyday Tobacco user Tobacco use type: Cigarette Cigarette Packs Per Day: 2 Cigarettes Per Day: 40.0 Second Hand Smoke Exposure: No Substance Use Type: Marijuana Advance Directives Date on File: 06/17/23 service: No Review of Systems Musc Reports back pain and Reports arthralgias Skin/Breast Reports skin ulcer and Reports wounds Physical Exam Vital Signs: Last Vital Signs Pulse 60 09/10/23 14:51 BP 132/74 09/10/23 14:51 Pulse Ox 95 09/10/23 14:51 Oxygen Delivery Method Room Air 09/10/23 14:51 BMI result Body Mass Index 44.5 Const General: cooperative Nutritional Appearance: obese morbidly obese Orientation/consciousness: patient oriented x3 Limitations: no limitations HEENT Head: Yes normocephalic and Yes atraumatic Mouth: moist mucous membranes Resp Effort & Inspection: normal respiratory effort and able to speak in complete sentences Cardio Rate: regular rate Rhythm: regular rhythm Skin Other: Both legs are wrapped. Patient swab showed me a picture of his left leg wounds, wounds are healing and look very healthy. See picture Neuro General: patient oriented x3 Extrem Other: No active peripheral synovitis Negative Timothy test bilaterally Negative straight leg raise test bilaterally Results Reviewed Results Reviewed: Laboratory Tests 06/25/22 10:12 WBC 8.6 Hgb 14.9 ESR 12 Creatinine 0.93 C-Reactive Protein 0.[address] [address] XRay Report Signed Patient: Flaquito Del Angel MR#: [id number] : 1975 Acct:[id number] Age/Sex: 47 / M ADM Date: 06/25/[address]: Elvis Fletcher MD Ordering Physician: Elvis Fletcher MD Date of Service: 06/25/22 Procedure(s): XR sacroiliac joint min 3V Accession Number(s): [id number] cc: Elvis Fletcher MD~ EXAMINATION: 1. RADIOGRAPHS RIGHT HAND 2. RADIOGRAPHS LEFT HAND 3. RADIOGRAPHS SACROILIAC JOINTS CLINICAL INFORMATION: Diffuse pain COMPARISON: None TECHNIQUE: 3 views of each hand and 3 views of the sacroiliac joints were obtained. FINDINGS: Right hand: Visualized portion of the distal right radius and ulna demonstrate no fracture. Carpal rows are maintained. No carpal bone fracture. No metacarpal or phalangeal fracture. Suspected old healed fracture of the fifth metacarpal. Minimal degenerative changes of scattered IP joints. No focal soft tissue swelling of the hand. No radiopaque foreign body. Left hand: Visualized portion of the distal left radius and ulna demonstrate no fracture. Carpal rows are maintained. No carpal bone fracture. No metacarpal or phalangeal fracture. 2 mm metallic foreign body projecting over the soft tissues in the region of the fifth metacarpal. Sacroiliac joints: Sacroiliac joints are symmetric. No gross sacral fracture. There is neither fracture or dislocation of either hip. XR/XR sacroiliac joint min 3V IMPRESSION: -No fracture of either hand. -Sacroiliac joints are unremarkable. Dictated By: Bertram Davis MD Signed By: <Electronically signed by Bertram Davis MD in OV> Assessment & Plan Assessment & Plan (1) Pyoderma gangrenosum: Comment: Since 2020, bilateral leg ulcers. Three biopsies done, no vasculitis seen. Humira 80 mg 03/2023 Code(s): L88 - Pyoderma gangrenosum Category: Medical Plan: This is a 48-year-old male with HLA B27 positivity, hidradenitis suppurativa, pyoderma gangrenosum presents for follow-up. He is on Humira 80 mg every other week prescribed by [employer]. The wounds on his legs are healing well. Likely due to Humira as well as improved blood flow after stenting. He remains on aspirin and Plavix. I do not see any signs of active autoimmune inflammatory disease upon my evaluation today. There are no symptoms suggestive of active sacroiliitis, uveitis or peripheral inflammatory arthritis. He is not on prednisone Continue to follow-up with Dermatology Labs before next visit in 6 months (2) HLA B27 (HLA B27 positive): Code(s): Z15.89 - Genetic susceptibility to other disease Category: Medical Plan: Hidradenitis, pyoderma gangrenosum and possible sacroiliitis. SI x-rays were unremarkable, we could not get an SI joint MRI. Patient's weight exceeded the machine's capacity. I think at this time inflammatory sacroiliitis would be adequately treated with Humira (3) Hidradenitis axillaris: Code(s): L73.2 - Hidradenitis suppurativa Category: Medical Plan: Much better improved with Humira (4) Antiphospholipid antibody positive: Code(s): R76.0 - Raised antibody titer Category: Medical Plan: No history of arterial or venous thromboembolism. He is currently on aspirin and Plavix due to his recent stent. Referred patient to Hematology Plan I spent 25 minutes reviewing patient's chart, evaluating patient, ordering diagnostic workup, counseling patient and and documenting in the chart Orders: Orders 2 Complete Blood Count Auto Diff 6 Months L88 - Pyoderma gangrenosum, Z79.69 - senior living (current) use of other immunomodulators and immunosuppressants Comprehensive Met. 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
== END 2023-09-10 15:39 | disposition home or self-care (01) ==
PROVIDERS: PCP Nurse Practitioner Family; Visit Provider Student in an Organized Health Care Education/Training Program
DX: L88 Pyoderma gangrenosum (principal); Z15.89 Genetic susceptibility to other disease; L73.2 Hidradenitis suppurativa; R76.0 Raised antibody titer
CPT/HCPCS: 99214

== ENCOUNTER → 2023-09-10 14:44 | Outpatient (BNVA) | payer OTHER, SELFPAY | PROVIDERS: PCP Nurse Practitioner Family; Visit Provider Student in an Organized Health Care Education/Training Program ==

== ENCOUNTER 2023-10-15 08:35 | Outpatient (REF) | payer OTHER, SELFPAY ==
--- NOTE | ~2023-10-15 | US_ITS ---
EXAMINATION: Noninvasive assessment of the bilateral lower extremities with ARTERIAL DUPLEX and ANKLE BRACHIAL INDICES (ABIs). CLINICAL INFORMATION: Peripheral vascular disease with history of left superficial femoral artery atherectomy and stent TECHNIQUE: Duplex Doppler techniques with waveform analysis and measurement of velocities in the bilateral common femoral, profunda femoris, superficial femoral, popliteal and tibial arteries were performed. Additionally, ankle pulse volume recordings, ankle pressure measurements and ankle brachial indices were obtained of the lower extremity arterial system bilaterally. The study was performed only at rest. COMPARISON: Angiogram from 07/01/2023, CTA from 06/27/2023 and arterial ultrasound from 06/25/2023 FINDINGS: DIRECT DUPLEX DOPPLER FINDINGS: RIGHT LEG: Common femoral artery: 160 cm/s, phasicity: Triphasic Profunda femoris artery: 195 cm/s, phasicity: Triphasic Superficial femoral artery (proximal): Occluded Superficial femoral artery (mid): 41.6 cm/s, phasicity: Monophasic Superficial femoral artery (distal): 34 cm/s, phasicity: Monophasic Popliteal artery: 59 cm/s, phasicity: Aphasic Posterior tibial artery: 34.4 cm/s, phasicity: Monophasic Dorsalis pedis artery: 67.8 cm/s, phasicity,: Monophasic LEFT LEG: Common femoral artery: 105 cm/s, phasicity: Triphasic Profunda femoris artery: 53.4 cm/s, phasicity: Triphasic Superficial femoral artery (proximal): 197 cm/s, phasicity: Biphasic Stent extending from the proximal to distal superficial femoral artery with velocities and phasicity as follows: Proximal stent: 88.0 cm/s, monophasic Mid stent: 86.1 cm/s, monophasic Distal stent: 85.0 cm/s, monophasic Superficial femoral artery (distal): 75 cm/s, phasicity: Monophasic Popliteal artery: 86.1 cm/s, phasicity: Monophasic Posterior tibial artery: 80.6 cm/s, phasicity: Monophasic Peroneal artery: 28.1 cm/s, phasicity: Monophasic Dorsalis pedis artery: 54.5 cm/s, phasicity: Monophasic ANKLE-BRACHIAL INDEX: Right: 0.66 Left: 0.90 ANKLE PRESSURES: Right: PT 95, DP 84 Left: PT 130, DP 118 ANKLE PVR WAVEFORMS: Right: Abnormal Left: Abnormal US/US arterial duplex BI w/ GRETEL IMPRESSION: Right leg: Moderately dampened ankle brachial index and PVR waveform. Chronically occluded proximal superficial femoral artery with reconstituted monophasic flow as described above Left leg: Low normal ankle brachial index and mildly dampened PVR waveform. Patent left superficial femoral artery stent. GRETEL Reference: - >1.4 = calcified vessels - 0.9 - 1.4 = normal - no significant arterial disease - 0.7 - 0.89 = mild peripheral arterial disease - 0.51 - 0.69 = moderate peripheral arterial disease - d 0.50 = severe peripheral arterial disease - < .30 = critical arterial disease Electronically signed by: Asael Chand MD 10/18/2023 03:55 PM EDT
== END 2023-10-15 08:36 | disposition home or self-care (01) ==
LOC: HO.US 08:35
PROVIDERS: PCP Nurse Practitioner Family; Visit Provider Surgery Vascular Surgery
DX: I73.9 Peripheral vascular disease, unspecified (principal)
CPT/HCPCS: 93922; 93925

== ENCOUNTER 2023-12-03 09:57 | Outpatient (AMB) | payer BC, SELFPAY ==
--- NOTE | 2023-12-03 09:58 | MHC.OFFVIS ---
Vital Signs 12/03/23 10:00 Height 6 ft Weight 328 lb BMI 44.5 Intake Visit Reasons: 3m follow up s/p Art US 10/15/23 Intake Note: 3 mo follow up ARterial US 10/15/23 w/ Hx of Left LE Angio 07/01/23. Pt has bilateral non-healing ulcers, the left LE has one on the calf. States it is much smaller. Had an ulcer on the Right LE that is now completely healed. The left LE dressing is changed QOD w/ alginate by . Accompanied by: Spouse Allergies No Known Allergies Allergy (Verified 12/03/23 10:03) HPI HPI 3m follow up s/p Art US 10/15/23: Details: Flaquito is a pleasant 48-year-old male presenting with his today for follow-up to arterial ultrasound on October 14. He continues to have pain bilaterally daily. The right lower leg ulcer has completely healed. His left lower leg ulcer is approximately 1/4 of the size. His does daily dressing changes with alginate. He continues to wear compression stockings, sometimes wearing them up to 20-24 hours a day. He recently started a new job and has been walking a little bit more. He states he generally feels better however continues have lower extremity pain bilaterally. He does not endorse if one leg hurts more than the other; however, due to the leg ulcers his left leg generally hurts more. He has also decreased his smoking from 2 packs a day down to approximately 10 cigarettes a day or less. 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 Patient Tobacco Use Status: Current everyday Tobacco user Tobacco use type: Cigarette Cigarette Packs Per Day: 0.5 Cigarettes Per Day: 10 Second Hand Smoke Exposure: No Substance Use Type: Marijuana Advance Directives Date on File: 06/17/23 service: No Review of Systems Const Reports as per HPI and Denies weakness ENT Reports Normal hearing present and Denies dizziness Card Reports as per HPI, Denies chest pain, Denies chest pain at rest, Denies chest pain with activity, Denies dyspnea and Denies dyspnea on exertion Resp Reports as per HPI, Denies cough, Denies dyspnea and Denies dyspnea on exertion GI Reports as per HPI, Denies abdominal pain, Denies nausea and Denies vomiting Musc Denies numbness Skin/Breast Reports as per HPI, Denies erythema and Denies wounds Neuro Reports Normal hearing present, Denies dizziness, Denies numbness, Denies Sensory deficit (Neuro) and Denies weakness Psych Reports no additional complaints Endo Reports no additional complaints Physical Exam Vital Signs: BMI result Body Mass Index 44.5 Const General: healthy appearing and no acute distress Orientation/consciousness: patient oriented x3 HEENT Head: Yes normal to inspection Ears: hearing grossly normal bilaterally Mouth: Normal oral and palatal mucosa present Resp Effort & Inspection: normal respiratory effort and able to speak in complete sentences Auscultation: clear to auscultation bilaterally Cardio Jugular venous distension: no JVD Rate: regular rate Rhythm: regular rhythm Heart sounds: S1 normal heart sound present and S2 normal heart sound present Bruits: no abdominal aortic bruits, no carotid bruits, no femoral bruits and no renal bruits Peripheral pulses: Peripheral pulses 2+ throughout GI Inspection: Yes normal to inspection Palpation (GI): No Abdominal aortic bruit present Skin Other: Patient's left lower extremity is wrapped and he is currently wearing compression stockings. Due to this, we did not have him take the dressings or compression stockings off. Patient does have palpable DP pulses bilaterally. General skin exam: no rashes or lesions noted Wounds: no wounds Hair: normal Neuro General: patient oriented x3 Cranial nerves: Yes Normal hearing present Cognition (Neuro): normal cognition Gait exam (Neuro): Normal gait present Motor exam (neuro): 5/5 motor strength present throughout Sensory Exam: No Sensory deficit (Neuro) Extrem General: Yes normal to inspection, Yes full ROM, Yes capillary refill normal and Yes normal gait Results Reviewed Results Reviewed: Arterial duplex and ABIs from 10/15/23 Assessment & Plan Assessment & Plan (1) Peripheral artery disease: Comment: 07/01/2023 - left SFA atherectomy and stent placed Code(s): I73.9 - Peripheral vascular disease, unspecified Category: Medical Plan: Patient continues to heal from left lower extremity ulcer. His right lower extremity ulcer has completely healed at this point. We have reviewed the results of the arterial duplex and ABIs. At this point we will not be performing any surgical intervention on the right. After discussion with Dr. Palacios we will have him follow-up with a duplex and ABIs in 3 months with follow-up appointment in the office after that. We discussed to continue with compression stockings, elevation, and physical activity. We encouraged him to continue with the smoking cessation. The patient had an opportunity to ask questions regarding the treatment plan. All questions were answered. Imaging studies, laboratory studies and physical exam results were discussed and reviewed in detail. No major barriers to understanding were identified. The patient expressed understanding and agreement with the above treatment plan. The patient is aware they should contact our office by phone for worsening of the current condition or the appearance of new symptoms. Thank you for allowing me to participate in the vascular care of this patient. If you have any questions or concerns regarding the treatment for the above condition please do not hesitate to contact me. The office telephone contact is [phone]. Please note a longitudinal relationship has been created with the patient and we have been following and surveillance this chronic condition. This note is constructed using voice recognition software. While every effort has been made to ensure accuracy, director of services errors may have been included. Thank you for allowing me to participate in the care of your patient. Yours sincerely, SALAZAR Singletary Coding Level of Care Code Established Pt Est Pt Level 4 (48353) Established Pt Complex EM visit Add On G2211 Patient Type Established Diagnoses Peripheral artery disease I73.9
[2023-12-03 10:00] VITALS: BMI 44.5
== END 2023-12-03 10:32 | disposition home or self-care (01) ==
PROVIDERS: PCP Nurse Practitioner Family; Visit Provider Physician Assistant Surgical
DX: I73.9 Peripheral vascular disease, unspecified (principal)
CPT/HCPCS: 99214

== ENCOUNTER → 2023-12-03 09:57 | Outpatient (BNVA) | payer OTHER, SELFPAY | PROVIDERS: PCP Nurse Practitioner Family; Visit Provider Physician Assistant Surgical ==

== ENCOUNTER 2024-01-03 14:08 | Outpatient (AMB) | payer BC, SELFPAY ==
--- NOTE | 2024-01-03 14:13 | A.OFFPC_ITS ---
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 [facility] transfer Following with [place]ology[place] [place], [place], wound care-[facility] [place], vascular[place] [facility] [place]. On humira. Has been held recently due to ?insurance issues. Remains on plavix following vascular surgery in Spring 2023. Is due for colonoscopy but this was deferred 2/2 AC therapy. Type 2 diabetes: On metformin 1000mg twice daily. neuropathy-on gabapentin at bedtime. Obese-finding it very difficult to exercise Chronic pain: From wounds, DDD, neuropathy. On chronic opioid therapy-oxycodone, celebrex, gabapentin ROS see HPI PHYSICAL EXAM: GENERAL: Alert and oriented x 3. NAD EYES: EOMI. Anicteric. HENT: Moist mucous membranes. No scleral icterus. No cervical lymphadenopathy. LUNGS: Clear to auscultation bilaterally. CARDIOVASCULAR: Regular rate and rhythm. No murmur. No JVD. ABDOMEN: Soft, non-tender +bs EXTREMITIES: No edema. Non-tender. SKIN: No new rashes or lesions. Warm. NEUROLOGIC: No focal neurological deficits. CN II-XII grossly intact PSYCHIATRIC: Cooperative. Appropriate mood and affect [facility] Medical History (Updated 01/09/24 @ 14:57 by Kristin Syed MD) Antiphospholipid antibody positive Peripheral artery disease Essential hypertension Type 2 diabetes mellitus Spondylosis of lumbar region without myelopathy or radiculopathy Idiopathic peripheral neuropathy Severe obesity (BMI >= 40) HLA B27 (HLA B27 positive) [facility] (current) use of other immunomodulators and immunosuppressants Pyoderma gangrenosum Hidradenitis axillaris Surgical History Hx of total knee arthroplasty Family History Mother Hx of breast cancer Father Skin cancer Other Family history of arthritis Social History Household Members: Spouse Housing: House Do you presently have visiting nurse or other home services: No Alcohol intake: current Alcohol intake frequency: holidays/special occasions only Comment: Agreeable to call for assistance. 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 How often do you have a drink containing alcohol?: Monthly or less (once or twice a year) 2. How many drinks containing alcohol do you have on a typical day when you are drinking?: 1 or 2 3. How often do you have six or more drinks on one occasion?: Never Total Score: 1 Physical exam (Primary Care) Vital Signs: Last Vital Signs Temp 98.2 F 01/03/24 14:18 Pulse 73 01/03/24 14:18 BP 128/78 01/03/24 14:18 Pulse Ox 94 01/03/24 14:18 Oxygen Delivery Method Room Air 01/03/24 14:18 BMI result Body Mass Index 43.4 Tobacco/Smoking Status: Tobacco use Status Tobacco use date assessed 01/03/24 01/03/24 14:25 Patient Tobacco Use Status Current everyday Tobacco 01/03/24 14:25 Tobacco use type Cigarette 01/03/24 14:25 e-Cigarette/Vaping Use Never Used 01/03/24 14:25 Thrive Assessment: Date of Thrive Assessment Date Thrive assessed 06/26/23 01/03/24 14:25 Coding Level of Care Code New Pt Level 5 (03712) Diagnoses Type 2 diabetes mellitus with other circulatory complication, without long-term current use of insulin E11.59 Diabetes mellitus complication detail: with other circulatory complications Diabetes mellitus complication status: with circulatory complication Diabetes mellitus intermediate project manager insulin use: without intermediate project manager use Peripheral artery disease I73.9 Severe obesity (BMI >= 40) E66.01 Assessment & Plan Assessment & Plan (1) Type 2 diabetes mellitus: Code(s): E11.9 - Type 2 diabetes mellitus without complications Category: Medical Qualifiers: Diabetes mellitus complication detail: with other circulatory complications Diabetes mellitus complication status: with circulatory complication Diabetes mellitus intermediate project manager insulin use: without penitentiary use Qualified Code(s): E11.59 - Type 2 diabetes mellitus with other circulatory complications Plan: Controlled. Add mounjaro 2.5mg weekly. May need to decrease metformin dosing Annual eye exams. (2) Peripheral artery disease: Comment: 07/01/2023 - left SFA atherectomy and stent placed Code(s): I73.9 - Peripheral vascular disease, unspecified Category: Medical Plan: Continue follow up with vascular and wound care (3) Severe obesity (BMI >= 40): Code(s): E66.01 - Morbid (severe) obesity due to excess calories Category: Medical Plan: Needs to lose weight-multiple medical comorbidities Start mounjaro 2.5mg weekly Orders: Orders Hemoglobin A1c 01/03/24 I73.9 - Peripheral vascular disease, unspecified, L88 - Pyoderma gangrenosum, R76.0 - Raised antibody titer Comprehensive Met. Panel 01/03/24 I73.9 - Peripheral vascular disease, unspecified, L88 - Pyoderma gangrenosum, R76.0 - Raised antibody titer Lipid Panel 01/03/24 I73.9 - Peripheral vascular disease, unspecified, L88 - Pyoderma gangrenosum, R76.0 - Raised antibody titer Referrals Cologuard Test Z12.11 - Encounter for screening for malignant neoplasm of colon, Z12.12 - Encounter for screening for malignant neoplasm of rectum Medications: New Mounjaro (tirzepatide) for 4 weeks 2.5 mg (0.5 mL) subcut QWEEK 2 mL 3RF NS ondansetron HCl 4 mg PO Q8H PRN 60 tabs 3RF nausea and vomiting Changed From oxycodone Partial Fill upon patient request. 10 mg PO Q8H PRN 15 tabs 0RF pain I73.9 - Peripheral vascular disease, unspecified, S81.802A - Unspecified open wound, left lower leg, initial encounter To oxycodone Partial Fill upon patient request. 10 mg PO Q8H PRN 60 tabs 0RF pain 30 days I73.9 - Peripheral vascular disease, unspecified, S81.802A - Unspecified open wound, left lower leg, initial encounter
[2024-01-03 14:18] VITALS: BP 128/78; PULSE 73; TEMP 36.8; O2SAT 94; BMI 43.4
== END 2024-01-03 14:53 | disposition home or self-care (01) ==
PROVIDERS: PCP Internal Medicine; Visit Provider Internal Medicine
DX: E11.59 Type 2 diabetes mellitus with other circulatory complications (principal); I73.9 Peripheral vascular disease, unspecified; E66.01 Morbid (severe) obesity due to excess calories; Z68.41 Body mass index [BMI] 40.0-44.9, adult

== ENCOUNTER → 2024-01-03 14:08 | Outpatient (BNVA) | payer BC, SELFPAY | PROVIDERS: PCP Nurse Practitioner Family; Visit Provider Internal Medicine ==

== ENCOUNTER 2024-01-03 14:57 | Outpatient (REF) | payer BC, SELFPAY ==
[2024-01-03 18:10] LABS: Estimated Average Glucose 114 mg/dL; Hemoglobin A1C 146.1633 umol/L; Hemoglobin A1c % 5.6 % (<6.0); Total Hemoglobin (HGBA1C) 3837.5652 umol/L
[2024-01-03 18:14] LABS: Alanine Aminotransferase 25 U/L (0-40); Albumin Level 4.2 g/dL (3.5-5.0); Alkaline Phosphatase 66 U/L (39-117); Anion Gap 9 (12-20); Aspartate Amino Transferase 26 U/L (5-37); Bilirubin Total 0.3 mg/dL (0.0-1.0); Blood Urea Nitrogen 17 mg/dL (9-16); Carbon Dioxide 27 mmol/L (22-29); Chloride 105 mmol/L (96-108); Cholesterol 137 mg/dL (<200); Estimated Glomerular Filt Rate > 60; Glucose Random 123 mg/dL (60-115); HDL Cholesterol 39 mg/dL (>40); LDL Cholesterol Calculated 52 mg/dL (<100); Potassium 3.9 mmol/L (3.3-5.1); Sodium 137 mmol/L (135-145); Total Protein 7.2 g/dL (6.5-8.0); Triglycerides 231 mg/dL (<150)
== END 2024-01-03 14:58 | disposition home or self-care (01) ==
LOC: HO.WFDLDS 14:57
PROVIDERS: Visit Provider Internal Medicine
DX: I73.9 Peripheral vascular disease, unspecified (principal); R76.0 Raised antibody titer; L88 Pyoderma gangrenosum; Z13.1 Encounter for screening for diabetes mellitus
CPT/HCPCS: 36415; 80053; 80061; 83036

== ENCOUNTER 2024-03-02 15:16 | Outpatient (AMB) | payer BC, SELFPAY ==
--- NOTE | 2024-03-02 15:26 | MHC.PC.OV ---
Vital Signs 03/02/24 15:30 Height 6 ft Weight 321 lb 6 oz BMI 43.6 BP 124/76 Blood Pressure Location Rt brachial Position Sitting Pulse 71 Pulse Source Pulse Oximeter Pulse Oximetry (%) 96 Oxygen Delivery Method Room Air Intake Visit Reasons: Narcotic contract Intake Note: Narcotic contract Allergies No Known Allergies Allergy (Verified 03/02/24 15:29) Tobacco use date assessed: 01/03/24 Dental Screening Dental Screen Date: 01/03/24 HPI HPI Comments History of Present Illness Details This is a 49-year-old male with type 2 diabetes, hydradenitis suppurativa, pyoderma gangrenosum, HLA B27 positivity presenting for follow up Following with rheumatology-[facility] [place], dermatology-[place], wound care-[facility] [place], vascular-[facility] [place]. On humira. Has been held recently due to ?insurance issues. Remains on plavix following vascular surgery in Spring 2023. Is due for colonoscopy but this was deferred 2/2 AC therapy. Type 2 diabetes: On metformin 1000mg twice daily, mounjaro tolerating well. A1C at goal. neuropathy-on gabapentin at bedtime. Obese-finding it very difficult to exercise Chronic pain: From wounds, DDD, neuropathy. On chronic opioid therapy-oxycodone, celebrex, gabapentin ROS see HPI PHYSICAL EXAM: GENERAL: Alert and oriented x 3. NAD EYES: EOMI. Anicteric. HENT: Moist mucous membranes. No scleral icterus. No cervical lymphadenopathy. LUNGS: Clear to auscultation bilaterally. CARDIOVASCULAR: Regular rate and rhythm. No murmur. No JVD. ABDOMEN: Soft, non-tender +bs EXTREMITIES: No edema. Non-tender. SKIN: No new rashes or lesions. Warm. NEUROLOGIC: No focal neurological deficits. CN II-XII grossly intact PSYCHIATRIC: Cooperative. 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 1. Little interest or pleasure in doing things: not at all 2. Feeling down, depressed, or hopeless: not at all 3. Trouble falling or staying asleep, or sleeping too much: not at all 4. Feeling tired or having little energy: not at all 5. Poor appetite or overeating: not at all 6. Feeling bad about yourself - or that you are a failure or have let yourself or your family down: not at all 7. Trouble concentrating on things, such as reading the newspaper or watching television: not at all 8. Moving or speaking so slowly that other people could have noticed. Or the opposite - being so fidgety or restless that you have been moving around a lot more than usual: not at all 9. Thoughts that you would be better off or of hurting yourself in some way: not at all Total score: 0 Source: Developed by Drs. Bishop Oconnell, Alondra Bower, Efren Allison and colleagues, with an educational lea from [employer]. Thrive Questionnaire Date Thrive assessed: 06/26/23 I am a: Patient What is your living situation today?: I have a steady place to live Within the past 12 months, did the food you bought not last and you didn't have the money to get more?: Sometimes True Within the past 12 months, did you worry whether your food would run out before you got money to buy more?: Never true Do you have trouble paying for medicines?: Yes Do you have trouble getting transportation to medical appointments?: No Do you have trouble paying your heating and electricity bill?: Yes Do you have trouble taking care of your child, family member or friend?: No Do you have trouble with day-to-day activities such as bathing, preparing meals, shopping, managing finances, etc.?: No Are you currently unemployed and looking for a job?: No Are you interested in more education?: No Please select the resources that you would like help with: Paying for medicine Currently or been in a relationship where the following occur: No concerns reported THRIVE Score: 2 AUDIT C Alcohol Use Questionnaire (AUDIT-C) 1. How often do you have a drink containing alcohol?: Never Total Score: 0 DONNA-7 AMB Questionnaire DONNA-7 Feeling nervous, anxious, or on edge: 0 = Not at all Not being able to stop or control worryin = Several days Worrying too much about different things: 1 = Several days Trouble relaxin = Several days Being so restless that it is hard to sit still: 0 = Not at all Becoming easily annoyed or irritable: 1 = Several days Feeling afraid as if something awful might happen: 0 = Not at all Total DONNA-7 score (0-4 normal; 5-9 mild; 10-14 moderate; 15-21 severe): 4 Source: Developed by Drs. Bishop Oconnell, Alondra Bower, Efren Allison and colleagues, with an educational lea from [employer]. Physical exam (Primary Care) Vital Signs: Last Vital Signs Pulse 71 03/02/24 15:30 BP 124/76 03/02/24 15:30 Pulse Ox 96 03/02/24 15:30 Oxygen Delivery Method Room Air 03/02/24 15:30 BMI result Body Mass Index 43.6 Tobacco/Smoking Status: Tobacco use Status Tobacco use date assessed 01/03/24 03/02/24 15:34 Patient Tobacco Use Status Current everyday Tobacco 03/02/24 15:34 Tobacco use type Cigarette 03/02/24 15:34 e-Cigarette/Vaping Use Never Used 03/02/24 15:34 PHQ-9: PHQ-9 Score PHQ-9: Total score 0 03/02/24 15:34 Thrive Assessment: Date of Thrive Assessment Date Thrive assessed 06/26/23 03/02/24 15:34 Currently or been in a relationship where the following occur: No concerns reported Coding Level of Care Code Est Pt Level 4 (62517) Diagnoses Type 2 diabetes mellitus with other circulatory complication, without long-term current use of insulin E11.59 Diabetes mellitus [facility] insulin use: without [facility] use Diabetes mellitus complication status: with circulatory complication Diabetes mellitus complication detail: with other circulatory complications Essential hypertension I10 Severe obesity (BMI >= 40) E66.01 Assessment & Plan Assessment & Plan (1) Type 2 diabetes mellitus: Code(s): E11.9 - Type 2 diabetes mellitus without complications Category: Medical Qualifiers: Diabetes mellitus [facility] insulin use: without termite technician use Diabetes mellitus complication status: with circulatory complication Diabetes mellitus complication detail: with other circulatory complications Qualified Code(s): E11.59 - Type 2 diabetes mellitus with other circulatory complications Plan: controlled on current medications. Increase mounjaro to aid weight loss. (2) Essential hypertension: Code(s): I10 - Essential (primary) hypertension Category: Medical Plan: well controlled on current medication (3) Severe obesity (BMI >= 40): Code(s): E66.01 - Morbid (severe) obesity due to excess calories Category: Medical Plan: Increase mounjaro Medications: New Mounjaro (tirzepatide) 5 mg (0.5 mL) subcut QWEEK 2 mL 0RF NS Changed From oxycodone Partial Fill upon patient request. 10 mg PO Q8H 30 days PRN 90 tabs 0RF pain I73.9 - Peripheral vascular disease, unspecified, S81.802A - Unspecified open wound, left lower leg, initial encounter To oxycodone Partial Fill upon patient request. patient may pay out of pocket 10 mg PO Q8H PRN 90 tabs 0RF pain 30 days I73.9 - Peripheral vascular disease, unspecified, S81.802A - Unspecified open wound, left lower leg, initial encounter Refilled oxycodone Partial Fill upon patient request. 10 mg PO Q8H 30 days PRN 90 tabs 0RF pain I73.9 - Peripheral vascular disease, unspecified, S81.802A - Unspecified open wound, left lower leg, initial encounter Discontinued Mounjaro (tirzepatide) for 4 weeks Discontinued Reason: Doctor's Order 2.5 mg (0.5 mL) subcut QWEEK 2 mL 3RF NS
[2024-03-02 15:30] VITALS: BP 124/76; PULSE 71; O2SAT 96; BMI 43.6
--- OUTSIDE RECORDS SUMMARY | 2024-03-02 19:11 | XMS_ITS | Continuity of Care Document ---
Author Organization [facility] Adult Address [address] [place] [address]- Care Team Providers Care Junior Automation Engineer Name Role Phone Edward GREENBERG, Barrie Brock Primary Care Physician [phone] Encounter [facility] [place] Date(s): 01/22/24 - 02/21/[address] [address] Attending Physician: Kelley Veloz Admitting Physician: Kelley Veloz Referring Physician: Kelley Veloz Encounter Type: Triage Allergies, Adverse Reactions, Alerts Substance Criticality Severity Reaction Reaction Severity Status codeine Active Immunizations Given [...] tetanus/diphtheria/pertussis, acel(Tdap) 3 08/23/06 Given 1Result Comment: [facility]: 11540-225-12 2Result Comment: [facility]:[id number] 3Admin Note: vis given Medications atorvastatin 20 mg oral tablet 1 tablet = 20 mg, By Mouth, Daily at bedtime, # 90 tablet, 1 Refills, Maintenance, 12/25/23 8:11:00 AM EST, Tablet, [id number], Partial fill upon patient request if the prescription is for a schedule II opioid drug., 177, cm, 09/05/23 12:59:00 EDT, Height Start Date: 12/25/23 Status: Ordered Quantity: 90.0 Unit: tablet Repeat number: 2 celecoxib 100 mg oral capsule 1 capsule, By Mouth, 2 times a day, # 60 capsule, 1 Refills, Maintenance, 12/26/23 2:26:00 PM EST, [id number], 177, cm, 09/05/23 12:59:00 EDT, Height Start Date: 12/26/23 Status: Ordered Quantity: 60.0 Unit: capsule Repeat number: 1 clopidogrel 75 mg oral tablet 75 mg, 1, tablet, By Mouth, Daily, # 90 tablet, Refills 0, Maintenance, 09/30/23 10:48:00 AM EDT, Partial fill upon patient request if the prescription is for a schedule II opioid drug. Start Date: 09/30/23 Status: Ordered Quantity: 90.0 Unit: tablet Repeat number: 1 Freestyle Lancets See Instructions, # 600 each, Refills 3, Tot. Refills 3, Maintenance, use to check glucose twice daily for dx diabetes mellitus type 2 (E11.9), 05/24/23 8:05:00 AM EDT, Supply, 177, cm, 05/23/23 12:46:00 EDT, Height Start Date: 05/24/23 Stop Date: 05/18/24 Status: Ordered Quantity: 600.0 Unit: each Repeat number: 4 Freestyle Mark 2 Maxwell Freestyle Mark 2 Maxwell, See Instructions, # 1 each, Refills 0, Tot. Refills 0, Maintenance, use as directed to check glucose daily for dx diabetes mellitus type 2(E11.9), 09/05/23 3:06:00 PM EDT, Supply, 177, cm, 09/05/23 12:59:00 EDT, Height Start Date: 09/05/23 Status: Ordered Quantity: 1.0 Unit: each Repeat number: 1 Freestyle Mark 2 Sensors Freestyle Mark 2 Sensors, See Instructions, # 2 each, Refills 5, Tot. Refills 5, Maintenance, use as directed to check glucose daily for dx diabetes mellitus type 2 (E11.9) change every 14 days, 09/05/23 3:06:00 PM EDT, Supply, 177, cm, 09/05/23 12:59:00 EDT, Height Start Date: 09/05/23 Status: Ordered Quantity: 2.0 Unit: each Repeat number: 6 Freestyle Lite Monitor See Instructions, # 1 each, Maintenance, use to check glucose twice daily for dx diabetes mellitus type 2 (E11.9), 05/24/23 8:05:00 AM EDT, Supply, 177, cm, 05/23/23 12:46:00 EDT, Height Start Date: 05/24/23 Status: Ordered Quantity: 1.0 Unit: each Repeat number: 1 Freestyle Lite Test Strips See Instructions, # 600 each, Refills 3, Tot. Refills 3, Maintenance, use to check glucose twice daily for dx diabetes mellitus type 2 (E11.9), 05/24/23 8:05:00 AM EDT, Supply, 177, cm, 05/23/23 12:46:00 EDT, Height Start Date: 05/24/23 Stop Date: 05/18/24 Status: Ordered Quantity: 600.0 Unit: each Repeat number: 4 gabapentin 300 mg oral capsule TAKE ONE PILL DAILY AT NIGHT Start Date: 05/20/23 Status: Ordered Repeat number: 1 Humira = 40 mg, Subcutaneous Infusion, 0 Refills, Maintenance, 05/20/23 9:33:00 AM EDT, Partial fill upon patient request if the prescription is for a schedule II opioid drug. Start Date: 05/20/23 Status: Ordered Repeat number: 1 lidocaine 5% topical ointment APPLY TO PAINFUL LEFT LEG ULCER DAILY DIRECTED Start Date: 05/20/23 Status: Ordered Repeat number: 1 metFORMIN 1000 mg oral tablet 1 tablet = 1,000 mg, By Mouth, 2 times a day, # 180 tablet, 2 Refills, Maintenance, 07/26/23 10:03:00AM EDT, Tablet, [facility], Partial fill upon patient request if the prescription is for a schedule II opioid drug., 177, cm, 07/26/23 9:02:00 EDT, Height Start Date: 07/26/23 Status: Ordered Quantity: 180.0 Unit: tablet Repeat number: 3 Multivitamin Daily, 0 Refills, Maintenance, 07/14/20 9:30:00 AM EDT, Partial fill upon patient request if the prescription is for a schedule II opioid drug. Start Date: 07/14/20 Status: Ordered Repeat number: 1 nicotine 14 mg/24 hr transdermal film, extended release 1 patch, Topically, Daily, # 28 patch, 0 Refills, Maintenance, 12/26/23 2:26:00 PM EST, [facility], 28, APPLY ONE PATCH TOPICALLY DAILY, 177, cm, 09/05/23 12:59:00 EDT, Height Start Date: 12/26/23 Status: Ordered Quantity: 28.0 Unit: patch Repeat number: 1 oxyCODONE 10 mg oral tablet 1 tablet = 10 mg, By Mouth, 3 times a day, PRN Pain , Moderate, sharples machine operator checked, # 21 tablet, 0 Refills, Maintenance, 01/09/24 5:54:00 PM EST, Tablet, [facility], Partial fill upon patient request if the prescription is for a schedule II opioid drug., 177, cm, 09/05/23 12:59:00 EDT, Height Start Date: 01/09/24 Status: Ordered Quantity: 21.0 Unit: tablet Repeat number: 1 tiZANidine 4 mg oral tablet 1, tablet, By Mouth, Every 8 hours, PRN, # 90 tablet, Refills 2, Maintenance, NEEDED FOR MODERATE PAIN, 12/25/23 10:28:00 AM EST, Route to Pharmacy Electronically, [facility], 177, cm, 09/05/23 12:59:00 EDT, Height Start Date: 12/25/23 Status: Ordered Quantity: 90.0 Unit: tablet Repeat number: 1 Vitamin C By Mouth, Daily, 0 Refills, Maintenance, 07/14/20 9:30:00 AM EDT, Partial fill upon patient request if the prescription is for a schedule II opioid drug. Start Date: 07/14/20 Status: Ordered Repeat number: 1 Problem List Condition Confirmation Course Effective Dates Status Health St atus Informant Arthritis of knee, left Confirmed Active HTN (hypertension), benign Confirmed Active Obesity (BMI 30-39.9) Confirmed Active Chronic ulcer of left leg Confirmed Active Chronic ulcer of right leg Confirmed Active Dyslipidemia Confirmed Active Hidradenitis suppurativa Confirmed Active H/O right knee surgery Confirmed Active HLA B27 positive Confirmed Active Chronic pain of right knee Confirmed Active PVD (peripheral vascular disease) Confirmed Active Persistent wound pain Confirmed Active Pyoderma gangrenosum Confirmed Active Tobacco dependence Confirmed Active Type 2 diabetes mellitus Confirmed Active Type 2 diabetes mellitus with morbid obesity Confirmed Active Pain associated with wound Confirmed Active Procedures Procedure Date Related Diagnosis Body Site Status Manipulation right knee join t under anesthesia 08/29/12 Completed Social History Social History Type Response Smoking Status 10 or more cigarette s (1/2 pack or more)/day in last 30 days;Never; Previous treatment: Medications; Interested in cessation: Yes; Tobacco user in household: Yes entered on: 01/08/20 Sex Sex Representation Male (finding) Cardiology * Event Display: EKG Non BH Authored Date: Laboratory * Event Display: Laboratory Result Scanned Authored Date: * Event Display: Non BH Lab Results Authored Date: * Event Display: Non BH Lab Results Authored Date: * Event Display: Non BH Lab Results Authored Date: * Event Display: Non BH Lab Results Authored Date: * Event Display: Non BH Lab Results Authored Date: Radiology * Event Display: Ultrasound Lower Extremity, Non-BH Authored Date: * Event Display: Ultrasound Lower Extremity, Non-BH Authored Date: * Event Display: X-Ray Knee, [...] PCO Associate Professional Member Role: PCP Address: [address] [place] [id number] Telecom: Care Team Related Persons Name: RAVINDRA STREET Name: DEVANG GARCIA Name: LAZARO GARCIA Insurance Providers Guarantor name: [employer] Health Plan Information #: 1 Payer: [place] [employer] Member Number: NA Policy Number: NA Group Number: NA
--- OUTSIDE RECORDS SUMMARY | 2024-03-02 19:11 | XMS_ITS | Continuity of Care Document ---
Author Organization [facility] Adult Address [address] [place] [address]- Care Team Providers Care Psychiatric Registered Nurse Name Role Phone Edward GREENBERG, Barrie Brock Primary Care Physician [phone] Encounter [facility] [place] [facility] [place] [id number] Date(s): 06/18/23 - 02/21/[address] [address] Attending Physician: Not on Staff, Attending MD Encounter Type: Pre Office Visit Allergies, Adverse Reactions, Alerts Substance Criticality Severity [...] tetanus/diphtheria/pertussis, acel(Tdap) 3 08/23/06 Given 1Result Comment: [facility]: [id number] 2Result Comment: [facility]:[id number] 3Admin Note: vis given Medications atorvastatin 20 mg oral tablet 1 tablet = 20 mg, By Mouth, Daily at bedtime, # 90 tablet, 1 Refills, Maintenance, 12/25/23 8:11:00 AM EST, Tablet, [facility], Partial fill upon patient request if the prescription is for a schedule II opioid drug., 177, cm, 09/05/23 12:59:00 EDT, Height Start Date: 12/25/23 Status: Ordered Quantity: 90.0 Unit: tablet Repeat number: 2 celecoxib 100 mg oral capsule 1 capsule, By Mouth, 2 times a day, # 60 capsule, 1 Refills, Maintenance, 12/26/23 2:26:00 PM EST, [facility], 177, cm, 09/05/23 12:59:00 EDT, Height Start [...] each Repeat number: 4 Freestyle Mark 2 Meade Freestyle Mark 2 Meade, See Instructions, # 1 each, Refills 0, [...] 2 Refills, Maintenance, 07/26/23 10:03:00AM EDT, Tablet, [facility], Partial fill upon patient request if [...] 0 Refills, Maintenance, 12/26/23 2:26:00 PM EST, [facility], 28, APPLY ONE PATCH TOPICALLY DAILY, 177, cm, 09/05/23 12:59:00 EDT, Height Start Date: 12/26/23 Status: Ordered Quantity: 28.0 Unit: patch Repeat number: 1 oxyCODONE 10 mg oral tablet 1 tablet = 10 mg, By Mouth, 3 times a day, PRN Pain , Moderate, barrel lathe operator checked, # 21 tablet, 0 Refills, Maintenance, 01/09/24 5:54:00 PM EST, Tablet, [facility], Partial fill upon patient request if [...] 10:28:00 AM EST, Route to Pharmacy Electronically, [facility], 177, cm, 09/05/23 12:59:00 EDT, Height Start [...] Active Pain associated with wound Confirmed Active Social History Social History Type Response Smoking Status 10 or more cigarette s (1/2 pack or more)/day in last 30 days;Never; Previous treatment: Medications; Interested in cessation: Yes; Tobacco user in household: Yes entered on: 01/08/20 Sex Sex Representation Male (finding) Patient Care team information Care Team Personnel Name: Barrie Leon NP Position: S PCO Associate Professional Member Role: PCP Address: [address] [place] [address] Telecom: Care Team Related Persons Name: RAVINDRA STREET Name: DEVANG GARCIA Name: LAZARO GARCIA Insurance Providers Guarantor name: [employer] Health Plan Information #: 1 Payer: [place] [employer] Member Number: [id number] Policy Number: NA Group Number: [id number] Health Plan Information #: 2 Payer: [place] [employer] Member Number: [id number] Policy Number: NA Group Number: NA
--- OUTSIDE RECORDS SUMMARY | 2024-03-02 19:11 | XMS_ITS | Continuity of Care Document ---
Author Organization [facility] Adult Address [address] [place] [address]- Care Team Providers Care Fleet Manager Name Role Phone Edward GREENBERG, Barrie Brock Primary Care Physician [phone] Encounter [facility] [place] Date(s): 01/09/24 - 02/08/[address] [address] Encounter Type: Triage Allergies, Adverse Reactions, Alerts [...] tetanus/diphtheria/pertussis, acel(Tdap) 3 08/23/06 Given 1Result Comment: [facility] [place] 2]: [id number] 2Result Comment: [facility] [place]NOTE 2]:[id number] 3Admin Note: vis given Medications atorvastatin 20 [...] Maintenance, 12/26/23 2:26:00 PM EST, [facility], 177, cm, 09/05/23 12:59:00 EDT, Height Start [...] each Repeat number: 4 Freestyle Mark 2 Orange Freestyle Mark 2 Orange, See Instructions, # 1 each, Refills 0, [...] 2 Refills, Maintenance, 07/26/23 10:03:00AM EDT, Tablet, [facility]/pharmacy #1972, [...] 0 Refills, Maintenance, 12/26/23 2:26:00 PM EST, [facility], 28, APPLY ONE PATCH TOPICALLY DAILY, 177, cm, 09/05/23 12:59:00 EDT, Height Start Date: 12/26/23 Status: Ordered Quantity: 28.0 Unit: patch Repeat number: 1 oxyCODONE 10 mg oral tablet 1 tablet = 10 mg, By Mouth, 3 times a day, PRN Pain , Moderate, occupational therapist assistant checked, # 21 tablet, 0 Refills, Maintenance, 01/09/24 5:54:00 PM EST, Tablet, [facility]/pharmacy #1972, Partial [...] 10:28:00 AM EST, Route to Pharmacy Electronically, [id number], 177, cm, 09/05/23 12:59:00 EDT, Height Start [...] PCO Associate Professional Member Role: PCP Address: [address] [place] [address] Telecom: Care Team Related Persons Name: RAVINDRA STREET Name: DEVANG GARCIA Name: LAZARO GARCIA Insurance Providers Guarantor name: [employer] Health Plan Information #: 1 Payer: [place] OPEN [employer] Member Number: NA Policy Number: NA Group Number: NA
== END 2024-03-02 15:58 | disposition home or self-care (01) ==
PROVIDERS: PCP Internal Medicine; Visit Provider Internal Medicine
DX: E11.59 Type 2 diabetes mellitus with other circulatory complications (principal); I10 Essential (primary) hypertension; E66.01 Morbid (severe) obesity due to excess calories; Z68.41 Body mass index [BMI] 40.0-44.9, adult

== ENCOUNTER 2024-04-02 09:44 | Outpatient (REF) | payer BC, SELFPAY ==
--- OUTSIDE RECORDS SUMMARY | 2024-04-02 10:14 | XMS_ITS | Clinical Summary ---
[facility] Address [address] [place] [address] Care Team Providers Care Size Roller Operator Name Role Phone Unavailable Primary Care Provider Unavailabl e Allergies Active Allergy Reactions Criticality Noted Date Comments Mushroom Other (See Comments) Low 10/28/2014 GI UPSET Medications Medication Sig Dispensed Refills Start Date End Date Status Aspirin-Acetaminoph en-Caffeine (EXCEDRIN PO) Take by mouth as needed. 0 Active ibuprofen (ADVIL,MOTRIN) 200 MG tablet Take 200 mg by mouth as needed for pain. 0 Active amoxicillin (AMOXIL) 500 MG capsule Take 4 capsules one hour prior to the injection 20 capsule 1 10/28/2014 Active HYDROcodone-acetami nophen (NORCO) 7.5-325 MG per tablet Take 1 tablet by mouth 2 (two) times a day as needed for pain. 20 tablet 0 10/28/2014 Active Active Problems Problem Noted Date Diagnosed Date Displacement of lumbar inter vertebral disc without myelopathy 10/28/2014 Chronic low back pain 10/28/2014 Leg pain 10/28/2014 Right leg numbness 10/28/2014 Family History Medical History Relation Name Comments Breast cancer Mother Relation Name Status Comments Mother Alive Social History Tobacco Use Types Packs/Day Years Used Date Smoking Tobacco: Every Day Smokeless Tobacco: Never Alcohol Use Standard Drinks/Week Comments Yes 0 (1 standard drink = 0.6 oz pur e alcohol) rare Sex and Gender Information Value Date Recorded Sex Assigned at Not on file Gender Identity Not on file Sexual Orientation Not on file Last Filed Vital Signs Vital Sign Reading Time Taken Comments Blood Pressure 128/74 10/28/2014 2:07 PM EDT Pulse 68 10/28/2014 2:07 PM EDT Temperature 36.4 ??C (97.6 ??F) 10/28/2014 2:07 PM ED T Respiratory Rate - - Oxygen Saturation 98% 10/28/2014 2:07 PM EDT Inhaled Oxygen Concentration - - Weight 113.4 kg (250 lb) 10/28/2014 2:07 PM EDT Height 182.9 cm (6') 10/28/2014 2:07 PM EDT Body Mass Index 33.91 10/28/2014 2:07 PM EDT Plan of Treatment Health Maintenance Due Date Last Done Comments Hepatitis B Vaccines (1 of 3 - 3-dose series) 1973 Hepatitis C Screening 1973 COVID-19 Vaccine (#1) 1973 Pneumococcal Vaccine (1 of 2 - PCV) 1979 Depression Screening 1985 Preventative Health Evaluation 1991 DTap / Tdap / Td (1 - Tdap) 01/31/1992 Colon Cancer Screening (Colonoscopy) 2018 Shingrix-Zoster Vaccine (1 of 2) 2023 Influenza Vaccine (#1) 2023 RSV Ped < 20 months Aged Out No longe r eligible based on patient's age to complete this topic
--- OUTSIDE RECORDS SUMMARY | 2024-04-02 10:15 | XMS_ITS | Clinical Summary ---
Author Organization [facility] Address [address] [place] [address] Care Team Providers Care Signal Maintenance Technician Name Role Phone Steven Madera MD Primary Care Provider [phone] Encounters Date Type Department Care Team Description 01/08/2024 Telephone Internal Medicine [facility] [address] [place] [address] Steven Madera MD from Last 3 Months Social History Tobacco Use Types Packs/Day Years Used Date Smoking Tobacco: Never Assessed Sex and Gender Information Value Date Recorded Sex Assigned at Not on file Legal Sex Male 10:12 AM EST Gender Identity Not on file Sexual Orientation Not on file Plan of Treatment Health Maintenance Due Date Last Done Comments DTaP,Tdap,and Td Vaccines (1 - Tdap) 01/31/1992 Hepatitis B Vaccines (1 of 3 - 19+ 3-dose series) 01/31/1992 Pneumococcal Vaccine: 50+ Ye ars (1 of 1 - PCV) 2023 Zoster Vaccines (1 of 2) 2023 COVID-19 Vaccine ( - 2023-2 5 season) 2023 Influenza Vaccine (#1) 2023 Cholesterol Screening (Lipid Panel) 01/09/2024 Colorectal Cancer Screening: Colonoscopy 01/09/2024 Depression Screening 01/09/2024 HIV Screening 01/09/2024 Hepatitis C Screening 01/09/2024 Social Influencers of Health Screening 01/09/2024 HIB Vaccines Aged Out No longer eligi ble based on patient's age to complete this topic HPV Vaccines Aged Out No longer eligi ble based on patient's age to complete this topic Hepatitis A Vaccines Aged Out No long er eligible based on patient's age to complete this topic IPV Vaccines Aged Out No longer eligi ble based on patient's age to complete this topic MMR Vaccines Aged Out No longer eligi ble based on patient's age to complete this topic Meningococcal ACWY Vaccine Aged Out N o longer eligible based on patient's age to complete this topic Meningococcal B Vacine Aged Out No lo nger eligible based on patient's age to complete this topic Pneumococcal Vaccine: Pediat rics (0 to 5 Years) and At-Risk Patients (6 to 64 Years) Aged Out No longer eligible b ased on patient's age to complete this topic RSV Immunization Patients Un marquez 20 months Aged Out No longer eligible b ased on patient's age to complete this topic Varicella Vaccines Aged Out No longer eligible based on patient's age to complete this topic Care Teams Signal Maintenance Technician Relationship Specialty Start Date End Date Steven Madera MD [address] [place] [id number] PCP - General Internal Medicine 09/10/16
[2024-04-02 11:30] LABS: MANUAL DIFF FLAG NO
[2024-04-02 11:35] LABS: Basophils Absolute Auto 0.1 X10*3/uL (0.0-0.2); Basophils Percent Auto 0.6 % (0-2); Eosinophils Absolute Auto 0.2 X10*3/uL (0.0-0.4); Eosinophils Percent Auto 1.6 % (0-4); Hematocrit 44.3 % (42.0-52.0); Hemoglobin 15.1 g/dl (14.0-18.0); Imm Gran Abs Auto 0.03 X10*3/uL (0.00-0.03); Imm Gran Pct Auto 0.3 % (0.0-0.4); Lymphocytes Absolute Auto 2.3 X10*3/uL (1.2-4.9); Lymphocytes Percent Auto 23.4 % (20-40); Mean Corpuscular HGB Conc 34.1 g/dl (31.0-36.0); Mean Corpuscular Hemoglobin 30.3 pg (27.0-33.0); Mean Platelet Volume 9.4 fL (9.4-12.4); Monocytes Absolute Auto 0.9 X10*3/uL (0.1-1.2); Monocytes Percent Auto 9.6 % (2-11); Neutrophils Absolute Auto 6.3 x10*3/uL (2.0-8.3); Neutrophils Percent Auto 64.5 % (45-73); Platelet Count 320 X10*3/uL (160-400); Red Blood Count 4.98 X10*6/uL (4.60-5.80); Red Cell Distribution Width 12.7 % (11.0-16.0); White Blood Count 9.8 X10*3/uL (4.8-10.8)
[2024-04-02 11:44] LABS: Alanine Aminotransferase 15 U/L (0-40); Albumin Level 4.3 g/dL (3.5-5.0); Alkaline Phosphatase 65 U/L (39-117); Anion Gap 13 (12-20); Aspartate Amino Transferase 23 U/L (5-37); Bilirubin Total 0.5 mg/dL (0.0-1.0); Blood Urea Nitrogen 15 mg/dL (9-16); Calcium 9.8 mg/dL (8.4-10.2); Carbon Dioxide 26 mmol/L (22-29); Chloride 104 mmol/L (96-108); Estimated Glomerular Filt Rate > 60; Glucose Random 104 mg/dL (60-115); Potassium 4.2 mmol/L (3.3-5.1); Sodium 139 mmol/L (135-145); Total Protein 7.8 g/dL (6.5-8.0)
[2024-04-02 12:17] LABS: Erythrocyte Sedimentation Rate 10 MM/HR (0-15)
== END 2024-04-02 09:45 | disposition home or self-care (01) ==
LOC: HO.WFDLDS 09:44
PROVIDERS: Visit Provider Student in an Organized Health Care Education/Training Program
DX: L88 Pyoderma gangrenosum (principal)
CPT/HCPCS: 36415; 80053; 85025; 85652; 86140

== ENCOUNTER 2024-04-17 14:50 | Outpatient (AMB) | payer BC, SELFPAY ==
--- NOTE | 2024-04-17 14:44 | MHC.PC.OV ---
Intake Visit Reasons: Rebook from 04/07 F/U bloodwork Allergies No Known Allergies Allergy (Verified 03/02/24 15:29) Tobacco use date assessed: 01/03/24 Dental Screening Dental Screen Date: 01/03/24 HPI HPI Comments History of Present Illness Details This is a 49-year-old male with type 2 diabetes, hydradenitis suppurativa, pyoderma gangrenosum, HLA B27 positivity presenting for follow up Following with [facility]ology-[facility], dermatology-[place], wound care-[facility], vascular-[facility]. On humira. Remains on plavix following vascular surgery in Spring 2023. Is due for colonoscopy but this was deferred 2/2 AC therapy. Type 2 diabetes: On metformin 1000mg twice daily, mounjaro tolerating well. A1C at goal-due. neuropathy-on gabapentin at bedtime. Obese-finding it very difficult to exercise Chronic pain: From wounds, DDD, neuropathy. 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 Current occupational exposures/hazards: No Cognitive needs: No Hearing needs: No Vision needs: No Questionnaire Thrive Questionnaire Date Thrive assessed: 06/26/23 Physical exam (Primary Care) Tobacco/Smoking Status: Tobacco use Status Tobacco use date assessed 01/03/24 04/17/24 14:44 Patient Tobacco Use Status Current everyday Tobacco 04/17/24 14:44 Tobacco use type Cigarette 04/17/24 14:44 e-Cigarette/Vaping Use Never Used 04/17/24 14:44 Thrive Assessment: Date of Thrive Assessment Date Thrive assessed 06/26/23 04/17/24 14:44 Telehealth Telehealth [facility]health [facility] Location of provider rendering services: practice address Location of patient: address on file Patient Identification confirmed using: Name, : Yes Telehealth method: voice only Patient verbally consented to treatment: Yes Patient verbally consented to billing insurance company: Yes Patient informed of any privacy concerns related to visit: Yes Minutes spent on Phone/Video with Pt.: 23 Coding Level of Care Code Tele Est Pt Level 3 (47157) Diagnoses Type 2 diabetes mellitus with other circulatory complication, without long-term current use of insulin E11.59 Diabetes mellitus terminal make up operator insulin use: without terminal make up operator use Diabetes mellitus complication status: with circulatory complication Diabetes mellitus complication detail: with other circulatory complications Peripheral artery disease I73.9 Spondylosis of lumbar region without myelopathy or radiculopathy M47.816 Assessment & Plan Assessment & Plan (1) Type 2 diabetes mellitus: Code(s): E11.9 - Type 2 diabetes mellitus without complications Category: Medical Qualifiers: Diabetes mellitus terminal make up operator insulin use: without terminal make up operator use Diabetes mellitus complication status: with circulatory complication Diabetes mellitus complication detail: with other circulatory complications Qualified Code(s): E11.59 - Type 2 diabetes mellitus with other circulatory complications Plan: controlled. a1c in 3 months. Increase mounjaro, decrease metformin (2) Peripheral artery disease: Comment: 07/01/2023 - left SFA atherectomy and stent placed Code(s): I73.9 - Peripheral vascular disease, unspecified Category: Medical Plan: continue f/up vascular (3) Spondylosis of lumbar region without myelopathy or radiculopathy: Code(s): M47.816 - Spondylosis without myelopathy or radiculopathy, lumbar region Category: Medical Plan: Controlled on current pain managmeent Medications: New metformin ER 1,000 mg (2 x 500 mg) PO DAILY 180 tabs 3RF Mounjaro (tirzepatide) 7.5 mg (0.5 mL) subcut QWEEK 6 mL 3RF NS E11.59 - Type 2 diabetes mellitus with other circulatory complications Discontinued Mounjaro (tirzepatide) Discontinued Reason: Doctor's Order 5 mg (0.5 mL) subcut QWEEK 2 mL 0RF NS metformin Discontinued Reason: Doctor's Order 1,000 mg PO BID 60 tabs 0RF
--- OUTSIDE RECORDS SUMMARY | 2024-04-17 17:01 | XMS_ITS | Clinical Summary ---
[facility] Address [address] [place] [address] Care Team Providers Care Cellophane Tester Name Role Phone Unavailable Primary Care Provider [...]
--- OUTSIDE RECORDS SUMMARY | 2024-04-17 17:01 | XMS_ITS | Clinical Summary ---
Author Organization [facility] ity Address [address] [place] [address] Care Team Providers Care Diet Supervisor Name Role Phone Steven Madera MD Primary Care Provider [phone] Social History Tobacco Use Types Packs/Day Years [...] age to complete this topic Care Teams Diet Supervisor Relationship Specialty Start Date End Date Steven Madera MD [address] [place] [id number] PCP - General Internal Medicine 09/10/16
== END 2024-04-17 14:55 | disposition home or self-care (01) ==
LOC: HO.HMCFM 14:50
PROVIDERS: PCP Internal Medicine; Visit Provider Internal Medicine
DX: E11.59 Type 2 diabetes mellitus with other circulatory complications (principal); I73.9 Peripheral vascular disease, unspecified; M47.816 Spondylosis without myelopathy or radiculopathy, lumbar region

== ENCOUNTER 2024-06-01 14:41 | Outpatient (AMB) | payer BC, SELFPAY ==
--- NOTE | 2024-06-01 14:52 | MHC.PC.OV ---
Vital Signs 06/01/24 15:00 Height 6 ft Weight 302 lb BMI 41.0 BP 120/64 Blood Pressure Location Lt brachial Position Right Lateral BP not taken reason Medical Reason Respiration 16 Pulse 95 Pulse Source Pulse Oximeter Temp 102 F H Temp Source Oral Pulse Oximetry (%) 93 Oxygen Delivery Method Room Air Intake Visit Reasons: pain, DM follow up Intake Note: Diabetes follow up. Fever, chills started today. Bread Distributor Required: No Allergies No Known Allergies Allergy (Verified 06/01/24 14:56) Medication List - Last Reconciled 06/01/24 by Kristin Syed MD aspirin 81 mg PO DAILY atorvastatin 20 mg PO BEDTIME gabapentin 300 mg PO BEDTIME metformin ER 1,000 mg PO BEDTIME Mounjaro (tirzepatide) 7.5 mg (0.5 mL) subcut QWEEK NS nicotine (Nicoderm CQ) 1 patch transdermal Q24H ondansetron HCl 4 mg PO Q8H PRN oxycodone 10 mg PO Q8H PRN 30 days tizanidine 4 mg PO Q8H PRN [walker As directed] Tobacco use date assessed: 06/01/24 Dental Screening Dental Screen Date: 01/03/24 HPI HPI Comments History of Present Illness Details This is a 49-year-old male with type 2 diabetes, hydradenitis suppurativa, pyoderma gangrenosum, HLA B27 positivity presenting for follow up Following with rheumatology-[facility], dermatology[place], wound care-[facility], vascular-[facility]. On humira. Remains on plavix following vascular surgery in Spring 2023. Is due for colonoscopy but this was deferred 2/2 AC therapy. Type 2 diabetes: On metformin 1000mg once daily, mounjaro 7.5mg weekly tolerating well. A1C 5.7 today. Denies hypoglycemia. Neuropathy-on gabapentin at bedtime. Obese-finding it very difficult to exercise Chronic pain: From wounds, DDD, neuropathy. On chronic opioid therapy-oxycodone, celebrex, gabapentin Developed fever today. 104 when he came home, he rechecked at 102. Minimal cough. Feels tired. No chills. ROS see HPI PHYSICAL EXAM: GENERAL: Alert and oriented x 3. NAD EYES: EOMI. Anicteric. HENT: Moist mucous membranes. No scleral icterus. No cervical lymphadenopathy. LUNGS: Right anterior rhonci CARDIOVASCULAR: Regular rate and rhythm. No murmur. No JVD. ABDOMEN: Soft, non-tender +bs EXTREMITIES: No edema. Non-tender. SKIN: No rashes or lesions. Warm. NEUROLOGIC: No focal neurological deficits. CN II-XII grossly intact PSYCHIATRIC: Cooperative. 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 How often do you have a drink containing alcohol?: Never 3. How often do you have six or more drinks on one occasion?: Never Total Score: 0 Physical exam (Primary Care) Vital Signs: Last Vital Signs Temp 102 F H 06/01/24 15:00 Pulse 95 06/01/24 15:00 Resp 16 06/01/24 15:00 BP 120/64 06/01/24 15:00 Pulse Ox 93 06/01/24 15:00 Oxygen Delivery Method Room Air 06/01/24 15:00 BMI result Body Mass Index 41.0 Tobacco/Smoking Status: Tobacco use Status Tobacco use date assessed 06/01/24 06/01/24 14:59 Patient Tobacco Use Status Current everyday Tobacco 06/01/24 14:53 Tobacco use type Cigarette 06/01/24 14:53 e-Cigarette/Vaping Use Never Used 06/01/24 14:53 Thrive Assessment: Date of Thrive Assessment Date Thrive assessed 06/26/23 06/01/24 14:53 Results AMB Hemoglobin A1c AMB Hemoglobin A1c 5.7 % Last Edit by Estela George CMA on 06/01/24 15:11 Coding Level of Care Code Est Pt Level 4 (85717) Diagnoses Type 2 diabetes mellitus with other circulatory complication, without long-term current use of insulin E11.59 Diabetes mellitus fdc insulin use: without fdc use Diabetes mellitus complication status: with circulatory complication Diabetes mellitus complication detail: with other circulatory complications Upper respiratory tract infection, unspecified type J06.9 URI type: unspecified URI Assessment & Plan Assessment & Plan (1) Type 2 diabetes mellitus: Code(s): E11.9 - Type 2 diabetes mellitus without complications Category: Medical Qualifiers: Diabetes mellitus addiction treatment counselor insulin use: without addiction treatment counselor use Diabetes mellitus complication status: with circulatory complication Diabetes mellitus complication detail: with other circulatory complications Qualified Code(s): E11.59 - Type 2 diabetes mellitus with other circulatory complications (2) URI (upper respiratory infection): Code(s): J06.9 - Acute upper respiratory infection, unspecified Category: Medical Qualifiers: URI type: unspecified URI Qualified Code(s): J06.9 - Acute upper respiratory infection, unspecified Plan diabetes is well controlled. continue currrent medications Fever-exam concerning for bronchitis v pneumonia. Triple viral swab sent. Doxycycline sent. call if worsening symptoms Orders: Orders AMB Hemoglobin A1c Today E11.59 - Type 2 diabetes mellitus with other circulatory complications SARS-CoV2/FLU/RSV Today R50.9 - Fever, unspecified Medications: New doxycycline hyclate 100 mg PO BID 20 tabs 0RF Changed From gabapentin 300 mg PO BEDTIME 30 caps 0RF To gabapentin 300 mg PO TID 90 days 270 caps 3RF From metformin ER 1,000 mg (2 x 500 mg) PO DAILY 180 tabs 3RF To metformin ER 1,000 mg PO BEDTIME Refilled oxycodone Partial Fill upon patient request. patient may pay out of pocket 10 mg PO Q8H 30 days PRN 90 tabs 0RF pain I73.9 - Peripheral vascular disease, unspecified, S81.802A - Unspecified open wound, left lower leg, initial encounter
[2024-06-01 15:00] VITALS: BP 120/64; PULSE 95; RESP 16; TEMP 38.8; O2SAT 93; BMI 41.0
--- OUTSIDE RECORDS SUMMARY | 2024-06-01 17:11 | XMS_ITS | Clinical Summary ---
Author Organization [facility] ity Address [address] [place] [address] Care Team Providers Care Flatbed Truck Driver Name Role Phone Steven Madera MD Primary Care Provider [phone] [phone] Social History Tobacco Use Types Packs/Day Years [...] Vaccines (1 of 2) 2023 COVID-19 Vaccine (2023-2 5 season) 2023 Cholesterol Screening (Lipid Panel) 01/09/2024 Colorectal Cancer Screening: Colonoscopy 01/09/2024 Depression Screening 01/09/2024 HIV Screening 01/09/2024 Hepatitis C Screening 01/09/2024 Social Influencers of Health Screening 01/09/2024 Influenza Vaccine (Season Ended) 2024 HIB Vaccines Aged Out No longer eligi [...] age to complete this topic Meningococcal B Vaccine Aged Out No l onger eligible based on patient's age to complete [...] age to complete this topic Care Teams Flatbed Truck Driver Relationship Specialty Start Date End Date Steven Madera MD [address] [place] [id number] PCP - General Internal Medicine 09/10/16
--- OUTSIDE RECORDS SUMMARY | 2024-06-01 17:11 | XMS_ITS | Clinical Summary ---
[facility] Address [address] [place] [address] Care Team Providers Care Cafe Operator Name Role Phone Unavailable Primary Care [...]
== END 2024-06-01 15:28 | disposition home or self-care (01) ==
LOC: HO.HMCFM 14:41
PROVIDERS: PCP Internal Medicine; Visit Provider Internal Medicine
DX: E11.59 Type 2 diabetes mellitus with other circulatory complications (principal); J06.9 Acute upper respiratory infection, unspecified

== ENCOUNTER 2024-06-01 14:41 | Outpatient (REF) | payer BC, SELFPAY ==
--- OUTSIDE RECORDS SUMMARY | 2024-06-01 18:38 | XMS_ITS | Clinical Summary ---
Author Organization [facility] ity Address [address] [place] [address] Care Team Providers Care Software Business Analyst Name Role Phone Steven Madera MD Primary Care Provider [phone] [phone] Social History Tobacco Use Types Packs/Day Years [...] age to complete this topic Care Teams Software Business Analyst Relationship Specialty Start Date End Date Steven Madera MD [address] [place] [id number] PCP - General Internal Medicine 09/10/16
--- OUTSIDE RECORDS SUMMARY | 2024-06-01 18:38 | XMS_ITS | Clinical Summary ---
[facility] Address [address] [place] [address] Care Team Providers Care Lead Python Developer Name Role Phone Unavailable Primary Care Provider [...]
[2024-06-01 18:51] LABS: Influenza A PCR POSITIVE (Negative); Influenza B PCR NEGATIVE (Negative); Resp Syncy Virus RNA Qual PCR NEGATIVE (Negative); SARS COV2 PCR INHOUSE NEGATIVE (Negative)
== END 2024-06-01 14:42 | disposition home or self-care (01) ==
LOC: HO.LNP 14:41
PROVIDERS: PCP Internal Medicine; Visit Provider Internal Medicine
DX: R50.9 Fever, unspecified (principal); E11.59 Type 2 diabetes mellitus with other circulatory complications
CPT/HCPCS: 0241U; 83036

== ENCOUNTER 2024-09-01 13:58 | Outpatient (AMB) | payer BC, SELFPAY ==
--- NOTE | 2024-09-01 14:04 | A.OFFPC_ITS ---
Vital Signs 09/01/24 14:09 Weight 288 lb BP 118/57 L Blood Pressure Location Rt brachial Position Sitting Respiration 16 Pulse 62 Pulse Source Pulse Oximeter Temp 97.0 F Temp Source Temporal Artery Scan Pulse Oximetry (%) 95 Oxygen Delivery Method Room Air Intake Visit Reasons: DM Intake Note: Diabetes follow up. Refill on Oxycodone and Tizanidine. Allergies No Known Allergies Allergy (Verified 09/01/24 14:04) Tobacco use date assessed: 09/01/24 Dental Screening Dental Screen Date: 01/03/24 HPI HPI Comments History of Present Illness Details This is a 49-year-old male with type 2 diabetes, hydradenitis suppurativa, pyoderma gangrenosum, HLA B27 positivity presenting for follow up Following with rheumatology-[facility], [place], wound care-[facility], vascular- [facility]. On humira. Remains on plavix following vascular surgery. Is due for colonoscopy but this was deferred 2/2 AC therapy. Cologuard negative Type 2 diabetes: On metformin 1000mg once daily, mounjaro 7.5mg weekly tolerating well. A1C 5.7 today. 328 to 288 pounds. Denies hypoglycemia. Neuropathy-on gabapentin at bedtime. Obese-finding it very difficult to exercise Chronic pain: From wounds, DDD, neuropathy. On chronic opioid therapy-oxycodone, celebrex, gabapentin ROS see HPI PHYSICAL EXAM: GENERAL: Alert and oriented x 3. NAD EYES: EOMI. Anicteric. HENT: Moist mucous membranes. No scleral icterus. No cervical lymphadenopathy. LUNGS: scattered wheeze and rhonci CARDIOVASCULAR: Regular rate and rhythm. No murmur. No JVD. ABDOMEN: Soft, non-tender +bs EXTREMITIES: No edema. Non-tender. SKIN: No rashes or lesions. Warm. NEUROLOGIC: No focal neurological deficits. CN II-XII grossly intact PSYCHIATRIC: Cooperative. 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 Current occupational exposures/hazards: No Cognitive needs: No Hearing needs: No Vision needs: No Questionnaire Thrive Questionnaire Date Thrive assessed: 03/02/24 I am a: Patient What is your living situation today?: I have a steady place to live Within the past 12 months, did the food you bought not last and you didn't have the money to get more?: Sometimes True Within the past 12 months, did you worry whether your food would run out before you got money to buy more?: Never true Do you have trouble paying for medicines?: Yes Do you have trouble getting transportation to medical appointments?: No Do you have trouble paying your heating and electricity bill?: Yes Do you have trouble taking care of your child, family member or friend?: No Do you have trouble with day-to-day activities such as bathing, preparing meals, shopping, managing finances, etc.?: No Are you currently unemployed and looking for a job?: No Are you interested in more education?: No Please select the resources that you would like help with: Paying for medicine Currently or been in a relationship where the following occur: No concerns reported THRIVE Score: 2 AUDIT C Alcohol Use Questionnaire (AUDIT-C) 1. How often do you have a drink containing alcohol?: Monthly or less 2. How many drinks containing alcohol do you have on a typical day when you are drinking?: 1 or 2 3. How often do you have six or more drinks on one occasion?: Never Total Score: 1 Physical exam (Primary Care) Vital Signs: Last Vital Signs Temp 97.0 F 09/01/24 14:09 Pulse 62 09/01/24 14:09 Resp 16 09/01/24 14:09 BP 118/57 L 09/01/24 14:09 Pulse Ox 95 09/01/24 14:09 Oxygen Delivery Method Room Air 09/01/24 14:09 Tobacco/Smoking Status: Tobacco use Status Tobacco use date assessed 09/01/24 09/01/24 14:13 Patient Tobacco Use Status Current everyday Tobacco 09/01/24 14:13 Tobacco use type Cigarette 09/01/24 14:13 e-Cigarette/Vaping Use Never Used 09/01/24 14:13 Thrive Assessment: Date of Thrive Assessment Date Thrive assessed 03/02/24 09/01/24 14:13 Currently or been in a relationship where the following occur: No concerns reported Results AMB Hemoglobin A1c AMB Hemoglobin A1c 5.8 % Last Edit by Estela George CMA on 09/01/24 14:19 Results Reviewed Results Reviewed: Laboratory Last Values Hgb A1c (Clinic) 5.8 % (4.0-6.0) 09/01/24 14:15 Coding Level of Care Code Est Pt Level 4 (28348) Diagnoses Type 2 diabetes mellitus with other circulatory complication, without long-term current use of insulin E11.59 Diabetes mellitus alf insulin use: without terminal block assembler use Diabetes mellitus complication status: with circulatory complication Diabetes mellitus complication detail: with other circulatory complications Severe obesity (BMI >= 40) E66.01 Chronic low back pain, unspecified back pain laterality, unspecified whether sciatica present M54.50; G89.29 Chronicity: chronic Back pain laterality: unspecified Sciatica presence: unspecified whether sciatica present Assessment & Plan Assessment & Plan (1) Type 2 diabetes mellitus: Code(s): E11.9 - Type 2 diabetes mellitus without complications Category: Medical Qualifiers: Diabetes mellitus alf insulin use: without terminal block assembler use Diabetes mellitus complication status: with circulatory complication Diabetes mellitus complication detail: with other circulatory complications Qualified Code(s): E11.59 - Type 2 diabetes mellitus with other circulatory complications (2) Severe obesity (BMI >= 40): Code(s): E66.01 - Morbid (severe) obesity due to excess calories Category: Medical (3) Low back pain: Code(s): M54.50 - Low back pain, unspecified Category: Medical Qualifiers: Chronicity: chronic Back pain laterality: unspecified Sciatica presence: unspecified whether sciatica present Qualified Code(s): M54.50 - Low back pain, unspecified; G89.29 - Other chronic pain Plan 49 year old for follow up Diabetes is well controlled Continues to do well with weight loss, will increase increase mounjaro to 10mg daily. He will treat and call if experiencing any lows. RAD/bronchitis-azithromycin ventolin sent Orders: Orders AMB Hemoglobin A1c 09/01/24 E11.59 - Type 2 diabetes mellitus with other circulatory complications Testosterone, Free/Total 09/01/24 R53.83 - Other fatigue Comprehensive Met. Panel 09/01/24 E11.59 - Type 2 diabetes mellitus with other circulatory complications Medications: New Mounjaro (tirzepatide) 10 mg (0.5 mL) subcut QWEEK 6 mL 3RF NS E11.59 - Type 2 diabetes mellitus with other circulatory complications albuterol sulfate 90 mcg/actuation (Ventolin HFA) 2 puffs inhalation Q6H PRN 8.5 grams 3RF shortness of breath or wheezing azithromycin For 250 mg dose pack: take 500 mg today (day 1), then 250 mg for 4 days (days 2-5) PO 6 tabs 0RF Refilled oxycodone Partial Fill upon patient request. patient may pay out of pocket 10 mg PO Q8H PRN 90 tabs 0RF pain 30 days I73.9 - Peripheral vascular disease, unspecified, S81.802A - Unspecified open wound, left lower leg, initial encounter Discontinued Mounjaro (tirzepatide) Discontinued Reason: Doctor's Order 7.5 mg (0.5 mL) subcut QWEEK 6 mL 3RF NS E11.59 - Type 2 diabetes mellitus with other circulatory complications
[2024-09-01 14:09] VITALS: BP 118/57; PULSE 62; RESP 16; TEMP 36.1; O2SAT 95
--- OUTSIDE RECORDS SUMMARY | 2024-09-01 15:17 | XMS_ITS | Clinical Summary ---
[facility] Address [address] [place] [address] Care Team Providers Care Resident Care Director Name Role Phone Unavailable Primary Care Provider [...] 68 10/28/2014 2:07 PM EDT Temperature 36.4 C (97.6 F) 10/28/2014 2:07 PM EDT Respiratory Rate - - Oxygen Saturation 98% [...] (1 of 2) 2023 Influenza Vaccine (#1) 2024 RSV Ped < 20 months Aged Out No longe r eligible based on patient's age to complete this topic
--- OUTSIDE RECORDS SUMMARY | 2024-09-01 15:17 | XMS_ITS | Clinical Summary ---
Author Organization [facility]n [employer] [facility] ity Address [address] [place] [address] Care Team Providers Care Tip Finisher Name Role Phone Steven Madera MD Primary Care Provider [phone] [phone] Social History Tobacco Use Types Packs/Day Years [...] Vaccine ( - 2023-2 5 season) 2023 Cholesterol Screening (Lipid Panel) 01/09/2024 Colorectal Cancer Screening: Colonoscopy 01/09/2024 Depression Screening 01/09/2024 HIV Screening 01/09/2024 Hepatitis C Screening 01/09/2024 Social Influencers of Health Screening 01/09/2024 Influenza Vaccine (#1) 2024 HIB Vaccines Aged Out No longer [...] age to complete this topic Care Teams Tip Finisher Relationship Specialty Start Date End Date Steven Madera MD [address] [place] [id number] PCP - General Internal Medicine 09/10/16
== END 2024-09-01 14:31 | disposition home or self-care (01) ==
LOC: HO.HMCFM 13:59
PROVIDERS: PCP Internal Medicine; Visit Provider Internal Medicine
DX: E11.59 Type 2 diabetes mellitus with other circulatory complications (principal)

== ENCOUNTER → 2024-09-01 13:58 | Outpatient (BNVA) | payer BC, SELFPAY | PROVIDERS: PCP Internal Medicine; Visit Provider Internal Medicine | DX: E11.59 Type 2 diabetes mellitus with other circulatory complications (principal) | CPT/HCPCS: 83036 ==

== ENCOUNTER 2024-10-08 08:30 | Outpatient (RCR) | payer OTHER, SELFPAY ==
[2021-10-10 10:03] LABS: MANUAL DIFF FLAG NO
[2021-10-10 10:52] LABS: Hematocrit 43.2 % (42.0-52.0); Hemoglobin 14.4 g/dl (14.0-18.0); Imm Gran Abs Auto 0.02 X10*3/uL (0.00-0.03); Imm Gran Pct Auto 0.3 % (0.0-0.4); Lymphocytes Absolute Auto 2.1 X10*3/uL (1.2-4.9); Mean Corpuscular HGB Conc 33.3 g/dl (31.0-36.0); Mean Corpuscular Hemoglobin 30.3 pg (27.0-33.0); Mean Corpuscular Volume 90.8 fL (80.0-98.0); NRBC Abs Auto 0.000 X10*3/uL (0.0-0.012); NRBC Pct Auto 0.0 /100WBC (0.0-0.2); Platelet Count 332 X10*3/uL (160-400); Red Blood Count 4.76 X10*6/uL (4.60-5.80); White Blood Count 7.3 X10*3/uL (4.8-10.8)
[2021-10-10 10:57] LABS: Hemoglobin A1C 136.5002 umol/L; Total Hemoglobin (HGBA1C) 3788.8193 umol/L
[2021-10-10 11:17] LABS: Anion Gap 14 (12-20); Blood Urea Nitrogen 14 mg/dL (9-16); Calcium 9.0 mg/dL (8.4-10.2); Carbon Dioxide 26 mmol/L (22-29); Chloride 105 mmol/L (96-108); Estimated Glomerular Filt Rate > 60; Potassium 4.5 mmol/L (3.3-5.1); Prealbumin 29.0 mg/dL (20-40); Sodium 140 mmol/L (135-145)
[2021-10-10 11:37] LABS: Vitamin B12 491 pg/mL (200-900)
[2021-10-13 10:08] LABS: Anti Nuclear Antibody Screen NEGATIVE (NEGATIVE)
[2021-10-15 01:01] LABS: HLA B27 Positive (Negative)
--- NOTE | ~2024-10-08 | XR_ITS ---
EXAMINATION: XR THORACIC SPINE CLINICAL INFORMATION: Spondylitis COMPARISON: None TECHNIQUE: 3 views of the thoracic spine were obtained. FINDINGS: Bone alignment is normal. No fracture or dislocation. There is evidence of multilevel degenerative spondylosis. There is mild disc space narrowing of the mid and lower thoracic spine. Paraspinal soft tissues are normal. XR/XR thoracic spine 3V IMPRESSION: Multilevel degenerative changes.
== END 2024-10-08 14:35 | disposition home or self-care (01) ==
LOC: HO.WCC 08:30
PROVIDERS: Physician Assistant; PCP Nurse Practitioner Family; Visit Provider Colon & Rectal Surgery
DX: I87.312 Chronic venous hypertension (idiopathic) with ulcer of left lower extremity (principal); L97.222 Non-pressure chronic ulcer of left calf with fat layer exposed; I73.89 Other specified peripheral vascular diseases; L73.2 Hidradenitis suppurativa; I89.0 Lymphedema, not elsewhere classified; L24.9 Irritant contact dermatitis, unspecified cause
CPT/HCPCS: 11042; 11043; 11045; 11046; 11102; 11104; 15271; 15272; 15275; 17250; 29581; 36415; 72072; 80048; 82306; 82607; 83036; 84134; 85025; 85597; 85613; 85652; 85730; 86038; 86039; 86140; 86147; 86160; 86431; 86812; 88304; 88305; 88312; 97597; 97602; 97606; 99204; 99212; 99213; 99214; Q4101; Q4158